=== PATIENT | male | born 1965 | race Caucasian/White ===

== ENCOUNTER → 2024-01-09 | Outpatient (CLI) | payer MEDICARE, SELFPAY ==
[2024-01-09 17:42] LABS: Absolute Lymphocyte Count 1.66 X10^3/uL (0.83-4.51); Absolute Neutrophil Count 3.6 X10^3/uL (2.0-7.7); Basophil# 0.08 X10^3/uL; Basophil% 1.3 % (0-1); Eosinophil# 0.26 X10^3/uL; Eosinophils% 4.2 % (0-5); Hematocrit 41.1 % (40-54); Hemoglobin 13.9 g/dL (13.0-16.5); Lymphocyte # 1.66 X10^3/ul (0.83-4.51); Lymphocyte % 26.7 % (19-41); Mean Corp Hgb Conc 33.8 g/dL (32-36); Mean Corpuscular Volume 79.8 fL (80-94); Mean Platelet Vol. 10.7 fl (6.2-12.0); Monocyte# 0.61 X10^3/uL; Monocyte% 9.8 % (0-10); NRBC Flagged by Analyzer 0 % (0-5); Neutrophil # 3.58 X10^3/uL (2.7-7.7); Neutrophil % 57.5 % (47-70); Platelet Count 297 K/mm3 (150-450); RBC Distribution Width CV 12.8 % (11.6-14.6); RBC Distribution Width SD 36.4 fl (35.1-43.9); Red Blood Count 5.15 M/mm3 (4.6-6.2); White Blood Count 6.2 K/mm3 (4.4-11.0)
[2024-01-09 19:10] LABS: AST(SGOT) 21 U/L (15-37); Alanine Aminotransfer ALT/SGPT 17 U/L (16-61); Albumin, Serum 3.5 g/dL (3.2-5.0); Alkaline Phosphatase 195 U/L (45-117); Anion Gap 8 (5-15); BUN 14 mg/dL (7-18); BUN/Creat Ratio 12.8 RATIO (10-20); Calcium,Total 8.6 mg/dL (8.5-10.1); Chloride 96 mmol/L (98-107); Cholesterol 148 mg/dL (200); Creatinine, Serum 1.09 mg/dL (0.70-1.30); EST Glomerular Filtration Rate 73 mL/min (>60); Est Glom Filt Rate - Afr Amer 89 mL/min (>60); Globulin 3.6 g/dL (2.2-4.2); Glucose 456 mg/dL (74-106); High Density Lipoprotein 29 mg/dL; PSA,Total - Annual Screen 0.77 ng/mL (0.00-4.00); Potassium 4.1 mmol/L (3.5-5.1); Protein, Total 7.1 g/dL (6.4-8.2); Sodium Level 130 mmol/L (136-145); Triglycerides 429 mg/dL
[2024-01-09 19:48] LABS: Hemoglobin A1c 13.9 % (3.8-5.6)
== END | disposition home or self-care (01) ==
LOC: BFHLAB 14:02
PROVIDERS: PCP Nurse Practitioner Family; Referring Provider Nurse Practitioner Family; Visit Provider Nurse Practitioner Family
DX: I10 Essential (primary) hypertension (principal); E78.5 Hyperlipidemia, unspecified; Z12.5 Encounter for screening for malignant neoplasm of prostate; R73.01 Impaired fasting glucose
CPT/HCPCS: 36415; 80053; 80061; 83036; 84153; 85025; G0103

== ENCOUNTER → 2025-02-28 | Outpatient (CLI) | payer MEDICARE, SELFPAY ==
--- NOTE | 2025-02-28 12:27 | CT_ITS ---
PROCEDURE: SINUS/FACIAL BONE REASON FOR EXAM: CHRONIC SINUITIS TECHNIQUE: SINUS/FACIAL BONE Coronal and Sagittal reconstruction series were provided. One or more dose reduction techniques were used (e.g., Automated exposure control, adjustment of the mA and/or kV according to patient size, use of iterative reconstruction technique). COMPARISON: None. FINDINGS: Frontal: Clear Ethmoid: Mild mucosal thickening Sphenoid: Clear Maxillary: Clear Turbinates: Unremarkable. Nasal Septum: Predominantly midline Mastoids/Middle Ears: No significant mastoid effusions CT/Sinus/Facial Bone IMPRESSION: Sinusitis as detailed above Reading [facility]
--- OUTSIDE RECORDS SUMMARY | 2025-02-28 19:17 | XMS RPT_ITS | CCD ---
Author Organization [facility] Care Team Providers Care Counseling Department Chair Name Role Phone TANIA CAM C Unavailable Unavailable TUTU TANIA C Unavailable Unavailable ADDINELSON Aquino Unavailable Unavailable XU MCDUFFIE Unavailable Unavailable KENIA CHILD Unavailable Unavailable TUTU, TANIA C Unavailable Unavailable CHAYO EZIO Unavailable Unavailable DANA BELLE Unavailable UnavailGIRISH López Unavailable Unavailable TOPALIDIS, HATTIE Unavailable Unavailable JOCELYNE VENCES Unavailable Unavailable TUTU, TANIA C Unavailable Unavailable KB CASTELLANOS Unavailable Unavailable KB CASTELLANOS Unavailable Unavailable BK CASTELLANOS Unavailable Unavailable ALBER JOHNSON Unavailable Unavailable DANA BELLE Unavailable UnavailADONIS Moyer Unavailable Unavailable KELSEY RONDONA Unavailable Unavailable RUTH ANN STEVENSON Unavailable Unavailable TOPALIDIS, HATTIE Unavailable Unavailable RICHELLE REYNOLDS Unavailable Unavailable TOPALIDIS, HATTIE Unavailable Unavailable KEILY, HATTIE Unavailable Unavailable DANA MEJIA Attending Unavailable DANA MEJIA Primary Care Unavailable DANA MEJIA Admitting Unavailable FARHAD MUÑIZ Consulting Unavailable PROVIDER, UNKNOWN Consulting Unavailable TRU GONZALEZ CNP Attending Unavailable TRU GONZALEZ CNP Primary Care Unavailable TRU GONZALEZ CNP Admitting Unavailable FARHAD MUÑIZ Consulting Unavailable PROVIDER, UNKNOWN Consulting Unavailable TRU GONZALEZ CNP Attending Unavailable TRU GONZALEZ CNP Primary Care Unavailable TRU GONZALEZ CNP Admitting Unavailable FARHAD MUÑIZ Consulting Unavailable PROVIDER, UNKNOWN Consulting Unavailable Mandi Reynolds) Primary Care Provider [phone] Brett Null Referring Unavailable Brett Null Attending Unavailable Brett Null Primary Care Unavailable Allergies Allergy Classification Reported Allergen(s) Allergy Type Date of Onset Reaction(s) Facility (1 source) Aspirin Drug Allergy [facility] (1 source) Ibuprofen Drug Allergy [facility] (1 source) Penicillins Drug allergy (disorder) [facility] (2 sources) Aspirin Drug Allergy 6 Rash, Hives [facility] (2 sources) cultivated mushroom extract Drug Allergy 6 Anaphylaxis [facility] (2 sources) Oxytetracycline Drug Allergy 6 Anaphylaxis [facility] (1 source) Penicillin Drug Allergy 6 Anaphylaxis [facility] (2 sources) Oxytetracycline; Translations: [oxytetracycline HCl] Drug Allergy 6 Anaphylaxis [facility] (1 source) Penicillins Allergy to substance 6 Anaphylaxis [facility] (1 source) Aspirin Drug Allergy 6 [facility] (1 source) Mushroom (edible) Drug allergy (disorder) 6 [facility] (1 source) Oxytetracycline Drug Allergy 6 [facility] (1 source) Penicillins Drug allergy (disorder) 6 [facility] Medications Completed/Discontinued Medications Medication Drug Class(es) Dates Sig (Normalized) Sig (Original) atorvastatin 80 mg oral tablet (1 source) HMG-CoA Reductase Inhibitor Start: 07-28-2016 take 1 tablet by mouth once daily at bedtime for hyperlipidemia atorvastatin (LIPITOR) 80 mg tablet Take 1 tablet by mouth daily at bedtime. For cholesterol. 90 tablet 1 07/28/2016 Active Comment on above: Take 1 tablet by geovanna th daily at bedtime. For cholesterol. Blood-Glucose Meter (FREESTYLE LITE METER) monitoring kit (1 source) Start: 07-28-2016 Blood-Glucose Meter (FREESTYLE LITE METER) monitoring kit Indications: Type 2 diabetes mellitus without complication, without long-term current use of insulin (HCC) Freestyle LITE Meter Kit - Dx: Type 2 DM - Controlled E11.9 1 Each 0 07/28/2016 Active Comment on above: Freestyle LITE Meter Kit - Dx: Type 2 DM - Controlled E11.9 lamoTRIgine 150 mg oral tablet (2 sources) Mood Stabilizer, Anti-epileptic Agent Start: 03-23-2016 take 1 tablet by mouth twice daily lamoTRIgine (LAMICTAL) 150 mg tablet Indications: Bipolar affective disorder, current episode mixed, current episode severity unspecified (HCC) , PTSD (post-traumatic stress disorder) Take 1 tablet by mouth twice daily. Please complete lab and keep appointment as scheduled for further refills 180 tablet 1 07/28/2016 Active Comment on above: Take 1 tablet by geovanna th twice daily. Please complete lab and keep appointment as scheduled for further refills lisinopril 5 mg oral tablet (1 source) Angiotensin Converting Enzyme Inhibitor Start: 07-28-2016 take 1 tablet by mouth once daily lisinopril (PRINIVIL) 5 mg tablet Indications: Type 2 diabetes mellitus without complication, without long-term current use of insulin ([facility]) Take 1 tablet by mouth once daily. 90 tablet 1 07/28/2016 Active Comment on above: Take 1 tablet by geovanna th once daily. metFORMIN hydrochloride 500 mg oral tablet (1 source) Biguanide Start: 07-28-2016 take 1 tablet by mouth twice daily at mealtime metFORMIN (GLUCOPHAGE) 500 mg tablet Indications: Type 2 diabetes mellitus without complication, without long-term current use of insulin ([facility]) Take 1 tablet by mouth twice daily with meals. . 60 tablet 2 07/28/2016 Active Comment on above: Take 1 tablet by geovanna th twice daily with meals. . metoprolol tartrate 50 mg oral tablet (2 sources) beta-Adrenergic Nicho Start: 03-23-2016 take 1 tablet by mouth twice daily metoprolol tartrate, short acting, (LOPRESSOR) 50 mg tablet Indications: Essential hypertension Take 1 tablet by mouth twice daily. Complete labs and keep next appointment for further refills 180 tablet 1 07/28/2016 Active Comment on above: Take 1 tablet by geovanna th twice daily. Complete labs and keep next appointment for further refills rOPINIRole 0.25 mg oral tablet (2 sources) Nonergot Dopamine Agonist Start: 03-23-2016 take 1 tablet by mouth once daily at bedtime rOPINIRole (REQUIP) 0.25 mg tablet Indications: Restless leg syndrome Take 1 tablet by mouth daily at bedtime. Complete labs and keep appointment for further refills 90 tablet 1 07/28/2016 Active Comment on above: Take 1 tablet by geovanna th daily at bedtime. Complete labs and keep appointment for further refills Problems Active Problems Problem Classification Problem Date Documented Date Episodic/Chronic Anxiety disorders (1 source) Posttraumatic stress disorder; Translations: [Post-traumatic stress disorder, unspecified] Onset: 06-14-2016 06-14-2016 Chronic Diabetes mellitus without complication (1 source) Type 2 diabetes mellitus without complication; Translations: [Type 2 diabetes mellitus without complications] Onset: 10-08-2016 10-08-2016 Chronic Diabetes mellitus without complication (1 source) Other abnormal glucose; Translations: [Other abnormal glucose] Onset: 12-10-2020 Episodic Essential hypertension (3 sources) Essential (primary) hypertension; Translations: [Essential hypertension] Onset: 06-14-2016 06-14-2016 Chronic Mood disorders (1 source) Bipolar affective disorder, current episode mixed; Translations: [Bipolar disorder, current episode mixed, unspecified] Onset: 06-14-2016 06-14-2016 Chronic Other hereditary and degenerative nervous system conditions (1 source) Restless legs; Translations: [Restless legs syndrome] Onset: 06-14-2016 06-14-2016 Chronic Other nutritional; endocrine; and metabolic disorders (1 source) Body mass index 40+ - severely obese; Translations: [Morbid (severe) obesity due to excess calories] Onset: 12-20-2017 12-20-2017 Chronic Other screening for suspected conditions (not mental disorders or infectious disease) (1 source) Encounter for screening for lipoid disorders; Translations: [Encounter for screening for lipoid disorders] Onset: 12-10-2020 Episodic Spondylosis; intervertebral disc disorders; other back problems (1 source) Degeneration of lumbar intervertebral disc; Translations: [Other intervertebral disc degeneration, lumbar region] Onset: 06-14-2016 06-14-2016 Chronic Past or Other Problems Problem Classification Problem Date Documented Da te Episodic/Chronic Administrative/social admission (1 source) Persons encountering health services in other specified circumstances; Translations: [Persons encountering health services in other specified circumstances] Onset: 02-14-2020 Episodic Results Test Name Value Interpretation Reference Range Facility Absolute lymphocyte countOrd ered By: Brett Null on 01-09-2024 Lymphocytes Auto (Unsp spec) [#/Vol] 1.66 10*3/uL 0.83-4.51 [facility] Automated lymphocyte count a s percentage of total leukocytesOrdered By: Brett Null on 01-09-2024 Lymphocytes/100 WBC Auto (Unsp spec) 26.7 % 19-41 [facility] Basophil percentageOrdered B y: Brett Null on 01-09-2024 Basophils/100 WBC (Bld) 1.3 % 0-1 [facility] Bilirubin [Mass/Vol] 0.60 mg/dL 0.20-1.00 [facility] Comment on above: For patients on eltr ombopag therapy, use of Dimension [place] TBIL is not recommended. Chloride [Moles/Vol] 96 mmol/L 98-107 [facility] Cholesterol [Mass/Vol] 148 mg/dL <200 [facility] Comment on above: <200 mg/dL Desirable 200-240 mg/dL Borderline >240 mg/dL High Risk Eosinophils/100 WBC (Bld) 4.2 % 0-5 [facility] Glucose [Mass/Vol] 456 mg/dL 74-106 [facility] Comment on above: Critical Result(s) C alled at: 19:09:01 01/09/2024 by: Ramona kim TO BRETT ALEJANDRAGAR. Results read back by same.Glucose result greater than or equal to 200 mg/dLsuggests DIABETES MELLITUS per A.D.A. criteria. Hemoglobin (Bld) [Mass/Vol] 13.9 g/dL 13.0-16.5 [facility] Monocytes/100 WBC (Bld) 9.8 % 0-10 [facility] Neutrophils (Bld) [#/Vol] 3.6 10*3/uL 2.0-7.7 [facility] Neutrophils/100 WBC (Bld) 57.5 % 47-70 [facility] Potassium [Moles/Vol] 4.1 mmol/L 3.5-5.1 [facility] Protein [Mass/Vol] 7.1 g/dL 6.4-8.2 [facility] Sodium [Moles/Vol] 130 mmol/L 136-145 [facility] Triglyceride [Mass/Vol] 429 mg/dL <199 [facility] Comment on above: The drugs N-Acetylcy steine and Metamizole may falsely depress this assay. TRIGLYCERIDE IS GREATER THAN 400 mg/dL. LDL RESULT IS INVALID AND WILL NOT BE REPORTED.Serum Triglycerides Reference Interval Normal <150 mg/dL Borderline high 150 - 199 mg/dL High 200 - 499 mg/dL Very High > or = 500 mg/dL WBC (Bld) [#/Vol] 6.2 10*3/uL 4.4-11.0 [facility] CBC W/Diff, Automatedon 12-18 Absolute Lymph 1.66 X10 3/uL Normal 0.83-4.51 [facility] Comment on above: Performed By: #### L 100.0100, L500.4100, L501.9910, L500.4050, L501.9985 #### [facility] [address] [place], [address] Absolute Neut 3.6 X10 3/uL Normal 2.0-7.7 [facility] Comment on above: Performed By: #### L 100.0100, L500.4100, L501.9910, L500.4050, [id number] #### [facility] [address] [place], [address] Basophils/100 WBC (Bld) 1.3 % High 0-1 [facility] Comment on above: Performed By: #### L 100.0100, L500.4100, L501.9910, L500.4050, [id number] #### [facility] [address] [place], [address] Eosinophils/100 WBC (Bld) 4.2 % Normal 0-5 [facility] Comment on above: Performed By: #### L 100.0100, L500.4100, L501.9910, L500.4050, [id number] #### [facility] [address] [place], [address] Erythrocyte distribution width (RBC) [Ratio] 12.8 % Normal 11.6-14.6 [facility] Comment on above: Performed By: #### L 100.0100, L500.4100, L501.9910, L500.4050, [id number] #### [facility] [address] [place], [address] Hematocrit (Bld) [Volume fraction] 41.1 % Normal 40-54 [facility] Comment on above: Performed By: #### L 100.0100, L500.4100, L501.9910, L500.4050, [id number] #### [facility] [address] [place], [address] Hemoglobin (Bld) [Mass/Vol] 13.9 g/dL Normal 13.0-16.5 [facility] Comment on above: Performed By: #### L 100.0100, L500.4100, L501.9910, L500.4050, L501.9985 #### [facility] [address] [place], [address] IG% 0.500 Normal 0.0-0.9 [facility] Comment on above: Result Comment: IG% - Immature Granulocytes (promyelocytes, myelocytes and metamyelocytes) > 1% indicates that a LEFT SHIFT is Present. Performed By: #### L 100.0100, L500.4100, L501.9910, L500.4050, L501.9985 #### [facility] [address] [place], [address] Lymphocytes/100 WBC (Bld) 26.7 % Normal 19-41 [facility] Comment on above: Performed By: #### L 100.0100, L500.4100, L501.9910, L500.4050, [id number] #### [facility] [address] [place], [address] MCH (RBC) [Entitic mass] 27.0 pg Normal 27.0-32.0 [facility] Comment on above: Performed By: #### L 100.0100, L500.4100, L501.9910, L500.4050, [id number] #### [facility] [address] [place], [address] MCHC (RBC) [Mass/Vol] 33.8 g/dL Normal 32-36 [facility] Comment on above: Performed By: #### L 100.0100, L500.4100, L501.9910, L500.4050, [id number] #### [facility] [address] [place], [address] MCV (RBC) [Entitic vol] 79.8 fL Low 80-94 [facility] Comment on above: Performed By: #### L 100.0100, L500.4100, L501.9910, L500.4050, [id number] #### [facility] [address] [place], [address] Monocytes/100 WBC (Bld) 9.8 % Normal 0-10 [facility] Comment on above: Performed By: #### L 100.0100, L500.4100, L501.9910, L500.4050, [id number] #### [facility] [address] [place], [address] Neutrophils/100 WBC (Bld) 57.5 % Normal 47-70 [facility] Comment on above: Performed By: #### L 100.0100, L500.4100, L501.9910, L500.4050, L501.9985 #### [facility] [address] [place], [address] Nucleated RBC (Bld) [#/Vol] 0 10*3/uL Normal 0-5 [facility] Comment on above: Performed By: #### L 100.0100, L500.4100, L501.9910, L500.4050, L501.9985 #### [facility] [address] [place], [address] Platelet mean volume (Bld) [Entitic vol] 10.7 fL Normal 6.2-12.0 [facility] Comment on above: Performed By: #### L 100.0100, L500.4100, L501.9910, L500.4050, L501.9985 #### [facility] [address] [place], [address] Platelets (Bld) [#/Vol] 297 10*3/uL Normal 150-450 [facility] Comment on above: Performed By: #### L 100.0100, L500.4100, L501.9910, L500.4050, L501.9985 #### [facility] [address] [place], [address] RBC (Bld) [#/Vol] 5.15 10*6/uL Normal 4.6-6.2 [facility] Comment on above: Performed By: #### L 100.0100, L500.4100, L501.9910, L500.4050, L501.9985 #### [facility] [address] [place], [address] RDW SD 36.4 fl Normal 35.1-43.9 [facility] Comment on above: Performed By: #### L 100.0100, L500.4100, L501.9910, L500.4050, L501.9985 #### [facility] [address] [place], [address] WBC (Bld) [#/Vol] 6.2 10*3/uL Normal 4.4-11.0 [facility] Comment on above: Performed By: #### L 100.0100, L500.4100, L501.9910, L500.4050, L501.9985 #### [facility] [address] [place], [address] Comprehensive Metabolic Prof ilon 01-09-2024 Albumin [Mass/Vol] 3.5 g/dL Normal 3.2-5.0 [facility] Comment on above: Performed By: #### L 100.0100, L500.4100, L501.9910, L500.4050, L501.9985 #### [facility] [address] [place], [address] Albumin/Globulin [Mass ratio] 1.0 {ratio} Normal 0.9-2.4 [facility] Comment on above: Performed By: #### L 100.0100, L500.4100, L501.9910, L500.4050, L501.9985 #### [facility] [address] [place], [address] ALK P 195 U/L High 45-117 [facility] Comment on above: Performed By: #### L 100.0100, L500.4100, L501.9910, L500.4050, L501.9985 #### [facility] [address] [place], [address] ALT [Catalytic activity/Vol] 17 U/L Normal 16-61 [facility] Comment on above: Performed By: #### L 100.0100, L500.4100, L501.9910, L500.4050, L501.9985 #### [facility] [address] [place], [address] AST [Catalytic activity/Vol] 21 U/L Normal 15-37 [facility] Comment on above: Performed By: #### L 100.0100, L500.4100, L501.9910, L500.4050, L501.9985 #### [facility] [address] [place], [address] Bilirubin [Mass/Vol] 0.60 mg/dL Normal 0.20-1.00 [facility] Comment on above: Result Comment: For patients on eltrombopag therapy, use of Dimension [place] TBIL is not recommended. Performed By: #### L 100.0100, L500.4100, L501.9910, L500.4050, L501.9985 #### [facility] [address] [place], [address] BUN/CRE 12.8 RATIO Normal 10-20 [facility] Comment on above: Performed By: #### L 100.0100, L500.4100, L501.9910, L500.4050, L501.9985 #### [facility] [address] [place], [address] CA,Total 8.6 mg/dL Normal 8.5-10.1 [facility] Comment on above: Performed By: #### L 100.0100, L500.4100, L501.9910, L500.4050, L501.9985 #### [facility] [address] [place], [address] Chloride [Moles/Vol] 96 mmol/L Low 98-107 [facility] Comment on above: Performed By: #### L 100.0100, L500.4100, L501.9910, L500.4050, L501.9985 #### [facility] [address] [place], [address] CO2 [Moles/Vol] 26.0 mmol/L Normal 21.0-32.0 [facility] Comment on above: Performed By: #### L 100.0100, L500.4100, L501.9910, L500.4050, L501.9985 #### [facility] [address] [place], [address] Creatinine [Mass/Vol] 1.09 mg/dL Normal 0.70-1.30 [facility] Comment on above: Result Comment: The validity of the calculated GFR GFRAA in patients over 70 years has not been determined. Clinical correlation is essential. Performed By: #### L 100.0100, L500.4100, L501.9910, L500.4050, L501.9985 #### [facility] [address] [place], [address] EST GFR - AA 89 mL/min Normal >60 [facility] Comment on above: Result Comment: Afri can Bulgarian GFR Calc Performed By: #### L 100.0100, L500.4100, L501.9910, L500.4050, L501.9985 #### [facility] [address] [place], [address] GAP 8 Normal 5-15 [facility] Comment on above: Performed By: #### L 100.0100, L500.4100, L501.9910, L500.4050, L501.9985 #### [facility] [address] [place], [address] GFR/1.73 sq M.predicted among non-blacks MDRD (S/P/Bld) [Vol rate/Area] 73 mL/min/{1.73_m2} Normal >60 [facility] Comment on above: Result Comment: Non- GFR Calc Performed By: #### L 100.0100, L500.4100, L501.9910, L500.4050, L501.9985 #### [facility] [address] [place], [address] Globulin (S) [Mass/Vol] 3.6 g/dL Normal 2.2-4.2 [facility] Comment on above: Performed By: #### L 100.0100, L500.4100, L501.9910, L500.4050, L501.9985 #### [facility] [address] [place], [address] Glucose [Mass/Vol] 456 mg/dL Invalid Interpretation Code [id number] [facility] Comment on above: Result Comment: Crit ical Result(s) Called at: 19:09:01 01/09/2024 by: Ramona kim TO BRETT NULL. Results read back by same. Glucose result greater than or equal to 200 mg/dL suggests DIABETES MELLITUS per A.D.A. criteria. Performed By: #### L 100.0100, L500.4100, L501.9910, L500.4050, L501.9985 #### [facility] [address] [place], [address] Potassium [Moles/Vol] 4.1 mmol/L Normal 3.5-5.1 [facility] Comment on above: Performed By: #### L 100.0100, L500.4100, L501.9910, L500.4050, L501.9985 #### [facility] [address] [place], [address] Sodium [Moles/Vol] 130 mmol/L Low 136-145 [facility] Comment on above: Performed By: #### L 100.0100, L500.4100, L501.9910, L500.4050, L501.9985 #### [facility] [address] [place], [address] T PROT 7.1 g/dL Normal 6.4-8.2 [facility] Comment on above: Performed By: #### L 100.0100, L500.4100, L501.9910, L500.4050, L501.9985 #### [facility] [address] [place], [address] Urea nitrogen [Mass/Vol] 14 mg/dL Normal 7-18 [facility] Comment on above: Performed By: #### L 100.0100, L500.4100, L501.9910, L500.4050, L501.9985 #### [facility] [address] [place], [address] Determination of erythrocyte mean corpuscular volume (MCV)Ordered By: Brett Null on 01-09-2024 MCV (RBC) [Entitic vol] 79.8 fL 80-94 [facility] Erythrocyte distribution wid th ratioOrdered By: [facility] on 01-09-2024 Erythrocyte distribution width (RBC) [Ratio] 12.8 % 11.6-14.6 [facility] Erythrocyte distribution wid th standard deviationOrdered By: [facility] on 01-09-2024 Erythrocyte distribution width (RBC) [Entitic vol] 36.4 fL 35.1-43.9 [facility] Hematocrit Auto (Bld) [Volum e fraction]Ordered By: [place] Hcaka on 01-09-2024 Hematocrit (Bld) [Volume fraction] 41.1 % 40-54 [facility] Hemoglobin A1con 01-09-2024 HbA1c (Bld) [Mass fraction] 13.9 % High 3.8-5.6 [facility] Comment on above: Result Comment: Norm al < 5.7 % Prediabetic 5.7 - 6.4 % Diabetic >or= 6.5 % Please note range changes. Performed By: #### L 100.0100, L500.4100, L501.9910, L500.4050, L501.9985 #### [facility] [address] [facility] [place], [address] Immature granulocytes/100 WB C Auto (Bld)Ordered By: Brett Chaka on 01-09-2024 Immature granulocytes/100 WBC (Bld) 0.500 % 0.0-0.9 [facility] Comment on above: IG% - Immature Granu locytes (promyelocytes, myelocytes and metamyelocytes) > 1% indicates that a LEFT SHIFT is Present. Laboratory - Chemistry and C hemistry - challengeOrdered By: [place] Chaka on 01-09-2024 Albumin/Globulin [Mass ratio] 1.0 {ratio} 0.9-2.4 [facility] ALP [Catalytic activity/Vol] 195 U/L 45-117 [facility] ALT [Catalytic activity/Vol] 17 U/L 16-61 [facility] Cholesterol in HDL [Mass/Vol] 29 mg/dL >40 [facility] Comment on above: The drugs N-Acetylcy steine and Metamizole may falsely depress this assay. Reference Range HDL <40 mg/dL Low HDL Cholesterol HDL >or= 60 mg/dL High HDL Cholesterol CO2 [Moles/Vol] 26.0 mmol/L 21.0-32.0 [facility] Globulin (S) [Mass/Vol] 3.6 g/dL 2.2-4.2 [facility] Urea nitrogen/Creatinine [Mass ratio] 12.8 mg/mg 10-20 [facility] - Hematology and Cell countsOrdered By: Brett Null on 01-09-2024 MCH (RBC) [Entitic mass] 27.0 pg 27.0-32.0 [facility] MCHC (RBC) [Mass/Vol] 33.8 g/dL 32-36 [facility] Nucleated RBC/100 WBC (Bld) [Ratio] 0 % 0-5 [facility] Platelet mean volume (Bld) [Entitic vol] 10.7 fL 6.2-12.0 [facility] Platelets (Bld) [#/Vol] 297 10*3/uL 150-450 [facility] Lipid Profileon 01-09-2024 Cholesterol [Mass/Vol] 148 mg/dL Normal 200 [facility] Comment on above: Result Comment: <200 mg/dL Desirable 200-240 mg/dL Borderline >240 mg/dL High Risk Performed By: #### L 100.0100, L500.4100, L501.9910, L500.4050, L501.9985 #### [facility] [address] [place], [address] Cholesterol in HDL [Mass/Vol] 29 mg/dL Low [facility] Comment on above: Result Comment: The drugs N-Acetylcysteine and Metamizole may falsely depress this assay. Reference Range HDL <40 mg/dL Low HDL Cholesterol HDL >or= 60 mg/dL High HDL Cholesterol Performed By: #### L 100.0100, L500.4100, L501.9910, L500.4050, L501.9985 #### [facility] [address] [place], [address] LDL TNP Normal 0-130 [facility] Comment on above: Performed By: #### L 100.0100, L500.4100, L501.9910, L500.4050, L501.9985 #### [facility] [address] [place], [place], [id number] Triglyceride [Mass/Vol] 429 mg/dL High [facility] Comment on above: Result Comment: The drugs N-Acetylcysteine and Metamizole may falsely depress this assay. TRIGLYCERIDE IS GREATER THAN 400 mg/dL. LDL RESULT IS INVALID AND WILL NOT BE REPORTED. Serum Triglycerides Reference Interval Normal <150 mg/dL Borderline high 150 - 199 mg/dL High 200 - 499 mg/dL Very High > or = 500 mg/dL Performed By: #### L 100.0100, L500.4100, L501.9910, L500.4050, L501.9985 #### [facility] [address] [place], [address] VLDL TNP Normal 5-40 [facility] Comment on above: Performed By: #### L 100.0100, L500.4100, L501.9910, L500.4050, L501.9985 #### [facility] [address] [place], [place], [id number] No Panel InformationOrdered By: Brett Null on 01-09-2024 Estimated GFR (MDRD) Amer 89 mL/min >60 [facility] Comment on above: GFR Calc Estimated GFR (MDRD) Non-Af Amer 73 mL/min >60 [facility] Comment on above: Non- GFR Calc LDL Cholesterol TNP [facility] Comment on above: Test not performed Prostate Specific Antigen Screen 0.77 ng/mL 0.00-4.00 [facility] Comment on above: This test was perfor med using the TPSA assay method for the[employer] chemistry system. Values obtained with differentassay methods cannot be used interchangably.When changing PSA assays in the course of monitoring apatient, additional sequential testing should be carriedout to confirm baseline values. VLDL Cholesterol TNP [facility] Comment on above: Test not performed PSA,Total - Annual Screenon 01-09-2024 PSA,TOT SCREEN 0.77 ng/mL Normal 0.00-4.00 [facility] Comment on above: Result Comment: This test was performed using the TPSA assay method for the [employer] chemistry system. Values obtained with different assay methods cannot be used interchangably. When changing PSA assays in the course of monitoring a patient, additional sequential testing should be carried out to confirm baseline values. Performed By: #### L 100.0100, L500.4100, L501.9910, L500.4050, L501.9985 #### [facility] [address] [place], [address] RBC Auto (Bld) [#/Vol]Ordere d By: Brett Null on 01-09-2024 RBC (Bld) [#/Vol] 5.15 10*6/uL 4.6-6.2 [facility] Serum or plasma calcium igor urement (mass/volume)Ordered By: Brett Null on 01-09-2024 Calcium [Mass/Vol] 8.6 mg/dL 8.5-10.1 [facility] Serum or plasma creatinine m easurement (mass/volume)Ordered By: Brett Null on 01-09-2024 Creatinine [Mass/Vol] 1.09 mg/dL 0.70-1.30 [facility] Comment on above: The validity of the calculated GFR & GFRAA in patients over 70 years has not been determined. Clinical correlation is essential. Serum or plasma urea nitroge n measurement (mass/volume)Ordered By: Brett Null on 01-09-2024 Urea nitrogen [Mass/Vol] 14 mg/dL 7-18 [facility] Thin prep Papanicolaou smear with manual screeningOrdered By: Brett Null on 01-09-2024 Thin prep Papanicolaou smear with manual screening 3.5 g/dL 3.2-5.0 [facility] Thin prep Papanicolaou smear with manual screening 21 U/L 15-37 [facility] Thin prep Papanicolaou smear with manual screening 8 5-15 [facility] Whole blood hemoglobin A1c/t otal hemoglobin ratio (mass fraction)Ordered By: Brett Null on 01-09-2024 HbA1c (Bld) [Mass fraction] 13.9 % 3.8-5.6 [facility] Comment on above: Normal < 5.7 % Predi abetic 5.7 - 6.4 % Diabetic >or= 6.5 % Please note range changes. XR CHEST 2 VIEWSon 8 XR CHEST 2 VIEWS ORIGINALXR CHEST 2 V IEWS CLINICAL STATEMENT: pleural effusion COMPARISON: 04/25/2018 FINDINGS:The cardiac contours are stable with postoperative changes to the sternum and mediastinum. There is no pulmonary vascular congestion or consolidation. No pleural effusion or pneumothorax is identified. The bony thorax is stable IMPRESSION:No acute process or interval change Interpreted By: Cristel Barakat MDPreliminary Report By: Cristel Barakat MDElectronically Signed By: Cristel Barakat MD Dictated Date: 05/16/2018 1:02:11 PM Prelim Date: 05/16/2018 1:02:11 PM Sign Date: 05/16/2018 1:02:33 PM Normal [facility] ([place] XR CHEST 2 VIEWSon 8 XR CHEST 2 VIEWS ORIGINALXR CHEST 2 V IEWS, 04/25/2018 11:46 AM INDICATION: pleural effusion COMPARISON: March 2018 FINDINGS: Sternotomy wires and mediastinal surgical clips are unchanged. There is mild hyperinflation. The lungs and pleural spaces are otherwise clear. The cardiac silhouette is within normal size limits. The pulmonary vasculature is unremarkable in appearance. IMPRESSION: Mild emphysematous changes, otherwise clear lungs. Interpreted By: Destin Guidry MDPreliminary Report By: Destin Guidry MDElectronically Signed By: Destin Guidry MD Dictated Date: 04/26/2018 5:33:22 AM Prelim Date: 04/26/2018 5:33:22 AM Sign Date: 04/26/2018 5:34:27 AM Normal [facility] ([place] History and Physicalon 04-21 History and Physical Normal [facility] ([place]) Discharge Summaryon 04-13-20 18 Discharge Summary Normal [facility] ([place]) .Auto Diffon 04-12-2018 Ammonia mass conc (P) 0.60 10 3/mcL Normal 0.09-1.40 [facility] ([place] Comment on above: Performed By: #### C BC, ADIFF, ANEU, CMP, PBNP, GFR, A1C ####[address] [address] Basophils Auto #/vol (Bld) 0.10 10 3/mcL Normal 0.00-0.27 [facility] ([place] Comment on above: Performed By: #### C BC, ADIFF, ANEU, CMP, PBNP, GFR, A1C ####[address] [address] Basophils/100 WBC Auto (Bld) 1.3 % Normal 0.0-2.5 [facility] ([place] Comment on above: Performed By: #### C BC, ADIFF, ANEU, CMP, PBNP, GFR, A1C ####[address] [address] Eosinophils Auto #/vol (Bld) 0.40 10 3/mcL Normal 0.00-0.65 [facility] ([place] Comment on above: Performed By: #### C BC, ADIFF, ANEU, CMP, PBNP, GFR, A1C ####[address] [address] Eosinophils/100 WBC Auto (Bld) 5.1 % Normal 0.0-6.0 [facility] ([place] Comment on above: Performed By: #### C BC, ADIFF, ANEU, CMP, PBNP, GFR, A1C ####[address] [address] Lymphocytes Auto #/vol (Bld) 2.50 10 3/mcL Normal 0.90-4.32 [facility] ([place] Comment on above: Performed By: #### C BC, ADIFF, ANEU, CMP, PBNP, GFR, A1C ####[address] [address] Lymphocytes/100 WBC Auto (Bld) 31.4 % Normal 20.0-40.0 [facility] ([place] Comment on above: Performed By: #### C BC, ADIFF, ANEU, CMP, PBNP, GFR, A1C ####[address] [address] Monocytes/100 WBC Auto (Bld) 8.0 % Normal 2.0-13.0 [facility] ([place] Comment on above: Performed By: #### C BC, ADIFF, ANEU, CMP, PBNP, GFR, A1C ####[facility] [place] [address] Neutrophils/100 WBC Auto (Bld) 54.2 % Normal 50.0-75.0 [facility] ([place] Comment on above: Performed By: #### C BC, ADIFF, ANEU, CMP, PBNP, GFR, A1C ####[address] [address] .GFRon 04-12-2018 GFR Non- >60 Normal [facility] ([place] Comment on above: Result Comment: GFR Population mean for , Non- Americans Ages 20-29 = 116 mL/min/1.73 sq.m. Ages 30-39 = 107 mL/min/1.73 sq.m. Ages 40-49 = 99 mL/min/1.73 sq.m. Ages 50-59 = 93 mL/min/1.73 sq.m. Ages 60-69 = 85 mL/min/1.73 sq.m. Ages 70+ = 75 mL/min/1.73 sq.m.Chronic Kidney Disease: Less than 60 mL/min/1.73 square metersEnd Stage Renal Disease: Less than 15 mL/min/1.73 square meters Performed By: #### C BC, ADIFF, ANEU, CMP, PBNP, GFR, A1C ####[place] [address] [place] [address] GFR >60 Normal [facility] ([place] Comment on above: Result Comment: GFR Population mean for , Non- Americans Ages 20-29 = 116 mL/min/1.73 sq.m. Ages 30-39 = 107 mL/min/1.73 sq.m. Ages 40-49 = 99 mL/min/1.73 sq.m. Ages 50-59 = 93 mL/min/1.73 sq.m. Ages 60-69 = 85 mL/min/1.73 sq.m. Ages 70+ = 75 mL/min/1.73 sq.m.Chronic Kidney Disease: Less than 60 mL/min/1.73 square metersEnd Stage Renal Disease: Less than 15 mL/min/1.73 square meters Performed By: #### C BC, ADIFF, ANEU, CMP, PBNP, GFR, A1C ####[place] [address] .NEUABSon 04-12-2018 Neutrophil, Absolute 4.20 10 3/mcL Normal 2.25-8.10 [facility] ([place]) Comment on above: Performed By: #### C BC, ADIFF, ANEU, CMP, PBNP, GFR, A1C ####[place] [address] APTTon 04-12-2018 aPTT Coag time (Bld) 48.3 s High 25.0-35.0 [facility] ([place] Comment on above: Result Comment: For Heparin anticoagulation therapy, the recommendedtherapeutic range is: 54-77 seconds (APTT Correlationwith Anti-Xa therapeutic range of 0.3-0.7 units/ml).PLEASE REFERENCE THE PHARMACY PROTOCOL FOR DOSING. Performed By: #### C BC, ADIFF, ANEU, CMP, PBNP, GFR, A1C ####[place] [address] aPTT Coag time (Bld) Heparin IV Normal [facility] ([place]) Comment on above: Performed By: #### C BC, ADIFF, ANEU, CMP, PBNP, GFR, A1C ####[place] [address] aPTT Coag time (Bld) Heparin IV Normal [facility] ([place]) Comment on above: Performed By: #### C BC, ADIFF, ANEU, CMP, PBNP, GFR, A1C ####[place] [address] aPTT Coag time (Bld) 33.3 s Normal 25.0-35.0 [facility] ([place] Comment on above: Result Comment: For Heparin anticoagulation therapy, the recommendedtherapeutic range is: 54-77 seconds (APTT Correlationwith Anti-Xa therapeutic range of 0.3-0.7 units/ml).PLEASE REFERENCE THE PHARMACY PROTOCOL FOR DOSING. Performed By: #### C BC, ADIFF, ANEU, CMP, PBNP, GFR, A1C ####[place] [id number] BMPon 04-12-2018 Creatinine mass conc 0.90 mg/dL Normal 0.60-1.40 [facility] ([place] Comment on above: Performed By: #### C BC, ADIFF, ANEU, CMP, PBNP, GFR, A1C ####[place] [address] Urea nitrogen/Creatinine mass ratio 13.3 ratio Normal 10.0-22.0 [facility] ([place] Comment on above: Performed By: #### C BC, ADIFF, ANEU, CMP, PBNP, GFR, A1C ####[place] [address] Calcium mass conc 9.0 mg/dL Normal 8.4-10.1 [facility] ([place] Comment on above: Performed By: #### C BC, ADIFF, ANEU, CMP, PBNP, GFR, A1C ####[place] [address] Chloride molar conc 102 mmol/L Normal 98-110 [facility] ([place]) Comment on above: Performed By: #### C BC, ADIFF, ANEU, CMP, PBNP, GFR, A1C ####[place] [address] CO2 molar conc 28 mmol/L Normal 22-32 [facility] ([place] Comment on above: Performed By: #### C BC, ADIFF, ANEU, CMP, PBNP, GFR, A1C ####[place] [address] Electrolyte Balance 9.0 mEq/L Normal 4.0-15.0 [facility] ([place]) Comment on above: Performed By: #### C BC, ADIFF, ANEU, CMP, PBNP, GFR, A1C ####[place] [address] Glucose mass conc 149 mg/dL High 70-110 [facility] ([place] Comment on above: Performed By: #### C BC, ADIFF, ANEU, CMP, PBNP, GFR, A1C ####[place] [address] Potassium molar conc 3.9 mmol/L Normal 3.5-5.0 [facility] ([place] Comment on above: Performed By: #### C BC, ADIFF, ANEU, CMP, PBNP, GFR, A1C ####[place] [address] Sodium molar conc 139 mmol/L Normal 136-145 [facility] ([place] Comment on above: Performed By: #### C BC, ADIFF, ANEU, CMP, PBNP, GFR, A1C ####[place] [address] Urea nitrogen mass conc 12.0 mg/dL Normal 8.0-22.0 [facility] ([place] Comment on above: Performed By: #### C BC, ADIFF, ANEU, CMP, PBNP, GFR, A1C ####[place] [address] CBCon 04-12-2018 Erythrocyte distribution width Auto Ratio (RBC) 14.4 % Normal 11.5-15.5 [facility] ([place] Comment on above: Performed By: #### C BC, ADIFF, ANEU, CMP, PBNP, GFR, A1C ####[place] [address] Hematocrit Auto Volume Fraction (Bld) 33.3 % Low 40.0-52.0 [facility] ([place] Comment on above: Performed By: #### C BC, ADIFF, ANEU, CMP, PBNP, GFR, A1C ####[place] [address] Hemoglobin mass conc (Bld) 11.8 G/dL Low 13.0-17.5 [facility] ([place] Comment on above: Performed By: #### C BC, ADIFF, ANEU, CMP, PBNP, GFR, A1C ####[place] [address] MCH Auto Entitic mass (RBC) 29.0 pg Normal 27.0-33.0 [facility] ([place] Comment on above: Performed By: #### C BC, ADIFF, ANEU, CMP, PBNP, GFR, A1C ####[place] [address] MCHC Auto mass conc (RBC) 35.4 G/dL Normal 32.0-36.0 [facility] ([place] Comment on above: Performed By: #### C BC, ADIFF, ANEU, CMP, PBNP, GFR, A1C ####[place] [address] MCV Auto Entitic volume (RBC) 81.9 fL Normal 81.0-100.0 [facility] ([place] Comment on above: Performed By: #### C BC, ADIFF, ANEU, CMP, PBNP, GFR, A1C ####[place] [address] Platelet mean volume Auto Entitic volume (Bld) 7.7 fL Normal 6.4-10.5 [facility] ([place] Comment on above: Performed By: #### C BC, ADIFF, ANEU, CMP, PBNP, GFR, A1C ####[place] [address] Platelets Auto #/vol (Bld) 399 10 3/mcL Normal 150-450 [facility] ([place] Comment on above: Performed By: #### C BC, ADIFF, ANEU, CMP, PBNP, GFR, A1C ####[place] [address] RBC Auto #/vol (Bld) 4.06 10 6/mcL Low 4.50-6.00 [facility] ([place] Comment on above: Performed By: #### C BC, ADIFF, ANEU, CMP, PBNP, GFR, A1C ####[place] [address] WBC Auto #/vol (Bld) 7.80 10 3/mcL Normal 4.50-10.80 [facility] ([place] Comment on above: Performed By: #### C BC, ADIFF, ANEU, CMP, PBNP, GFR, A1C ####[address] [address] Depart Summaryon 04-12-2018 Depart Summary Normal [facility] ([place] Inpatient Patient Summaryon 04-12-2018 Inpatient Patient Summary Normal [facility] [place] Pain Management Consultation Noteon 04-12-2018 Pain Management Consultation Note Normal [facility] ([place]) Pat Eduon 04-12-2018 Pat Edu Normal [facility] ([place] Progress Noteon 04-12-2018 Protein mass conc Normal [facility] ([place]) .Auto Diffon 04-11-2018 Ammonia mass conc (P) 0.80 10 3/mcL Normal 0.09-1.40 [facility] ([place] Comment on above: Performed By: #### C BC, ADIFF, ANEU, CMP, PBNP, GFR, A1C ####[address] [address] Basophils Auto #/vol (Bld) 0.10 10 3/mcL Normal 0.00-0.27 [facility] ([place] Comment on above: Performed By: #### C BC, ADIFF, ANEU, CMP, PBNP, GFR, A1C ####[address] [address] Basophils/100 WBC Auto (Bld) 0.9 % Normal 0.0-2.5 [facility] ([place] Comment on above: Performed By: #### C BC, ADIFF, ANEU, CMP, PBNP, GFR, A1C ####[address] [address] Eosinophils Auto #/vol (Bld) 0.40 10 3/mcL Normal 0.00-0.65 [facility] ([place] Comment on above: Performed By: #### C BC, ADIFF, ANEU, CMP, PBNP, GFR, A1C ####[address] [address] Eosinophils/100 WBC Auto (Bld) 4.0 % Normal 0.0-6.0 [facility] ([place] Comment on above: Performed By: #### C BC, ADIFF, ANEU, CMP, PBNP, GFR, A1C ####[address] [address] Lymphocytes Auto #/vol (Bld) 1.80 10 3/mcL Normal 0.90-4.32 [facility] ([place]) Comment on above: Performed By: #### C BC, ADIFF, ANEU, CMP, PBNP, GFR, A1C ####[address] [address] Lymphocytes/100 WBC Auto (Bld) 18.6 % Low 20.0-40.0 [facility] ([place] Comment on above: Performed By: #### C BC, ADIFF, ANEU, CMP, PBNP, GFR, A1C ####[address] [address] Monocytes/100 WBC Auto (Bld) 8.2 % Normal 2.0-13.0 [facility] ([place] Comment on above: Performed By: #### C BC, ADIFF, ANEU, CMP, PBNP, GFR, A1C ####[address] [address] Neutrophils/100 WBC Auto (Bld) 68.3 % Normal 50.0-75.0 [facility] ([place] Comment on above: Performed By: #### C BC, ADIFF, ANEU, CMP, PBNP, GFR, A1C ####[address] [address] .GFRon 04-11-2018 GFR Non- >60 Normal [facility] ([place] Comment on above: Result Comment: GFR Population mean for , Non- Americans Ages 20-29 = 116 mL/min/1.73 sq.m. Ages 30-39 = 107 mL/min/1.73 sq.m. Ages 40-49 = 99 mL/min/1.73 sq.m. Ages 50-59 = 93 mL/min/1.73 sq.m. Ages 60-69 = 85 mL/min/1.73 sq.m. Ages 70+ = 75 mL/min/1.73 sq.m.Chronic Kidney Disease: Less than 60 mL/min/1.73 square metersEnd Stage Renal Disease: Less than 15 mL/min/1.73 square meters Performed By: #### C BC, ADIFF, ANEU, CMP, PBNP, GFR, A1C ####[address] [address] GFR >60 Normal [facility] ([place] Comment on above: Result Comment: GFR Population mean for , Non- Americans Ages 20-29 = 116 mL/min/1.73 sq.m. Ages 30-39 = 107 mL/min/1.73 sq.m. Ages 40-49 = 99 mL/min/1.73 sq.m. Ages 50-59 = 93 mL/min/1.73 sq.m. Ages 60-69 = 85 mL/min/1.73 sq.m. Ages 70+ = 75 mL/min/1.73 sq.m.Chronic Kidney Disease: Less than 60 mL/min/1.73 square metersEnd Stage Renal Disease: Less than 15 mL/min/1.73 square meters Performed By: #### C BC, ADIFF, ANEU, CMP, PBNP, GFR, A1C ####[place] [address] .NEUABSon 04-11-2018 Neutrophil, Absolute 6.50 10 3/mcL Normal 2.25-8.10 [facility] ([place] Comment on above: Performed By: #### C BC, ADIFF, ANEU, CMP, PBNP, GFR, A1C ####[place] [address] BMPon 04-11-2018 Creatinine mass conc 1.06 mg/dL Normal 0.60-1.40 [facility] ([place] Comment on above: Performed By: #### C BC, ADIFF, ANEU, CMP, PBNP, GFR, A1C ####[place] [address] Urea nitrogen/Creatinine mass ratio 7.5 ratio Low 10.0-22.0 [facility] ([place] Comment on above: Performed By: #### C BC, ADIFF, ANEU, CMP, PBNP, GFR, A1C ####[place] [address] Calcium mass conc 8.9 mg/dL Normal 8.4-10.1 [facility] ([place] Comment on above: Performed By: #### C BC, ADIFF, ANEU, CMP, PBNP, GFR, A1C ####[place] [address] Chloride molar conc 101 mmol/L Normal 98-110 [facility] ([place]) Comment on above: Performed By: #### C BC, ADIFF, ANEU, CMP, PBNP, GFR, A1C ####[place] [address] CO2 molar conc 33 mmol/L High 22-32 [facility] ([place] Comment on above: Performed By: #### C BC, ADIFF, ANEU, CMP, PBNP, GFR, A1C ####[place] [address] Electrolyte Balance 6.0 mEq/L Normal 4.0-15.0 [facility] ([place] Comment on above: Performed By: #### C BC, ADIFF, ANEU, CMP, PBNP, GFR, A1C ####[place] [address] Glucose mass conc 157 mg/dL High 70-110 [facility] ([place] Comment on above: Performed By: #### C BC, ADIFF, ANEU, CMP, PBNP, GFR, A1C ####[place] [address] Potassium molar conc 4.2 mmol/L Normal 3.5-5.0 [facility] ([place] Comment on above: Performed By: #### C BC, ADIFF, ANEU, CMP, PBNP, GFR, A1C ####[place] [address] Sodium molar conc 140 mmol/L Normal 136-145 [facility] ([place] Comment on above: Performed By: #### C BC, ADIFF, ANEU, CMP, PBNP, GFR, A1C ####[place] [address] Urea nitrogen mass conc 8.0 mg/dL Normal 8.0-22.0 [facility] ([place] Comment on above: Performed By: #### C BC, ADIFF, ANEU, CMP, PBNP, GFR, A1C ####[place] [address] CBCon 04-11-2018 Erythrocyte distribution width Auto Ratio (RBC) 14.9 % Normal 11.5-15.5 [facility] ([place] Comment on above: Performed By: #### C BC, ADIFF, ANEU, CMP, PBNP, GFR, A1C ####[place] [address] Hematocrit Auto Volume Fraction (Bld) 35.6 % Low 40.0-52.0 [facility] ([place] Comment on above: Performed By: #### C BC, ADIFF, ANEU, CMP, PBNP, GFR, A1C ####[place] [address] Hemoglobin mass conc (Bld) 12.5 G/dL Low 13.0-17.5 [facility] ([place] Comment on above: Performed By: #### C BC, ADIFF, ANEU, CMP, PBNP, GFR, A1C ####[place] [address] MCH Auto Entitic mass (RBC) 29.3 pg Normal 27.0-33.0 [facility] ([place] Comment on above: Performed By: #### C BC, ADIFF, ANEU, CMP, PBNP, GFR, A1C ####[place] [address] MCHC Auto mass conc (RBC) 35.0 G/dL Normal 32.0-36.0 [facility] ([place] Comment on above: Performed By: #### C BC, ADIFF, ANEU, CMP, PBNP, GFR, A1C ####[place] [address] MCV Auto Entitic volume (RBC) 83.6 fL Normal 81.0-100.0 [facility] ([place] Comment on above: Performed By: #### C BC, ADIFF, ANEU, CMP, PBNP, GFR, A1C ####[place] [address] Platelet mean volume Auto Entitic volume (Bld) 7.5 fL Normal 6.4-10.5 [facility] ([place] Comment on above: Performed By: #### C BC, ADIFF, ANEU, CMP, PBNP, GFR, A1C ####[address] [address] Platelets Auto #/vol (Bld) 411 10 3/mcL Normal 150-450 [facility] ([place] Comment on above: Performed By: #### C BC, ADIFF, ANEU, CMP, PBNP, GFR, A1C ####[place] [address] RBC Auto #/vol (Bld) 4.27 10 6/mcL Low 4.50-6.00 [facility] ([place] Comment on above: Performed By: #### C BC, ADIFF, ANEU, CMP, PBNP, GFR, A1C ####[place] [address] WBC Auto #/vol (Bld) 9.60 10 3/mcL Normal 4.50-10.80 [facility] ([place] Comment on above: Performed By: #### C BC, ADIFF, ANEU, CMP, PBNP, GFR, A1C ####[place] [address] Echocardiogram, Adulton 03-19 Echocardiogram, Adult Normal [facility] ([place]) Internal Medicine Progress N oteon 04-11-2018 Protein mass conc Normal [facility] ([place]) .Auto Diffon 04-10-2018 Ammonia mass conc (P) 0.80 10 3/mcL Normal 0.09-1.40 [facility] ([place] Comment on above: Performed By: #### C BC, ADIFF, ANEU, CMP, PBNP, GFR, A1C ####[place] [address] Basophils Auto #/vol (Bld) 0.10 10 3/mcL Normal 0.00-0.27 [facility] ([place] Comment on above: Performed By: #### C BC, ADIFF, ANEU, CMP, PBNP, GFR, A1C ####[place] [address] Basophils/100 WBC Auto (Bld) 1.0 % Normal 0.0-2.5 [facility] ([place] Comment on above: Performed By: #### C BC, ADIFF, ANEU, CMP, PBNP, GFR, A1C ####[address] [address] Eosinophils Auto #/vol (Bld) 0.40 10 3/mcL Normal 0.00-0.65 [facility] ([place] Comment on above: Performed By: #### C BC, ADIFF, ANEU, CMP, PBNP, GFR, A1C ####[address] [address] Eosinophils/100 WBC Auto (Bld) 3.6 % Normal 0.0-6.0 [facility] ([place] Comment on above: Performed By: #### C BC, ADIFF, ANEU, CMP, PBNP, GFR, A1C ####[address] [address] Lymphocytes Auto #/vol (Bld) 2.10 10 3/mcL Normal 0.90-4.32 [facility] ([place] Comment on above: Performed By: #### C BC, ADIFF, ANEU, CMP, PBNP, GFR, A1C ####[address] [address] Lymphocytes/100 WBC Auto (Bld) 20.6 % Normal 20.0-40.0 [facility] ([place] Comment on above: Performed By: #### C BC, ADIFF, ANEU, CMP, PBNP, GFR, A1C ####[address] [address] Monocytes/100 WBC Auto (Bld) 8.1 % Normal 2.0-13.0 [facility] ([place] Comment on above: Performed By: #### C BC, ADIFF, ANEU, CMP, PBNP, GFR, A1C ####[address] [address] Neutrophils/100 WBC Auto (Bld) 66.7 % Normal 50.0-75.0 [facility] ([place] Comment on above: Performed By: #### C BC, ADIFF, ANEU, CMP, PBNP, GFR, A1C ####[address] [address] .GFRon 04-10-2018 GFR Non- >60 Normal [facility] ([place] Comment on above: Result Comment: GFR Population mean for , Non- Americans Ages 20-29 = 116 mL/min/1.73 sq.m. Ages 30-39 = 107 mL/min/1.73 sq.m. Ages 40-49 = 99 mL/min/1.73 sq.m. Ages 50-59 = 93 mL/min/1.73 sq.m. Ages 60-69 = 85 mL/min/1.73 sq.m. Ages 70+ = 75 mL/min/1.73 sq.m.Chronic Kidney Disease: Less than 60 mL/min/1.73 square metersEnd Stage Renal Disease: Less than 15 mL/min/1.73 square meters Performed By: #### C BC, ADIFF, ANEU, CMP, PBNP, GFR, A1C ####[address] [address] GFR >60 Normal [facility] ([place] Comment on above: Result Comment: GFR Population mean for , Non- Americans Ages 20-29 = 116 mL/min/1.73 sq.m. Ages 30-39 = 107 mL/min/1.73 sq.m. Ages 40-49 = 99 mL/min/1.73 sq.m. Ages 50-59 = 93 mL/min/1.73 sq.m. Ages 60-69 = 85 mL/min/1.73 sq.m. Ages 70+ = 75 mL/min/1.73 sq.m.Chronic Kidney Disease: Less than 60 mL/min/1.73 square metersEnd Stage Renal Disease: Less than 15 mL/min/1.73 square meters Performed By: #### C BC, ADIFF, ANEU, CMP, PBNP, GFR, A1C ####[address] [address] .NEUABSon 04-10-2018 Neutrophil, Absolute 6.80 10 3/mcL Normal 2.25-8.10 A [facility] ([place]) Comment on above: Performed By: #### C BC, ADIFF, ANEU, CMP, PBNP, GFR, A1C ####[address] [address] APTTon 04-10-2018 aPTT Coag time (Bld) 26.8 s Normal 25.0-35.0 [facility] ([place]) Comment on above: Result Comment: For Heparin anticoagulation therapy, the recommendedtherapeutic range is: 54-77 seconds (APTT Correlationwith Anti-Xa therapeutic range of 0.3-0.7 units/ml).PLEASE REFERENCE THE PHARMACY PROTOCOL FOR DOSING. Performed By: #### C BC, ADIFF, ANEU, CMP, PBNP, GFR, A1C ####[address] [address] aPTT Coag time (Bld) None Normal [facility] ([place]) Comment on above: Performed By: #### C BC, ADIFF, ANEU, CMP, PBNP, GFR, A1C ####[address] [address] aPTT Coag time (Bld) Heparin IV Normal [facility] ([place]) Comment on above: Performed By: #### C BC, ADIFF, ANEU, CMP, PBNP, GFR, A1C ####[place] [address] aPTT Coag time (Bld) 35.5 s High 25.0-35.0 [facility] ([place]) Comment on above: Result Comment: For Heparin anticoagulation therapy, the recommendedtherapeutic range is: 54-77 seconds (APTT Correlationwith Anti-Xa therapeutic range of 0.3-0.7 units/ml).PLEASE REFERENCE THE PHARMACY PROTOCOL FOR DOSING. Performed By: #### C BC, ADIFF, ANEU, CMP, PBNP, GFR, A1C ####[address] [address] aPTT Coag time (Bld) Heparin IV Normal [facility] ([place]) Comment on above: Performed By: #### C BC, ADIFF, ANEU, CMP, PBNP, GFR, A1C ####[address] [address] aPTT Coag time (Bld) 26.7 s Normal 25.0-35.0 [facility] ([place] Comment on above: Result Comment: For Heparin anticoagulation therapy, the recommendedtherapeutic range is: 54-77 seconds (APTT Correlationwith Anti-Xa therapeutic range of 0.3-0.7 units/ml).PLEASE REFERENCE THE PHARMACY PROTOCOL FOR DOSING. Performed By: #### C BC, ADIFF, ANEU, CMP, PBNP, GFR, A1C ####[place] [address] BMPon 04-10-2018 Calcium mass conc 8.8 mg/dL Normal 8.4-10.1 [facility] ([place] Comment on above: Performed By: #### C BC, ADIFF, ANEU, CMP, PBNP, GFR, A1C ####[place] [address] Chloride molar conc 102 mmol/L Normal 98-110 [facility] ([place]) Comment on above: Performed By: #### C BC, ADIFF, ANEU, CMP, PBNP, GFR, A1C ####[place] [address] CO2 molar conc 27 mmol/L Normal 22-32 [facility] ([place] Comment on above: Performed By: #### C BC, ADIFF, ANEU, CMP, PBNP, GFR, A1C ####[place] [address] Creatinine mass conc 1.02 mg/dL Normal 0.60-1.40 [facility] ([place]) Comment on above: Performed By: #### C BC, ADIFF, ANEU, CMP, PBNP, GFR, A1C ####[place] [address] Electrolyte Balance 9.0 mEq/L Normal 4.0-15.0 [facility] ([place]) Comment on above: Performed By: #### C BC, ADIFF, ANEU, CMP, PBNP, GFR, A1C ####[place] [address] Glucose mass conc 137 mg/dL High 70-110 [facility] ([place] Comment on above: Performed By: #### C BC, ADIFF, ANEU, CMP, PBNP, GFR, A1C ####[place] [address] Potassium molar conc 3.8 mmol/L Normal 3.5-5.0 [facility] ([place] Comment on above: Performed By: #### C BC, ADIFF, ANEU, CMP, PBNP, GFR, A1C ####[place] [address] Sodium molar conc 138 mmol/L Normal 136-145 [facility] ([place] Comment on above: Performed By: #### C BC, ADIFF, ANEU, CMP, PBNP, GFR, A1C ####[place] [address] Urea nitrogen mass conc 11.0 mg/dL Normal 8.0-22.0 [facility] ([place] Comment on above: Performed By: #### C BC, ADIFF, ANEU, CMP, PBNP, GFR, A1C ####[place] [address] Urea nitrogen/Creatinine mass ratio 10.8 ratio Normal 10.0-22.0 [facility] ([place] Comment on above: Performed By: #### C BC, ADIFF, ANEU, CMP, PBNP, GFR, A1C ####[place] [address] CBCon 04-10-2018 Erythrocyte distribution width Auto Ratio (RBC) 14.8 % Normal 11.5-15.5 [facility] ([place] Comment on above: Performed By: #### C BC, ADIFF, ANEU, CMP, PBNP, GFR, A1C ####[place] [address] Hematocrit Auto Volume Fraction (Bld) 36.8 % Low 40.0-52.0 [facility] ([place] Comment on above: Performed By: #### C BC, ADIFF, ANEU, CMP, PBNP, GFR, A1C ####[place] [address] Hemoglobin mass conc (Bld) 12.8 G/dL Low 13.0-17.5 [facility] ([place] Comment on above: Performed By: #### C BC, ADIFF, ANEU, CMP, PBNP, GFR, A1C ####[address] [address] MCH Auto Entitic mass (RBC) 29.3 pg Normal 27.0-33.0 [facility] ([place] Comment on above: Performed By: #### C BC, ADIFF, ANEU, CMP, PBNP, GFR, A1C ####[place] [address] MCHC Auto mass conc (RBC) 34.8 G/dL Normal 32.0-36.0 [facility] ([place]) Comment on above: Performed By: #### C BC, ADIFF, ANEU, CMP, PBNP, GFR, A1C ####[place] [address] MCV Auto Entitic volume (RBC) 84.2 fL Normal 81.0-100.0 [facility] ([place] Comment on above: Performed By: #### C BC, ADIFF, ANEU, CMP, PBNP, GFR, A1C ####[place] [address] Platelet mean volume Auto Entitic volume (Bld) 7.5 fL Normal 6.4-10.5 [facility] ([place] Comment on above: Performed By: #### C BC, ADIFF, ANEU, CMP, PBNP, GFR, A1C ####[address] [address] Platelets Auto #/vol (Bld) 469 10 3/mcL High 150-450 [facility] ([place] Comment on above: Performed By: #### C BC, ADIFF, ANEU, CMP, PBNP, GFR, A1C ####[address] [address] RBC Auto #/vol (Bld) 4.37 10 6/mcL Low 4.50-6.00 [facility] ([place]) Comment on above: Performed By: #### C BC, ADIFF, ANEU, CMP, PBNP, GFR, A1C ####[place] [address] WBC Auto #/vol (Bld) 10.20 10 3/mcL Normal 4.50-10.80 [facility] ([place]) Comment on above: Performed By: #### C BC, ADIFF, ANEU, CMP, PBNP, GFR, A1C ####[place] [address] [place] [address] Cardiac Catheterization - CV on 04-10-2018 Cardiac Catheterization - CV Normal [facility]) Cardiothoracic Consultationo n 04-10-2018 Cardiothoracic Consultation Normal [facility]) LIPIDon 04-10-2018 Cholesterol in HDL mass conc 23 mg/dL Low 40-59 [facility] ([place] Comment on above: Result Comment: HDL Reference Interval:Less than 40 Low - high risk60 or above Optimal/lowers risk Performed By: #### C BC, ADIFF, ANEU, CMP, PBNP, GFR, A1C ####[address] [address] Cholesterol in LDL mass conc 58 mg/dL Normal 0-129 [facility] ([place] Comment on above: Result Comment: LDL is a calculated result and requires a 12- hr fast.LDL Reference Interval:Less than 100 [id number] Near or above [id number] Borderline high [id number] High isii147 and above Very high risk Performed By: #### C BC, ADIFF, ANEU, CMP, PBNP, GFR, A1C ####[address] [address] Cholesterol mass conc 150 mg/dL Normal 50-199 [facility] ([place]) Comment on above: Result Comment: Chol esterol Reference Interval:Less than 200 [id number] Borderline high [id number] and above High risk Performed By: #### C BC, ADIFF, ANEU, CMP, PBNP, GFR, A1C ####[facility] [place] [address] Triglyceride mass conc 345 mg/dL High 3-149 [facility] ([place] Comment on above: Result Comment: Trig lyceride Reference Interval:Less than 150 [id number] Borderline high [id number] High [id number] or higher Very high risk Performed By: #### C BC, ADIFF, ANEU, CMP, PBNP, GFR, A1C ####[place] [address] [place] [address] MGon 04-10-2018 Magnesium mass conc 1.9 mg/dL Normal 1.6-2.4 [facility] ([place]) Comment on above: Performed By: #### C BC, ADIFF, ANEU, CMP, PBNP, GFR, A1C ####[place] [address] PBNPon 04-10-2018 Natriuretic peptide B mass conc (Bld) 1397 pg/mL High 0-900 [facility] ([place] Comment on above: Result Comment: NT-p roBNP results of less than 300 pg/mL effectivelyrules out acute congestive heart failure with 99% negative predictive value. Performed By: #### C BC, ADIFF, ANEU, CMP, PBNP, GFR, A1C ####[place] [address] PHOSon 04-10-2018 Phosphate mass conc 3.9 mg/dL Normal 2.5-4.5 [facility] ([place]) Comment on above: Performed By: #### C BC, ADIFF, ANEU, CMP, PBNP, GFR, A1C ####[place] [address] PROon 04-10-2018 INR Coag RelTime (PPP) 1.0 {INR} Normal [facility] ([place]) Comment on above: Result Comment: [employer] (CHEST, 1992, 102:[id number])recommended therapeutic range for oral anticoagulant therapy is:LOW RISK: Prophylaxis of venous thrombosis INR: 2.0-3.0 Treatment of pulmonary embolism 2.0-3.0 Prevention of systemic embolism 2.0-3.0HIGH RISK: Mechanical prosthetic valves 2.5-3.5 Performed By: #### C BC, ADIFF, ANEU, CMP, PBNP, GFR, A1C ####[place] [address] Prothrombin time (PT) Coag time (PPP) 12.2 s Normal 9.0-14.5 [facility] ([place]) Comment on above: Result Comment: Effe ctive 04/01/08, Protime results may be affected by some antibiotics (i.e. Ciprofloxacin, Azithromycin, Bactrim) which may potentiate the action of oral anticoagulants, with further increases in Protime/INR. Performed By: #### C BC, ADIFF, ANEU, CMP, PBNP, GFR, A1C ####[address] [address] TROPIon 04-10-2018 Troponin I.cardiac mass conc 8.000 ng/mL High 0.000-0.040 [facility] ([place] Comment on above: Result Comment: Trop onin I reference ranges (05/26/14): 0.00-0.040 ng/mL Negative and non-diagnostic. >0.040 ng/mL Consistent with cardiac damage, increased clinical risk and possibility of myocardial infarction. Serial measurements, a rise & fall in test results, clinical history, appropriate symptoms and/or ECG changes may help assess possibility of NV. *Other non-acute coronary syndrome conditions such as CHF, myocarditis, pulmonary emboli, sepsis and cardiac surgery could result in myocardial damage and increased troponin levels. Performed By: #### C BC, ADIFF, ANEU, CMP, PBNP, GFR, A1C ####[address] [address] Troponin I.cardiac mass conc 5.670 ng/mL High 0.000-0.040 [facility] ([place] Comment on above: Result Comment: Trop onin I reference ranges (05/26/14): 0.00-0.040 ng/mL Negative and non-diagnostic. >0.040 ng/mL Consistent with cardiac damage, increased clinical risk and possibility of myocardial infarction. Serial measurements, a rise & fall in test results, clinical history, appropriate symptoms and/or ECG changes may help assess possibility of NV. *Other non-acute coronary syndrome conditions such as CHF, myocarditis, pulmonary emboli, sepsis and cardiac surgery could result in myocardial damage and increased troponin levels. Performed By: #### C BC, ADIFF, ANEU, CMP, PBNP, GFR, A1C ####[address] [address] Troponin I.cardiac mass conc 1.880 ng/mL High 0.000-0.040 [facility] ([place]) Comment on above: Result Comment: Trop onin I reference ranges (05/26/14): 0.00-0.040 ng/mL Negative and non-diagnostic. >0.040 ng/mL Consistent with cardiac damage, increased clinical risk and possibility of myocardial infarction. Serial measurements, a rise & fall in test results, clinical history, appropriate symptoms and/or ECG changes may help assess possibility of NV. *Other non-acute coronary syndrome conditions such as CHF, myocarditis, pulmonary emboli, sepsis and cardiac surgery could result in myocardial damage and increased troponin levels. Performed By: #### C BC, ADIFF, ANEU, CMP, PBNP, GFR, A1C ####[place] [address] XR CHEST 1 VIEWon 04-10-2018 XR CHEST 1 VIEW ORIGINALClinical his tory: Short of breath. COMPARISON: Chest x-ray on 03/30/2018. Portable AP radiograph of the chest was obtained at 3:45 AM. Patient has had sternotomy. The heart size is normal. Hazy density at the LEFT lower thorax is present consistent with combination of LEFT pleural fluid of small to moderate size, with LEFT basilar lung consolidation. The LEFT basilar infiltrate and pleural fluid is significantly increased compared with chest x-ray on 03/30/2018. RIGHT lung shows no sign of acute abnormality. There is no pneumothorax. No pulmonary edema is present. IMPRESSION: LEFT basilar lung infiltrate and LEFT pleural effusion. The infiltrate may be pneumonia or atelectasis. Interpreted By: Kiran Smith MDPreliminary Report By: Kiran Smith MDElectronically Signed By: Kiran Smith MD Dictated Date: 04/10/2018 4:00:19 AM Prelim Date: 04/10/2018 4:00:19 AM Sign Date: 04/10/2018 4:02:21 AM Normal [facility] ([place]) Progress Noteon 04-06-2018 Protein mass conc Normal [facility] ([place]) .Auto Diffon 03-30-2018 Ammonia mass conc (P) 1.00 10 3/mcL Normal 0.09-1.40 [facility] ([place]) Comment on above: Performed By: #### C BC, ADIFF, ANEU, CMP, PBNP, GFR, A1C ####[place] [address] Basophils Auto #/vol (Bld) 0.00 10 3/mcL Normal 0.00-0.27 [facility] ([place]) Comment on above: Performed By: #### C BC, ADIFF, ANEU, CMP, PBNP, GFR, A1C ####[address] [address] Basophils/100 WBC Auto (Bld) 0.3 % Normal 0.0-2.5 [facility] ([place] Comment on above: Performed By: #### C BC, ADIFF, ANEU, CMP, PBNP, GFR, A1C ####[address] [address] Eosinophils Auto #/vol (Bld) 0.10 10 3/mcL Normal 0.00-0.65 [facility] ([place] Comment on above: Performed By: #### C BC, ADIFF, ANEU, CMP, PBNP, GFR, A1C ####[address] [address] Eosinophils/100 WBC Auto (Bld) 0.8 % Normal 0.0-6.0 [facility] ([place] Comment on above: Performed By: #### C BC, ADIFF, ANEU, CMP, PBNP, GFR, A1C ####[address] [address] Lymphocytes Auto #/vol (Bld) 1.20 10 3/mcL Normal 0.90-4.32 [facility] ([place] Comment on above: Performed By: #### C BC, ADIFF, ANEU, CMP, PBNP, GFR, A1C ####[address] [address] Lymphocytes/100 WBC Auto (Bld) 13.0 % Low 20.0-40.0 [facility] ([place] Comment on above: Performed By: #### C BC, ADIFF, ANEU, CMP, PBNP, GFR, A1C ####[address] [address] Monocytes/100 WBC Auto (Bld) 10.9 % Normal 2.0-13.0 [facility] ([place] Comment on above: Performed By: #### C BC, ADIFF, ANEU, CMP, PBNP, GFR, A1C ####[address] [address] Neutrophils/100 WBC Auto (Bld) 75.0 % Normal 50.0-75.0 [facility] ([place] Comment on above: Performed By: #### C BC, ADIFF, ANEU, CMP, PBNP, GFR, A1C ####[address] [address] .GFRon 03-30-2018 GFR Non- >60 Normal [facility] ([place] Comment on above: Result Comment: GFR Population mean for , Non- Americans Ages 20-29 = 116 mL/min/1.73 sq.m. Ages 30-39 = 107 mL/min/1.73 sq.m. Ages 40-49 = 99 mL/min/1.73 sq.m. Ages 50-59 = 93 mL/min/1.73 sq.m. Ages 60-69 = 85 mL/min/1.73 sq.m. Ages 70+ = 75 mL/min/1.73 sq.m.Chronic Kidney Disease: Less than 60 mL/min/1.73 square metersEnd Stage Renal Disease: Less than 15 mL/min/1.73 square meters Performed By: #### C BC, ADIFF, ANEU, CMP, PBNP, GFR, A1C ####[address] [address] GFR >60 Normal [facility] ([place]) Comment on above: Result Comment: GFR Population mean for , Non- Americans Ages 20-29 = 116 mL/min/1.73 sq.m. Ages 30-39 = 107 mL/min/1.73 sq.m. Ages 40-49 = 99 mL/min/1.73 sq.m. Ages 50-59 = 93 mL/min/1.73 sq.m. Ages 60-69 = 85 mL/min/1.73 sq.m. Ages 70+ = 75 mL/min/1.73 sq.m.Chronic Kidney Disease: Less than 60 mL/min/1.73 square metersEnd Stage Renal Disease: Less than 15 mL/min/1.73 square meters Performed By: #### C BC, ADIFF, ANEU, CMP, PBNP, GFR, A1C ####[place] [address] .NEUABSon 03-30-2018 Neutrophil, Absolute 6.70 10 3/mcL Normal 2.25-8.10 [facility] ([place]) Comment on above: Performed By: #### C BC, ADIFF, ANEU, CMP, PBNP, GFR, A1C ####[place] [address] CBCon 03-30-2018 Erythrocyte distribution width Auto Ratio (RBC) 15.2 % Normal 11.5-15.5 [facility] ([place]) Comment on above: Performed By: #### C BC, ADIFF, ANEU, CMP, PBNP, GFR, A1C ####[place] [address] Hematocrit Auto Volume Fraction (Bld) 29.9 % Low 40.0-52.0 [facility] ([place] Comment on above: Performed By: #### C BC, ADIFF, ANEU, CMP, PBNP, GFR, A1C ####[place] [address] Hemoglobin mass conc (Bld) 10.6 G/dL Low 13.0-17.5 [facility] ([place]) Comment on above: Performed By: #### C BC, ADIFF, ANEU, CMP, PBNP, GFR, A1C ####[place] [address] MCH Auto Entitic mass (RBC) 30.5 pg Normal 27.0-33.0 [facility] ([place] Comment on above: Performed By: #### C BC, ADIFF, ANEU, CMP, PBNP, GFR, A1C ####[place] [address] MCHC Auto mass conc (RBC) 35.6 G/dL Normal 32.0-36.0 [facility] ([place]) Comment on above: Performed By: #### C BC, ADIFF, ANEU, CMP, PBNP, GFR, A1C ####[place] [address] MCV Auto Entitic volume (RBC) 85.6 fL Normal 81.0-100.0 [facility] ([place] Comment on above: Performed By: #### C BC, ADIFF, ANEU, CMP, PBNP, GFR, A1C ####[place] [address] Platelet mean volume Auto Entitic volume (Bld) 8.2 fL Normal 6.4-10.5 [facility] ([place] Comment on above: Performed By: #### C BC, ADIFF, ANEU, CMP, PBNP, GFR, A1C ####[place] [address] Platelets Auto #/vol (Bld) 203 10 3/mcL Normal 150-450 [facility] ([place] Comment on above: Performed By: #### C BC, ADIFF, ANEU, CMP, PBNP, GFR, A1C ####[place] [address] RBC Auto #/vol (Bld) 3.49 10 6/mcL Low 4.50-6.00 [facility] ([place] Comment on above: Performed By: #### C BC, ADIFF, ANEU, CMP, PBNP, GFR, A1C ####[place] [address] WBC Auto #/vol (Bld) 9.00 10 3/mcL Normal 4.50-10.80 [facility] ([place]) Comment on above: Performed By: #### C BC, ADIFF, ANEU, CMP, PBNP, GFR, A1C ####[place] [address] CMPon 03-30-2018 Albumin/Globulin mass ratio 0.9 {ratio} Normal 0.9-1.6 [facility] ([place] Comment on above: Performed By: #### C BC, ADIFF, ANEU, CMP, PBNP, GFR, A1C ####[place] [address] ALP enzyme act/vol 50 U/L Normal 38-126 [facility] ([place]) Comment on above: Performed By: #### C BC, ADIFF, ANEU, CMP, PBNP, GFR, A1C ####[place] [address] Bili Total 0.8 mg/dL Normal 0.2-1.2 [facility] ([place]) Comment on above: Performed By: #### C BC, ADIFF, ANEU, CMP, PBNP, GFR, A1C ####[address] [address] Globulin Calculated mass conc (S) 3.4 G/dL Normal 1.5-3.8 [facility] ([place] Comment on above: Performed By: #### C BC, ADIFF, ANEU, CMP, PBNP, GFR, A1C ####[place] [address] Protein mass conc 6.4 G/dL Normal 6.0-8.5 [facility] ([place] Comment on above: Performed By: #### C BC, ADIFF, ANEU, CMP, PBNP, GFR, A1C ####[place] [address] Albumin mass conc 3.0 G/dL Low 3.2-4.8 [facility] ([place] Comment on above: Performed By: #### C BC, ADIFF, ANEU, CMP, PBNP, GFR, A1C ####[place] [address] ALT enzyme act/vol 15 U/L Normal 12-55 [facility] ([place]) Comment on above: Performed By: #### C BC, ADIFF, ANEU, CMP, PBNP, GFR, A1C ####[place] [address] AST enzyme act/vol 21 U/L Normal 8-34 [facility] ([place]) Comment on above: Performed By: #### C BC, ADIFF, ANEU, CMP, PBNP, GFR, A1C ####[place] [address] Calcium mass conc 8.4 mg/dL Normal 8.4-10.1 [facility] ([place]) Comment on above: Performed By: #### C BC, ADIFF, ANEU, CMP, PBNP, GFR, A1C ####[place] [address] Chloride molar conc 103 mmol/L Normal 98-110 [facility] ([place]) Comment on above: Performed By: #### C BC, ADIFF, ANEU, CMP, PBNP, GFR, A1C ####[address] [address] CO2 molar conc 31 mmol/L Normal 22-32 [facility] ([place] Comment on above: Performed By: #### C BC, ADIFF, ANEU, CMP, PBNP, GFR, A1C ####[place] [address] Creatinine mass conc 0.92 mg/dL Normal 0.60-1.40 [facility] ([place]) Comment on above: Performed By: #### C BC, ADIFF, ANEU, CMP, PBNP, GFR, A1C ####[address] [address] Electrolyte Balance 7.0 mEq/L Normal 4.0-15.0 [facility] ([place]) Comment on above: Performed By: #### C BC, ADIFF, ANEU, CMP, PBNP, GFR, A1C ####[place] [address] Glucose mass conc 64 mg/dL Low 70-110 [facility] ([place] Comment on above: Performed By: #### C BC, ADIFF, ANEU, CMP, PBNP, GFR, A1C ####[address] [address] Potassium molar conc 3.4 mmol/L Low 3.5-5.0 [facility] ([place] Comment on above: Performed By: #### C BC, ADIFF, ANEU, CMP, PBNP, GFR, A1C ####[address] [address] Sodium molar conc 141 mmol/L Normal 136-145 [facility] ([place] Comment on above: Performed By: #### C BC, ADIFF, ANEU, CMP, PBNP, GFR, A1C ####[place] [address] Urea nitrogen mass conc 16.0 mg/dL Normal 8.0-22.0 [facility] ([place] Comment on above: Performed By: #### C BC, ADIFF, ANEU, CMP, PBNP, GFR, A1C ####[facility] [place] [address] Urea nitrogen/Creatinine mass ratio 17.4 ratio Normal 10.0-22.0 [facility] ([place]) Comment on above: Performed By: #### C BC, ADIFF, ANEU, CMP, PBNP, GFR, A1C ####[facility] [place] [address] CVS Discharge Summaryon 03-18 CVS Discharge Summary Normal [facility] ([place]) Cardiothoracic Progress Note on 03-30-2018 Protein mass conc Normal [facility] ([place]) Depart Summaryon 03-30-2018 Depart Summary Normal [facility]) Endocrinology Progress Noteo n 03-30-2018 Protein mass conc Normal [facility] ([place] Inpatient Patient Summaryon 03-30-2018 Inpatient Patient Summary Normal [facility] ([place] Pain Management Progress Not veronica 03-30-2018 Pain Management Progress Note Normal [facility] ([place]) Pat Eduon 03-30-2018 Pat Edu Normal [facility] ([place] XR CHEST 2 VIEWSon 8 XR CHEST 2 VIEWS ORIGINALXR CHEST 2 V IEWS Clinical information: abnormal breath sounds Comparison is made with a study from 03/28/2018. Sternotomy and epicardial pacing wires are again seen along with mediastinal vascular clips. LEFT chest tube has been removed. The heart is normal in size and configuration. No vascular congestion is identified. Depth of inspiration is improved with improved aeration in the RIGHT lower lung. There is persistent alveolar consolidation in the posteromedial aspect of the LEFT lung base. Lateral view shows blunting of both costophrenic angles. No pneumothorax. Aorta is atherosclerotic. LEFT subclavian central line remains in good position. Impression: No pneumothorax following LEFT chest tube removal. Persistent LEFT basilar atelectasis/consolidation . Small bilateral pleural effusions. Interpreted By: Matty Roperreliminary Report By: Matty Roper MDElectronically Signed By: Matty Roper MD Dictated Date: 03/30/2018 8:18:38 AM Prelim Date: 03/30/2018 8:18:38 AM Sign Date: 03/30/2018 8:20:52 AM Normal [facility] ([place]) Cardiothoracic Progress Note on 03-29-2018 Protein mass conc Normal [facility]) Endocrinology Progress Noteo n 03-29-2018 Protein mass conc Normal [facility] ([place]) Cristi 03-29-2018 Potassium molar conc 3.9 mmol/L Normal 3.5-5.0 [facility]) Comment on above: Performed By: #### C BC, ADIFF, ANEU, CMP, PBNP, GFR, A1C ####[address] [address] Pain Management Progress Not veronica 03-29-2018 Pain Management Progress Note Normal [facility]) .Auto Diffon 03-28-2018 Ammonia mass conc (P) 1.00 10 3/mcL Normal 0.09-1.40 [facility]) Comment on above: Performed By: #### C BC, ADIFF, ANEU, CMP, PBNP, GFR, A1C ####[address] [address] Basophils Auto #/vol (Bld) 0.00 10 3/mcL Normal 0.00-0.27 [facility] ([place] Comment on above: Performed By: #### C BC, ADIFF, ANEU, CMP, PBNP, GFR, A1C ####[address] [address] Basophils/100 WBC Auto (Bld) 0.4 % Normal 0.0-2.5 [facility] ([place] Comment on above: Performed By: #### C BC, ADIFF, ANEU, CMP, PBNP, GFR, A1C ####[address] [address] Eosinophils Auto #/vol (Bld) 0.00 10 3/mcL Normal 0.00-0.65 [facility] ([place] Comment on above: Performed By: #### C BC, ADIFF, ANEU, CMP, PBNP, GFR, A1C ####[address] [address] Eosinophils/100 WBC Auto (Bld) 0.4 % Normal 0.0-6.0 [facility] ([place] Comment on above: Performed By: #### C BC, ADIFF, ANEU, CMP, PBNP, GFR, A1C ####[address] [address] Lymphocytes Auto #/vol (Bld) 1.10 10 3/mcL Normal 0.90-4.32 [facility] ([place] Comment on above: Performed By: #### C BC, ADIFF, ANEU, CMP, PBNP, GFR, A1C ####[address] [address] Lymphocytes/100 WBC Auto (Bld) 11.4 % Low 20.0-40.0 [facility] ([place]) Comment on above: Performed By: #### C BC, ADIFF, ANEU, CMP, PBNP, GFR, A1C ####[address] [address] Monocytes/100 WBC Auto (Bld) 10.4 % Normal 2.0-13.0 [facility] ([place]) Comment on above: Performed By: #### C BC, ADIFF, ANEU, CMP, PBNP, GFR, A1C ####[address] [address] Neutrophils/100 WBC Auto (Bld) 77.4 % High 50.0-75.0 [facility] ([place]) Comment on above: Performed By: #### C BC, ADIFF, ANEU, CMP, PBNP, GFR, A1C ####[address] [address] .GFRon 03-28-2018 GFR Non- >60 Normal [facility] ([place]) Comment on above: Result Comment: GFR Population mean for , Non- Americans Ages 20-29 = 116 mL/min/1.73 sq.m. Ages 30-39 = 107 mL/min/1.73 sq.m. Ages 40-49 = 99 mL/min/1.73 sq.m. Ages 50-59 = 93 mL/min/1.73 sq.m. Ages 60-69 = 85 mL/min/1.73 sq.m. Ages 70+ = 75 mL/min/1.73 sq.m.Chronic Kidney Disease: Less than 60 mL/min/1.73 square metersEnd Stage Renal Disease: Less than 15 mL/min/1.73 square meters Performed By: #### C BC, ADIFF, ANEU, CMP, PBNP, GFR, A1C ####[address] [address] GFR >60 Normal [facility] ([place]) Comment on above: Result Comment: GFR Population mean for , Non- Americans Ages 20-29 = 116 mL/min/1.73 sq.m. Ages 30-39 = 107 mL/min/1.73 sq.m. Ages 40-49 = 99 mL/min/1.73 sq.m. Ages 50-59 = 93 mL/min/1.73 sq.m. Ages 60-69 = 85 mL/min/1.73 sq.m. Ages 70+ = 75 mL/min/1.73 sq.m.Chronic Kidney Disease: Less than 60 mL/min/1.73 square metersEnd Stage Renal Disease: Less than 15 mL/min/1.73 square meters Performed By: #### C BC, ADIFF, ANEU, CMP, PBNP, GFR, A1C ####[address] [address] .NEUABSon 03-28-2018 Neutrophil, Absolute 7.30 10 3/mcL Normal 2.25-8.10 [facility] ([place]) Comment on above: Performed By: #### C BC, ADIFF, ANEU, CMP, PBNP, GFR, A1C ####[address] [address] BMPon 03-28-2018 Calcium mass conc 8.1 mg/dL Low 8.4-10.1 [facility] ([place]) Comment on above: Performed By: #### C BC, ADIFF, ANEU, CMP, PBNP, GFR, A1C ####[address] [address] Chloride molar conc 104 mmol/L Normal 98-110 [facility] ([place]) Comment on above: Performed By: #### C BC, ADIFF, ANEU, CMP, PBNP, GFR, A1C ####[address] [address] CO2 molar conc 24 mmol/L Normal 22-32 [facility] ([place]) Comment on above: Performed By: #### C BC, ADIFF, ANEU, CMP, PBNP, GFR, A1C ####[place] [address] Creatinine mass conc 0.72 mg/dL Normal 0.60-1.40 [facility] ([place]) Comment on above: Performed By: #### C BC, ADIFF, ANEU, CMP, PBNP, GFR, A1C ####[place] [address] Electrolyte Balance 11.0 mEq/L Normal 4.0-15.0 [facility] ([place]) Comment on above: Performed By: #### C BC, ADIFF, ANEU, CMP, PBNP, GFR, A1C ####[place] [address] Glucose mass conc 160 mg/dL High 70-110 [facility] ([place]) Comment on above: Performed By: #### C BC, ADIFF, ANEU, CMP, PBNP, GFR, A1C ####[place] [address] Potassium molar conc 3.7 mmol/L Normal 3.5-5.0 [facility] ([place]) Comment on above: Performed By: #### C BC, ADIFF, ANEU, CMP, PBNP, GFR, A1C ####[place] [address] Sodium molar conc 139 mmol/L Normal 136-145 [facility] ([place]) Comment on above: Performed By: #### C BC, ADIFF, ANEU, CMP, PBNP, GFR, A1C ####[place] [address] Urea nitrogen mass conc 10.0 mg/dL Normal 8.0-22.0 [facility] ([place]) Comment on above: Performed By: #### C BC, ADIFF, ANEU, CMP, PBNP, GFR, A1C ####[place] [address] Urea nitrogen/Creatinine mass ratio 13.9 ratio Normal 10.0-22.0 [facility] ([place]) Comment on above: Performed By: #### C BC, ADIFF, ANEU, CMP, PBNP, GFR, A1C ####[place] [address] CBCon 03-28-2018 Erythrocyte distribution width Auto Ratio (RBC) 15.1 % Normal 11.5-15.5 [facility] ([place]) Comment on above: Performed By: #### C BC, ADIFF, ANEU, CMP, PBNP, GFR, A1C ####[place] [address] Hematocrit Auto Volume Fraction (Bld) 31.0 % Low 40.0-52.0 [facility] ([place]) Comment on above: Performed By: #### C BC, ADIFF, ANEU, CMP, PBNP, GFR, A1C ####[place] [address] Hemoglobin mass conc (Bld) 11.2 G/dL Low 13.0-17.5 [facility] ([place]) Comment on above: Performed By: #### C BC, ADIFF, ANEU, CMP, PBNP, GFR, A1C ####[place] [address] MCH Auto Entitic mass (RBC) 30.7 pg Normal 27.0-33.0 [facility] ([place]) Comment on above: Performed By: #### C BC, ADIFF, ANEU, CMP, PBNP, GFR, A1C ####[place] [address] MCHC Auto mass conc (RBC) 36.2 G/dL High 32.0-36.0 [facility] ([place]) Comment on above: Performed By: #### C BC, ADIFF, ANEU, CMP, PBNP, GFR, A1C ####[place] [address] MCV Auto Entitic volume (RBC) 84.7 fL Normal 81.0-100.0 [facility] ([place]) Comment on above: Performed By: #### C BC, ADIFF, ANEU, CMP, PBNP, GFR, A1C ####[place] [address] Platelet mean volume Auto Entitic volume (Bld) 8.3 fL Normal 6.4-10.5 [facility] ([place]) Comment on above: Performed By: #### C BC, ADIFF, ANEU, CMP, PBNP, GFR, A1C ####[place] [address] Platelets Auto #/vol (Bld) 150 10 3/mcL Normal 150-450 [facility] ([place]) Comment on above: Performed By: #### C BC, ADIFF, ANEU, CMP, PBNP, GFR, A1C ####[place] [address] RBC Auto #/vol (Bld) 3.67 10 6/mcL Low 4.50-6.00 [facility] ([place]) Comment on above: Performed By: #### C BC, ADIFF, ANEU, CMP, PBNP, GFR, A1C ####[place] [address] WBC Auto #/vol (Bld) 9.40 10 3/mcL Normal 4.50-10.80 [facility] ([place]) Comment on above: Performed By: #### C BC, ADIFF, ANEU, CMP, PBNP, GFR, A1C ####[place] [address] Cardiothoracic Progress Note on 03-28-2018 Protein mass conc Normal [facility] ([place]) Protein mass conc Normal [facility] ([place]) Endocrinology Progress Noteo n 03-28-2018 Protein mass conc Normal [facility] ([place]) Protein mass conc Normal [facility] ([place]) Cristi 03-28-2018 Potassium molar conc 4.3 mmol/L Normal 3.5-5.0 [facility] ([place]) Comment on above: Performed By: #### C BC, ADIFF, ANEU, CMP, PBNP, GFR, A1C ####[place] [address] Pain Management Progress Not veronica 03-28-2018 Pain Management Progress Note Normal [facility] ([place]) XR CHEST 2 VIEWSon 8 XR CHEST 2 VIEWS ORIGINALChest 2 view s HISTORY: Follow-up pleural effusion COMPARISON: 03/27/2018 CVC has been withdrawn at the RIGHT internal jugular vein. LEFT subclavian catheter terminates at the SVC. LEFT chest tube is unchanged in position. No pneumothorax visible. The heart is normal in size and there is no vascular congestion present. Small bilateral pleural effusions are present with minimal adjacent atelectasis. The findings are probably not significantly different than on the prior exam. There are minor degenerative changes in the spine. IMPRESSION: No significant change small bilateral pleural effusions with adjacent regions of atelectasis. Interpreted By: Davide Bostonreliminary Report By: Davide Boston MDElectronically Signed By: Davide Boston MD Dictated Date: 03/28/2018 8:41:31 AM Prelim Date: 03/28/2018 8:41:31 AM Sign Date: 03/28/2018 8:42:21 AM Normal [facility] ([place]) .Auto Diffon 03-27-2018 Ammonia mass conc (P) 1.40 10 3/mcL Normal 0.09-1.40 [facility] ([place]) Comment on above: Performed By: #### C BC, ADIFF, ANEU, CMP, PBNP, GFR, A1C ####[address] [address] Basophils Auto #/vol (Bld) 0.10 10 3/mcL Normal 0.00-0.27 [facility] ([place]) Comment on above: Performed By: #### C BC, ADIFF, ANEU, CMP, PBNP, GFR, A1C ####[address] [address] Basophils/100 WBC Auto (Bld) 0.4 % Normal 0.0-2.5 [facility] ([place]) Comment on above: Performed By: #### C BC, ADIFF, ANEU, CMP, PBNP, GFR, A1C ####[address] [address] Eosinophils Auto #/vol (Bld) 0.00 10 3/mcL Normal 0.00-0.65 [facility] ([place]) Comment on above: Performed By: #### C BC, ADIFF, ANEU, CMP, PBNP, GFR, A1C ####[address] [address] Eosinophils/100 WBC Auto (Bld) 0.3 % Normal 0.0-6.0 [facility] ([place]) Comment on above: Performed By: #### C BC, ADIFF, ANEU, CMP, PBNP, GFR, A1C ####[address] [address] Lymphocytes Auto #/vol (Bld) 1.20 10 3/mcL Normal 0.90-4.32 [facility] ([place]) Comment on above: Performed By: #### C BC, ADIFF, ANEU, CMP, PBNP, GFR, A1C ####[address] [address] Lymphocytes/100 WBC Auto (Bld) 10.1 % Low 20.0-40.0 [facility] ([place]) Comment on above: Performed By: #### C BC, ADIFF, ANEU, CMP, PBNP, GFR, A1C ####[address] [address] Monocytes/100 WBC Auto (Bld) 11.5 % Normal 2.0-13.0 [facility] ([place]) Comment on above: Performed By: #### C BC, ADIFF, ANEU, CMP, PBNP, GFR, A1C ####[address] [address] Neutrophils/100 WBC Auto (Bld) 77.7 % High 50.0-75.0 [facility] ([place]) Comment on above: Performed By: #### C BC, ADIFF, ANEU, CMP, PBNP, GFR, A1C ####[address] [address] .GFRon 03-27-2018 GFR Non- >60 Normal [facility] ([place]) Comment on above: Result Comment: GFR Population mean for , Non- Americans Ages 20-29 = 116 mL/min/1.73 sq.m. Ages 30-39 = 107 mL/min/1.73 sq.m. Ages 40-49 = 99 mL/min/1.73 sq.m. Ages 50-59 = 93 mL/min/1.73 sq.m. Ages 60-69 = 85 mL/min/1.73 sq.m. Ages 70+ = 75 mL/min/1.73 sq.m.Chronic Kidney Disease: Less than 60 mL/min/1.73 square metersEnd Stage Renal Disease: Less than 15 mL/min/1.73 square meters Performed By: #### C BC, ADIFF, ANEU, CMP, PBNP, GFR, A1C ####[address] [address] GFR >60 Normal [facility] ([place]) Comment on above: Result Comment: GFR Population mean for , Non- Americans Ages 20-29 = 116 mL/min/1.73 sq.m. Ages 30-39 = 107 mL/min/1.73 sq.m. Ages 40-49 = 99 mL/min/1.73 sq.m. Ages 50-59 = 93 mL/min/1.73 sq.m. Ages 60-69 = 85 mL/min/1.73 sq.m. Ages 70+ = 75 mL/min/1.73 sq.m.Chronic Kidney Disease: Less than 60 mL/min/1.73 square metersEnd Stage Renal Disease: Less than 15 mL/min/1.73 square meters Performed By: #### C BC, ADIFF, ANEU, CMP, PBNP, GFR, A1C ####[address] [address] .NEUABSon 03-27-2018 Neutrophil, Absolute 9.60 10 3/mcL High 2.25-8.10 [facility] ([place]) Comment on above: Performed By: #### C BC, ADIFF, ANEU, CMP, PBNP, GFR, A1C ####[address] [address] BGon 03-27-2018 Barometric Pressure 734 mmHg Normal [facility] ([place]) Comment on above: Order Comment: POD 1 Performed By: #### C BC, ADIFF, ANEU, CMP, PBNP, GFR, A1C ####[address] [address] Base excess Calculated molar conc (Bld) -0.1 mmol/L Normal [facility] ([place]) Comment on above: Order Comment: POD 1 Performed By: #### C BC, ADIFF, ANEU, CMP, PBNP, GFR, A1C ####[address] [address] CO2 molar conc 24.8 mmol/L Normal 22.0-30.0 [facility] ([place]) Comment on above: Order Comment: POD 1 Performed By: #### C BC, ADIFF, ANEU, CMP, PBNP, GFR, A1C ####[address] [address] HCO3 molar conc (Bld) 23.7 mmol/L Normal 21.0-29.0 [facility] ([place]) Comment on above: Order Comment: POD 1 Performed By: #### C BC, ADIFF, ANEU, CMP, PBNP, GFR, A1C ####[address] [address] Oxygen ppres (BldA) 134.7 mm[Hg] High 74.0-108.0 [facility] ([place]) Comment on above: Order Comment: POD 1 Performed By: #### C BC, ADIFF, ANEU, CMP, PBNP, GFR, A1C ####[address] [address] Oxygen saturation in Blood 98.7 % High 92.0-96.0 [facility] ([place]) Comment on above: Order Comment: POD 1 Performed By: #### C BC, ADIFF, ANEU, CMP, PBNP, GFR, A1C ####[address] [address] pCO2 35.5 mmHg Normal 32.0-46.0 [facility] ([place]) Comment on above: Order Comment: POD 1 Performed By: #### C BC, ADIFF, ANEU, CMP, PBNP, GFR, A1C ####[address] [address] pH (Bld) 7.442 [pH] Normal 7.380-7.460 [facility] ([place]) Comment on above: Order Comment: POD 1 Performed By: #### C BC, ADIFF, ANEU, CMP, PBNP, GFR, A1C ####[place] [address] CBCon 03-27-2018 Erythrocyte distribution width Auto Ratio (RBC) 14.7 % Normal 11.5-15.5 [facility] ([place]) Comment on above: Performed By: #### C BC, ADIFF, ANEU, CMP, PBNP, GFR, A1C ####[place] [address] Hematocrit Auto Volume Fraction (Bld) 31.3 % Low 40.0-52.0 [facility] ([place]) Comment on above: Performed By: #### C BC, ADIFF, ANEU, CMP, PBNP, GFR, A1C ####[place] [address] Hemoglobin mass conc (Bld) 11.0 G/dL Low 13.0-17.5 [facility] ([place]) Comment on above: Performed By: #### C BC, ADIFF, ANEU, CMP, PBNP, GFR, A1C ####[place] [address] MCH Auto Entitic mass (RBC) 29.7 pg Normal 27.0-33.0 [facility] ([place]) Comment on above: Performed By: #### C BC, ADIFF, ANEU, CMP, PBNP, GFR, A1C ####[place] [address] MCHC Auto mass conc (RBC) 35.3 G/dL Normal 32.0-36.0 [facility] ([place]) Comment on above: Performed By: #### C BC, ADIFF, ANEU, CMP, PBNP, GFR, A1C ####[place] [address] MCV Auto Entitic volume (RBC) 84.3 fL Normal 81.0-100.0 [facility] ([place]) Comment on above: Performed By: #### C BC, ADIFF, ANEU, CMP, PBNP, GFR, A1C ####[place] [address] Platelet mean volume Auto Entitic volume (Bld) 8.6 fL Normal 6.4-10.5 [facility] ([place]) Comment on above: Performed By: #### C BC, ADIFF, ANEU, CMP, PBNP, GFR, A1C ####[address] [address] Platelets Auto #/vol (Bld) 218 10 3/mcL Normal 150-450 [facility] ([place]) Comment on above: Performed By: #### C BC, ADIFF, ANEU, CMP, PBNP, GFR, A1C ####[place] [address] RBC Auto #/vol (Bld) 3.71 10 6/mcL Low 4.50-6.00 [facility] ([place]) Comment on above: Performed By: #### C BC, ADIFF, ANEU, CMP, PBNP, GFR, A1C ####[place] [address] WBC Auto #/vol (Bld) 12.30 10 3/mcL High 4.50-10.80 [facility] ([place]) Comment on above: Performed By: #### C BC, ADIFF, ANEU, CMP, PBNP, GFR, A1C ####[place] [address] CMPon 03-27-2018 Albumin/Globulin mass ratio 1.5 {ratio} Normal 0.9-1.6 [facility] ([place]) Comment on above: Performed By: #### C BC, ADIFF, ANEU, CMP, PBNP, GFR, A1C ####[place] [address] ALP enzyme act/vol 45 U/L Normal 38-126 [facility] ([place]) Comment on above: Performed By: #### C BC, ADIFF, ANEU, CMP, PBNP, GFR, A1C ####[place] [address] Bili Total 1.3 mg/dL High 0.2-1.2 [facility] ([place]) Comment on above: Performed By: #### C BC, ADIFF, ANEU, CMP, PBNP, GFR, A1C ####[address] [address] Globulin Calculated mass conc (S) 2.3 G/dL Normal 1.5-3.8 [facility] ([place]) Comment on above: Performed By: #### C BC, ADIFF, ANEU, CMP, PBNP, GFR, A1C ####[place] [address] Protein mass conc 5.8 G/dL Low 6.0-8.5 [facility] ([place]) Comment on above: Performed By: #### C BC, ADIFF, ANEU, CMP, PBNP, GFR, A1C ####[place] [address] Albumin mass conc 3.5 G/dL Normal 3.2-4.8 [facility] ([place]) Comment on above: Performed By: #### C BC, ADIFF, ANEU, CMP, PBNP, GFR, A1C ####[place] [address] ALT enzyme act/vol 29 U/L Normal 12-55 [facility] ([place]) Comment on above: Performed By: #### C BC, ADIFF, ANEU, CMP, PBNP, GFR, A1C ####[place] [address] AST enzyme act/vol 77 U/L High 8-34 [facility] ([place]) Comment on above: Performed By: #### C BC, ADIFF, ANEU, CMP, PBNP, GFR, A1C ####[place] [address] Calcium mass conc 7.7 mg/dL Low 8.4-10.1 [facility] ([place]) Comment on above: Performed By: #### C BC, ADIFF, ANEU, CMP, PBNP, GFR, A1C ####[place] [address] Chloride molar conc 107 mmol/L Normal 98-110 [facility] ([place]) Comment on above: Performed By: #### C BC, ADIFF, ANEU, CMP, PBNP, GFR, A1C ####[place] [address] CO2 molar conc 29 mmol/L Normal 22-32 [facility] ([place]) Comment on above: Performed By: #### C BC, ADIFF, ANEU, CMP, PBNP, GFR, A1C ####[address] [address] Creatinine mass conc 1.03 mg/dL Normal 0.60-1.40 [facility] ([place]) Comment on above: Performed By: #### C BC, ADIFF, ANEU, CMP, PBNP, GFR, A1C ####[address] [address] Electrolyte Balance 7.0 mEq/L Normal 4.0-15.0 [facility] ([place]) Comment on above: Performed By: #### C BC, ADIFF, ANEU, CMP, PBNP, GFR, A1C ####[place] [address] Glucose mass conc 121 mg/dL High 70-110 [facility] ([place]) Comment on above: Performed By: #### C BC, ADIFF, ANEU, CMP, PBNP, GFR, A1C ####[address] [address] Potassium molar conc 4.0 mmol/L Normal 3.5-5.0 [facility] ([place]) Comment on above: Performed By: #### C BC, ADIFF, ANEU, CMP, PBNP, GFR, A1C ####[address] [address] Sodium molar conc 143 mmol/L Normal 136-145 [facility] ([place]) Comment on above: Performed By: #### C BC, ADIFF, ANEU, CMP, PBNP, GFR, A1C ####[address] [address] Urea nitrogen mass conc 13.0 mg/dL Normal 8.0-22.0 [facility] ([place]) Comment on above: Performed By: #### C BC, ADIFF, ANEU, CMP, PBNP, GFR, A1C ####[address] [address] Urea nitrogen/Creatinine mass ratio 12.6 ratio Normal 10.0-22.0 [facility] ([place]) Comment on above: Performed By: #### C BC, ADIFF, ANEU, CMP, PBNP, GFR, A1C ####[place] [address] [address] [place] [address] Cardiothoracic Progress Note on 03-27-2018 Protein mass conc Normal [facility] ([place]) Cristi 03-27-2018 Potassium molar conc 4.0 mmol/L Normal 3.5-5.0 [facility]) Comment on above: Performed By: #### C BC, ADIFF, ANEU, CMP, PBNP, GFR, A1C ####[facility] [place] [id number] 03-27-2018 Microsomal Ab <10 Normal 0-35 [facility]) Comment on above: Result Comment: This result represents Anti-TPO antibodies which aresynonymous with microsomal antibodies. Performed By: #### A PTT ####[place] [address] Pain Management Progress Not veronica 03-27-2018 Pain Management Progress Note Normal [facility] ([place]) Pulmonary Functionon 018 Pulmonary Function Normal [facility]) XR CHEST 1 VIEWon 03-27-2018 XR CHEST 1 VIEW ORIGINALXR CHEST 1 V IEW 5:09 AM CLINICAL STATEMENT: abnormal breath sounds. COMPARISON: 03/26/2018 FINDINGS: Endotracheal and enteric tubes have been removed. The RIGHT internal jugular and LEFT subclavian lines are unchanged. A LEFT chest tube and mediastinal drain remain. Sternotomy wires are present. The lung volumes are low. There is retrocardiac atelectasis. IMPRESSION: Low lung volumes. Retrocardiac atelectasis. Interpreted By: Alondra Guillenreliminary Report By: Alondra Guillen MDElectronically Signed By: Alondra Guillen MD Dictated Date: 03/27/2018 5:25:37 AM Prelim Date: 03/27/2018 5:25:37 AM Sign Date: 03/27/2018 5:26:47 AM Normal [facility] ([place]) .Auto Diffon 03-26-2018 Ammonia mass conc (P) 0.80 10 3/mcL Normal 0.09-1.40 [facility] ([place]) Comment on above: Performed By: #### C BC, ADIFF, ANEU, CMP, PBNP, GFR, A1C ####[address] [address] Basophils Auto #/vol (Bld) 0.00 10 3/mcL Normal 0.00-0.27 [facility] ([place]) Comment on above: Performed By: #### C BC, ADIFF, ANEU, CMP, PBNP, GFR, A1C ####[address] [address] Basophils/100 WBC Auto (Bld) 0.3 % Normal 0.0-2.5 [facility] ([place]) Comment on above: Performed By: #### C BC, ADIFF, ANEU, CMP, PBNP, GFR, A1C ####[address] [address] Eosinophils Auto #/vol (Bld) 0.00 10 3/mcL Normal 0.00-0.65 [facility] ([place]) Comment on above: Performed By: #### C BC, ADIFF, ANEU, CMP, PBNP, GFR, A1C ####[address] [address] Eosinophils/100 WBC Auto (Bld) 0.1 % Normal 0.0-6.0 [facility] ([place]) Comment on above: Performed By: #### C BC, ADIFF, ANEU, CMP, PBNP, GFR, A1C ####[address] [address] Lymphocytes Auto #/vol (Bld) 0.40 10 3/mcL Low 0.90-4.32 [facility] ([place]) Comment on above: Performed By: #### C BC, ADIFF, ANEU, CMP, PBNP, GFR, A1C ####[address] [address] Lymphocytes/100 WBC Auto (Bld) 3.6 % Low 20.0-40.0 [facility] ([place]) Comment on above: Performed By: #### C BC, ADIFF, ANEU, CMP, PBNP, GFR, A1C ####[address] [address] Monocytes/100 WBC Auto (Bld) 7.7 % Normal 2.0-13.0 [facility] ([place]) Comment on above: Performed By: #### C BC, ADIFF, ANEU, CMP, PBNP, GFR, A1C ####[address] [address] Neutrophils/100 WBC Auto (Bld) 88.3 % High 50.0-75.0 [facility] ([place]) Comment on above: Performed By: #### C BC, ADIFF, ANEU, CMP, PBNP, GFR, A1C ####[address] [address] Ammonia mass conc (P) 1.10 10 3/mcL Normal 0.09-1.40 [facility] ([place]) Comment on above: Performed By: #### C BC, ADIFF, ANEU, CMP, PBNP, GFR, A1C ####[address] [address] Basophils Auto #/vol (Bld) 0.10 10 3/mcL Normal 0.00-0.27 [facility] ([place]) Comment on above: Performed By: #### C BC, ADIFF, ANEU, CMP, PBNP, GFR, A1C ####[address] [address] Basophils/100 WBC Auto (Bld) 0.6 % Normal 0.0-2.5 [facility] ([place]) Comment on above: Performed By: #### C BC, ADIFF, ANEU, CMP, PBNP, GFR, A1C ####[address] [address] Eosinophils Auto #/vol (Bld) 0.20 10 3/mcL Normal 0.00-0.65 [facility] ([place]) Comment on above: Performed By: #### C BC, ADIFF, ANEU, CMP, PBNP, GFR, A1C ####[address] [address] Eosinophils/100 WBC Auto (Bld) 2.6 % Normal 0.0-6.0 [facility] ([place]) Comment on above: Performed By: #### C BC, ADIFF, ANEU, CMP, PBNP, GFR, A1C ####[address] [address] Lymphocytes Auto #/vol (Bld) 3.00 10 3/mcL Normal 0.90-4.32 [facility] ([place]) Comment on above: Performed By: #### C BC, ADIFF, ANEU, CMP, PBNP, GFR, A1C ####[address] [address] Lymphocytes/100 WBC Auto (Bld) 32.7 % Normal 20.0-40.0 [facility] ([place]) Comment on above: Performed By: #### C BC, ADIFF, ANEU, CMP, PBNP, GFR, A1C ####[address] [address] Monocytes/100 WBC Auto (Bld) 11.4 % Normal 2.0-13.0 [facility] ([place]) Comment on above: Performed By: #### C BC, ADIFF, ANEU, CMP, PBNP, GFR, A1C ####[address] [address] Neutrophils/100 WBC Auto (Bld) 52.7 % Normal 50.0-75.0 [facility] ([place]) Comment on above: Performed By: #### C BC, ADIFF, ANEU, CMP, PBNP, GFR, A1C ####[address] [address] .GFRon 03-26-2018 GFR Non- >60 Normal [facility] ([place]) Comment on above: Result Comment: GFR Population mean for , Non- Americans Ages 20-29 = 116 mL/min/1.73 sq.m. Ages 30-39 = 107 mL/min/1.73 sq.m. Ages 40-49 = 99 mL/min/1.73 sq.m. Ages 50-59 = 93 mL/min/1.73 sq.m. Ages 60-69 = 85 mL/min/1.73 sq.m. Ages 70+ = 75 mL/min/1.73 sq.m.Chronic Kidney Disease: Less than 60 mL/min/1.73 square metersEnd Stage Renal Disease: Less than 15 mL/min/1.73 square meters Performed By: #### C BC, ADIFF, ANEU, CMP, PBNP, GFR, A1C ####[address] [address] GFR >60 Normal [facility] ([place]) Comment on above: Result Comment: GFR Population mean for , Non- Americans Ages 20-29 = 116 mL/min/1.73 sq.m. Ages 30-39 = 107 mL/min/1.73 sq.m. Ages 40-49 = 99 mL/min/1.73 sq.m. Ages 50-59 = 93 mL/min/1.73 sq.m. Ages 60-69 = 85 mL/min/1.73 sq.m. Ages 70+ = 75 mL/min/1.73 sq.m.Chronic Kidney Disease: Less than 60 mL/min/1.73 square metersEnd Stage Renal Disease: Less than 15 mL/min/1.73 square meters Performed By: #### C BC, ADIFF, ANEU, CMP, PBNP, GFR, A1C ####[address] [address] GFR Non- >60 Normal [facility] ([place]) Comment on above: Result Comment: GFR Population mean for , Non- Americans Ages 20-29 = 116 mL/min/1.73 sq.m. Ages 30-39 = 107 mL/min/1.73 sq.m. Ages 40-49 = 99 mL/min/1.73 sq.m. Ages 50-59 = 93 mL/min/1.73 sq.m. Ages 60-69 = 85 mL/min/1.73 sq.m. Ages 70+ = 75 mL/min/1.73 sq.m.Chronic Kidney Disease: Less than 60 mL/min/1.73 square metersEnd Stage Renal Disease: Less than 15 mL/min/1.73 square meters Performed By: #### C BC, ADIFF, ANEU, CMP, PBNP, GFR, A1C ####[address] [address] GFR >60 Normal [facility] ([place]) Comment on above: Result Comment: GFR Population mean for , Non- Americans Ages 20-29 = 116 mL/min/1.73 sq.m. Ages 30-39 = 107 mL/min/1.73 sq.m. Ages 40-49 = 99 mL/min/1.73 sq.m. Ages 50-59 = 93 mL/min/1.73 sq.m. Ages 60-69 = 85 mL/min/1.73 sq.m. Ages 70+ = 75 mL/min/1.73 sq.m.Chronic Kidney Disease: Less than 60 mL/min/1.73 square metersEnd Stage Renal Disease: Less than 15 mL/min/1.73 square meters Performed By: #### C BC, ADIFF, ANEU, CMP, PBNP, GFR, A1C ####[place] [address] .NEUABSon 03-26-2018 Neutrophil, Absolute 9.60 10 3/mcL High 2.25-8.10 A [facility] ([place]) Comment on above: Performed By: #### C BC, ADIFF, ANEU, CMP, PBNP, GFR, A1C ####[place] [address] Neutrophil, Absolute 4.90 10 3/mcL Normal 2.25-8.10 A [facility] ([place]) Comment on above: Performed By: #### C BC, ADIFF, ANEU, CMP, PBNP, GFR, A1C ####[place] [address] Anesthesiology Consultationo n 03-26-2018 Anesthesiology Consultation Normal [facility] ([place]) BGon 03-26-2018 Barometric Pressure 735 mmHg Normal [facility] ([place]) Comment on above: Performed By: #### C BC, ADIFF, ANEU, CMP, PBNP, GFR, A1C ####[place] [address] Base excess Calculated molar conc (Bld) -1.7 mmol/L Normal [facility] ([place]) Comment on above: Performed By: #### C BC, ADIFF, ANEU, CMP, PBNP, GFR, A1C ####[place] [address] CO2 molar conc 23.6 mmol/L Normal 22.0-30.0 [facility] ([place]) Comment on above: Performed By: #### C BC, ADIFF, ANEU, CMP, PBNP, GFR, A1C ####[place] [address] HCO3 molar conc (Bld) 22.5 mmol/L Normal 21.0-29.0 [facility]ly [facility] ([place]) Comment on above: Performed By: #### C BC, ADIFF, ANEU, CMP, PBNP, GFR, A1C ####[place] [address] Oxygen ppres (BldA) 192.1 mm[Hg] High 74.0-108.0 [facility]ly [facility] ([place]) Comment on above: Performed By: #### C BC, ADIFF, ANEU, CMP, PBNP, GFR, A1C ####[place] [address] Oxygen saturation in Blood 99.0 % High 92.0-96.0 [facility] ([place]) Comment on above: Performed By: #### C BC, ADIFF, ANEU, CMP, PBNP, GFR, A1C ####[place] [address] pCO2 35.7 mmHg Normal 32.0-46.0 [facility] ([place]) Comment on above: Performed By: #### C BC, ADIFF, ANEU, CMP, PBNP, GFR, A1C ####[place] [address] pH (Bld) 7.417 [pH] Normal 7.380-7.460 [facility] ([place]) Comment on above: Performed By: #### C BC, ADIFF, ANEU, CMP, PBNP, GFR, A1C ####[place] [address] Barometric Pressure 737 mmHg Normal [facility] ([place]) Comment on above: Performed By: #### C BC, ADIFF, ANEU, CMP, PBNP, GFR, A1C ####[address] [place], [place] [address] Base excess Calculated molar conc (Bld) -1.1 mmol/L Normal [facility] ([place] Comment on above: Performed By: #### C BC, ADIFF, ANEU, CMP, PBNP, GFR, A1C ####[address] [address] CO2 molar conc 24.2 mmol/L Normal 22.0-30.0 [facility] ([place]) Comment on above: Performed By: #### C BC, ADIFF, ANEU, CMP, PBNP, GFR, A1C ####[place] [address] HCO3 molar conc (Bld) 23.1 mmol/L Normal 21.0-29.0 [facility]ly [facility] ([place]) Comment on above: Performed By: #### C BC, ADIFF, ANEU, CMP, PBNP, GFR, A1C ####[place] [address] Oxygen ppres (BldA) 189.7 mm[Hg] High 74.0-108.0 [facility] ([place]) Comment on above: Performed By: #### C BC, ADIFF, ANEU, CMP, PBNP, GFR, A1C ####[place] [address] Oxygen saturation in Blood 98.8 % High 92.0-96.0 [facility] ([place]) Comment on above: Performed By: #### C BC, ADIFF, ANEU, CMP, PBNP, GFR, A1C ####[place] [address] pCO2 36.4 mmHg Normal 32.0-46.0 [facility] ([place]) Comment on above: Performed By: #### C BC, ADIFF, ANEU, CMP, PBNP, GFR, A1C ####[place] [address] pH (Bld) 7.420 [pH] Normal 7.380-7.460 [facility] ([place]) Comment on above: Performed By: #### C BC, ADIFF, ANEU, CMP, PBNP, GFR, A1C ####[place] [address] Barometric Pressure 735 mmHg Normal [facility] ([place]) Comment on above: Performed By: #### C BC, ADIFF, ANEU, CMP, PBNP, GFR, A1C ####[place] [address] Base excess Calculated molar conc (Bld) 0.6 mmol/L Normal [facility] ([place]) Comment on above: Performed By: #### C BC, ADIFF, ANEU, CMP, PBNP, GFR, A1C ####[place] [address] CO2 molar conc 26.2 mmol/L Normal 22.0-30.0 [facility] ([place]) Comment on above: Performed By: #### C BC, ADIFF, ANEU, CMP, PBNP, GFR, A1C ####[place] [address] HCO3 molar conc (Bld) 25.0 mmol/L Normal 21.0-29.0 [facility] ([place]) Comment on above: Performed By: #### C BC, ADIFF, ANEU, CMP, PBNP, GFR, A1C ####[place] [address] Oxygen ppres (BldA) 175.7 mm[Hg] High 74.0-108.0 [facility] ([place]) Comment on above: Performed By: #### C BC, ADIFF, ANEU, CMP, PBNP, GFR, A1C ####[place] [address] Oxygen saturation in Blood 98.8 % High 92.0-96.0 [facility] ([place]) Comment on above: Performed By: #### C BC, ADIFF, ANEU, CMP, PBNP, GFR, A1C ####[place] [address] pCO2 39.1 mmHg Normal 32.0-46.0 [facility] ([place]) Comment on above: Performed By: #### C BC, ADIFF, ANEU, CMP, PBNP, GFR, A1C ####[place] [address] pH (Bld) 7.424 [pH] Normal 7.380-7.460 [facility] ([place]) Comment on above: Performed By: #### C BC, ADIFF, ANEU, CMP, PBNP, GFR, A1C ####[address] [address] Barometric Pressure 738 mmHg Normal [facility] ([place]) Comment on above: Performed By: #### C BC, ADIFF, ANEU, CMP, PBNP, GFR, A1C ####[address] [address] Base excess Calculated molar conc (Bld) -1.0 mmol/L Normal [facility] ([place]) Comment on above: Performed By: #### C BC, ADIFF, ANEU, CMP, PBNP, GFR, A1C ####[address] [address] CO2 molar conc 23.9 mmol/L Normal 22.0-30.0 [facility] ([place]) Comment on above: Performed By: #### C BC, ADIFF, ANEU, CMP, PBNP, GFR, A1C ####[address] [address] HCO3 molar conc (Bld) 22.8 mmol/L Normal 21.0-29.0 [facility] ([place]) Comment on above: Performed By: #### C BC, ADIFF, ANEU, CMP, PBNP, GFR, A1C ####[address] [address] Oxygen ppres (BldA) 190.5 mm[Hg] High 74.0-108.0 [facility] ([place]) Comment on above: Performed By: #### C BC, ADIFF, ANEU, CMP, PBNP, GFR, A1C ####[address] [address] Oxygen saturation in Blood 99.0 % High 92.0-96.0 [facility] ([place]) Comment on above: Performed By: #### C BC, ADIFF, ANEU, CMP, PBNP, GFR, A1C ####[address] [address] pCO2 34.4 mmHg Normal 32.0-46.0 [facility] ([place]) Comment on above: Performed By: #### C BC, ADIFF, ANEU, CMP, PBNP, GFR, A1C ####[place] [address] pH (Bld) 7.440 [pH] Normal 7.380-7.460 [facility] ([place]) Comment on above: Performed By: #### C BC, ADIFF, ANEU, CMP, PBNP, GFR, A1C ####[place] [address] Barometric Pressure 738 mmHg Normal [facility] ([place]) Comment on above: Order Comment: withi n 1/2 hour of admission to CVSICU Performed By: #### C BC, ADIFF, ANEU, CMP, PBNP, GFR, A1C ####[place] [address] Base excess Calculated molar conc (Bld) -0.7 mmol/L Normal [facility] ([place]) Comment on above: Order Comment: withi n 1/2 hour of admission to CVSICU Performed By: #### C BC, ADIFF, ANEU, CMP, PBNP, GFR, A1C ####[place] [address] CO2 molar conc 25.8 mmol/L Normal 22.0-30.0 [facility] ([place]) Comment on above: Order Comment: withi n 1/2 hour of admission to CVSICU Performed By: #### C BC, ADIFF, ANEU, CMP, PBNP, GFR, A1C ####[place] [address] HCO3 molar conc (Bld) 24.5 mmol/L Normal 21.0-29.0 [facility] ([place]) Comment on above: Order Comment: withi n 1/2 hour of admission to CVSICU Performed By: #### C BC, ADIFF, ANEU, CMP, PBNP, GFR, A1C ####[place] [address] Oxygen ppres (BldA) 391.6 mm[Hg] High 74.0-108.0 [facility] ([place]) Comment on above: Order Comment: withi n 1/2 hour of admission to CVSICU Performed By: #### C BC, ADIFF, ANEU, CMP, PBNP, GFR, A1C ####[address] [address] Oxygen saturation in Blood 99.4 % High 92.0-96.0 [facility] ([place] Comment on above: Order Comment: withi n 1/2 hour of admission to CVSICU Performed By: #### C BC, ADIFF, ANEU, CMP, PBNP, GFR, A1C ####[address] [address] pCO2 43.0 mmHg Normal 32.0-46.0 [facility] ([place]) Comment on above: Order Comment: withi n 1/2 hour of admission to CVSICU Performed By: #### C BC, ADIFF, ANEU, CMP, PBNP, GFR, A1C ####[place] [address] pH (Bld) 7.374 [pH] Low 7.380-7.460 [facility] ([place]) Comment on above: Order Comment: withi n 1/2 hour of admission to CVSICU Performed By: #### C BC, ADIFF, ANEU, CMP, PBNP, GFR, A1C ####[address] [address] BGRPon 03-26-2018 Base Excess - POC -1.6 mmol/L Normal [facility] ([place]) Comment on above: Performed By: #### C BC, ADIFF, ANEU, CMP, PBNP, GFR, A1C ####[address] [address] Bicarbonate - POC 24.4 mmol/L Normal 21.0-29.0 [facility] ([place]) Comment on above: Performed By: #### C BC, ADIFF, ANEU, CMP, PBNP, GFR, A1C ####[address] [address] Oxygen saturation in Blood 98.6 % High 92.0-96.0 [facility] ([place]) Comment on above: Performed By: #### C BC, ADIFF, ANEU, CMP, PBNP, GFR, A1C ####[place] [address] PCO2 - POC 46.8 mmHg High 32.0-46.0 [facility] ([place] Comment on above: Performed By: #### C BC, ADIFF, ANEU, CMP, PBNP, GFR, A1C ####[place] [id number] pH (poct) - POC 7.335 Low 7.380-7.460 [facility] ([place] Comment on above: Performed By: #### C BC, ADIFF, ANEU, CMP, PBNP, GFR, A1C ####[place] [address] PO2 - POC 376.8 mmHg High 74.0-108.0 [facility] ([place]) Comment on above: Performed By: #### C BC, ADIFF, ANEU, CMP, PBNP, GFR, A1C ####[place] [address] Total CO2 - POC 25.8 mmol/L Normal 22.0-30.0 [facility] ([place] Comment on above: Performed By: #### C BC, ADIFF, ANEU, CMP, PBNP, GFR, A1C ####[place] [address] Base Excess - POC -0.9 mmol/L Normal [facility] ([place]) Comment on above: Performed By: #### C BC, ADIFF, ANEU, CMP, PBNP, GFR, A1C ####[place] [address] Bicarbonate - POC 24.7 mmol/L Normal 21.0-29.0 [facility] ([place]) Comment on above: Performed By: #### C BC, ADIFF, ANEU, CMP, PBNP, GFR, A1C ####[place] [address] Oxygen saturation in Blood 98.7 % High 92.0-96.0 [facility] ([place]) Comment on above: Performed By: #### C BC, ADIFF, ANEU, CMP, PBNP, GFR, A1C ####[place] [address] PCO2 - POC 45.2 mmHg Normal 32.0-46.0 [facility] ([place]) Comment on above: Performed By: #### C BC, ADIFF, ANEU, CMP, PBNP, GFR, A1C ####[place] [address] pH (poct) - POC 7.355 Low 7.380-7.460 [facility] ([place] Comment on above: Performed By: #### C BC, ADIFF, ANEU, CMP, PBNP, GFR, A1C ####[place] [address] PO2 - POC 366.6 mmHg High 74.0-108.0 [facility] ([place]) Comment on above: Performed By: #### C BC, ADIFF, ANEU, CMP, PBNP, GFR, A1C ####[place] [address] Total CO2 - POC 26.1 mmol/L Normal 22.0-30.0 [facility] ([place] Comment on above: Performed By: #### C BC, ADIFF, ANEU, CMP, PBNP, GFR, A1C ####[place] [address] Base Excess - POC -0.4 mmol/L Normal [facility] ([place]) Comment on above: Performed By: #### C BC, ADIFF, ANEU, CMP, PBNP, GFR, A1C ####[place] [address] Bicarbonate - POC 24.4 mmol/L Normal 21.0-29.0 [facility] ([place]) Comment on above: Performed By: #### C BC, ADIFF, ANEU, CMP, PBNP, GFR, A1C ####[place] [address] Oxygen saturation in Blood 98.5 % High 92.0-96.0 [facility] ([place]) Comment on above: Performed By: #### C BC, ADIFF, ANEU, CMP, PBNP, GFR, A1C ####[place] [address] PCO2 - POC 40.8 mmHg Normal 32.0-46.0 [facility] ([place]) Comment on above: Performed By: #### C BC, ADIFF, ANEU, CMP, PBNP, GFR, A1C ####[place] [address] pH (poct) - POC 7.395 Normal 7.380-7.460 [facility] ([place]) Comment on above: Performed By: #### C BC, ADIFF, ANEU, CMP, PBNP, GFR, A1C ####[place] [address] PO2 - POC 324.4 mmHg High 74.0-108.0 [facility] ([place]) Comment on above: Performed By: #### C BC, ADIFF, ANEU, CMP, PBNP, GFR, A1C ####[place] [address] Total CO2 - POC 25.7 mmol/L Normal 22.0-30.0 [facility] ([place]) Comment on above: Performed By: #### C BC, ADIFF, ANEU, CMP, PBNP, GFR, A1C ####[place] [address] Base Excess - POC 0.0 mmol/L Normal [facility] ([place]) Comment on above: Performed By: #### C BC, ADIFF, ANEU, CMP, PBNP, GFR, A1C ####[place] [address] Bicarbonate - POC 24.4 mmol/L Normal 21.0-29.0 [facility] ([place]) Comment on above: Performed By: #### C BC, ADIFF, ANEU, CMP, PBNP, GFR, A1C ####[place] [address] Oxygen saturation in Blood 98.4 % High 92.0-96.0 [facility] ([place]) Comment on above: Performed By: #### C BC, ADIFF, ANEU, CMP, PBNP, GFR, A1C ####[place] [address] PCO2 - POC 38.7 mmHg Normal 32.0-46.0 [facility] ([place]) Comment on above: Performed By: #### C BC, ADIFF, ANEU, CMP, PBNP, GFR, A1C ####[place] [address] pH (poct) - POC 7.418 Normal 7.380-7.460 [facility] ([place]) Comment on above: Performed By: #### C BC, ADIFF, ANEU, CMP, PBNP, GFR, A1C ####[place] [address] PO2 - POC 300.0 mmHg High 74.0-108.0 [facility] ([place]) Comment on above: Performed By: #### C BC, ADIFF, ANEU, CMP, PBNP, GFR, A1C ####[place] [address] Total CO2 - POC 25.6 mmol/L Normal 22.0-30.0 [facility] ([place]) Comment on above: Performed By: #### C BC, ADIFF, ANEU, CMP, PBNP, GFR, A1C ####[place] [address] Base Excess - POC -0.9 mmol/L Normal [facility] ([place]) Comment on above: Performed By: #### C BC, ADIFF, ANEU, CMP, PBNP, GFR, A1C ####[place] [address] Bicarbonate - POC 23.1 mmol/L Normal 21.0-29.0 [facility] ([place]) Comment on above: Performed By: #### C BC, ADIFF, ANEU, CMP, PBNP, GFR, A1C ####[place] [address] Oxygen saturation in Blood 98.7 % High 92.0-96.0 [facility] ([place]) Comment on above: Performed By: #### C BC, ADIFF, ANEU, CMP, PBNP, GFR, A1C ####[place] [address] PCO2 - POC 35.2 mmHg Normal 32.0-46.0 [facility] ([place]) Comment on above: Performed By: #### C BC, ADIFF, ANEU, CMP, PBNP, GFR, A1C ####[place] [address] pH (poct) - POC 7.434 Normal 7.380-7.460 [facility] ([place]) Comment on above: Performed By: #### C BC, ADIFF, ANEU, CMP, PBNP, GFR, A1C ####[place] [address] PO2 - POC 338.7 mmHg High 74.0-108.0 [facility] ([place]) Comment on above: Performed By: #### C BC, ADIFF, ANEU, CMP, PBNP, GFR, A1C ####[place] [address] Total CO2 - POC 24.1 mmol/L Normal 22.0-30.0 [facility] ([place]) Comment on above: Performed By: #### C BC, ADIFF, ANEU, CMP, PBNP, GFR, A1C ####[place] [address] Base Excess - POC -0.9 mmol/L Normal [facility] ([place]) Comment on above: Performed By: #### C BC, ADIFF, ANEU, CMP, PBNP, GFR, A1C ####[place] [address] Bicarbonate - POC 23.5 mmol/L Normal 21.0-29.0 [facility] ([place]) Comment on above: Performed By: #### C BC, ADIFF, ANEU, CMP, PBNP, GFR, A1C ####[place] [address] Oxygen saturation in Blood 98.8 % High 92.0-96.0 [facility] ([place]) Comment on above: Performed By: #### C BC, ADIFF, ANEU, CMP, PBNP, GFR, A1C ####[place] [address] PCO2 - POC 37.6 mmHg Normal 32.0-46.0 [facility] ([place]) Comment on above: Performed By: #### C BC, ADIFF, ANEU, CMP, PBNP, GFR, A1C ####[address] [address] pH (poct) - POC 7.414 Normal 7.380-7.460 [facility] ([place]) Comment on above: Performed By: #### C BC, ADIFF, ANEU, CMP, PBNP, GFR, A1C ####[place] [address] PO2 - POC 503.3 mmHg High 74.0-108.0 [facility] ([place]) Comment on above: Performed By: #### C BC, ADIFF, ANEU, CMP, PBNP, GFR, A1C ####[address] [address] Total CO2 - POC 24.7 mmol/L Normal 22.0-30.0 [facility] ([place]) Comment on above: Performed By: #### C BC, ADIFF, ANEU, CMP, PBNP, GFR, A1C ####[place] [address] Base Excess - POC -0.4 mmol/L Normal [facility] ([place]) Comment on above: Performed By: #### C BC, ADIFF, ANEU, CMP, PBNP, GFR, A1C ####[place] [address] Bicarbonate - POC 24.2 mmol/L Normal 21.0-29.0 [facility] ([place]) Comment on above: Performed By: #### C BC, ADIFF, ANEU, CMP, PBNP, GFR, A1C ####[address] [address] Oxygen saturation in Blood 98.9 % High 92.0-96.0 [facility] ([place]) Comment on above: Performed By: #### C BC, ADIFF, ANEU, CMP, PBNP, GFR, A1C ####[place] [address] PCO2 - POC 39.6 mmHg Normal 32.0-46.0 [facility] ([place]) Comment on above: Performed By: #### C BC, ADIFF, ANEU, CMP, PBNP, GFR, A1C ####[place] [id number] pH (poct) - POC 7.404 Normal 7.380-7.460 [facility] ([place] Comment on above: Performed By: #### C BC, ADIFF, ANEU, CMP, PBNP, GFR, A1C ####[place] [address] PO2 - POC 507.3 mmHg High 74.0-108.0 [facility] ([place]) Comment on above: Performed By: #### C BC, ADIFF, ANEU, CMP, PBNP, GFR, A1C ####[place] [address] Total CO2 - POC 25.4 mmol/L Normal 22.0-30.0 [facility] ([place]) Comment on above: Performed By: #### C BC, ADIFF, ANEU, CMP, PBNP, GFR, A1C ####[place] [address] Base Excess - POC -1.4 mmol/L Normal [facility] ([place]) Comment on above: Performed By: #### C BC, ADIFF, ANEU, CMP, PBNP, GFR, A1C ####[place] [address] Bicarbonate - POC 23.3 mmol/L Normal 21.0-29.0 [facility] ([place]) Comment on above: Performed By: #### C BC, ADIFF, ANEU, CMP, PBNP, GFR, A1C ####[place] [address] Oxygen saturation in Blood 98.9 % High 92.0-96.0 [facility] ([place]) Comment on above: Performed By: #### C BC, ADIFF, ANEU, CMP, PBNP, GFR, A1C ####[place] [address] PCO2 - POC 38.8 mmHg Normal 32.0-46.0 [facility] ([place]) Comment on above: Performed By: #### C BC, ADIFF, ANEU, CMP, PBNP, GFR, A1C ####[place] [address] pH (poct) - POC 7.396 Normal 7.380-7.460 [facility] ([place]) Comment on above: Performed By: #### C BC, ADIFF, ANEU, CMP, PBNP, GFR, A1C ####[place] [address] PO2 - POC 613.5 mmHg High 74.0-108.0 [facility] ([place]) Comment on above: Performed By: #### C BC, ADIFF, ANEU, CMP, PBNP, GFR, A1C ####[place] [address] Total CO2 - POC 24.5 mmol/L Normal 22.0-30.0 [facility] ([place]) Comment on above: Performed By: #### C BC, ADIFF, ANEU, CMP, PBNP, GFR, A1C ####[place] [address] Base Excess - POC 0.1 mmol/L Normal [facility] ([place] Comment on above: Performed By: #### C BC, ADIFF, ANEU, CMP, PBNP, GFR, A1C ####[place] [address] Bicarbonate - POC 25.1 mmol/L Normal 21.0-29.0 [facility] ([place]) Comment on above: Performed By: #### C BC, ADIFF, ANEU, CMP, PBNP, GFR, A1C ####[place] [address] Oxygen saturation in Blood 99.0 % High 92.0-96.0 [facility] ([place]) Comment on above: Performed By: #### C BC, ADIFF, ANEU, CMP, PBNP, GFR, A1C ####[place] [address] PCO2 - POC 42.1 mmHg Normal 32.0-46.0 [facility] ([place]) Comment on above: Performed By: #### C BC, ADIFF, ANEU, CMP, PBNP, GFR, A1C ####[place] [address] pH (poct) - POC 7.393 Normal 7.380-7.460 [facility] ([place] Comment on above: Performed By: #### C BC, ADIFF, ANEU, CMP, PBNP, GFR, A1C ####[place] [address] PO2 - POC 575.3 mmHg High 74.0-108.0 [facility] ([place] Comment on above: Performed By: #### C BC, ADIFF, ANEU, CMP, PBNP, GFR, A1C ####[place] [address] Total CO2 - POC 26.4 mmol/L Normal 22.0-30.0 [facility] ([place]) Comment on above: Performed By: #### C BC, ADIFF, ANEU, CMP, PBNP, GFR, A1C ####[place] [address] Base Excess - POC 1.1 mmol/L Normal [facility] ([place] Comment on above: Performed By: #### C BC, ADIFF, ANEU, CMP, PBNP, GFR, A1C ####[place] [address] Bicarbonate - POC 26.4 mmol/L Normal 21.0-29.0 [facility] ([place]) Comment on above: Performed By: #### C BC, ADIFF, ANEU, CMP, PBNP, GFR, A1C ####[place] [address] Oxygen saturation in Blood 96.7 % High 92.0-96.0 [facility] ([place] Comment on above: Performed By: #### C BC, ADIFF, ANEU, CMP, PBNP, GFR, A1C ####[place] [address] PCO2 - POC 44.3 mmHg Normal 32.0-46.0 [facility] ([place] Comment on above: Performed By: #### C BC, ADIFF, ANEU, CMP, PBNP, GFR, A1C ####[place] [address] pH (poct) - POC 7.393 Normal 7.380-7.460 [facility] ([place] Comment on above: Performed By: #### C BC, ADIFF, ANEU, CMP, PBNP, GFR, A1C ####[place] [address] PO2 - POC 93.3 mmHg Normal 74.0-108.0 [facility] ([place] Comment on above: Performed By: #### C BC, ADIFF, ANEU, CMP, PBNP, GFR, A1C ####[place] [address] Total CO2 - POC 27.8 mmol/L Normal 22.0-30.0 [facility] ([place] Comment on above: Performed By: #### C BC, ADIFF, ANEU, CMP, PBNP, GFR, A1C ####[place] [address] BMPon 03-26-2018 Calcium mass conc 7.8 mg/dL Low 8.4-10.1 [facility] ([place] Comment on above: Performed By: #### C BC, ADIFF, ANEU, CMP, PBNP, GFR, A1C ####[place] [address] Potassium molar conc 4.2 mmol/L Normal 3.5-5.0 [facility] ([place]) Comment on above: Result Comment: Spec imen slightly hemolyzed Performed By: #### C BC, ADIFF, ANEU, CMP, PBNP, GFR, A1C ####[place] [address] Creatinine mass conc 1.05 mg/dL Normal 0.60-1.40 [facility] ([place]) Comment on above: Performed By: #### C BC, ADIFF, ANEU, CMP, PBNP, GFR, A1C ####[place] [address] Urea nitrogen/Creatinine mass ratio 11.4 ratio Normal 10.0-22.0 [facility] ([place]) Comment on above: Performed By: #### C BC, ADIFF, ANEU, CMP, PBNP, GFR, A1C ####[place] [address] Chloride molar conc 109 mmol/L Normal 98-110 [facility] ([place]) Comment on above: Performed By: #### C BC, ADIFF, ANEU, CMP, PBNP, GFR, A1C ####[place] [address] CO2 molar conc 24 mmol/L Normal 22-32 [facility] ([place] Comment on above: Performed By: #### C BC, ADIFF, ANEU, CMP, PBNP, GFR, A1C ####[place] [address] Electrolyte Balance 10.0 mEq/L Normal 4.0-15.0 [facility] ([place]) Comment on above: Performed By: #### C BC, ADIFF, ANEU, CMP, PBNP, GFR, A1C ####[place] [address] Glucose mass conc 162 mg/dL High 70-110 [facility] ([place] Comment on above: Performed By: #### C BC, ADIFF, ANEU, CMP, PBNP, GFR, A1C ####[place] [address] Sodium molar conc 143 mmol/L Normal 136-145 [facility] ([place] Comment on above: Performed By: #### C BC, ADIFF, ANEU, CMP, PBNP, GFR, A1C ####[place] [address] Urea nitrogen mass conc 12.0 mg/dL Normal 8.0-22.0 [facility] ([place] Comment on above: Performed By: #### C BC, ADIFF, ANEU, CMP, PBNP, GFR, A1C ####[place] [address] Creatinine mass conc 1.10 mg/dL Normal 0.60-1.40 [facility] ([place]) Comment on above: Performed By: #### C BC, ADIFF, ANEU, CMP, PBNP, GFR, A1C ####[place] [address] Urea nitrogen/Creatinine mass ratio 10.9 ratio Normal 10.0-22.0 [facility] ([place] Comment on above: Performed By: #### C BC, ADIFF, ANEU, CMP, PBNP, GFR, A1C ####[place] [address] Calcium mass conc 9.6 mg/dL Normal 8.4-10.1 [facility] ([place] Comment on above: Performed By: #### C BC, ADIFF, ANEU, CMP, PBNP, GFR, A1C ####[place] [address] Chloride molar conc 104 mmol/L Normal 98-110 [facility] ([place] Comment on above: Performed By: #### C BC, ADIFF, ANEU, CMP, PBNP, GFR, A1C ####[place] [address] CO2 molar conc 30 mmol/L Normal 22-32 [facility] ([place] Comment on above: Performed By: #### C BC, ADIFF, ANEU, CMP, PBNP, GFR, A1C ####[place] [address] Electrolyte Balance 10.0 mEq/L Normal 4.0-15.0 [facility] ([place]) Comment on above: Performed By: #### C BC, ADIFF, ANEU, CMP, PBNP, GFR, A1C ####[place] [address] Glucose mass conc 111 mg/dL High 70-110 [facility] ([place] Comment on above: Performed By: #### C BC, ADIFF, ANEU, CMP, PBNP, GFR, A1C ####[place] [address] Potassium molar conc 4.5 mmol/L Normal 3.5-5.0 [facility] ([place]) Comment on above: Performed By: #### C BC, ADIFF, ANEU, CMP, PBNP, GFR, A1C ####[place] [address] Sodium molar conc 144 mmol/L Normal 136-145 [facility] ([place]) Comment on above: Performed By: #### C BC, ADIFF, ANEU, CMP, PBNP, GFR, A1C ####[place] [address] Urea nitrogen mass conc 12.0 mg/dL Normal 8.0-22.0 [facility] ([place]) Comment on above: Performed By: #### C BC, ADIFF, ANEU, CMP, PBNP, GFR, A1C ####[place] [address] CAIONon 03-26-2018 Calcium Ionized 1.01 mmol/L Low 1.12-1.32 [facility] ([place]) Comment on above: Performed By: #### C BC, ADIFF, ANEU, CMP, PBNP, GFR, A1C ####[place] [address] CARPon 03-26-2018 Ionized Calcium - POC 1.08 mmol/L Low 1.12-1.32 [facility] ([place]) Comment on above: Performed By: #### C BC, ADIFF, ANEU, CMP, PBNP, GFR, A1C ####[place] [address] Ionized Calcium - POC 1.07 mmol/L Low 1.12-1.32 [facility] ([place]) Comment on above: Performed By: #### C BC, ADIFF, ANEU, CMP, PBNP, GFR, A1C ####[place] [address] Ionized Calcium - POC 1.06 mmol/L Low 1.12-1.32 [facility] ([place]) Comment on above: Performed By: #### C BC, ADIFF, ANEU, CMP, PBNP, GFR, A1C ####[place] [address] Ionized Calcium - POC 1.05 mmol/L Low 1.12-1.32 [facility] ([place]) Comment on above: Performed By: #### C BC, ADIFF, ANEU, CMP, PBNP, GFR, A1C ####[place] [address] Ionized Calcium - POC 1.09 mmol/L Low 1.12-1.32 [facility] ([place]) Comment on above: Performed By: #### C BC, ADIFF, ANEU, CMP, PBNP, GFR, A1C ####[place] [address] Ionized Calcium - POC 1.09 mmol/L Low 1.12-1.32 [facility] ([place]) Comment on above: Performed By: #### C BC, ADIFF, ANEU, CMP, PBNP, GFR, A1C ####[place] [address] Ionized Calcium - POC 1.08 mmol/L Low 1.12-1.32 [facility] ([place]) Comment on above: Performed By: #### C BC, ADIFF, ANEU, CMP, PBNP, GFR, A1C ####[place] [address] Ionized Calcium - POC 1.07 mmol/L Low 1.12-1.32 [facility] ([place]) Comment on above: Performed By: #### C BC, ADIFF, ANEU, CMP, PBNP, GFR, A1C ####[place] [address] Ionized Calcium - POC 1.12 mmol/L Normal 1.12-1.32 [facility] ([place]) Comment on above: Performed By: #### C BC, ADIFF, ANEU, CMP, PBNP, GFR, A1C ####[place] [address] Ionized Calcium - POC 1.17 mmol/L Normal 1.12-1.32 [facility] ([place]) Comment on above: Performed By: #### C BC, ADIFF, ANEU, CMP, PBNP, GFR, A1C ####[place] [address] CBCon 03-26-2018 Erythrocyte distribution width Auto Ratio (RBC) 14.5 % Normal 11.5-15.5 [facility] ([place]) Comment on above: Performed By: #### C BC, ADIFF, ANEU, CMP, PBNP, GFR, A1C ####[place] [address] Hematocrit Auto Volume Fraction (Bld) 22.5 % Low 40.0-52.0 [facility] ([place]) Comment on above: Performed By: #### C BC, ADIFF, ANEU, CMP, PBNP, GFR, A1C ####[place] [address] Hemoglobin mass conc (Bld) 7.9 G/dL Low 13.0-17.5 [facility] ([place]) Comment on above: Performed By: #### C BC, ADIFF, ANEU, CMP, PBNP, GFR, A1C ####[place] [address] MCH Auto Entitic mass (RBC) 29.4 pg Normal 27.0-33.0 [facility] ([place]) Comment on above: Performed By: #### C BC, ADIFF, ANEU, CMP, PBNP, GFR, A1C ####[place] [address] MCHC Auto mass conc (RBC) 35.1 G/dL Normal 32.0-36.0 [facility] ([place] Comment on above: Performed By: #### C BC, ADIFF, ANEU, CMP, PBNP, GFR, A1C ####[place] [address] MCV Auto Entitic volume (RBC) 83.8 fL Normal 81.0-100.0 [facility] ([place]) Comment on above: Performed By: #### C BC, ADIFF, ANEU, CMP, PBNP, GFR, A1C ####[place] [address] Platelet mean volume Auto Entitic volume (Bld) 8.3 fL Normal 6.4-10.5 [facility] ([place] Comment on above: Performed By: #### C BC, ADIFF, ANEU, CMP, PBNP, GFR, A1C ####[place] [address] Platelets Auto #/vol (Bld) 165 10 3/mcL Normal 150-450 [facility] ([place]) Comment on above: Performed By: #### C BC, ADIFF, ANEU, CMP, PBNP, GFR, A1C ####[place] [address] RBC Auto #/vol (Bld) 2.68 10 6/mcL Low 4.50-6.00 [facility] ([place]) Comment on above: Performed By: #### C BC, ADIFF, ANEU, CMP, PBNP, GFR, A1C ####[place] [address] WBC Auto #/vol (Bld) 10.80 10 3/mcL Normal 4.50-10.80 [facility] ([place]) Comment on above: Performed By: #### C BC, ADIFF, ANEU, CMP, PBNP, GFR, A1C ####[place] [address] Erythrocyte distribution width Auto Ratio (RBC) 14.5 % Normal 11.5-15.5 [facility] ([place]) Comment on above: Performed By: #### C BC, ADIFF, ANEU, CMP, PBNP, GFR, A1C ####[place] [address] Hematocrit Auto Volume Fraction (Bld) 40.8 % Normal 40.0-52.0 [facility] ([place]) Comment on above: Performed By: #### C BC, ADIFF, ANEU, CMP, PBNP, GFR, A1C ####[place] [address] Hemoglobin mass conc (Bld) 14.1 G/dL Normal 13.0-17.5 [facility] ([place]) Comment on above: Performed By: #### C BC, ADIFF, ANEU, CMP, PBNP, GFR, A1C ####[place] [address] MCH Auto Entitic mass (RBC) 29.2 pg Normal 27.0-33.0 [facility] ([place]) Comment on above: Performed By: #### C BC, ADIFF, ANEU, CMP, PBNP, GFR, A1C ####[address] [place] [address] MCHC Auto mass conc (RBC) 34.5 G/dL Normal 32.0-36.0 [facility] ([place]) Comment on above: Performed By: #### C BC, ADIFF, ANEU, CMP, PBNP, GFR, A1C ####[place] [address] MCV Auto Entitic volume (RBC) 84.7 fL Normal 81.0-100.0 [facility] ([place]) Comment on above: Performed By: #### C BC, ADIFF, ANEU, CMP, PBNP, GFR, A1C ####[place] [address] Platelet mean volume Auto Entitic volume (Bld) 8.4 fL Normal 6.4-10.5 [facility] ([place]) Comment on above: Performed By: #### C BC, ADIFF, ANEU, CMP, PBNP, GFR, A1C ####[place] [address] Platelets Auto #/vol (Bld) 250 10 3/mcL Normal 150-450 [facility] ([place]) Comment on above: Performed By: #### C BC, ADIFF, ANEU, CMP, PBNP, GFR, A1C ####[place] [address] RBC Auto #/vol (Bld) 4.82 10 6/mcL Normal 4.50-6.00 [facility] ([place]) Comment on above: Performed By: #### C BC, ADIFF, ANEU, CMP, PBNP, GFR, A1C ####[place] [address] WBC Auto #/vol (Bld) 9.30 10 3/mcL Normal 4.50-10.80 [facility] ([place]) Comment on above: Performed By: #### C BC, ADIFF, ANEU, CMP, PBNP, GFR, A1C ####[place] [address] CLRPon 03-26-2018 Chloride molar conc 107 mmol/L Normal 98-110 [facility] ([place]) Comment on above: Performed By: #### C BC, ADIFF, ANEU, CMP, PBNP, GFR, A1C ####[address] [address] Chloride molar conc 105 mmol/L Normal 98-110 [facility] ([place]) Comment on above: Performed By: #### C BC, ADIFF, ANEU, CMP, PBNP, GFR, A1C ####[address] [address] Chloride molar conc 105 mmol/L Normal 98-110 [facility] ([place]) Comment on above: Performed By: #### C BC, ADIFF, ANEU, CMP, PBNP, GFR, A1C ####[address] [address] Chloride molar conc 105 mmol/L Normal 98-110 [facility] ([place]) Comment on above: Performed By: #### C BC, ADIFF, ANEU, CMP, PBNP, GFR, A1C ####[address] [address] Chloride molar conc 104 mmol/L Normal 98-110 [facility] ([place]) Comment on above: Performed By: #### C BC, ADIFF, ANEU, CMP, PBNP, GFR, A1C ####[address] [address] Chloride molar conc 104 mmol/L Normal 98-110 [facility] ([place]) Comment on above: Performed By: #### C BC, ADIFF, ANEU, CMP, PBNP, GFR, A1C ####[address] [address] Chloride molar conc 103 mmol/L Normal 98-110 [facility] ([place]) Comment on above: Performed By: #### C BC, ADIFF, ANEU, CMP, PBNP, GFR, A1C ####[address] [address] Chloride molar conc 103 mmol/L Normal 98-110 [facility] ([place]) Comment on above: Performed By: #### C BC, ADIFF, ANEU, CMP, PBNP, GFR, A1C ####[address] [address] Chloride molar conc 105 mmol/L Normal 98-110 [facility] ([place]) Comment on above: Performed By: #### C BC, ADIFF, ANEU, CMP, PBNP, GFR, A1C ####[place] [address] [address] [place] [address] Chloride molar conc 105 mmol/L Normal 98-110 [facility] ([place]) Comment on above: Performed By: #### C BC, ADIFF, ANEU, CMP, PBNP, GFR, A1C ####[address] [address] CVOR Intraop Recordon 2017 CVOR Intraop Record Normal [facility] ([place]) GLURPon 03-26-2018 Glucose mass conc 157 mg/dL High 70-110 [facility] ([place]) Comment on above: Performed By: #### C BC, ADIFF, ANEU, CMP, PBNP, GFR, A1C ####[address] [address] Glucose mass conc 172 mg/dL High 70-110 [facility] ([place]) Comment on above: Performed By: #### C BC, ADIFF, ANEU, CMP, PBNP, GFR, A1C ####[address] [address] Glucose mass conc 176 mg/dL High 70-[address] [place] [address] ([place]) Comment on above: Performed By: #### C BC, ADIFF, ANEU, CMP, PBNP, GFR, A1C ####[address] [address] Glucose mass conc 181 mg/dL High 70-110 [facility] ([place]) Comment on above: Performed By: #### C BC, ADIFF, ANEU, CMP, PBNP, GFR, A1C ####[address] [address] Glucose mass conc 169 mg/dL High 70-110 [facility] ([place]) Comment on above: Performed By: #### C BC, ADIFF, ANEU, CMP, PBNP, GFR, A1C ####[address] [address] Glucose mass conc 164 mg/dL High 70-110 [facility] ([place]) Comment on above: Performed By: #### C BC, ADIFF, ANEU, CMP, PBNP, GFR, A1C ####[place] [address] Glucose mass conc 163 mg/dL High 70-110 [facility] ([place]) Comment on above: Performed By: #### C BC, ADIFF, ANEU, CMP, PBNP, GFR, A1C ####[place] [address] Glucose mass conc 143 mg/dL High [address] [facility] ([place]) Comment on above: Performed By: #### C BC, ADIFF, ANEU, CMP, PBNP, GFR, A1C ####[place] [address] Glucose mass conc 174 mg/dL High 70-110 [facility] ([place]) Comment on above: Performed By: #### C BC, ADIFF, ANEU, CMP, PBNP, GFR, A1C ####[place] [address] Glucose mass conc 139 mg/dL High [address] [facility] ([place]) Comment on above: Performed By: #### C BC, ADIFF, ANEU, CMP, PBNP, GFR, A1C ####[place] [address] HCTRPon 03-26-2018 Hematocrit Auto Volume Fraction (Bld) 31.0 % Low 42.0-52.0 [facility] ([place]) Comment on above: Performed By: #### C BC, ADIFF, ANEU, CMP, PBNP, GFR, A1C ####[place] [address] Hematocrit Auto Volume Fraction (Bld) 28.0 % Low 42.0-52.0 [facility] ([place]) Comment on above: Performed By: #### C BC, ADIFF, ANEU, CMP, PBNP, GFR, A1C ####[place] [address] Hematocrit Auto Volume Fraction (Bld) 29.0 % Low 42.0-52.0 [facility] ([place]) Comment on above: Performed By: #### C BC, ADIFF, ANEU, CMP, PBNP, GFR, A1C ####[address] [address] Hematocrit Auto Volume Fraction (Bld) 28.0 % Low 42.0-52.0 [facility] ([place]) Comment on above: Performed By: #### C BC, ADIFF, ANEU, CMP, PBNP, GFR, A1C ####[address] [address] Hematocrit Auto Volume Fraction (Bld) 28.0 % Low 42.0-52.0 [facility] ([place] Comment on above: Performed By: #### C BC, ADIFF, ANEU, CMP, PBNP, GFR, A1C ####[place] [address] Hematocrit Auto Volume Fraction (Bld) 26.0 % Low 42.0-52.0 [facility] ([place] Comment on above: Performed By: #### C BC, ADIFF, ANEU, CMP, PBNP, GFR, A1C ####[place] [address] Hematocrit Auto Volume Fraction (Bld) 29.0 % Low 42.0-52.0 [facility] ([place] Comment on above: Performed By: #### C BC, ADIFF, ANEU, CMP, PBNP, GFR, A1C ####[address] [address] Hematocrit Auto Volume Fraction (Bld) 28.0 % Low 42.0-52.0 [facility] ([place] Comment on above: Performed By: #### C BC, ADIFF, ANEU, CMP, PBNP, GFR, A1C ####[address] [address] Hematocrit Auto Volume Fraction (Bld) 38.0 % Low 42.0-52.0 [facility] ([place] Comment on above: Performed By: #### C BC, ADIFF, ANEU, CMP, PBNP, GFR, A1C ####[place] [address] Hematocrit Auto Volume Fraction (Bld) 41.0 % Low 42.0-52.0 [facility] ([place] Comment on above: Performed By: #### C BC, ADIFF, ANEU, CMP, PBNP, GFR, A1C ####[address] [address] HGBRPon 03-26-2018 Hemoglobin mass conc (Bld) 10.6 G/dL Low 13.0-17.5 [facility] ([place] Comment on above: Performed By: #### C BC, ADIFF, ANEU, CMP, PBNP, GFR, A1C ####[place] [address] Hemoglobin mass conc (Bld) 9.5 G/dL Low 13.0-17.5 [facility] ([place] Comment on above: Performed By: #### C BC, ADIFF, ANEU, CMP, PBNP, GFR, A1C ####[place] [address] Hemoglobin mass conc (Bld) 9.7 G/dL Low 13.0-17.5 [facility] ([place]) Comment on above: Performed By: #### C BC, ADIFF, ANEU, CMP, PBNP, GFR, A1C ####[place] [address] Hemoglobin mass conc (Bld) 9.5 G/dL Low 13.0-17.5 [facility] ([place]) Comment on above: Performed By: #### C BC, ADIFF, ANEU, CMP, PBNP, GFR, A1C ####[place] [address] Hemoglobin mass conc (Bld) 9.5 G/dL Low 13.0-17.5 [facility] ([place]) Comment on above: Performed By: #### C BC, ADIFF, ANEU, CMP, PBNP, GFR, A1C ####[place] [address] Hemoglobin mass conc (Bld) 8.9 G/dL Low 13.0-17.5 [facility] ([place]) Comment on above: Performed By: #### C BC, ADIFF, ANEU, CMP, PBNP, GFR, A1C ####[place] [address] Hemoglobin mass conc (Bld) 9.9 G/dL Low 13.0-17.5 [facility] ([place]) Comment on above: Performed By: #### C BC, ADIFF, ANEU, CMP, PBNP, GFR, A1C ####[place] [address] Hemoglobin mass conc (Bld) 9.6 G/dL Low 13.0-17.5 [facility] ([place] Comment on above: Performed By: #### C BC, ADIFF, ANEU, CMP, PBNP, GFR, A1C ####[place] [address] Hemoglobin mass conc (Bld) 12.9 G/dL Low 13.0-17.5 [facility] ([place] Comment on above: Performed By: #### C BC, ADIFF, ANEU, CMP, PBNP, GFR, A1C ####[place] [address] Hemoglobin mass conc (Bld) 13.8 G/dL Normal 13.0-17.5 [facility] ([place]) Comment on above: Performed By: #### C BC, ADIFF, ANEU, CMP, PBNP, GFR, A1C ####[place] [address] Cristi 03-26-2018 Potassium molar conc 3.7 mmol/L Normal 3.5-5.0 [facility] ([place]) Comment on above: Performed By: #### C BC, ADIFF, ANEU, CMP, PBNP, GFR, A1C ####[place] [address] KRPon 03-26-2018 Potassium molar conc 3.9 mmol/L Normal 3.5-5.0 [facility] ([place] Comment on above: Performed By: #### C BC, ADIFF, ANEU, CMP, PBNP, GFR, A1C ####[place] [address] Potassium molar conc 4.6 mmol/L Normal 3.5-5.0 [facility] ([place]) Comment on above: Performed By: #### C BC, ADIFF, ANEU, CMP, PBNP, GFR, A1C ####[address] [address] Potassium molar conc 4.5 mmol/L Normal 3.5-5.0 [facility] ([place]) Comment on above: Performed By: #### C BC, ADIFF, ANEU, CMP, PBNP, GFR, A1C ####[address] [address] Potassium molar conc 4.4 mmol/L Normal 3.5-5.0 [facility] ([place]) Comment on above: Performed By: #### C BC, ADIFF, ANEU, CMP, PBNP, GFR, A1C ####[address] [address] Potassium molar conc 4.5 mmol/L Normal 3.5-5.0 [facility] ([place]) Comment on above: Performed By: #### C BC, ADIFF, ANEU, CMP, PBNP, GFR, A1C ####[address] [address] Potassium molar conc 4.0 mmol/L Normal 3.5-5.0 [facility] ([place]) Comment on above: Performed By: #### C BC, ADIFF, ANEU, CMP, PBNP, GFR, A1C ####[address] [address] Potassium molar conc 4.3 mmol/L Normal 3.5-5.0 [facility] ([place] Comment on above: Performed By: #### C BC, ADIFF, ANEU, CMP, PBNP, GFR, A1C ####[address] [address] Potassium molar conc 4.4 mmol/L Normal 3.5-5.0 [facility] ([place] Comment on above: Performed By: #### C BC, ADIFF, ANEU, CMP, PBNP, GFR, A1C ####[address] [address] Potassium molar conc 4.1 mmol/L Normal 3.5-5.0 [facility] ([place]) Comment on above: Performed By: #### C BC, ADIFF, ANEU, CMP, PBNP, GFR, A1C ####[place] [address] Potassium molar conc 4.0 mmol/L Normal 3.5-5.0 [facility] ([place]) Comment on above: Performed By: #### C BC, ADIFF, ANEU, CMP, PBNP, GFR, A1C ####[place] [address] LACon 03-26-2018 Lactic Acid Lvl 2.0 mmol/L Normal 0.2-2.0 [facility] ([place]) Comment on above: Performed By: #### C BC, ADIFF, ANEU, CMP, PBNP, GFR, A1C ####[place] [address] MGon 03-26-2018 Magnesium mass conc 2.8 mg/dL High 1.6-2.4 [facility] ([place]) Comment on above: Performed By: #### C BC, ADIFF, ANEU, CMP, PBNP, GFR, A1C ####[place] [address] NARPon 03-26-2018 Sodium molar conc 136 mmol/L Normal 136-145 [facility] ([place]) Comment on above: Performed By: #### C BC, ADIFF, ANEU, CMP, PBNP, GFR, A1C ####[place] [address] Sodium molar conc 136 mmol/L Normal 136-145 [facility] ([place]) Comment on above: Performed By: #### C BC, ADIFF, ANEU, CMP, PBNP, GFR, A1C ####[place] [address] Sodium molar conc 136 mmol/L Normal 136-145 [facility] ([place]) Comment on above: Performed By: #### C BC, ADIFF, ANEU, CMP, PBNP, GFR, A1C ####[place] [address] Sodium molar conc 136 mmol/L Normal 136-145 [facility] ([place]) Comment on above: Performed By: #### C BC, ADIFF, ANEU, CMP, PBNP, GFR, A1C ####[address] [address] Sodium molar conc 136 mmol/L Normal 136-145 [facility] ([place] Comment on above: Performed By: #### C BC, ADIFF, ANEU, CMP, PBNP, GFR, A1C ####[place] [address] Sodium molar conc 136 mmol/L Normal 136-145 [facility] ([place] Comment on above: Performed By: #### C BC, ADIFF, ANEU, CMP, PBNP, GFR, A1C ####[address] [address] Sodium molar conc 135 mmol/L Low 136-145 [facility] ([place] Comment on above: Performed By: #### C BC, ADIFF, ANEU, CMP, PBNP, GFR, A1C ####[place] [address] Sodium molar conc 134 mmol/L Low 136-145 [facility] ([place] Comment on above: Performed By: #### C BC, ADIFF, ANEU, CMP, PBNP, GFR, A1C ####[place] [address] Sodium molar conc 138 mmol/L Normal 136-145 [facility] ([place]) Comment on above: Performed By: #### C BC, ADIFF, ANEU, CMP, PBNP, GFR, A1C ####[place] [address] Sodium molar conc 139 mmol/L Normal 136-145 [facility] ([place] Comment on above: Performed By: #### C BC, ADIFF, ANEU, CMP, PBNP, GFR, A1C ####[address] [address] Operative Reporton 8 Operative Report Normal [facility] ([place]) PHOSon 03-26-2018 Phosphate mass conc 2.1 mg/dL Low 2.5-4.5 [facility] ([place]) Comment on above: Performed By: #### C BC, ADIFF, ANEU, CMP, PBNP, GFR, A1C ####[address] [address] PLTFon 03-26-2018 Plt % Functional 95 % Normal 80-97 [facility] ([place] Comment on above: Performed By: #### C BC, ADIFF, ANEU, CMP, PBNP, GFR, A1C ####[address] [address] Plt ADP 10 k/mm3 Normal [facility] ([place] Comment on above: Performed By: #### C BC, ADIFF, ANEU, CMP, PBNP, GFR, A1C ####[address] [address] Plt Base 190 k/mm3 Normal [facility] ([place] Comment on above: Performed By: #### C BC, ADIFF, ANEU, CMP, PBNP, GFR, A1C ####[address] [address] Plt % Functional 96 % Normal 80-97 [facility] ([place] Comment on above: Performed By: #### C BC, ADIFF, ANEU, CMP, PBNP, GFR, A1C ####[address] [address] Plt ADP 8 k/mm3 Normal [facility] ([place] Comment on above: Performed By: #### C BC, ADIFF, ANEU, CMP, PBNP, GFR, A1C ####[address] [address] Plt Base 218 k/mm3 Normal [facility] ([place] Comment on above: Performed By: #### C BC, ADIFF, ANEU, CMP, PBNP, GFR, A1C ####[address] [address] Platelet (Product)on 018 Protein mass conc Platelet Ready for Pickup Normal [facility] ([place] Comment on above: Order Comment: FOR A TOTAL OF 2 UNITS OF PLATELETS Performed By: #### C BC, ADIFF, ANEU, CMP, PBNP, GFR, A1C ####[address] [address] Protein mass conc Platelet Ready for Pickup Normal [facility] ([place] Comment on above: Order Comment: ON HO LD FOR CVOR Performed By: #### C BC, ADIFF, ANEU, CMP, PBNP, GFR, A1C ####[place] [address] [place] [address] Progress Noteon 03-26-2018 Protein mass conc Normal [facility] ([place]) Protein mass conc Normal [facility] ([place]) RBC (Product)on 03-26-2018 RBC Auto #/vol (Bld) RBC Ready for Pickup Normal [facility] ([place] Comment on above: Performed By: #### C BC, ADIFF, ANEU, CMP, PBNP, GFR, A1C ####[facility] [place] [address] RBC Auto #/vol (Bld) RBC Ready for Pickup Normal [facility] ([place] Comment on above: Performed By: #### C BC, ADIFF, ANEU, CMP, PBNP, GFR, A1C ####[place] [address] [place] [address] XR CHEST 1 VIEWon 03-26-2018 XR CHEST 1 VIEW ORIGINALXR CHEST 1 V IEW CLINICAL STATEMENT: check line placement. COMPARISON: Chest radiograph from same day, 03/19/2018 FINDINGS: The heart is normal in size. The cardiomediastinal contours are normal. A small amount of air seen along the LEFT mediastinum, likely due to recent surgery. An endotracheal tube is present approximately 3.3 cm above the patsy. There is a RIGHT internal jugular central venous catheter with the tip at the mid to distal superior vena cava. There is also a LEFT subclavian central venous catheter with the tip at the mid to distal superior vena cava. A left-sided chest tube is present with the tip not completely visualized on this exam but coursing toward the LEFT lung base. There is no focal consolidation, pleural effusion, vascular congestion, or definitive pneumothorax. IMPRESSION: Appropriate position of lines and tubes as described above. No definitive pneumothorax. I have personally reviewed the images of this examination and agree with the resident's findings and interpretation. Interpreted By: Eddie Patino DOPreliminary Report By: Barbara Munoz DOElectronically Signed By: Eddie Patino DO Dictated Date: 03/26/2018 4:36:01 PM Prelim Date: 03/26/2018 4:39:45 PM Sign Date: 03/26/2018 5:37:02 PM Normal [facility] ([place]) XR CHEST 1 VIEW ORIGINALXR CHEST 1 V IEW CLINICAL STATEMENT: check enteric tube placement. COMPARISON: Chest radiograph from same day, CT thorax 03/19/2018 FINDINGS: An enteric tube is present with the tip projecting over the distal gastric body. No obstructive bowel gas pattern is seen in the visualized abdomen. The included lung bases are clear. There is a left-sided chest tube with the tip at the LEFT lung base. There is partial visualization of a central venous catheter tip at the mid to distal superior vena cava. Median sternotomy wires and mediastinal surgical clips are present. IMPRESSION: Appropriate position of enteric tube. I have personally reviewed the images of this examination and agree with the resident's findings and interpretation. Interpreted By: Eddie Patino DOPreliminary Report By: Barbara Munoz DOElectronically Signed By: Eddie Patino DO Dictated Date: 03/26/2018 4:34:06 PM Prelim Date: 03/26/2018 4:35:47 PM Sign Date: 03/26/2018 5:36:24 PM Normal [facility] ([place] .Auto Diffon 03-25-2018 Ammonia mass conc (P) 0.60 10 3/mcL Normal 0.09-1.40 [facility] ([place] Comment on above: Performed By: #### P LTF, CBC, ADIFF, ANEU, APTT ####[address] [address] Basophils Auto #/vol (Bld) 0.10 10 3/mcL Normal 0.00-0.27 [facility] ([place] Comment on above: Performed By: #### P LTF, CBC, ADIFF, ANEU, APTT ####[address] [address] Basophils/100 WBC Auto (Bld) 0.8 % Normal 0.0-2.5 [facility] ([place] Comment on above: Performed By: #### P LTF, CBC, ADIFF, ANEU, APTT ####[address] [address] Eosinophils Auto #/vol (Bld) 0.20 10 3/mcL Normal 0.00-0.65 [facility] ([place]) Comment on above: Performed By: #### P LTF, CBC, ADIFF, ANEU, APTT ####[address] [address] Eosinophils/100 WBC Auto (Bld) 2.3 % Normal 0.0-6.0 [facility] ([place]) Comment on above: Performed By: #### P LTF, CBC, ADIFF, ANEU, APTT ####[address] [address] Lymphocytes Auto #/vol (Bld) 2.50 10 3/mcL Normal 0.90-4.32 [facility] ([place]) Comment on above: Performed By: #### P LTF, CBC, ADIFF, ANEU, APTT ####[address] [address] Lymphocytes/100 WBC Auto (Bld) 34.5 % Normal 20.0-40.0 [facility] ([place] Comment on above: Performed By: #### P LTF, CBC, ADIFF, ANEU, APTT ####[address] [address] Monocytes/100 WBC Auto (Bld) 8.5 % Normal 2.0-13.0 [facility] ([place] Comment on above: Performed By: #### P LTF, CBC, ADIFF, ANEU, APTT ####[address] [address] Neutrophils/100 WBC Auto (Bld) 53.9 % Normal 50.0-75.0 [facility] ([place]) Comment on above: Performed By: #### P LTF, CBC, ADIFF, ANEU, APTT ####[address] [address] .NEUABSon 03-25-2018 Neutrophil, Absolute 4.00 10 3/mcL Normal 2.25-8.10 [facility] ([place]) Comment on above: Performed By: #### P LTF, CBC, ADIFF, ANEU, APTT ####[address] [address] APTTon 03-25-2018 aPTT Coag time (Bld) 60.4 s High 25.0-35.0 [facility] ([place]) Comment on above: Result Comment: For Heparin anticoagulation therapy, the recommendedtherapeutic range is: 54-77 seconds (APTT Correlationwith Anti-Xa therapeutic range of 0.3-0.7 units/ml).PLEASE REFERENCE THE PHARMACY PROTOCOL FOR DOSING. Performed By: #### P LTF, CBC, ADIFF, ANEU, APTT ####[place] [address] aPTT Coag time (Bld) Heparin IV Normal [facility] ([place]) Comment on above: Performed By: #### P LTF, CBC, ADIFF, ANEU, APTT ####[place] [address] CBCon 03-25-2018 Erythrocyte distribution width Auto Ratio (RBC) 14.7 % Normal 11.5-15.5 [facility] ([place] Comment on above: Performed By: #### P LTF, CBC, ADIFF, ANEU, APTT ####[place] [address] Hematocrit Auto Volume Fraction (Bld) 38.4 % Low 40.0-52.0 [facility] ([place] Comment on above: Performed By: #### P LTF, CBC, ADIFF, ANEU, APTT ####[place] [address] Hemoglobin mass conc (Bld) 13.3 G/dL Normal 13.0-17.5 [facility] ([place]) Comment on above: Performed By: #### P LTF, CBC, ADIFF, ANEU, APTT ####[place] [address] MCH Auto Entitic mass (RBC) 29.3 pg Normal 27.0-33.0 [facility] ([place] Comment on above: Performed By: #### P LTF, CBC, ADIFF, ANEU, APTT ####[place] [address] MCHC Auto mass conc (RBC) 34.7 G/dL Normal 32.0-36.0 [facility] ([place] Comment on above: Performed By: #### P LTF, CBC, ADIFF, ANEU, APTT ####[place] [address] MCV Auto Entitic volume (RBC) 84.4 fL Normal 81.0-100.0 [facility] ([place] Comment on above: Performed By: #### P LTF, CBC, ADIFF, ANEU, APTT ####[place] [address] Platelet mean volume Auto Entitic volume (Bld) 8.4 fL Normal 6.4-10.5 [facility] ([place] Comment on above: Performed By: #### P LTF, CBC, ADIFF, ANEU, APTT ####[place] [address] Platelets Auto #/vol (Bld) 233 10 3/mcL Normal 150-450 [facility] ([place] Comment on above: Performed By: #### P LTF, CBC, ADIFF, ANEU, APTT ####[place] [address] RBC Auto #/vol (Bld) 4.56 10 6/mcL Normal 4.50-6.00 [facility] ([place]) Comment on above: Performed By: #### P LTF, CBC, ADIFF, ANEU, APTT ####[place] [address] WBC Auto #/vol (Bld) 7.40 10 3/mcL Normal 4.50-10.80 [facility] ([place] Comment on above: Performed By: #### P LTF, CBC, ADIFF, ANEU, APTT ####[place] [address] Endocrinology Progress Noteo n 03-25-2018 Protein mass conc Normal [facility] ([place]) PLTFon 03-25-2018 Plt % Functional 95 % Normal 80-97 [facility] ([place] Comment on above: Performed By: #### P LTF, CBC, ADIFF, ANEU, APTT ####[address] [address] Plt ADP 12 k/mm3 Normal [facility] ([place] Comment on above: Performed By: #### P LTF, CBC, ADIFF, ANEU, APTT ####[address] [address] Plt Base 228 k/mm3 Normal [facility] ([place] Comment on above: Performed By: #### P LTF, CBC, ADIFF, ANEU, APTT ####[place] [address] Progress Noteon 03-25-2018 Protein mass conc Normal [facility] ([place]) TABOon 03-25-2018 ABO/Rh Interp Positive Invalid Interpretation Code [facility] ([place] Comment on above: Performed By: #### C BC, ADIFF, ANEU, CMP, PBNP, GFR, A1C ####[place] [address] TABSon 03-25-2018 Antibody Screen Tango Negative Normal [facility] ([place]) Comment on above: Performed By: #### C BC, ADIFF, ANEU, CMP, PBNP, GFR, A1C ####[place] [address] .Auto Diffon 03-24-2018 Ammonia mass conc (P) 0.70 10 3/mcL Normal 0.09-1.40 [facility] ([place]) Comment on above: Performed By: #### T ROPI ####[place] [address] Basophils Auto #/vol (Bld) 0.10 10 3/mcL Normal 0.00-0.27 [facility] ([place]) Comment on above: Performed By: #### T ROPI ####[place] [address] Basophils/100 WBC Auto (Bld) 0.7 % Normal 0.0-2.5 [facility] ([place] Comment on above: Performed By: #### T ROPI ####[place] [address] Eosinophils Auto #/vol (Bld) 0.20 10 3/mcL Normal 0.00-0.65 [facility] ([place]) Comment on above: Performed By: #### T ROPI ####[address] [address] Eosinophils/100 WBC Auto (Bld) 2.6 % Normal 0.0-6.0 [facility] ([place]) Comment on above: Performed By: #### T ROPI ####[address] [address] Lymphocytes Auto #/vol (Bld) 2.60 10 3/mcL Normal 0.90-4.32 [facility] ([place]) Comment on above: Performed By: #### T ROPI ####[address] [address] Lymphocytes/100 WBC Auto (Bld) 36.5 % Normal 20.0-40.0 [facility] ([place]) Comment on above: Performed By: #### T ROPI ####[address] [address] Monocytes/100 WBC Auto (Bld) 9.1 % Normal 2.0-13.0 [facility] ([place]) Comment on above: Performed By: #### T ROPI ####[address] [address] Neutrophils/100 WBC Auto (Bld) 51.1 % Normal 50.0-75.0 [facility] ([place] Comment on above: Performed By: #### T ROPI ####[address] [address] .GFRon 03-24-2018 GFR Non- >60 Normal [facility] ([place]) Comment on above: Result Comment: GFR Population mean for , Non- Americans Ages 20-29 = 116 mL/min/1.73 sq.m. Ages 30-39 = 107 mL/min/1.73 sq.m. Ages 40-49 = 99 mL/min/1.73 sq.m. Ages 50-59 = 93 mL/min/1.73 sq.m. Ages 60-69 = 85 mL/min/1.73 sq.m. Ages 70+ = 75 mL/min/1.73 sq.m.Chronic Kidney Disease: Less than 60 mL/min/1.73 square metersEnd Stage Renal Disease: Less than 15 mL/min/1.73 square meters Performed By: #### T BRICE ####[place] [address] GFR >60 Normal [facility] ([place]) Comment on above: Result Comment: GFR Population mean for , Non- Americans Ages 20-29 = 116 mL/min/1.73 sq.m. Ages 30-39 = 107 mL/min/1.73 sq.m. Ages 40-49 = 99 mL/min/1.73 sq.m. Ages 50-59 = 93 mL/min/1.73 sq.m. Ages 60-69 = 85 mL/min/1.73 sq.m. Ages 70+ = 75 mL/min/1.73 sq.m.Chronic Kidney Disease: Less than 60 mL/min/1.73 square metersEnd Stage Renal Disease: Less than 15 mL/min/1.73 square meters Performed By: #### T BRICE ####[place] [address] .NEUABSon 03-24-2018 Neutrophil, Absolute 3.70 10 3/mcL Normal 2.25-8.10 [facility] ([place] Comment on above: Performed By: #### T BRICE ####[place] [address] APTTon 03-24-2018 aPTT Coag time (Bld) 55.6 s High 25.0-35.0 [facility] ([place]) Comment on above: Result Comment: For Heparin anticoagulation therapy, the recommendedtherapeutic range is: 54-77 seconds (APTT Correlationwith Anti-Xa therapeutic range of 0.3-0.7 units/ml).PLEASE REFERENCE THE PHARMACY PROTOCOL FOR DOSING. Performed By: #### A PTT ####[place] [address] aPTT Coag time (Bld) Heparin IV Normal [facility] ([place]) Comment on above: Performed By: #### A PTT ####[place] [address] aPTT Coag time (Bld) Heparin IV Normal [facility] ([place]) Comment on above: Performed By: #### T ROPI ####[place] [address] aPTT Coag time (Bld) 60.7 s High 25.0-35.0 [facility] ([place] Comment on above: Result Comment: For Heparin anticoagulation therapy, the recommendedtherapeutic range is: 54-77 seconds (APTT Correlationwith Anti-Xa therapeutic range of 0.3-0.7 units/ml).PLEASE REFERENCE THE PHARMACY PROTOCOL FOR DOSING. Performed By: #### T ROPI ####[place] [address] aPTT Coag time (Bld) 69.7 s High 25.0-35.0 [facility] ([place]) Comment on above: Result Comment: For Heparin anticoagulation therapy, the recommendedtherapeutic range is: 54-77 seconds (APTT Correlationwith Anti-Xa therapeutic range of 0.3-0.7 units/ml).PLEASE REFERENCE THE PHARMACY PROTOCOL FOR DOSING. Performed By: #### T ROPI ####[place] [address] aPTT Coag time (Bld) Heparin IV Normal [facility] ([place]) Comment on above: Performed By: #### T ROPI ####[place] [id number] BMPon 03-24-2018 Creatinine mass conc 1.15 mg/dL Normal 0.60-1.40 [facility] ([place]) Comment on above: Performed By: #### T ROPI ####[place] [address] Urea nitrogen/Creatinine mass ratio 8.7 ratio Low 10.0-22.0 [facility] ([place]) Comment on above: Performed By: #### T ROPI ####[place] [address] Calcium mass conc 8.7 mg/dL Normal 8.4-10.1 [facility] ([place] Comment on above: Performed By: #### T ROPI ####[place] [address] Chloride molar conc 103 mmol/L Normal 98-110 [facility] ([place]) Comment on above: Performed By: #### T ROPI ####[place] [address] CO2 molar conc 33 mmol/L High 22-32 [facility] ([place] Comment on above: Performed By: #### T ROPI ####[place] [address] Electrolyte Balance 7.0 mEq/L Normal 4.0-15.0 [facility] ([place]) Comment on above: Performed By: #### T ROPI ####[place] [address] Glucose mass conc 100 mg/dL Normal 70-110 [facility] ([place] Comment on above: Performed By: #### T ROPI ####[place] [address] Potassium molar conc 4.6 mmol/L Normal 3.5-5.0 [facility] ([place] Comment on above: Performed By: #### T ROPI ####[place] [address] Sodium molar conc 143 mmol/L Normal 136-145 [facility] ([place] Comment on above: Performed By: #### T ROPI ####[place] [address] Urea nitrogen mass conc 10.0 mg/dL Normal 8.0-22.0 [facility] ([place] Comment on above: Performed By: #### T ROPI ####[place] [address] CBCon 03-24-2018 Erythrocyte distribution width Auto Ratio (RBC) 14.6 % Normal 11.5-15.5 [facility] ([place] Comment on above: Performed By: #### T ROPI ####[place] [address] Hematocrit Auto Volume Fraction (Bld) 37.7 % Low 40.0-52.0 [facility] ([place] Comment on above: Performed By: #### T ROPI ####[place] [address] Hemoglobin mass conc (Bld) 13.1 G/dL Normal 13.0-17.5 [facility] ([place] Comment on above: Performed By: #### T ROPI ####[place] [address] MCH Auto Entitic mass (RBC) 29.4 pg Normal 27.0-33.0 [facility] ([place] Comment on above: Performed By: #### T ROPI ####[place] [address] MCHC Auto mass conc (RBC) 34.9 G/dL Normal 32.0-36.0 [facility] ([place] Comment on above: Performed By: #### T ROPI ####[place] [address] MCV Auto Entitic volume (RBC) 84.2 fL Normal 81.0-100.0 [facility] ([place] Comment on above: Performed By: #### T ROPI ####[place] [address] Platelet mean volume Auto Entitic volume (Bld) 8.1 fL Normal 6.4-10.5 [facility] ([place] Comment on above: Performed By: #### T ROPI ####[place] [address] Platelets Auto #/vol (Bld) 230 10 3/mcL Normal 150-450 [facility] ([place] Comment on above: Performed By: #### T ROPI ####[address] [address] RBC Auto #/vol (Bld) 4.47 10 6/mcL Low 4.50-6.00 [facility] ([place]) Comment on above: Performed By: #### T ROPI ####[place] [address] WBC Auto #/vol (Bld) 7.20 10 3/mcL Normal 4.50-10.80 [facility] [place] Comment on above: Performed By: #### T BRICE ####[place] [address] Endocrinology Progress Noteo n 03-24-2018 Protein mass conc Normal [facility] ([place]) Progress Noteon 03-24-2018 Protein mass conc Normal [facility] ([place]) Protein mass conc Normal [facility] [place]) Protein mass conc Normal [facility] [place]) Protein mass conc Normal [facility] [place] XR PANOREX/ORTHOPANTOGRAMon 03-24-2018 XR PANOREX/ORTHOPANTOGRA M ORIGINALXR PANOREX/ORTHOPANTOGRAM CLINICAL STATEMENT: abscess. COMPARISON: None FINDINGS:No periapical lucency is identified. The posterior RIGHT maxillary molar appears carious. Evaluation of the incisors and canines is limited by artifact. There is vertical and horizontal height loss at the remaining RIGHT maxillary molar. Interpreted By: Davide FelixPreliminary Report By: Davide FelixElectronically Signed By: Davide Felix Dictated Date: 03/24/2018 7:35:32 AM Prelim Date: 03/24/2018 7:35:32 AM Sign Date: 03/24/2018 7:36:42 AM Normal [facility] ([place]) .Auto Diffon 03-23-2018 Ammonia mass conc (P) 0.70 10 3/mcL Normal 0.09-1.40 [facility] ([place]) Comment on above: Performed By: #### C BC, ADIFF, ANEU, CMP, PBNP, GFR, A1C ####[place] [address] Basophils Auto #/vol (Bld) 0.10 10 3/mcL Normal 0.00-0.27 [facility] ([place] Comment on above: Performed By: #### C BC, ADIFF, ANEU, CMP, PBNP, GFR, A1C ####[place] [address] Basophils/100 WBC Auto (Bld) 0.7 % Normal 0.0-2.5 [facility] ([place] Comment on above: Performed By: #### C BC, ADIFF, ANEU, CMP, PBNP, GFR, A1C ####[address] [address] Eosinophils Auto #/vol (Bld) 0.20 10 3/mcL Normal 0.00-0.65 [facility] ([place]) Comment on above: Performed By: #### C BC, ADIFF, ANEU, CMP, PBNP, GFR, A1C ####[address] [address] Eosinophils/100 WBC Auto (Bld) 2.5 % Normal 0.0-6.0 [facility] ([place]) Comment on above: Performed By: #### C BC, ADIFF, ANEU, CMP, PBNP, GFR, A1C ####[address] [address] Lymphocytes Auto #/vol (Bld) 2.90 10 3/mcL Normal 0.90-4.32 [facility] ([place]) Comment on above: Performed By: #### C BC, ADIFF, ANEU, CMP, PBNP, GFR, A1C ####[address] [address] Lymphocytes/100 WBC Auto (Bld) 35.8 % Normal 20.0-40.0 [facility] ([place]) Comment on above: Performed By: #### C BC, ADIFF, ANEU, CMP, PBNP, GFR, A1C ####[address] [address] Monocytes/100 WBC Auto (Bld) 8.6 % Normal 2.0-13.0 [facility] ([place]) Comment on above: Performed By: #### C BC, ADIFF, ANEU, CMP, PBNP, GFR, A1C ####[address] [address] Neutrophils/100 WBC Auto (Bld) 52.4 % Normal 50.0-75.0 [facility] ([place]) Comment on above: Performed By: #### C BC, ADIFF, ANEU, CMP, PBNP, GFR, A1C ####[address] [address] .NEUABSon 03-23-2018 Neutrophil, Absolute 4.20 10 3/mcL Normal 2.25-8.10 [facility] [place] Comment on above: Performed By: #### C BC, ADIFF, ANEU, CMP, PBNP, GFR, A1C ####[place] [address] APTTon 03-23-2018 aPTT Coag time (Bld) Heparin IV Normal [facility] ([place] Comment on above: Performed By: #### T ROPI ####[place] [address] aPTT Coag time (Bld) 58.9 s High 25.0-35.0 [facility] ([place] Comment on above: Result Comment: For Heparin anticoagulation therapy, the recommendedtherapeutic range is: 54-77 seconds (APTT Correlationwith Anti-Xa therapeutic range of 0.3-0.7 units/ml).PLEASE REFERENCE THE PHARMACY PROTOCOL FOR DOSING. Performed By: #### T ROPI ####[place] [address] aPTT Coag time (Bld) 61.0 s High 25.0-35.0 [facility] ([place] Comment on above: Order Comment: Pleas e recollect - Quantity not sufficient - KP Result Comment: For Heparin anticoagulation therapy, the recommendedtherapeutic range is: 54-77 seconds (APTT Correlationwith Anti-Xa therapeutic range of 0.3-0.7 units/ml).PLEASE REFERENCE THE PHARMACY PROTOCOL FOR DOSING. Performed By: #### A PTT ####[place] [address] aPTT Coag time (Bld) Heparin IV Normal [facility] ([place] Comment on above: Order Comment: Pleas e recollect - Quantity not sufficient - KP Performed By: #### A PTT ####[place] [address] aPTT Coag time (Bld) Heparin IV [facility] ([place]) Comment on above: Performed By: #### C BC, ADIFF, ANEU, CMP, PBNP, GFR, A1C ####[place] [address] aPTT Coag time (Bld) 77.6 s High 25.0-35.0 [facility] ([place] Comment on above: Result Comment: For Heparin anticoagulation therapy, the recommendedtherapeutic range is: 54-77 seconds (APTT Correlationwith Anti-Xa therapeutic range of 0.3-0.7 units/ml).PLEASE REFERENCE THE PHARMACY PROTOCOL FOR DOSING. Performed By: #### C BC, ADIFF, ANEU, CMP, PBNP, GFR, A1C ####[place] [address] Anesthesiology Consultationo n 03-23-2018 Anesthesiology Consultation Normal [facility] ([place]) CBCon 03-23-2018 Erythrocyte distribution width Auto Ratio (RBC) 14.5 % Normal 11.5-15.5 [facility] ([place] Comment on above: Performed By: #### C BC, ADIFF, ANEU, CMP, PBNP, GFR, A1C ####[place] [address] Hematocrit Auto Volume Fraction (Bld) 39.3 % Low 40.0-52.0 [facility] ([place] Comment on above: Performed By: #### C BC, ADIFF, ANEU, CMP, PBNP, GFR, A1C ####[place] [address] Hemoglobin mass conc (Bld) 13.7 G/dL Normal 13.0-17.5 [facility] ([place] Comment on above: Performed By: #### C BC, ADIFF, ANEU, CMP, PBNP, GFR, A1C ####[place] [address] MCH Auto Entitic mass (RBC) 29.0 pg Normal 27.0-33.0 [facility] ([place] Comment on above: Performed By: #### C BC, ADIFF, ANEU, CMP, PBNP, GFR, A1C ####[place] [address] MCHC Auto mass conc (RBC) 35.0 G/dL Normal 32.0-36.0 [facility] ([place] Comment on above: Performed By: #### C BC, ADIFF, ANEU, CMP, PBNP, GFR, A1C ####[place] [address] MCV Auto Entitic volume (RBC) 82.9 fL Normal 81.0-100.0 [facility] ([place] Comment on above: Performed By: #### C BC, ADIFF, ANEU, CMP, PBNP, GFR, A1C ####[place] [address] Platelet mean volume Auto Entitic volume (Bld) 8.1 fL Normal 6.4-10.5 [facility] ([place] Comment on above: Performed By: #### C BC, ADIFF, ANEU, CMP, PBNP, GFR, A1C ####[place] [address] Platelets Auto #/vol (Bld) 228 10 3/mcL Normal 150-450 [facility] ([place] Comment on above: Performed By: #### C BC, ADIFF, ANEU, CMP, PBNP, GFR, A1C ####[place] [address] RBC Auto #/vol (Bld) 4.74 10 6/mcL Normal 4.50-6.00 [facility] [place] Comment on above: Performed By: #### C BC, ADIFF, ANEU, CMP, PBNP, GFR, A1C ####[place] [address] WBC Auto #/vol (Bld) 8.10 10 3/mcL Normal 4.50-10.80 [facility] [place] Comment on above: Performed By: #### C BC, ADIFF, ANEU, CMP, PBNP, GFR, A1C ####[place] [address] Endocrinology Consultationon 03-23-2018 Endocrinology Consultation Normal [facility] [place] Endocrinology Progress Noteo n 03-23-2018 Protein mass conc Normal [facility] ([place] FT3on 03-23-2018 T3 free mass conc 2.88 pg/mL Normal 2.30-4.20 [facility] ([place]) Comment on above: Result Comment: Ronny raines note ? as of 04/01/17 new pediatric reference intervals were added for this test. Performed By: #### A PTT ####[address] [address] FT4on 03-23-2018 T4 free mass conc 1.07 ng/dL Normal 0.60-1.70 [facility] ([place] Comment on above: Result Comment: Plea se note ? as of 04/01/17 new pediatric reference intervals were added for this test. Performed By: #### A PTT ####[place] [address] Pain Management Progress Not veronica 03-23-2018 Pain Management Progress Note Normal [facility] ([place] TSHon 03-23-2018 Thyrotropin Qn 14.400 mcIU/mL High 0.360-3.740 [facility] ([place]) Comment on above: Result Comment: Plea se note ? as of 04/01/17 new pediatric reference intervals were added for this test. Performed By: #### C BC, ADIFF, ANEU, CMP, PBNP, GFR, A1C ####[place] [address] US THYROIDon 03-23-2018 US THYROID ORIGINALUltrasound Thyroid, 03/23/2018 CLINICAL STATEMENT: Thyromegaly, COMPARISON: CT chest without contrast 03/19/2018 FINDINGS: Size right thyroid lobe: 4.3 x 2.2 x 1.4 cmSize left thyroid lobe: 3.4 x 1.9 x 1.4 cmSize isthmus: 0.3 cmTexture: Homogeneous Estimated total number of nodules greater than or equal to 1 cm: 0Number of spongiform nodules >/= 2 cm not described below (TR1): 0Number of mixed cystic and solid nodules >/= 1.5 cm not described below (TR2): 0 No discrete thyroid nodules or masses are detected. There is a 10 x 8 x 6 mm uniformly echogenic nodule in the LEFT lateral neck lateral to the LEFT carotid artery. This does not show fatty hilum. Another LEFT lateral neck nodule measuring 12 x 4 x 7 mm contains hyperechoic eccentric portion felt to be fatty hilum. This nodule is felt to be a benign lymph node. IMPRESSION:Sonographic appearance of the thyroid gland is considered normal. There are 2 LEFT neck extrathyroidal nodules. One has the appearance of a benign lymph node. The other lesion is nonspecific. Further evaluation with CT imaging may be helpful. ACR TI-RADS 2017 Recommendations: TR1(0 points) : No FNA or follow upTR2 (2 points) : No FNA or follow upTR3 (3 points) : FNA if >/= 2.5 cm, follow up if 1.5 - 2.4 cm in 1, 3, and 5 yearsTR4 (4-6 points) : FNA if >/= 1.5 cm, follow up if 1.0 - 1.4 cm in 1, 2, 3, and 5 yearsTR5 (>/= 7 points) : FNA if >/= 1.0 cm, follow up if 0.5 - 0.9 cm every year for 5 years *ACR TI-RADS recommends that no more than two nodules with the highest ACR TI-RADS total point should be biopsied and no more than four nodules should be followed. Interpreted By: Destin Raphaelreliminary Report By: Destin Raphael MDElectronically Signed By: Destin Raphael MD Dictated Date: 03/23/2018 4:29:11 PM Prelim Date: 03/23/2018 4:29:11 PM Sign Date: 03/23/2018 4:33:45 PM Normal [facility] ([place] .Auto Diffon 03-22-2018 Ammonia mass conc (P) 0.70 10 3/mcL Normal 0.09-1.40 [facility] ([place]) Comment on above: Performed By: #### C LISHA FRANCIS, SHERLYN, CMP, PBNP, GFR, A1C ####[place] [id number] [place] [address] Basophils Auto #/vol (Bld) 0.10 10 3/mcL Normal 0.00-0.27 [facility] ([place] Comment on above: Performed By: #### C LISHA FRANCIS ANEU, CMP, PBNP, GFR, A1C ####[address] [address] Basophils/100 WBC Auto (Bld) 0.6 % Normal 0.0-2.5 [facility] ([place] Comment on above: Performed By: #### C BC, ADIFF, ANEU, CMP, PBNP, GFR, A1C ####[address] [address] Eosinophils Auto #/vol (Bld) 0.20 10 3/mcL Normal 0.00-0.65 [facility] ([place]) Comment on above: Performed By: #### C BC, ADIFF, ANEU, CMP, PBNP, GFR, A1C ####[address] [address] Eosinophils/100 WBC Auto (Bld) 2.2 % Normal 0.0-6.0 [facility] ([place] Comment on above: Performed By: #### C BC, ADIFF, ANEU, CMP, PBNP, GFR, A1C ####[address] [address] Lymphocytes Auto #/vol (Bld) 2.90 10 3/mcL Normal 0.90-4.32 [facility] ([place] Comment on above: Performed By: #### C BC, ADIFF, ANEU, CMP, PBNP, GFR, A1C ####[address] [address] Lymphocytes/100 WBC Auto (Bld) 34.8 % Normal 20.0-40.0 [facility] ([place] Comment on above: Performed By: #### C BC, ADIFF, ANEU, CMP, PBNP, GFR, A1C ####[address] [address] Monocytes/100 WBC Auto (Bld) 8.3 % Normal 2.0-13.0 [facility] ([place] Comment on above: Performed By: #### C BC, ADIFF, ANEU, CMP, PBNP, GFR, A1C ####[address] [address] Neutrophils/100 WBC Auto (Bld) 54.1 % Normal 50.0-75.0 [facility] ([place]) Comment on above: Performed By: #### C BC, ADIFF, ANEU, CMP, PBNP, GFR, A1C ####[address] [address] .NEUABSon 03-22-2018 Neutrophil, Absolute 4.50 10 3/mcL Normal 2.25-8.10 A [facility] ([place]) Comment on above: Performed By: #### C BC, ADIFF, ANEU, CMP, PBNP, GFR, A1C ####[place] [address] APTTon 03-22-2018 aPTT Coag time (Bld) 62.5 s High 25.0-35.0 [facility] ([place]) Comment on above: Result Comment: For Heparin anticoagulation therapy, the recommendedtherapeutic range is: 54-77 seconds (APTT Correlationwith Anti-Xa therapeutic range of 0.3-0.7 units/ml).PLEASE REFERENCE THE PHARMACY PROTOCOL FOR DOSING. Performed By: #### C BC, ADIFF, ANEU, CMP, PBNP, GFR, A1C ####[place] [address] aPTT Coag time (Bld) Heparin IV Normal [facility] ([place]) Comment on above: Performed By: #### C BC, ADIFF, ANEU, CMP, PBNP, GFR, A1C ####[place] [address] CBCon 03-22-2018 Erythrocyte distribution width Auto Ratio (RBC) 14.4 % Normal 11.5-15.5 [facility] ([place]) Comment on above: Performed By: #### C BC, ADIFF, ANEU, CMP, PBNP, GFR, A1C ####[place] [address] Hematocrit Auto Volume Fraction (Bld) 37.9 % Low 40.0-52.0 [facility] ([place]) Comment on above: Performed By: #### C BC, ADIFF, ANEU, CMP, PBNP, GFR, A1C ####[place] [address] Hemoglobin mass conc (Bld) 13.1 G/dL Normal 13.0-17.5 [facility] ([place]) Comment on above: Performed By: #### C BC, ADIFF, ANEU, CMP, PBNP, GFR, A1C ####[place] [address] MCH Auto Entitic mass (RBC) 28.7 pg Normal 27.0-33.0 [facility] ([place]) Comment on above: Performed By: #### C BC, ADIFF, ANEU, CMP, PBNP, GFR, A1C ####[place] [address] MCHC Auto mass conc (RBC) 34.6 G/dL Normal 32.0-36.0 [facility] ([place]) Comment on above: Performed By: #### C BC, ADIFF, ANEU, CMP, PBNP, GFR, A1C ####[place] [address] MCV Auto Entitic volume (RBC) 83.1 fL Normal 81.0-100.0 [facility] ([place]) Comment on above: Performed By: #### C BC, ADIFF, ANEU, CMP, PBNP, GFR, A1C ####[place] [address] Platelet mean volume Auto Entitic volume (Bld) 8.7 fL Normal 6.4-10.5 [facility] ([place]) Comment on above: Performed By: #### C BC, ADIFF, ANEU, CMP, PBNP, GFR, A1C ####[place] [address] Platelets Auto #/vol (Bld) 215 10 3/mcL Normal 150-450 [facility] ([place]) Comment on above: Performed By: #### C BC, ADIFF, ANEU, CMP, PBNP, GFR, A1C ####[place] [address] RBC Auto #/vol (Bld) 4.56 10 6/mcL Normal 4.50-6.00 A [facility] ([place]) Comment on above: Performed By: #### C BC, ADIFF, ANEU, CMP, PBNP, GFR, A1C ####[place] [address] WBC Auto #/vol (Bld) 8.30 10 3/mcL Normal 4.50-10.80 A [facility] ([place]) Comment on above: Performed By: #### C BC, ADIFF, ANEU, CMP, PBNP, GFR, A1C ####[address] [address] Consultation Noteon 03-22-20 Consultation Note Normal [facility] ([place]) Pain Management Consultation Noteon 03-22-2018 Pain Management Consultation Note Normal [facility] ([place]) .Auto Diffon 03-21-2018 Ammonia mass conc (P) 0.70 10 3/mcL Normal 0.09-1.40 [facility] ([place]) Comment on above: Performed By: #### C BC, ADIFF, ANEU, CMP, PBNP, GFR, A1C ####[address] [address] Basophils Auto #/vol (Bld) 0.00 10 3/mcL Normal 0.00-0.27 [facility] ([place]) Comment on above: Performed By: #### C BC, ADIFF, ANEU, CMP, PBNP, GFR, A1C ####[place] [address] Basophils/100 WBC Auto (Bld) 0.5 % Normal 0.0-2.5 [facility] ([place]) Comment on above: Performed By: #### C BC, ADIFF, ANEU, CMP, PBNP, GFR, A1C ####[address] [address] Eosinophils Auto #/vol (Bld) 0.20 10 3/mcL Normal 0.00-0.65 [facility] ([place]) Comment on above: Performed By: #### C BC, ADIFF, ANEU, CMP, PBNP, GFR, A1C ####[address] [address] Eosinophils/100 WBC Auto (Bld) 2.2 % Normal 0.0-6.0 [facility] ([place]) Comment on above: Performed By: #### C BC, ADIFF, ANEU, CMP, PBNP, GFR, A1C ####[address] [address] Lymphocytes Auto #/vol (Bld) 3.00 10 3/mcL Normal 0.90-4.32 [facility] ([place]) Comment on above: Performed By: #### C BC, ADIFF, ANEU, CMP, PBNP, GFR, A1C ####[address] [address] Lymphocytes/100 WBC Auto (Bld) 38.5 % Normal 20.0-40.0 [facility] ([place]) Comment on above: Performed By: #### C BC, ADIFF, ANEU, CMP, PBNP, GFR, A1C ####[address] [address] Monocytes/100 WBC Auto (Bld) 9.4 % Normal 2.0-13.0 [facility] ([place]) Comment on above: Performed By: #### C BC, ADIFF, ANEU, CMP, PBNP, GFR, A1C ####[address] [address] Neutrophils/100 WBC Auto (Bld) 49.4 % Low 50.0-75.0 [facility] ([place]) Comment on above: Performed By: #### C BC, ADIFF, ANEU, CMP, PBNP, GFR, A1C ####[address] [address] .GFRon 03-21-2018 GFR Non- >60 Normal [facility] ([place]) Comment on above: Result Comment: GFR Population mean for , Non- Americans Ages 20-29 = 116 mL/min/1.73 sq.m. Ages 30-39 = 107 mL/min/1.73 sq.m. Ages 40-49 = 99 mL/min/1.73 sq.m. Ages 50-59 = 93 mL/min/1.73 sq.m. Ages 60-69 = 85 mL/min/1.73 sq.m. Ages 70+ = 75 mL/min/1.73 sq.m.Chronic Kidney Disease: Less than 60 mL/min/1.73 square metersEnd Stage Renal Disease: Less than 15 mL/min/1.73 square meters Performed By: #### C BC, ADIFF, ANEU, CMP, PBNP, GFR, A1C ####[address] [address] GFR >60 Normal [facility] ([place]) Comment on above: Result Comment: GFR Population mean for , Non- Americans Ages 20-29 = 116 mL/min/1.73 sq.m. Ages 30-39 = 107 mL/min/1.73 sq.m. Ages 40-49 = 99 mL/min/1.73 sq.m. Ages 50-59 = 93 mL/min/1.73 sq.m. Ages 60-69 = 85 mL/min/1.73 sq.m. Ages 70+ = 75 mL/min/1.73 sq.m.Chronic Kidney Disease: Less than 60 mL/min/1.73 square metersEnd Stage Renal Disease: Less than 15 mL/min/1.73 square meters Performed By: #### C BC, ADIFF, ANEU, CMP, PBNP, GFR, A1C ####[address] [address] .NEUABSon 03-21-2018 Neutrophil, Absolute 3.90 10 3/mcL Normal 2.25-8.10 A [facility] ([place]) Comment on above: Performed By: #### C BC, ADIFF, ANEU, CMP, PBNP, GFR, A1C ####[place] [address] APTTon 03-21-2018 aPTT Coag time (Bld) 62.5 s High 25.0-35.0 [facility] ([place]) Comment on above: Result Comment: For Heparin anticoagulation therapy, the recommendedtherapeutic range is: 54-77 seconds (APTT Correlationwith Anti-Xa therapeutic range of 0.3-0.7 units/ml).PLEASE REFERENCE THE PHARMACY PROTOCOL FOR DOSING. Performed By: #### C BC, ADIFF, ANEU, CMP, PBNP, GFR, A1C ####[address] [address] aPTT Coag time (Bld) Heparin IV Normal [facility] ([place]) Comment on above: Performed By: #### C BC, ADIFF, ANEU, CMP, PBNP, GFR, A1C ####[address] [address] BMPon 03-21-2018 Creatinine mass conc 1.10 mg/dL Normal 0.60-1.40 [facility] ([place]) Comment on above: Performed By: #### C BC, ADIFF, ANEU, CMP, PBNP, GFR, A1C ####[place] [address] Urea nitrogen/Creatinine mass ratio 5.5 ratio Low 10.0-22.0 [facility] ([place]) Comment on above: Performed By: #### C BC, ADIFF, ANEU, CMP, PBNP, GFR, A1C ####[place] [address] Calcium mass conc 9.0 mg/dL Normal 8.4-10.1 [facility] ([place]) Comment on above: Performed By: #### C BC, ADIFF, ANEU, CMP, PBNP, GFR, A1C ####[place] [address] Chloride molar conc 102 mmol/L Normal 98-110 [facility] ([place]) Comment on above: Performed By: #### C BC, ADIFF, ANEU, CMP, PBNP, GFR, A1C ####[place] [address] CO2 molar conc 32 mmol/L Normal 22-32 [facility] ([place]) Comment on above: Performed By: #### C BC, ADIFF, ANEU, CMP, PBNP, GFR, A1C ####[place] [address] Electrolyte Balance 10.0 mEq/L Normal 4.0-15.0 [facility] ([place]) Comment on above: Performed By: #### C BC, ADIFF, ANEU, CMP, PBNP, GFR, A1C ####[place] [address] Glucose mass conc 112 mg/dL High 70-110 [facility] ([place]) Comment on above: Performed By: #### C BC, ADIFF, ANEU, CMP, PBNP, GFR, A1C ####[place] [address] Potassium molar conc 3.9 mmol/L Normal 3.5-5.0 [facility] ([place]) Comment on above: Performed By: #### C BC, ADIFF, ANEU, CMP, PBNP, GFR, A1C ####[place] [address] Sodium molar conc 144 mmol/L Normal 136-145 [facility] ([place]) Comment on above: Performed By: #### C BC, ADIFF, ANEU, CMP, PBNP, GFR, A1C ####[place] [address] Urea nitrogen mass conc 6.0 mg/dL Low 8.0-22.0 [facility] ([place]) Comment on above: Performed By: #### C BC, ADIFF, ANEU, CMP, PBNP, GFR, A1C ####[place] [address] CBCon 03-21-2018 Erythrocyte distribution width Auto Ratio (RBC) 14.4 % Normal 11.5-15.5 [facility] ([place]) Comment on above: Performed By: #### C BC, ADIFF, ANEU, CMP, PBNP, GFR, A1C ####[place] [address] Hematocrit Auto Volume Fraction (Bld) 38.6 % Low 40.0-52.0 [facility] ([place]) Comment on above: Performed By: #### C BC, ADIFF, ANEU, CMP, PBNP, GFR, A1C ####[place] [address] Hemoglobin mass conc (Bld) 13.7 G/dL Normal 13.0-17.5 [facility] ([place]) Comment on above: Performed By: #### C BC, ADIFF, ANEU, CMP, PBNP, GFR, A1C ####[place] [address] MCH Auto Entitic mass (RBC) 29.6 pg Normal 27.0-33.0 [facility] ([place]) Comment on above: Performed By: #### C BC, ADIFF, ANEU, CMP, PBNP, GFR, A1C ####[place] [address] MCHC Auto mass conc (RBC) 35.4 G/dL Normal 32.0-36.0 [facility] ([place]) Comment on above: Performed By: #### C BC, ADIFF, ANEU, CMP, PBNP, GFR, A1C ####[place] [address] MCV Auto Entitic volume (RBC) 83.6 fL Normal 81.0-100.0 [facility] ([place]) Comment on above: Performed By: #### C BC, ADIFF, ANEU, CMP, PBNP, GFR, A1C ####[place] [address] Platelet mean volume Auto Entitic volume (Bld) 8.4 fL Normal 6.4-10.5 [facility] ([place]) Comment on above: Performed By: #### C BC, ADIFF, ANEU, CMP, PBNP, GFR, A1C ####[place] [address] Platelets Auto #/vol (Bld) 210 10 3/mcL Normal 150-450 [facility] ([place]) Comment on above: Performed By: #### C BC, ADIFF, ANEU, CMP, PBNP, GFR, A1C ####[place] [address] RBC Auto #/vol (Bld) 4.62 10 6/mcL Normal 4.50-6.00 A [facility] ([place]) Comment on above: Performed By: #### C BC, ADIFF, ANEU, CMP, PBNP, GFR, A1C ####[place] [address] WBC Auto #/vol (Bld) 7.90 10 3/mcL Normal 4.50-10.80 A [facility] ([place]) Comment on above: Performed By: #### C BC, ADIFF, ANEU, CMP, PBNP, GFR, A1C ####[place] [address] .Auto Diffon 03-20-2018 Ammonia mass conc (P) 0.70 10 3/mcL Normal 0.09-1.40 [facility] ([place]) Comment on above: Performed By: #### C BC, ADIFF, ANEU, CMP, PBNP, GFR, A1C ####[address] [address] Basophils Auto #/vol (Bld) 0.00 10 3/mcL Normal 0.00-0.27 [facility] ([place]) Comment on above: Performed By: #### C BC, ADIFF, ANEU, CMP, PBNP, GFR, A1C ####[address] [address] Basophils/100 WBC Auto (Bld) 0.6 % Normal 0.0-2.5 [facility] ([place]) Comment on above: Performed By: #### C BC, ADIFF, ANEU, CMP, PBNP, GFR, A1C ####[address] [address] Eosinophils Auto #/vol (Bld) 0.10 10 3/mcL Normal 0.00-0.65 [facility] ([place]) Comment on above: Performed By: #### C BC, ADIFF, ANEU, CMP, PBNP, GFR, A1C ####[address] [address] Eosinophils/100 WBC Auto (Bld) 1.9 % Normal 0.0-6.0 [facility] ([place] Comment on above: Performed By: #### C BC, ADIFF, ANEU, CMP, PBNP, GFR, A1C ####[address] [address] Lymphocytes Auto #/vol (Bld) 2.50 10 3/mcL Normal 0.90-4.32 [facility] ([place]) Comment on above: Performed By: #### C BC, ADIFF, ANEU, CMP, PBNP, GFR, A1C ####[address] [address] Lymphocytes/100 WBC Auto (Bld) 34.2 % Normal 20.0-40.0 [facility] ([place]) Comment on above: Performed By: #### C BC, ADIFF, ANEU, CMP, PBNP, GFR, A1C ####[address] [address] Monocytes/100 WBC Auto (Bld) 8.9 % Normal 2.0-13.0 [facility] ([place]) Comment on above: Performed By: #### C BC, ADIFF, ANEU, CMP, PBNP, GFR, A1C ####[address] [address] Neutrophils/100 WBC Auto (Bld) 54.4 % Normal 50.0-75.0 [facility] ([place] Comment on above: Performed By: #### C BC, ADIFF, ANEU, CMP, PBNP, GFR, A1C ####[address] [address] .GFRon 03-20-2018 GFR Non- >60 Normal [facility] ([place]) Comment on above: Result Comment: GFR Population mean for , Non- Americans Ages 20-29 = 116 mL/min/1.73 sq.m. Ages 30-39 = 107 mL/min/1.73 sq.m. Ages 40-49 = 99 mL/min/1.73 sq.m. Ages 50-59 = 93 mL/min/1.73 sq.m. Ages 60-69 = 85 mL/min/1.73 sq.m. Ages 70+ = 75 mL/min/1.73 sq.m.Chronic Kidney Disease: Less than 60 mL/min/1.73 square metersEnd Stage Renal Disease: Less than 15 mL/min/1.73 square meters Performed By: #### C BC, ADIFF, ANEU, CMP, PBNP, GFR, A1C ####[address] [address] GFR >60 Normal [facility] ([place]) Comment on above: Result Comment: GFR Population mean for , Non- Americans Ages 20-29 = 116 mL/min/1.73 sq.m. Ages 30-39 = 107 mL/min/1.73 sq.m. Ages 40-49 = 99 mL/min/1.73 sq.m. Ages 50-59 = 93 mL/min/1.73 sq.m. Ages 60-69 = 85 mL/min/1.73 sq.m. Ages 70+ = 75 mL/min/1.73 sq.m.Chronic Kidney Disease: Less than 60 mL/min/1.73 square metersEnd Stage Renal Disease: Less than 15 mL/min/1.73 square meters Performed By: #### C BC, ADIFF, ANEU, CMP, PBNP, GFR, A1C ####[place] [address] .NEUABSon 03-20-2018 Neutrophil, Absolute 4.00 10 3/mcL Normal 2.25-8.10 A [facility] ([place]) Comment on above: Performed By: #### C BC, ADIFF, ANEU, CMP, PBNP, GFR, A1C ####[place] [address] APTTon 03-20-2018 aPTT Coag time (Bld) 55.4 s High 25.0-35.0 [facility] ([place] Comment on above: Result Comment: For Heparin anticoagulation therapy, the recommendedtherapeutic range is: 54-77 seconds (APTT Correlationwith Anti-Xa therapeutic range of 0.3-0.7 units/ml).PLEASE REFERENCE THE PHARMACY PROTOCOL FOR DOSING. Performed By: #### C BC, ADIFF, ANEU, CMP, PBNP, GFR, A1C ####[place] [address] aPTT Coag time (Bld) Heparin IV Normal [facility] ([place]) Comment on above: Performed By: #### C BC, ADIFF, ANEU, CMP, PBNP, GFR, A1C ####[place] [address] aPTT Coag time (Bld) 53.7 s High 25.0-35.0 [facility] ([place] Comment on above: Result Comment: For Heparin anticoagulation therapy, the recommendedtherapeutic range is: 54-77 seconds (APTT Correlationwith Anti-Xa therapeutic range of 0.3-0.7 units/ml).PLEASE REFERENCE THE PHARMACY PROTOCOL FOR DOSING. Performed By: #### C BC, ADIFF, ANEU, CMP, PBNP, GFR, A1C ####[place] [address] aPTT Coag time (Bld) Heparin IV Normal [facility] ([place]) Comment on above: Performed By: #### C BC, ADIFF, ANEU, CMP, PBNP, GFR, A1C ####[address] [address] aPTT Coag time (Bld) 56.3 s High 25.0-35.0 [facility] ([place] Comment on above: Result Comment: For Heparin anticoagulation therapy, the recommendedtherapeutic range is: 54-77 seconds (APTT Correlationwith Anti-Xa therapeutic range of 0.3-0.7 units/ml).PLEASE REFERENCE THE PHARMACY PROTOCOL FOR DOSING. Performed By: #### C BC, ADIFF, ANEU, CMP, PBNP, GFR, A1C ####[place] [address] aPTT Coag time (Bld) Heparin IV Normal [facility] ([place]) Comment on above: Performed By: #### C BC, ADIFF, ANEU, CMP, PBNP, GFR, A1C ####[address] [address] aPTT Coag time (Bld) Heparin IV Normal [facility] ([place]) Comment on above: Performed By: #### C BC, ADIFF, ANEU, CMP, PBNP, GFR, A1C ####[place] [id number] aPTT Coag time (Bld) 48.2 s High 25.0-35.0 [facility] ([place] Comment on above: Result Comment: For Heparin anticoagulation therapy, the recommendedtherapeutic range is: 54-77 seconds (APTT Correlationwith Anti-Xa therapeutic range of 0.3-0.7 units/ml).PLEASE REFERENCE THE PHARMACY PROTOCOL FOR DOSING. Performed By: #### C BC, ADIFF, ANEU, CMP, PBNP, GFR, A1C ####[address] [address] BGon 03-20-2018 Barometric Pressure 736 mmHg Normal [facility] ([place]) Comment on above: Order Comment: on Ro om Air. Preop Cardiothoracic OR (date) Performed By: #### C BC, ADIFF, ANEU, CMP, PBNP, GFR, A1C ####[address] [address] Base excess Calculated molar conc (Bld) 3.0 mmol/L Normal [facility] ([place]) Comment on above: Order Comment: on Ro om Air. Preop Cardiothoracic OR (date) Performed By: #### C BC, ADIFF, ANEU, CMP, PBNP, GFR, A1C ####[address] [address] CO2 molar conc 28.2 mmol/L Normal 22.0-30.0 [facility] ([place]) Comment on above: Order Comment: on Ro om Air. Preop Cardiothoracic OR (date) Performed By: #### C BC, ADIFF, ANEU, CMP, PBNP, GFR, A1C ####[address] [address] HCO3 molar conc (Bld) 27.0 mmol/L Normal 21.0-29.0 [facility] ([place]) Comment on above: Order Comment: on Ro om Air. Preop Cardiothoracic OR (date) Performed By: #### C BC, ADIFF, ANEU, CMP, PBNP, GFR, A1C ####[address] [address] Oxygen ppres (BldA) 78.4 mm[Hg] Normal 74.0-108.0 [facility] ([place] Comment on above: Order Comment: on Ro om Air. Preop Cardiothoracic OR (date) Performed By: #### C BC, ADIFF, ANEU, CMP, PBNP, GFR, A1C ####[address] [address] Oxygen saturation in Blood 95.9 % Normal 92.0-96.0 [facility] ([place] Comment on above: Order Comment: on Ro om Air. Preop Cardiothoracic OR (date) Performed By: #### C BC, ADIFF, ANEU, CMP, PBNP, GFR, A1C ####[address] [address] pCO2 39.4 mmHg Normal 32.0-46.0 [facility] ([place] Comment on above: Order Comment: on Ro om Air. Preop Cardiothoracic OR (date) Performed By: #### C BC, ADIFF, ANEU, CMP, PBNP, GFR, A1C ####[address] [address] pH (Bld) 7.454 [pH] Normal 7.380-7.460 [facility] ([place] Comment on above: Order Comment: on Ro om Air. Preop Cardiothoracic OR (date) Performed By: #### C BC, ADIFF, ANEU, CMP, PBNP, GFR, A1C ####[address] [address] BMPon 03-20-2018 Creatinine mass conc 1.00 mg/dL Normal 0.60-1.40 [facility] ([place] Comment on above: Performed By: #### C BC, ADIFF, ANEU, CMP, PBNP, GFR, A1C ####[place] [address] Urea nitrogen/Creatinine mass ratio 7.0 ratio Low 10.0-22.0 [facility] ([place] Comment on above: Performed By: #### C BC, ADIFF, ANEU, CMP, PBNP, GFR, A1C ####[address] [address] Calcium mass conc 9.1 mg/dL Normal 8.4-10.1 [facility] ([place]) Comment on above: Performed By: #### C BC, ADIFF, ANEU, CMP, PBNP, GFR, A1C ####[address] [address] Chloride molar conc 101 mmol/L Normal 98-110 [facility] ([place]) Comment on above: Performed By: #### C BC, ADIFF, ANEU, CMP, PBNP, GFR, A1C ####[address] [address] CO2 molar conc 30 mmol/L Normal 22-32 [facility] ([place] Comment on above: Performed By: #### C BC, ADIFF, ANEU, CMP, PBNP, GFR, A1C ####[address] [address] Electrolyte Balance 10.0 mEq/L Normal 4.0-15.0 [facility] ([place]) Comment on above: Performed By: #### C BC, ADIFF, ANEU, CMP, PBNP, GFR, A1C ####[place] [address] Glucose mass conc 135 mg/dL High 70-110 [facility] ([place]) Comment on above: Performed By: #### C BC, ADIFF, ANEU, CMP, PBNP, GFR, A1C ####[place] [address] Potassium molar conc 3.9 mmol/L Normal 3.5-5.0 [facility] ([place]) Comment on above: Performed By: #### C BC, ADIFF, ANEU, CMP, PBNP, GFR, A1C ####[place] [address] Sodium molar conc 141 mmol/L Normal 136-145 [facility] ([place] Comment on above: Performed By: #### C BC, ADIFF, ANEU, CMP, PBNP, GFR, A1C ####[place] [address] Urea nitrogen mass conc 7.0 mg/dL Low 8.0-22.0 [facility] ([place] Comment on above: Performed By: #### C BC, ADIFF, ANEU, CMP, PBNP, GFR, A1C ####[place] [address] CBCon 03-20-2018 Erythrocyte distribution width Auto Ratio (RBC) 14.3 % Normal 11.5-15.5 [facility] ([place] Comment on above: Performed By: #### C BC, ADIFF, ANEU, CMP, PBNP, GFR, A1C ####[place] [address] Hematocrit Auto Volume Fraction (Bld) 38.6 % Low 40.0-52.0 [facility] ([place] Comment on above: Performed By: #### C BC, ADIFF, ANEU, CMP, PBNP, GFR, A1C ####[place] [address] Hemoglobin mass conc (Bld) 13.5 G/dL Normal 13.0-17.5 [facility] ([place] Comment on above: Performed By: #### C BC, ADIFF, ANEU, CMP, PBNP, GFR, A1C ####[place] [address] MCH Auto Entitic mass (RBC) 29.2 pg Normal 27.0-33.0 [facility] ([place] Comment on above: Performed By: #### C BC, ADIFF, ANEU, CMP, PBNP, GFR, A1C ####[place] [address] MCHC Auto mass conc (RBC) 34.9 G/dL Normal 32.0-36.0 [facility] ([place] Comment on above: Performed By: #### C BC, ADIFF, ANEU, CMP, PBNP, GFR, A1C ####[place] [address] MCV Auto Entitic volume (RBC) 83.5 fL Normal 81.0-100.0 [facility] ([place] Comment on above: Performed By: #### C BC, ADIFF, ANEU, CMP, PBNP, GFR, A1C ####[place] [address] Platelet mean volume Auto Entitic volume (Bld) 8.3 fL Normal 6.4-10.5 [facility] ([place] Comment on above: Performed By: #### C BC, ADIFF, ANEU, CMP, PBNP, GFR, A1C ####[place] [address] Platelets Auto #/vol (Bld) 220 10 3/mcL Normal 150-450 [facility] ([place] Comment on above: Performed By: #### C BC, ADIFF, ANEU, CMP, PBNP, GFR, A1C ####[place] [address] RBC Auto #/vol (Bld) 4.63 10 6/mcL Normal 4.50-6.00 [facility] ([place]) Comment on above: Performed By: #### C BC, ADIFF, ANEU, CMP, PBNP, GFR, A1C ####[place] [address] WBC Auto #/vol (Bld) 7.40 10 3/mcL Normal 4.50-10.80 [facility] ([place]) Comment on above: Performed By: #### C BC, ADIFF, ANEU, CMP, PBNP, GFR, A1C ####[facility] [place] [id number] THORAX W/O CONTRASTon CT THORAX W/O CONTRAST ORIGINALCT THORAX W/O CONTRAST CLINICAL STATEMENT: valley fever TECHNIQUE: Multiple-row detector helical CT examination of the thorax without IV contrast. Axial, sagittal, and coronal reconstructed images. This exam was performed according to our departmental dose optimization program, and includes the following measures where applicable: automated exposure control, adjustment of the mAs and/or kVp according to patient size and/or exam, and an iterative reconstruction algorithm. COMPARISON: CT angiogram chest 03/18/2018 FINDINGS: The heart is is stable in size. No pericardial effusion. The great vessels are normal in caliber. The aorta is atherosclerotic. No gross mediastinal or hilar lymph nodes, evaluation of which is limited due to the lack of IV contrast. There are calcified mediastinal and RIGHT hilar lymph nodes. No pathologically enlarged axillary lymph nodes. The esophagus remains air-filled and dilated. There is bilateral gynecomastia. The lungs are emphysematous. There are dependent atelectatic changes. There are a few RIGHT lung pulmonary nodules. A community service representative nodule within the RIGHT middle lobe measures 5 mm (image 42 of series 2). No pneumothorax or pleural effusion. The trachea and mainstem bronchi are patent. No acute osseous abnormality. Degenerative changes are seen within the spine. Limited images of the upper abdomen are noncontributory. IMPRESSION: 1. No acute process. 2. Pulmonary nodules. Repeat CT thorax in 12 months is recommended to document stability. Interpreted By: Hazel Bolton MDPreliminary Report By: Hazel Bolton MDElectronically Signed By: Hazel Bolton MD Dictated Date: 03/20/2018 8:04:24 AM Prelim Date: 03/20/2018 8:18:29 AM Sign Date: 03/20/2018 6:45:57 PM Normal [facility] [place] Cardiothoracic Progress Note on 03-20-2018 Protein mass conc Normal [facility] [place] Neurology Consultationon 07- 03-2018 Neurology Consultation Normal [facility] [place] PLTFon 03-20-2018 Plt % Functional 76 % Low 80-97 [facility] ([place]) Comment on above: Performed By: #### C BC, ADIFF, ANEU, CMP, PBNP, GFR, A1C ####[place] [address] [place] [address] Plt ADP 47 k/mm3 Normal [facility] ([place]) Comment on above: Performed By: #### C BC, ADIFF, ANEU, CMP, PBNP, GFR, A1C ####[address] [address] Plt Base 193 k/mm3 Normal [facility] ([place]) Comment on above: Performed By: #### C BC, ADIFF, ANEU, CMP, PBNP, GFR, A1C ####[address] [address] Progress Noteon 03-20-2018 Protein mass conc Normal [facility] ([place]) Protein mass conc Normal [facility] ([place]) TROPIon 03-20-2018 Troponin I.cardiac mass conc 9.730 ng/mL High 0.000-0.040 [facility] ([place]) Comment on above: Result Comment: Trop onin I reference ranges (05/26/14): 0.00-0.040 ng/mL Negative and non-diagnostic. >0.040 ng/mL Consistent with cardiac damage, increased clinical risk and possibility of myocardial infarction. Serial measurements, a rise & fall in test results, clinical history, appropriate symptoms and/or ECG changes may help assess possibility of NV. *Other non-acute coronary syndrome conditions such as CHF, myocarditis, pulmonary emboli, sepsis and cardiac surgery could result in myocardial damage and increased troponin levels. Performed By: #### C BC, ADIFF, ANEU, CMP, PBNP, GFR, A1C ####[address] [address] TSHon 03-20-2018 Thyrotropin Qn 6.310 mcIU/mL High 0.360-3.740 [facility] ([place]) Comment on above: Result Comment: Ronny raines note ? as of 04/01/17 new pediatric reference intervals were added for this test. Performed By: #### C BC, ADIFF, ANEU, CMP, PBNP, GFR, A1C ####[address] [address] XR CHEST 2 VIEWSon 8 XR CHEST 2 VIEWS ORIGINALXR CHEST 2 V IEWS Clinical Statement: Chest pain COMPARISON: Chest CT 03/18/2018 and 04-04. FINDINGS: There is no focal consolidation. No pleural fluid or pneumothorax. The heart size is within normal limits. No aggressive osseous lesions are identified and there are no visible acute fractures. Calcified lymph nodes are noted at the RIGHT hilum and mediastinum consistent with prior granulomatous disease. IMPRESSION: No acute cardiopulmonary abnormality. Interpreted By: Davide FelixPreliminary Report By: Davide FelixElectronically Signed By: Davide Felix Dictated Date: 03/20/2018 1:48:54 AM Prelim Date: 03/20/2018 1:48:54 AM Sign Date: 03/20/2018 1:50:23 AM Normal [facility] ([place]) .Auto Diffon 03-19-2018 Ammonia mass conc (P) 0.90 10 3/mcL Normal 0.09-1.40 [facility] ([place]) Comment on above: Performed By: #### C BC, ADIFF, ANEU, CMP, PBNP, GFR, A1C ####[address] [address] Basophils Auto #/vol (Bld) 0.10 10 3/mcL Normal 0.00-0.27 [facility] ([place]) Comment on above: Performed By: #### C BC, ADIFF, ANEU, CMP, PBNP, GFR, A1C ####[address] [address] Basophils/100 WBC Auto (Bld) 0.5 % Normal 0.0-2.5 [facility] ([place]) Comment on above: Performed By: #### C BC, ADIFF, ANEU, CMP, PBNP, GFR, A1C ####[address] [address] Eosinophils Auto #/vol (Bld) 0.20 10 3/mcL Normal 0.00-0.65 [facility] ([place]) Comment on above: Performed By: #### C BC, ADIFF, ANEU, CMP, PBNP, GFR, A1C ####[address] [address] Eosinophils/100 WBC Auto (Bld) 2.1 % Normal 0.0-6.0 [facility] ([place] Comment on above: Performed By: #### C BC, ADIFF, ANEU, CMP, PBNP, GFR, A1C ####[address] [address] Lymphocytes Auto #/vol (Bld) 2.40 10 3/mcL Normal 0.90-4.32 [facility] ([place] Comment on above: Performed By: #### C BC, ADIFF, ANEU, CMP, PBNP, GFR, A1C ####[address] [address] Lymphocytes/100 WBC Auto (Bld) 22.5 % Normal 20.0-40.0 [facility] ([place] Comment on above: Performed By: #### C BC, ADIFF, ANEU, CMP, PBNP, GFR, A1C ####[address] [address] Monocytes/100 WBC Auto (Bld) 8.7 % Normal 2.0-13.0 [facility] ([place] Comment on above: Performed By: #### C BC, ADIFF, ANEU, CMP, PBNP, GFR, A1C ####[address] [address] Neutrophils/100 WBC Auto (Bld) 66.2 % Normal 50.0-75.0 [facility] ([place]) Comment on above: Performed By: #### C BC, ADIFF, ANEU, CMP, PBNP, GFR, A1C ####[address] [address] .GFRon 03-19-2018 GFR Non- >60 Normal [facility] ([place]) Comment on above: Result Comment: GFR Population mean for , Non- Americans Ages 20-29 = 116 mL/min/1.73 sq.m. Ages 30-39 = 107 mL/min/1.73 sq.m. Ages 40-49 = 99 mL/min/1.73 sq.m. Ages 50-59 = 93 mL/min/1.73 sq.m. Ages 60-69 = 85 mL/min/1.73 sq.m. Ages 70+ = 75 mL/min/1.73 sq.m.Chronic Kidney Disease: Less than 60 mL/min/1.73 square metersEnd Stage Renal Disease: Less than 15 mL/min/1.73 square meters Performed By: #### C BC, ADIFF, ANEU, CMP, PBNP, GFR, A1C ####[address] [address] GFR >60 Normal [facility] ([place]) Comment on above: Result Comment: GFR Population mean for , Non- Americans Ages 20-29 = 116 mL/min/1.73 sq.m. Ages 30-39 = 107 mL/min/1.73 sq.m. Ages 40-49 = 99 mL/min/1.73 sq.m. Ages 50-59 = 93 mL/min/1.73 sq.m. Ages 60-69 = 85 mL/min/1.73 sq.m. Ages 70+ = 75 mL/min/1.73 sq.m.Chronic Kidney Disease: Less than 60 mL/min/1.73 square metersEnd Stage Renal Disease: Less than 15 mL/min/1.73 square meters Performed By: #### C BC, ADIFF, ANEU, CMP, PBNP, GFR, A1C ####[place] [address] .NEUABSon 03-19-2018 Neutrophil, Absolute 7.10 10 3/mcL Normal 2.25-8.10 [facility] ([place]) Comment on above: Performed By: #### C BC, ADIFF, ANEU, CMP, PBNP, GFR, A1C ####[place] [address] APTTon 03-19-2018 aPTT Coag time (Bld) Heparin IV Normal [facility] ([place]) Comment on above: Performed By: #### C BC, ADIFF, ANEU, CMP, PBNP, GFR, A1C ####[place] [address] aPTT Coag time (Bld) 43.3 s High 25.0-35.0 [facility] ([place]) Comment on above: Result Comment: For Heparin anticoagulation therapy, the recommendedtherapeutic range is: 54-77 seconds (APTT Correlationwith Anti-Xa therapeutic range of 0.3-0.7 units/ml).PLEASE REFERENCE THE PHARMACY PROTOCOL FOR DOSING. Performed By: #### C BC, ADIFF, ANEU, CMP, PBNP, GFR, A1C ####[place] [address] aPTT Coag time (Bld) 51.0 s High 25.0-35.0 [facility] ([place]) Comment on above: Result Comment: For Heparin anticoagulation therapy, the recommendedtherapeutic range is: 54-77 seconds (APTT Correlationwith Anti-Xa therapeutic range of 0.3-0.7 units/ml).PLEASE REFERENCE THE PHARMACY PROTOCOL FOR DOSING. Performed By: #### C BC, ADIFF, ANEU, CMP, PBNP, GFR, A1C ####[place] [address] aPTT Coag time (Bld) Heparin IV Normal [facility] ([place]) Comment on above: Performed By: #### C BC, ADIFF, ANEU, CMP, PBNP, GFR, A1C ####[place] [address] BMPon 03-19-2018 Calcium mass conc 8.6 mg/dL Normal 8.4-10.1 [facility] ([place]) Comment on above: Performed By: #### C BC, ADIFF, ANEU, CMP, PBNP, GFR, A1C ####[place] [address] Chloride molar conc 104 mmol/L Normal 98-110 [facility] ([place]) Comment on above: Performed By: #### C BC, ADIFF, ANEU, CMP, PBNP, GFR, A1C ####[place] [address] CO2 molar conc 28 mmol/L Normal 22-32 [facility] ([place]) Comment on above: Performed By: #### C BC, ADIFF, ANEU, CMP, PBNP, GFR, A1C ####[place] [address] Creatinine mass conc 0.88 mg/dL Normal 0.60-1.40 [facility] ([place]) Comment on above: Performed By: #### C BC, ADIFF, ANEU, CMP, PBNP, GFR, A1C ####[address] [address] Electrolyte Balance 9.0 mEq/L Normal 4.0-15.0 [facility] ([place]) Comment on above: Performed By: #### C BC, ADIFF, ANEU, CMP, PBNP, GFR, A1C ####[place] [address] Glucose mass conc 134 mg/dL High 70-110 [facility] ([place]) Comment on above: Performed By: #### C BC, ADIFF, ANEU, CMP, PBNP, GFR, A1C ####[place] [address] Potassium molar conc 3.9 mmol/L Normal 3.5-5.0 [facility] ([place]) Comment on above: Performed By: #### C BC, ADIFF, ANEU, CMP, PBNP, GFR, A1C ####[place] [address] Sodium molar conc 141 mmol/L Normal 136-145 [facility] ([place]) Comment on above: Performed By: #### C BC, ADIFF, ANEU, CMP, PBNP, GFR, A1C ####[place] [address] Urea nitrogen mass conc 5.0 mg/dL Low 8.0-22.0 [facility] ([place]) Comment on above: Performed By: #### C BC, ADIFF, ANEU, CMP, PBNP, GFR, A1C ####[place] [address] Urea nitrogen/Creatinine mass ratio 5.7 ratio Low 10.0-22.0 [facility] ([place]) Comment on above: Performed By: #### C BC, ADIFF, ANEU, CMP, PBNP, GFR, A1C ####[address] [address] CBCon 03-19-2018 Erythrocyte distribution width Auto Ratio (RBC) 14.9 % Normal 11.5-15.5 [facility] ([place]) Comment on above: Performed By: #### C BC, ADIFF, ANEU, CMP, PBNP, GFR, A1C ####[place] [address] Hematocrit Auto Volume Fraction (Bld) 39.9 % Low 40.0-52.0 [facility] ([place]) Comment on above: Performed By: #### C BC, ADIFF, ANEU, CMP, PBNP, GFR, A1C ####[place] [address] Hemoglobin mass conc (Bld) 13.9 G/dL Normal 13.0-17.5 [facility] ([place]) Comment on above: Performed By: #### C BC, ADIFF, ANEU, CMP, PBNP, GFR, A1C ####[place] [address] MCH Auto Entitic mass (RBC) 29.1 pg Normal 27.0-33.0 [facility] ([place]) Comment on above: Performed By: #### C BC, ADIFF, ANEU, CMP, PBNP, GFR, A1C ####[place] [address] MCHC Auto mass conc (RBC) 34.8 G/dL Normal 32.0-36.0 [facility] ([place]) Comment on above: Performed By: #### C BC, ADIFF, ANEU, CMP, PBNP, GFR, A1C ####[place] [address] MCV Auto Entitic volume (RBC) 83.5 fL Normal 81.0-100.0 [facility] ([place]) Comment on above: Performed By: #### C BC, ADIFF, ANEU, CMP, PBNP, GFR, A1C ####[place] [address] Platelet mean volume Auto Entitic volume (Bld) 8.2 fL Normal 6.4-10.5 [facility] ([place]) Comment on above: Performed By: #### C BC, ADIFF, ANEU, CMP, PBNP, GFR, A1C ####[facility] [place] [address] Platelets Auto #/vol (Bld) 222 10 3/mcL Normal 150-450 [facility] ([place]) Comment on above: Performed By: #### C BC, ADIFF, ANEU, CMP, PBNP, GFR, A1C ####[place] [address] [place] [address] RBC Auto #/vol (Bld) 4.77 10 6/mcL Normal 4.50-6.00 [facility] ([place]) Comment on above: Performed By: #### C BC, ADIFF, ANEU, CMP, PBNP, GFR, A1C ####[place] [address] [place] [address] WBC Auto #/vol (Bld) 10.70 10 3/mcL Normal 4.50-10.80 [facility] ([place]) Comment on above: Performed By: #### C BC, ADIFF, ANEU, CMP, PBNP, GFR, A1C ####[place] [address] Cardiac Catheterization - CV on 03-19-2018 Cardiac Catheterization - CV Normal [facility] ([place]) Cardiothoracic Consultationo n 03-19-2018 Cardiothoracic Consultation Normal [facility] ([place]) Echocardiogram, Adulton 07 Echocardiogram, Adult Normal [facility] ([place]) LIPIDon 03-19-2018 Cholesterol in HDL mass conc 24 mg/dL Low 40-59 [facility] ([place]) Comment on above: Result Comment: HDL Reference Interval:Less than 40 Low - high risk60 or above Optimal/lowers risk Performed By: #### C BC, ADIFF, ANEU, CMP, PBNP, GFR, A1C ####[place] [address] [place] [address] Cholesterol in LDL mass conc 61 mg/dL Normal 0-129 [facility] ([place]) Comment on above: Result Comment: LDL is a calculated result and requires a 12- hr fast.LDL Reference Interval:Less than 100 [id number] Near or above [id number] Borderline high [id number] High [id number] and above Very high risk Performed By: #### C BC, ADIFF, ANEU, CMP, PBNP, GFR, A1C ####[place] [address] [place] [address] Cholesterol mass conc 142 mg/dL Normal 50-199 [facility] ([place]) Comment on above: Result Comment: Chol esterol Reference Interval:Less than 200 [id number] Borderline high [id number] and above High risk Performed By: #### C BC, ADIFF, ANEU, CMP, PBNP, GFR, A1C ####[place] [address] [place] [address] Triglyceride mass conc 284 mg/dL High 3-149 [facility] ([place]) Comment on above: Result Comment: Trig lyceride Reference Interval:Less than 150 [id number] Borderline high [id number] High tqid176 or higher Very high risk Performed By: #### C BC, ADIFF, ANEU, CMP, PBNP, GFR, A1C ####[place] [address] [place] [address] Progress Noteon 03-19-2018 Protein mass conc Normal [facility] ([place]) TROPIon 03-19-2018 Troponin I.cardiac mass conc 25.200 ng/mL High 0.000-0.040 [facility] ([place]) Comment on above: Result Comment: Trop onin I reference ranges (05/26/14): 0.00-0.040 ng/mL Negative and non-diagnostic. >0.040 ng/mL Consistent with cardiac damage, increased clinical risk and possibility of myocardial infarction. Serial measurements, a rise & fall in test results, clinical history, appropriate symptoms and/or ECG changes may help assess possibility of NV. *Other non-acute coronary syndrome conditions such as CHF, myocarditis, pulmonary emboli, sepsis and cardiac surgery could result in myocardial damage and increased troponin levels. Performed By: #### C BC, ADIFF, ANEU, CMP, PBNP, GFR, A1C ####[place] [address] [place] [address] UAon 03-19-2018 Color Nom (U) Yellow Normal [facility] ([place]) Comment on above: Performed By: #### C BC, ADIFF, ANEU, CMP, PBNP, GFR, A1C ####[address] [address] Glucose mass conc (U) Negative Normal Negative [facility] ([place]) Comment on above: Performed By: #### C BC, ADIFF, ANEU, CMP, PBNP, GFR, A1C ####[address] [address] Ketones Ql (U) Negative Normal Neg-Trace [facility] ([place]) Comment on above: Performed By: #### C BC, ADIFF, ANEU, CMP, PBNP, GFR, A1C ####[address] [address] UA Appear Clear Normal Clear [facility] ([place]) Comment on above: Performed By: #### C BC, ADIFF, ANEU, CMP, PBNP, GFR, A1C ####[address] [address] UA Blood Negative Normal Neg-Trace [facility] ([place]) Comment on above: Performed By: #### C BC, ADIFF, ANEU, CMP, PBNP, GFR, A1C ####[address] [address] UA Leuk Est Negative Normal Negative [facility] ([place]) Comment on above: Performed By: #### C BC, ADIFF, ANEU, CMP, PBNP, GFR, A1C ####[address] [address] UA Nitrite Negative Normal Negative [facility] ([place]) Comment on above: Performed By: #### C BC, ADIFF, ANEU, CMP, PBNP, GFR, A1C ####[address] [address] UA pH 5.5 Normal 5.0 - 8.0 [facility] ([place]) Comment on above: Performed By: #### C BC, ADIFF, ANEU, CMP, PBNP, GFR, A1C ####[address] [address] UA Protein Negative Normal Negative [facility] ([place]) Comment on above: Performed By: #### C BC, ADIFF, ANEU, CMP, PBNP, GFR, A1C ####[place] [address] UA Spec Grav >=1.030 Invalid Interpretation Code 1.006-1.029 [facility] ([place] Comment on above: Performed By: #### C BC, ADIFF, ANEU, CMP, PBNP, GFR, A1C ####[place] [address] UA Specimen Type Clean Catch Normal [facility] ([place] Comment on above: Performed By: #### C BC, ADIFF, ANEU, CMP, PBNP, GFR, A1C ####[place] [address] UA Urobilinogen 1.0 E.U./dL Normal 0.2-1.0 [facility] ([place]) Comment on above: Performed By: #### C BC, ADIFF, ANEU, CMP, PBNP, GFR, A1C ####[place] [address] Urobilinogen Test strip Qn (U) Negative Normal Neg-Trace [facility] ([place]) Comment on above: Performed By: #### C BC, ADIFF, ANEU, CMP, PBNP, GFR, A1C ####[place] [address] US RENALon 03-19-2018 US RENAL ORIGINALUS RENAL (US RETROPERITONEUM COMPLETE) CLINICAL STATEMENT: L adrenal mass. COMPARISON: Chest CT 03/18/2008 FINDINGS: The right and left kidney are normal in size and echogenicity, measuring 9.8 and 11.6 cm respectively. There is a 1.9 cm solid appearing LEFT renal mass at the midportion of the kidney. Demonstrates no flow on Doppler imaging The urinary bladder is partially decompressed. IMPRESSION: CT of the abdomen, renal mass protocol is recommended to further evaluate the suspected LEFT renal cell carcinoma. Interpreted By: Davide FelixPreliminary Report By: Davide FelixElectronically Signed By: Davide Felix Dictated Date: 03/19/2018 4:43:37 AM Prelim Date: 03/19/2018 4:43:37 AM Sign Date: 03/19/2018 4:47:11 AM Normal [facility] ([place]) VL Carotid US/Doppler Comple nathalie 03-19-2018 VL Carotid US/Doppler Complete Normal [facility] ([place]) .Auto Diffon 03-18-2018 Ammonia mass conc (P) 0.70 10 3/mcL Normal 0.09-1.40 [facility] ([place]) Comment on above: Performed By: #### C BC, ADIFF, ANEU, CMP, PBNP, GFR, A1C ####[address] [address] Basophils Auto #/vol (Bld) 0.10 10 3/mcL Normal 0.00-0.27 [facility] ([place]) Comment on above: Performed By: #### C BC, ADIFF, ANEU, CMP, PBNP, GFR, A1C ####[address] [address] Basophils/100 WBC Auto (Bld) 0.9 % Normal 0.0-2.5 [facility] ([place]) Comment on above: Performed By: #### C BC, ADIFF, ANEU, CMP, PBNP, GFR, A1C ####[address] [address] Eosinophils Auto #/vol (Bld) 0.20 10 3/mcL Normal 0.00-0.65 [facility] ([place]) Comment on above: Performed By: #### C BC, ADIFF, ANEU, CMP, PBNP, GFR, A1C ####[address] [address] Eosinophils/100 WBC Auto (Bld) 2.4 % Normal 0.0-6.0 [facility] ([place]) Comment on above: Performed By: #### C BC, ADIFF, ANEU, CMP, PBNP, GFR, A1C ####[address] [address] Lymphocytes Auto #/vol (Bld) 2.50 10 3/mcL Normal 0.90-4.32 [facility] ([place]) Comment on above: Performed By: #### C BC, ADIFF, ANEU, CMP, PBNP, GFR, A1C ####[address] [address] Lymphocytes/100 WBC Auto (Bld) 30.3 % Normal 20.0-40.0 [facility] ([place]) Comment on above: Performed By: #### C BC, ADIFF, ANEU, CMP, PBNP, GFR, A1C ####[address] [address] Monocytes/100 WBC Auto (Bld) 8.8 % Normal 2.0-13.0 [facility] ([place]) Comment on above: Performed By: #### C BC, ADIFF, ANEU, CMP, PBNP, GFR, A1C ####[address] [address] Neutrophils/100 WBC Auto (Bld) 57.6 % Normal 50.0-75.0 [facility] ([place]) Comment on above: Performed By: #### C BC, ADIFF, ANEU, CMP, PBNP, GFR, A1C ####[address] [address] .GFRon 03-18-2018 GFR Non- >60 Normal [facility] ([place]) Comment on above: Result Comment: GFR Population mean for , Non- Americans Ages 20-29 = 116 mL/min/1.73 sq.m. Ages 30-39 = 107 mL/min/1.73 sq.m. Ages 40-49 = 99 mL/min/1.73 sq.m. Ages 50-59 = 93 mL/min/1.73 sq.m. Ages 60-69 = 85 mL/min/1.73 sq.m. Ages 70+ = 75 mL/min/1.73 sq.m.Chronic Kidney Disease: Less than 60 mL/min/1.73 square metersEnd Stage Renal Disease: Less than 15 mL/min/1.73 square meters Performed By: #### C BC, ADIFF, ANEU, CMP, PBNP, GFR, A1C ####[address] [address] GFR >60 Normal [facility] ([place]) Comment on above: Result Comment: GFR Population mean for , Non- Americans Ages 20-29 = 116 mL/min/1.73 sq.m. Ages 30-39 = 107 mL/min/1.73 sq.m. Ages 40-49 = 99 mL/min/1.73 sq.m. Ages 50-59 = 93 mL/min/1.73 sq.m. Ages 60-69 = 85 mL/min/1.73 sq.m. Ages 70+ = 75 mL/min/1.73 sq.m.Chronic Kidney Disease: Less than 60 mL/min/1.73 square metersEnd Stage Renal Disease: Less than 15 mL/min/1.73 square meters Performed By: #### C BC, ADIFF, ANEU, CMP, PBNP, GFR, A1C ####[place] [address] .NEUABSon 03-18-2018 Neutrophil, Absolute 4.80 10 3/mcL Normal 2.25-8.10 [facility] ([place]) Comment on above: Performed By: #### C BC, ADIFF, ANEU, CMP, PBNP, GFR, A1C ####[place] [address] A1Con 03-18-2018 Hemoglobin A1c/Hemoglobin.total mass fraction (Bld) 5.9 % Normal 4.0-6.0 [facility] ([place]) Comment on above: Performed By: #### C BC, ADIFF, ANEU, CMP, PBNP, GFR, A1C ####[place] [address] APTTon 03-18-2018 aPTT Coag time (Bld) 55.8 s High 25.0-35.0 [facility] ([place] Comment on above: Result Comment: For Heparin anticoagulation therapy, the recommendedtherapeutic range is: 54-77 seconds (APTT Correlationwith Anti-Xa therapeutic range of 0.3-0.7 units/ml).PLEASE REFERENCE THE PHARMACY PROTOCOL FOR DOSING. Performed By: #### C BC, ADIFF, ANEU, CMP, PBNP, GFR, A1C ####[place] [address] aPTT Coag time (Bld) Heparin IV Normal [facility] ([place]) Comment on above: Performed By: #### C BC, ADIFF, ANEU, CMP, PBNP, GFR, A1C ####[place] [address] aPTT Coag time (Bld) 29.5 s Normal 25.0-35.0 [facility] ([place] Comment on above: Result Comment: For Heparin anticoagulation therapy, the recommendedtherapeutic range is: 54-77 seconds (APTT Correlationwith Anti-Xa therapeutic range of 0.3-0.7 units/ml).PLEASE REFERENCE THE PHARMACY PROTOCOL FOR DOSING. Performed By: #### A PTT ####[place] [address] aPTT Coag time (Bld) None Normal [facility] ([place] Comment on above: Performed By: #### A PTT ####[place] [address] CBCon 03-18-2018 Erythrocyte distribution width Auto Ratio (RBC) 14.6 % Normal 11.5-15.5 [facility] ([place]) Comment on above: Performed By: #### C BC, ADIFF, ANEU, CMP, PBNP, GFR, A1C ####[place] [address] Hematocrit Auto Volume Fraction (Bld) 40.3 % Normal 40.0-52.0 [facility] ([place] Comment on above: Performed By: #### C BC, ADIFF, ANEU, CMP, PBNP, GFR, A1C ####[place] [address] Hemoglobin mass conc (Bld) 14.1 G/dL Normal 13.0-17.5 [facility] ([place] Comment on above: Performed By: #### C BC, ADIFF, ANEU, CMP, PBNP, GFR, A1C ####[place] [address] MCH Auto Entitic mass (RBC) 29.3 pg Normal 27.0-33.0 [facility] ([place] Comment on above: Performed By: #### C BC, ADIFF, ANEU, CMP, PBNP, GFR, A1C ####[place] [address] MCHC Auto mass conc (RBC) 34.9 G/dL Normal 32.0-36.0 [facility] ([place] Comment on above: Performed By: #### C BC, ADIFF, ANEU, CMP, PBNP, GFR, A1C ####[place] [address] MCV Auto Entitic volume (RBC) 83.9 fL Normal 81.0-100.0 [facility] ([place] Comment on above: Performed By: #### C BC, ADIFF, ANEU, CMP, PBNP, GFR, A1C ####[place] [address] Platelet mean volume Auto Entitic volume (Bld) 8.3 fL Normal 6.4-10.5 [facility] ([place] Comment on above: Performed By: #### C BC, ADIFF, ANEU, CMP, PBNP, GFR, A1C ####[place] [address] Platelets Auto #/vol (Bld) 223 10 3/mcL Normal 150-450 [facility] ([place] Comment on above: Performed By: #### C BC, ADIFF, ANEU, CMP, PBNP, GFR, A1C ####[place] [address] RBC Auto #/vol (Bld) 4.80 10 6/mcL Normal 4.50-6.00 [facility] ([place] Comment on above: Performed By: #### C BC, ADIFF, ANEU, CMP, PBNP, GFR, A1C ####[place] [address] WBC Auto #/vol (Bld) 8.30 10 3/mcL Normal 4.50-10.80 [facility] ([place] Comment on above: Performed By: #### C BC, ADIFF, ANEU, CMP, PBNP, GFR, A1C ####[place] [address] CMPon 03-18-2018 Albumin/Globulin mass ratio 1.0 {ratio} Normal 0.9-1.6 [facility] ([place] Comment on above: Performed By: #### C BC, ADIFF, ANEU, CMP, PBNP, GFR, A1C ####[place] [address] ALP enzyme act/vol 95 U/L Normal 38-126 [facility] ([place]) Comment on above: Performed By: #### C BC, ADIFF, ANEU, CMP, PBNP, GFR, A1C ####[place] [id number] Bili Total 0.3 mg/dL Normal 0.2-1.2 [facility] ([place]) Comment on above: Performed By: #### C BC, ADIFF, ANEU, CMP, PBNP, GFR, A1C ####[place] [id number] Creatinine mass conc 0.85 mg/dL Normal 0.60-1.40 [facility] ([place]) Comment on above: Performed By: #### C BC, ADIFF, ANEU, CMP, PBNP, GFR, A1C ####[place] [id number] Globulin Calculated mass conc (S) 3.2 G/dL Normal 1.5-3.8 [facility] ([place]) Comment on above: Performed By: #### C BC, ADIFF, ANEU, CMP, PBNP, GFR, A1C ####[place] [address] Protein mass conc 6.4 G/dL Normal 6.0-8.5 [facility] ([place]) Comment on above: Performed By: #### C BC, ADIFF, ANEU, CMP, PBNP, GFR, A1C ####[place] [address] Urea nitrogen/Creatinine mass ratio 14.1 ratio Normal 10.0-22.0 [facility] ([place] Comment on above: Performed By: #### C BC, ADIFF, ANEU, CMP, PBNP, GFR, A1C ####[place] [address] Albumin mass conc 3.2 G/dL Normal 3.2-4.8 [facility] ([place] Comment on above: Performed By: #### C BC, ADIFF, ANEU, CMP, PBNP, GFR, A1C ####[place] [address] ALT enzyme act/vol 16 U/L Normal 12-55 [facility] ([place]) Comment on above: Performed By: #### C BC, ADIFF, ANEU, CMP, PBNP, GFR, A1C ####[address] [address] AST enzyme act/vol 22 U/L Normal 8-34 [facility] ([place]) Comment on above: Performed By: #### C BC, ADIFF, ANEU, CMP, PBNP, GFR, A1C ####[address] [address] Calcium mass conc 8.0 mg/dL Low 8.4-10.1 [facility] ([place] Comment on above: Performed By: #### C BC, ADIFF, ANEU, CMP, PBNP, GFR, A1C ####[address] [address] Chloride molar conc 107 mmol/L Normal 98-110 [facility] ([place]) Comment on above: Performed By: #### C BC, ADIFF, ANEU, CMP, PBNP, GFR, A1C ####[address] [address] CO2 molar conc 26 mmol/L Normal 22-32 [facility] ([place] Comment on above: Performed By: #### C BC, ADIFF, ANEU, CMP, PBNP, GFR, A1C ####[address] [address] Electrolyte Balance 10.0 mEq/L Normal 4.0-15.0 [facility] ([place]) Comment on above: Performed By: #### C BC, ADIFF, ANEU, CMP, PBNP, GFR, A1C ####[address] [address] Glucose mass conc 182 mg/dL High 70-110 [facility] ([place] Comment on above: Performed By: #### C BC, ADIFF, ANEU, CMP, PBNP, GFR, A1C ####[address] [address] Potassium molar conc 4.1 mmol/L Normal 3.5-5.0 [facility] ([place]) Comment on above: Performed By: #### C BC, ADIFF, ANEU, CMP, PBNP, GFR, A1C ####[place] [address] Sodium molar conc 143 mmol/L Normal 136-145 [facility] ([place] Comment on above: Performed By: #### C BC, ADIFF, ANEU, CMP, PBNP, GFR, A1C ####[place] [address] Urea nitrogen mass conc 12.0 mg/dL Normal 8.0-22.0 [facility] ([place] Comment on above: Performed By: #### C BC, ADIFF, ANEU, CMP, PBNP, GFR, A1C ####[place] [address] CRPHSon 03-18-2018 CRP, High Sensitive 10.60 mg/L High 0.20-3.00 [facility] ([place]) Comment on above: Result Comment: Rela tive Risk Category and Average hs-CRP Level:Higher Risk: > 5.0 mg/LGuidelines support that hs-CRP can be used as anindependent predictor of increased coronary risk; however,hs-CRP results should only be interpreted in conjunction with other cardiac risk factors in establishing overall cardiacrisk for a given patient.Relative Risk Category and Average hs-CRP Level:Higher Risk: > 5.0 mg/LGuidelines support that hs-CRP can be used as anindependent predictor of increased coronary risk; however,hs-CRP results should only be interpreted in conjunction with other cardiac risk factors in establishing overall cardiacrisk for a given patient. Performed By: #### C BC, ADIFF, ANEU, CMP, PBNP, GFR, A1C ####[place] [address] CT ANGIOGRAPHY CHEST W/CONTR Leonor 03-18-2018 CT ANGIOGRAPHY CHEST W/CONTRAST ORIGINALCT ANGIOGRAPHY CHEST W/CONTRASTCTA OF THE CHEST WITHOUT AND WITH IV CONTRAST, IMAGE POST-PROCESSING, 3D, SAGITTAL AND CORONAL RECONSTRUCTIONS This exam was performed according to our departmental dose optimization program, and includes the following measures where applicable: automated exposure control, adjustment of the mAs and/or kVp according to patient size and/or exam, and an iterative reconstruction algorithm Clinical Statement: Back pain. R/O Dissection Comparison: None Findings:The unenhanced images demonstrate normal caliber of the thoracic aorta without evidence of displaced intimal calcification or mural thrombus. Mild atherosclerotic calcification is seen in the distal arch of the aorta. Contrast-enhanced images demonstrate normal enhancement of the thoracic aorta. There is no evidence of aortic dissection. There is no stenosis or aneurysm of the aorta. There is moderate (about 50%) narrowing of the proximal LEFT subclavian artery due to focal noncalcified plaque (image 19 series 301). The brachiocephalic and bilateral carotid arteries are patent. Pulmonary artery caliber and enhancement are normal. There are several calcified RIGHT hilar and mediastinal lymph nodes present. No adenopathy is seen. The heart is not enlarged. Small amounts of coronary artery calcification are seen. The esophagus is mildly dilated and mostly air-filled which could indicate reflux or poor esophageal motility. There is no pleural fluid. Mild dependent atelectatic changes are seen at the lung bases. Otherwise, the lungs are clear. No lung mass or nodule is seen. There is no pneumothorax. There are mild degenerative findings in the dorsal spine with endplate spurring and disc space narrowing at several levels. There is respiratory motion artifact which causes artifactual defects in the sternum and several bilateral ribs. In the upper abdomen, the aorta is normal in caliber. The celiac artery, superior mesenteric artery and bilateral renal arteries are visualized and are widely patent. In the medial cortex of the upper pole of the LEFT kidney there is a 1.6 cm hypoattenuating lesion. Attenuation on the contrast enhanced images is above expected for simple cyst (29 Hounsfield units). This portion of the kidney was not included within the [id number] of the noncontrast images so presence of contrast enhancement of the lesion cannot be determined. IMPRESSION: No evidence of aortic dissection or hemodynamically significant stenosis of the aorta. 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 Esophagus is mildly dilated and contains air. This could be due to reflux or poor esophageal motility. Indeterminate 1.6 cm LEFT adrenal hypoattenuating lesion. This could be a complex cyst or solid mass. Malignancy cannot be excluded. Recommend further characterization with ultrasound. Interpreted By: Aaron Nashreliminary Report By: Aaron Nash MDElectronically Signed By: Aaron Nash MD Dictated Date: 03/18/2018 10:40:41 AM Prelim Date: 03/18/2018 10:40:41 AM Sign Date: 03/18/2018 10:50:40 AM Normal [facility] ([place]) DRUGUon 03-18-2018 Drug Screen Urine Positive Invalid Interpretation Code [facility] ([place] Comment on above: Performed By: #### C BC, ADIFF, ANEU, CMP, PBNP, GFR, A1C ####[address] [address] Drug Screen Urine Interp Positive Invalid Interpretation Code [facility] ([place] Comment on above: Performed By: #### C BC, ADIFF, ANEU, CMP, PBNP, GFR, A1C ####[address] [address] U pH Drug Scrn 7.0 Normal 5.0-8.0 [facility]) Comment on above: Performed By: #### C BC, ADIFF, ANEU, CMP, PBNP, GFR, A1C ####[address] [address] U Specific [place] Drg Scrn 1.005 Normal 1.005-1.030 [facility] ([place] Comment on above: Performed By: #### C BC, ADIFF, ANEU, CMP, PBNP, GFR, A1C ####[address] [address] Urine Drugs screened: See Below Normal [facility] ([place]) Comment on above: Result Comment: This drug screen is a presumptive screening only.No confirmation will be performed unless requested.Drugs screened include: ThresholdAmphetamines/Methamphetamines 1,000 ng/mLBarbiturates 200 ng/mLBenzodiazepine metabolites 200 ng/mLCannabinoids (THC metabolites) 50 ng/mLBenzoylecognine (Cocaine metab) 300 ng/mLOpiates 300 ng/mLPhencyclidine (PCP) 25 ng/mLMethadone 300 ng/mLPropoxyphene 300 ng/mLTesting has been performed FOR MEDICAL PURPOSES ONLY. Performed By: #### C BC, ADIFF, ANEU, CMP, PBNP, GFR, A1C ####[address] [address] ESRon 03-18-2018 Erythrocyte Sed Rate 73 mm/hr High 0-20 [facility] ([place]) Comment on above: Performed By: #### C BC, ADIFF, ANEU, CMP, PBNP, GFR, A1C ####[address] [address] History and Physicalon 03-18 History and Physical Normal [facility] ([place]) PBNPon 03-18-2018 Natriuretic peptide B mass conc (Bld) 356 pg/mL Normal 0-900 [facility] ([place] Comment on above: Result Comment: NT-p roBNP results of less than 300 pg/mL effectivelyrules out acute congestive heart failure with 99% negative predictive value. Performed By: #### C BC, ADIFF, ANEU, CMP, PBNP, GFR, A1C ####[address] [address] TROPIon 03-18-2018 Troponin I.cardiac mass conc 16.300 ng/mL High 0.000-0.040 [facility] ([place] Comment on above: Result Comment: Trop onin I reference ranges (05/26/14): 0.00-0.040 ng/mL Negative and non-diagnostic. >0.040 ng/mL Consistent with cardiac damage, increased clinical risk and possibility of myocardial infarction. Serial measurements, a rise & fall in test results, clinical history, appropriate symptoms and/or ECG changes may help assess possibility of NV. *Other non-acute coronary syndrome conditions such as CHF, myocarditis, pulmonary emboli, sepsis and cardiac surgery could result in myocardial damage and increased troponin levels. Performed By: #### C BC, ADIFF, ANEU, CMP, PBNP, GFR, A1C ####[address] [address] Troponin I.cardiac mass conc 4.400 ng/mL High 0.000-0.040 [facility] ([place] Comment on above: Result Comment: Trop onin I reference ranges (05/26/14): 0.00-0.040 ng/mL Negative and non-diagnostic. >0.040 ng/mL Consistent with cardiac damage, increased clinical risk and possibility of myocardial infarction. Serial measurements, a rise & fall in test results, clinical history, appropriate symptoms and/or ECG changes may help assess possibility of NV. *Other non-acute coronary syndrome conditions such as CHF, myocarditis, pulmonary emboli, sepsis and cardiac surgery could result in myocardial damage and increased troponin levels. Performed By: #### C BC, ADIFF, ANEU, CMP, PBNP, GFR, A1C ####[place] [address] [address] [place] [address] Troponin I.cardiac mass conc 0.979 ng/mL High 0.000-0.040 [facility] ([place] Comment on above: Result Comment: Trop onin I reference ranges (05/26/14): 0.00-0.040 ng/mL Negative and non-diagnostic. >0.040 ng/mL Consistent with cardiac damage, increased clinical risk and possibility of myocardial infarction. Serial measurements, a rise & fall in test results, clinical history, appropriate symptoms and/or ECG changes may help assess possibility of NV. *Other non-acute coronary syndrome conditions such as CHF, myocarditis, pulmonary emboli, sepsis and cardiac surgery could result in myocardial damage and increased troponin levels. Performed By: #### T ROPI ####[address] [address] Encounters Encounter Date Encounter Type Care Provider Facility Start: 01-09-2024 End: 01-09-2024 ambulatory [facility] Work Phone: Start: 01-09-2024 End: 01-09-2024 Patient encounter procedure [facility] Start: 06-02-2023 [facility] Comment on above: Population Health Na vigation Outreach ([employer] Care Gaps ) Start: 12-10-2020 Patient encounter procedure TRU ESPOSITO [facility] Start: 12-01-2020 End: 12-01-2020 Patient encounter procedure DANA MEJIA [facility] Start: 02-14-2020 Patient encounter procedure TRU ESPOSITO [facility] Start: 05-16-2018 End: 05-17-2018 Patient encounter HATTIE MICHAUD Facility:[place] Start: 04-25-2018 End: 04-26-2018 Patient encounter RICHELLE REYNOLDS Facility:[facility] Start: 04-10-2018 End: 04-12-2018 Evaluation and management of inpatient KB CASTELLANOS Facility:A Start: 04-01-2018 End: 05-04-2018 Patient encounter TANIA CAM Facility:[facility] Start: 03-18-2018 End: 03-30-2018 Evaluation and management of inpatient TANIA CAM Facility:A Plan of Treatment Date Care Activity Detail Author Start: 05-19-2023 Influenza vaccination Influenza Vacc ine (#1) [facility] Start: 09-18-2022 Depression Assessment Depression Ass essment [facility] Start: 06-14-2021 Prostate Cancer Scre ening Discussion Prostate Cancer Screening Discussion [facility] Start: 06-14-2017 3 comp foot exam completed Diabetic Foot Exam [facility] Start: 01-23-2017 Hemoglobin A1c/Hemoglobin.total in Blood HbA1C [facility] Start: 2013 Shingrix Vaccine (1 of 2) Shingrix V accine (1 of 2) [facility] Start: 2008 Cologuard (FIT-DNA) Cologuard (FIT-D NA) [facility] Start: 2008 Colonoscopy Colonoscopy [facility] Start: 2008 Colorectal Cancer Screening Colorectal Cancer Screening [facility] Start: [address] COLONOGRAPHY [facility] Start: 2008 Fecal Occult Blood Fecal Occult Bloo d [facility] Start: 2008 SIGMOIDOSCOPY SIGMOIDOSCOPY [facility] Start: 1982 Urine microalbumin profile DTa P,Tdap,Td Vaccine (1 - Tdap) [facility] Start: 1981 Hepatitis B surface antibody level LDL Cholesterol [facility] Start: 1981 Hepatitis C Screening Hepatitis C Sc reening [facility] Start: 1981 HIV Screening HIV Screening [facility] Start: 1973 Hepatitis B screening Urine Al bumin:Creatinine Ratio [facility] Start: 1973 Hepatitis C antibody , confirmatory test Dilated Retinal Exam [facility] Start: 1963 Covid-19 Vaccine (#1) Covid-19 Vacci ne (#1) [facility] Payers Date Payer Category Payer Medicare [id number] 2018 Self-pay 2018 Medicare [id number] 2015 Medicare MEDICARE MEDICAR E A AND B [id number] 2015-Present [phone] [place] [address] Medicare [id number] 1965 Unknown [id number] 1965 Unknown [id number] 1965 Unknown [id number] Unknown [id number] Social History Date Type Detail Facility Start: [facility]14-[facility] Work Phone: Start: 06-14-1980 History of tobacco use Cigarette Smo ker [facility] Work Phone: Start: 06-14-2016 Cigarettes smoked current (pack per day) - Reported 1 [facility] Start: 06-14-2016 Tobacco use and exposure Smokeless tobacco non-user [facility] Work Phone: Start: 10-08-2016 Alcohol intake Current drinke r of alcohol (finding) [facility] Start: 06-14-2016 Alcohol Comment rare [facility] Start: 1965 Sex Assigned At Not on file [facility] Gender identity Not on file [facility] Start: 1965 Sex Assigned At Male [facility] Medical Equipment Procedure Code Equipment Code Equipment Origin al Text Equipment Identifier Dates Test blood sugar(s) 1 times daily. Dx: Type 2 DM - Controlled E11.9 Insulin: No Start: 07-28-2016 Comment on above: Test blood sugar(s) 1 times daily. Dx: Type 2 DM - Controlled E11.9 Insulin: No Progress note 06-02-2023 Note Date & Type Note Facility 06-02-2023 Note HNO ID: [id number] Author: Ana Maria Mello MA Service: ? Author Type: Emt Dispatcher Type: Progress Notes Filed: 06/02/2023 12:00 PM Note Text: POPULATION HEALTH NAVIGATION OUTREACH Action/FYI Letter prepared and placed in outgoing mail. Navigation Signature: Ana Maria Mello MA June 02, 2023 12:00 PM [facility] Clinical Note 06-02-2023 Note Date & Type Note Facility 06-02-2023 Note Patient Outreach (NE TNAV) YUDI MERA ([id number]) 1965 M Date Time Provider Department 06/02/23 ROSHNI GUANV During your visit today, we recorded the following information about you: Roshni Guan MA 06/02/2023 11:22 AM Signed POPULATION HEALTH NAVIGATION OUTREACH Action/FYI Verify PCP Phone on file invalid number No active MyChart Onboardling letter sent Patient Identified by Name and : NO Outreach Outcome/Action Unable to reach patient: Phone number not valid / voicemail full Letter mailed Did you use a PCP flex slot to schedule this appointment? N/A Reason for Outreach Care Gap or Scheduling/Wellness visits Payer: Payor: MEDICARE / Plan: MEDICARE A AND B / Product Type: Medicare / Care Gap Reviewed:: Annual Wellness visit Colorectal Cancer Screening Diabetic Eye Exam HBA1C Flu Vaccine Reminder: Reminder note to check Health Maintenance for items below Health Maintenance items due: Covid-19 Vaccine(1) Never done Urine Albumin:Creatinine Ratio Never done Dilated Retinal Exam Never done LDL Cholesterol Never done Hepatitis C Screening Never done HIV Screening Never done DTaP,Tdap,Td Vaccine(1 - Tdap) Never done Colorectal Cancer Screening Never done Shingrix Vaccine(1 of 2) Never done HbA1C due on 01/23/2017 Diabetic Foot Exam due on 06/14/2017 Prostate Cancer Screening Discussion due on 06/14/2021 Depression Assessment Never done Influenza Vaccine(1) due on 05/19/2023 Navigation Signature: Roshni Shepard MA June 02, 2023 8:06 AM Ana Maria Mello MA 06/02/2023 12:00 PM Signed POPULATION HEALTH NAVIGATION OUTREACH Action/FYI Letter prepared and placed in outgoing mail. Navigation Signature: Ana Maria Mello MA June 02, 2023 12:00 PM Allergies As of Date: 06/02/2023 Noted Allergy Reaction MUSHROOM 06/14/2016 10 - Anaphylaxis PENICILLIN 06/14/2016 10 - Anaphylaxis TERRAMYCIN (OXYTETRACYCLINE) 06/14/2016 10 - Anaphylaxis ASPIRIN 06/14/2016 2 - Rash 4 - Hives Date Reviewed: 07/28/2016 Reviewed by: Diane Castro MA - Fully Assessed Reason for Visit: Population Health Navigation Outreach [3910] Cmt: [employer] Gaps Prescriptions as of 06/02/2023 - atorvastatin (LIPITOR) 80 mg tablet Take 1 tablet by mouth daily at bedtime. For cholesterol. - rOPINIRole (REQUIP) 0.25 mg tablet Take 1 tablet by mouth daily at bedtime. Complete labs and keep appointment for further refills - lamoTRIgine (LAMICTAL) 150 mg tablet Take 1 tablet by mouth twice daily. Please complete lab and keep appointment as scheduled for further refills - metoprolol tartrate, short acting, (LOPRESSOR) 50 mg tablet Take 1 tablet by mouth twice daily. Complete labs and keep next appointment for further refills - metFORMIN (GLUCOPHAGE) 500 mg tablet Take 1 tablet by mouth twice daily with meals. . - Blood-Glucose Meter (FREESTYLE LITE METER) monitoring kit Freestyle LITE Meter Kit - Dx: Type 2 DM - Controlled E11.9 - blood sugar diagnostic (FREESTYLE LITE STRIPS) test strip Test blood sugar(s) 1 times daily. Dx: Type 2 DM - Controlled E11.9 Insulin: No - lancets (FREESTYLE LANCETS) 28 gauge misc Test blood sugar(s) 1 times daily. Dx: Type 2 DM - Controlled E11.9 Insulin: No - lisinopril (PRINIVIL) 5 mg tablet Take 1 tablet by mouth once daily. Problem List As Of Date 06/02/2023 Noted Resolved Essential hypertension [I10] 06/14/2016 Restless leg syndrome [G25.81] 06/14/2016 Bipolar affective disorder, current episode mix*06/14/2016 PTSD (post-traumatic stress disorder) [F43.10] 06/14/2016 DDD (degenerative disc disease), lumbar [M51.36]06/14/2016 Controlled type 2 diabetes mellitus without com*10/08/2016 Obesity, Class III, BMI 40-49.9 (morbid obesity*12/20/2017 Letter Text Encounter Status:Closed by ROSHNI GUAN on 06/02/23 [facility] History of Present illness Narrative 06-02-2023 Ana Maria Mello MA - 06/02/2023 12:00 PM EDTJoRoshni Kennedy MA - 06/02/2023 7:58 AM EDT Note Date & Type Note Facility 06-02-2023 History of Presen t illness Narrative POPULATION HEALTH NAVIGATION OUTREACH Action/FYI Letter prepared and placed in outgoing mail. Navigation Signature: Ana Maria Mello MA June 02, 2023 12:00 PM POPULATION HEALTH NAVIGATION OUTREACH Action/FYI Verify PCP Phone on file invalid number No active MyChart Onboardling letter sent Patient Identified by Name and : NO Outreach Outcome/Action Unable to reach patient: Phone number not valid / voicemail full Letter mailed Did you use a PCP flex slot to schedule this appointment? N/A Reason for Outreach Care Gap or Scheduling/Wellness visits Payer: Payor: MEDICARE / Plan: MEDICARE A AND B / Product Type: Medicare / Care Gap Reviewed:: Annual Wellness visit Colorectal Cancer Screening Diabetic Eye Exam HBA1C Flu Vaccine Reminder: Reminder note to check Health Maintenance for items below Health Maintenance items due: Covid-19 Vaccine(1) Never done Urine Albumin:Creatinine Ratio Never done Dilated Retinal Exam Never done LDL Cholesterol Never done Hepatitis C Screening Never done HIV Screening Never done DTaP,Tdap,Td Vaccine(1 - Tdap) Never done Colorectal Cancer Screening Never done Shingrix Vaccine(1 of 2) Never done HbA1C due on 01/23/2017 Diabetic Foot Exam due on 06/14/2017 Prostate Cancer Screening Discussion due on 06/14/2021 Depression Assessment Never done Influenza Vaccine(1) due on 05/19/2023 Navigation Signature: Roshni Shepard MA June 02, 2023 8:06 AM documented in this encounter [facility] Progress note 06-02-2023 Note Date & Type Note Facility 06-02-2023 Note HNO ID: [id number] Author: Roshni Guan MA Service: ? Author Type: Emt Dispatcher Type: Progress Notes Filed: 06/02/2023 11:22 AM Note Text: POPULATION HEALTH NAVIGATION OUTREACH Action/FYI Verify PCP Phone on file invalid number No active MyChart Onboardling letter sent Patient Identified by Name and : NO Outreach Outcome/Action Unable to reach patient: Phone number not valid / voicemail full Letter mailed Did you use a PCP flex slot to schedule this appointment? N/A Reason for Outreach Care Gap or Scheduling/Wellness visits Payer: Payor: MEDICARE / Plan: MEDICARE A AND B / Product Type: Medicare / Care Gap Reviewed:: Annual Wellness visit Colorectal Cancer Screening Diabetic Eye Exam HBA1C Flu Vaccine Reminder: Reminder note to check Health Maintenance for items below Health Maintenance items due: Covid-19 Vaccine(1) Never done Urine Albumin:Creatinine Ratio Never done Dilated Retinal Exam Never done LDL Cholesterol Never done Hepatitis C Screening Never done HIV Screening Never done DTaP,Tdap,Td Vaccine(1 - Tdap) Never done Colorectal Cancer Screening Never done Shingrix Vaccine(1 of 2) Never done HbA1C due on 01/23/2017 Diabetic Foot Exam due on 06/14/2017 Prostate Cancer Screening Discussion due on 06/14/2021 Depression Assessment Never done Influenza Vaccine(1) due on 05/19/2023 Navigation Signature: Roshni Shepard MA June 02, 2023 8:06 AM [facility] 04-10-2023 Note Date & Type Note Facility 04-10-2023 Note HNO ID: [id number] Author: Jamie Monique MA Service: ? Author Type: Emt Dispatcher Type: Progress Notes Filed: 04/10/2023 3:18 PM Note Text: POPULATION HEALTH NAVIGATION OUTREACH Action/FYI Unable to lm, letter mailed to verify pcp, schedule wellness, UACR- not pended, HGBA1C- not pended, diabetic retinal eye exam, review hcc gaps,colonoscopy. Care everywhere ran with no success Patient Identified by Name and : NO Outreach Outcome/Action Unable to reach patient: Phone number not valid / voicemail full Letter mailed Did you use a PCP flex slot to schedule this appointment? N/A Reason for Outreach Care Gap or Scheduling/Wellness visits Payer: Payor: MEDICARE / Plan: MEDICARE A AND B / Product Type: Medicare / Care Gap Reviewed:: Annual Wellness visit Colorectal Cancer Screening Diabetic Eye Exam HBA1C Nephropathy (Albumin/Creatinine) Urine Reminder: Reminder note to check Health Maintenance for items below Health Maintenance items due: COVID-19 VACCINE(1) Never done URINE ALBUMIN:CREATININE RATIO Never done DILATED RETINAL EXAM Never done LDL CHOLESTEROL Never done HEPATITIS C SCREENING Never done HIV SCREENING Never done DTAP,TDAP,TD(1 - Tdap) Never done COLORECTAL CANCER SCREENING Never done SHINGRIX VACCINE(1 of 2) Never done HBA1C due on 01/23/2017 DIABETIC FOOT EXAM due on 06/14/2017 PROSTATE CANCER SCREENING DISCUSSION due on 06/14/2021 DEPRESSION ASSESSMENT Never done Navigation Signature: Jamie Monique MA April 10, 2023 3:15 PM [facility] Clinical Note 04-10-2023 Note Date & Type Note Facility 04-10-2023 Note Patient Outreach (VEDA TNAV) YUDI MERA ([id number]) 1965 M Date Time Provider Department 04/10/23 JAMIE MONIQUE During your visit today, we recorded the following information about you: Jamie Monique MA 04/10/2023 3:18 PM Signed POPULATION HEALTH NAVIGATION OUTREACH Action/FYI Unable to lm, letter mailed to verify pcp, schedule wellness, UACR- not pended, HGBA1C- not pended, diabetic retinal eye exam, review hcc gaps,colonoscopy. Care everywhere ran with no success Patient Identified by Name and : NO Outreach Outcome/Action Unable to reach patient: Phone number not valid / voicemail full Letter mailed Did you use a PCP flex slot to schedule this appointment? N/A Reason for Outreach Care Gap or Scheduling/Wellness visits Payer: Payor: MEDICARE / Plan: MEDICARE A AND B / Product Type: Medicare / Care Gap Reviewed:: Annual Wellness visit Colorectal Cancer Screening Diabetic Eye Exam HBA1C Nephropathy (Albumin/Creatinine) Urine Reminder: Reminder note to check Health Maintenance for items below Health Maintenance items due: COVID-19 VACCINE(1) Never done URINE ALBUMIN:CREATININE RATIO Never done DILATED RETINAL EXAM Never done LDL CHOLESTEROL Never done HEPATITIS C SCREENING Never done HIV SCREENING Never done DTAP,TDAP,TD(1 - Tdap) Never done COLORECTAL CANCER SCREENING Never done SHINGRIX VACCINE(1 of 2) Never done HBA1C due on 01/23/2017 DIABETIC FOOT EXAM due on 06/14/2017 PROSTATE CANCER SCREENING DISCUSSION due on 06/14/2021 DEPRESSION ASSESSMENT Never done Navigation Signature: Jamie Monique MA April 10, 2023 3:15 PM Allergies As of Date: 04/10/2023 Noted Allergy Reaction MUSHROOM 06/14/2016 10 - Anaphylaxis PENICILLIN 06/14/2016 10 - Anaphylaxis TERRAMYCIN (OXYTETRACYCLINE) 06/14/2016 10 - Anaphylaxis ASPIRIN 06/14/2016 2 - Rash 4 - Hives Date Reviewed: 07/28/2016 Reviewed by: Diane Castro MA - Fully Assessed Reason for Visit: Population Health Navigation Outreach [3910] Cmt: [employer] care gaps Prescriptions as of 04/10/2023 - atorvastatin (LIPITOR) 80 mg tablet Take 1 tablet by mouth daily at bedtime. For cholesterol. - rOPINIRole (REQUIP) 0.25 mg tablet Take 1 tablet by mouth daily at bedtime. Complete labs and keep appointment for further refills - lamoTRIgine (LAMICTAL) 150 mg tablet Take 1 tablet by mouth twice daily. Please complete lab and keep appointment as scheduled for further refills - metoprolol tartrate, short acting, (LOPRESSOR) 50 mg tablet Take 1 tablet by mouth twice daily. Complete labs and keep next appointment for further refills - metFORMIN (GLUCOPHAGE) 500 mg tablet Take 1 tablet by mouth twice daily with meals. . - Blood-Glucose Meter (FREESTYLE LITE METER) monitoring kit Freestyle LITE Meter Kit - Dx: Type 2 DM - Controlled E11.9 - blood sugar diagnostic (FREESTYLE LITE STRIPS) test strip Test blood sugar(s) 1 times daily. Dx: Type 2 DM - Controlled E11.9 Insulin: No - lancets (FREESTYLE LANCETS) 28 gauge misc Test blood sugar(s) 1 times daily. Dx: Type 2 DM - Controlled E11.9 Insulin: No - lisinopril (PRINIVIL) 5 mg tablet Take 1 tablet by mouth once daily. Problem List As Of Date 04/10/2023 Noted Resolved Essential hypertension [I10] 06/14/2016 Restless leg syndrome [G25.81] 06/14/2016 Bipolar affective disorder, current episode mix*06/14/2016 PTSD (post-traumatic stress disorder) [F43.10] 06/14/2016 DDD (degenerative disc disease), lumbar [M51.36]06/14/2016 Controlled type 2 diabetes mellitus without com*10/08/2016 Obesity, Class III, BMI 40-49.9 (morbid obesity*12/20/2017 Letter Text Encounter Status:Closed by JAMIE MONIQUE on 04/10/23 [facility] Evaluation note Note Date & Type Note Facility Evaluation note No assessment information availa ble [facility] Work Phone: Summary Purpose Family History No Family History Records FoundNo Family History Records FoundNo Family History Records FoundNo Family History Records Found Advance Directives No Advanced Directives Records FoundNo Advanced Directives Records FoundNo Advanced Directives Records FoundNo Advanced Directives Records Found Additional Source Comments (unrecognized sect ion and content) No Status Records FoundNo Status Records FoundNo Status Records FoundNo Status Records Found INFORMATION SOURCE (unrecogn ized section and content) DATE CREATED AUTHOR 05/20/2018 [facility] ([place]) DATE CREATED AUTHOR AUTHOR'S ORGANIZ ATION 12/11/2020 [facility] DATE CREATED AUTHOR AUTHOR'S ORGANIZ ATION 06/04/2023 [facility] DATE CREATED AUTHOR AUTHOR'S ORGANIZ ATION 01/16/2024 [facility] Source Comments (unrecognize d section and content) In the event this informatio n is protected by the Federal Confidentiality of Alcohol and Drug Abuse Patient Records regulations: The Federal rules restrict any use of the information to criminally investigate or prosecute any alcohol or drug abuse patient.[facility] Reason for Visit (unrecogniz ed section and content) Reason Onset Date Comments Population Health Navigation Outreach 06/02/2023 [employer] Care Gaps Care Teams (unrecognized sec tion and content) Counseling Department Chair Relationship Specialty Start Date End Date Mandi Reynolds (Josias) [address] [place] [address] PCP - General Internal Medicine 02/14/23 Team Status: Active Member Role Status Dates Dr. Farhad Muñiz MD Family Provider Active JUAN Ibarra Primary Care Provider Active Team Status: Inactive Member Role Status Dates JUAN Ibarra Primary Care Provide r, Attending Provider, Referring Provider Active Goals (unrecognized section and content) Goals may be documented in a n alternate section FOR RECORDS PERTAINING TO PATIENTS WHO ARE OR HAVE BEEN ENROLLED IN A CHEMICAL DEPENDENCY/SUBSTANCEABUSE PROGRAM, SOME INFORMATION MAY BE OMITTED. This clinical summary was aggregated from multiple sources. Caution should be exercised in using it in the provision of clinical care. This summary normalizes information from multiple sources, and as a consequence, information in this document may materially change the coding, format and clinical context of patient data. In addition, data may be omitted in some cases. CLINICAL DECISIONS SHOULD BE BASED ON THE PRIMARY CLINICAL RECORDS. [employer] [facility]. provides no warranty or guarantee of the accuracy or completeness of information in this document.
== END | disposition home or self-care (01) ==
LOC: CT 12:24
PROVIDERS: PCP Nurse Practitioner Family
DX: J32.9 Chronic sinusitis, unspecified (principal)
CPT/HCPCS: 70486

== ENCOUNTER → 2025-04-03 | Outpatient (CLI) | payer MEDICARE, SELFPAY ==
[2025-04-03 15:25] LABS: Hematocrit 39.6 % (40-54); Hemoglobin 13.2 g/dL (13.0-16.5); Immature Granulocytes Count 0.060 X10^3/uL (0.0-0.0); Mean Corp Hgb Conc 33.3 g/dL (32-36); Mean Corpuscular Volume 82.5 fL (80-94); Mean Platelet Vol. 10.3 fl (6.2-12.0); NRBC Flagged by Analyzer 0 % (0-5); Platelet Count 294 K/mm3 (150-450); RBC Distribution Width CV 13.5 % (11.6-14.6); RBC Distribution Width SD 40.7 fl (35.1-43.9); Red Blood Count 4.80 M/mm3 (4.6-6.2); White Blood Count 10.0 K/mm3 (4.4-11.0)
[2025-04-03 16:49] LABS: Cholesterol 126 mg/dL (<=200); Low Density Lipoprotein Calc. 45 mg/dL; PSA,Total - Annual Screen 0.72 ng/mL (0.02-4.00); Triglycerides 212 mg/dL; Very Low Density Lipoprotein 42 mg/dL (5-40); cholesterol:hdl ratio screen 3.26
[2025-04-03 16:53] LABS: AST(SGOT) 45 U/L (<=37); Alanine Aminotransfer ALT/SGPT 18 U/L (<=46); Albumin, Serum 4.4 g/dL (3.4-4.8); Alkaline Phosphatase 158 U/L (40-129); Anion Gap 17 (5-15); BUN 26 mg/dL (4-19); BUN/Creat Ratio 17.4 RATIO (10-20); Calcium,Total 9.6 mg/dL (7.6-11.0); Carbon Dioxide 24.2 mmol/L (21.0-32.0); Chloride 96 mmol/L (98-108); Globulin 3.0 g/dL (2.2-4.2); Glucose 422 mg/dL (70-99); Potassium 5.0 mmol/L (3.3-5.1)
== END | disposition home or self-care (01) ==
LOC: BFHLAB 13:36
PROVIDERS: PCP Nurse Practitioner Family; Visit Provider Nurse Practitioner Family
DX: Z12.5 Encounter for screening for malignant neoplasm of prostate (principal); E11.59 Type 2 diabetes mellitus with other circulatory complications; E78.5 Hyperlipidemia, unspecified; I10 Essential (primary) hypertension
CPT/HCPCS: 36415; 80053; 80061; 83036; 84153; 85025; 86762; G0103

== ENCOUNTER → 2025-04-04 | Outpatient (CLI) | payer MEDICARE, SELFPAY ==
--- OUTSIDE RECORDS SUMMARY | 2025-04-04 23:10 | XMS RPT_ITS | CCD ---
Author Organization [facility] CliniSynv Care Team Providers Care Traffic Assistant Name Role Phone TANIA CAM C Unavailable Unavailable TUTU TANIA C Unavailable Unavailable NELSON FONTANA Unavailable Unavailable XU MCDUFFIE Unavailable Unavailable KENIA CHILD Unavailable Unavailable TUTU, TANIA C Unavailable Unavailable CHAYO EZIO Unavailable Unavailable DANA BELLE Unavailable UnavailGIRISH López Unavailable Unavailable TOPALIDIS, HATTIE Unavailable Unavailable JOCELYNE VENCES Unavailable Unavailable TUTU, TANIA C Unavailable Unavailable KB CASTELLANOS Unavailable Unavailable KB CASTELLANOS Unavailable Unavailable KB CASTELLANOS Unavailable Unavailable ALBER JOHNSON Unavailable Unavailable DANA BELLE Unavailable UnavailADONIS Moyer Unavailable Unavailable KALIA RONDONTHA Unavailable Unavailable RUTH ANN STEVENSON Unavailable Unavailable TOPALIDIS, HATTIE Unavailable Unavailable RICHELLE REYNOLDS Unavailable Unavailable TOPALIDIS, HATTIE Unavailable Unavailable TOPENRIQUE, HATTIE Unavailable Unavailable DANA MEJIA Attending Unavailable DANA MEJIA Primary Care Unavailable DANA MEIJA Admitting Unavailable FARHAD MUÑIZ Consulting Unavailable PROVIDER, UNKNOWN Consulting Unavailable TRU GONZALEZ CNP Attending Unavailable TRU GONZALEZ CNP Primary Care Unavailable TRU GONZALEZ CNP Admitting Unavailable FARHAD MUÑIZ Consulting Unavailable PROVIDER, UNKNOWN Consulting Unavailable TRU GONZALEZ CNP Attending Unavailable TRU GONZALEZ CNP Primary Care Unavailable TRU GONZALEZ CNP Admitting Unavailable FARAHD MUÑIZ Consulting Unavailable PROVIDER, UNKNOWN Consulting Unavailable Mandi Reynolds) Primary Care Provider Damien TSANGCBrett Primary Care Provider [phone] Cash Rojas Attending Provider Cash Rojas Referring Provider [phone] Cash Magana Referring Unavailable Cash Magana Attending Unavailable Brett Null Primary Care Unavailable Allergies Allergy Classification Reported Allergen(s) Allergy Type Date of Onset Reaction(s) Facility (1 source) Aspirin Drug Allergy [facility] Repository (1 source) Ibuprofen Drug Allergy [facility] Repository (1 source) Penicillins Drug allergy (disorder) [facility] Repository (3 sources) Aspirin Drug Allergy 6 Rash, Hives [facility] (3 sources) cultivated mushroom extract Drug Allergy 6 Anaphylaxis [facility] (3 sources) Oxytetracycline Drug Allergy 6 Anaphylaxis [facility] (1 source) Penicillin Drug Allergy 6 Anaphylaxis [facility] (3 sources) Oxytetracycline; Translations: [oxytetracycline HCl] Drug Allergy 6 Anaphylaxis [facility] (2 sources) Penicillins Allergy to substance 6 Anaphylaxis [facility] (1 source) Aspirin Drug Allergy 6 [facility] Repository (1 source) Mushroom (edible) Drug allergy (disorder) 6 [facility] Repository (1 source) Oxytetracycline Drug Allergy 6 [facility] Repository (1 source) Penicillins Drug allergy (disorder) 6 [facility] Repository Medications Current Medications Medication Drug Class(es) Dates Sig (Normalized) Sig (Original) lamoTRIgine 150 mg oral tablet (3 sources) Mood Stabilizer, Anti-epileptic Agent Start: 03-23-2016 take 1 tablet by mouth twice daily Lamotrigine 150 MG tablet Active 150 mg PO TWICE A DAY March 23, 2016 12:00am Comment on above: Take 1 tablet by geovanna th twice daily. Please complete lab and keep appointment as scheduled for further refills metoprolol tartrate 50 mg oral tablet (3 sources) beta-Adrenergic Nicho Start: 03-23-2016 take 1 tablet by mouth twice daily Metoprolol Tartrate 50 MG tablet Active 50 mg PO TWICE A DAY March 23, 2016 12:00am Comment on above: Take 1 tablet by geovanna th twice daily. Complete labs and keep next appointment for further refills rOPINIRole 0.25 mg oral tablet (3 sources) Nonergot Dopamine Agonist Start: 03-23-2016 Ropinirole (Requip) 0.25 MG tablet Active 0.25 mg PO as needed for Leg Cramps March 23, 2016 12:00am Comment on above: Take 1 tablet by geovanna th daily at bedtime. Complete labs and keep appointment for further refills Completed/Discontinued Medications Medication Drug Class(es) Dates Sig [...] complication, without long-term current use of insulin ([facility]) Freestyle LITE Meter Kit - Dx: Type 2 DM - Controlled E11.9 1 Each 0 07/28/2016 Active Comment on above: Freestyle LITE Meter Kit - Dx: Type 2 DM - Controlled E11.9 lisinopril 5 mg oral tablet (1 source) Angiotensin Converting Enzyme Inhibitor Start: 07-28-2016 take 1 tablet by mouth once daily lisinopril (PRINIVIL) 5 mg tablet Indications: Type 2 diabetes mellitus without complication, without long-term current use of insulin (HCC) Take 1 tablet by mouth once daily. 90 tablet 1 07/28/2016 Active Comment on above: Take 1 tablet by geovanna th once daily. metFORMIN hydrochloride 500 mg oral tablet (1 source) Biguanide Start: 07-28-2016 take 1 tablet by mouth twice daily at mealtime metFORMIN (GLUCOPHAGE) 500 mg tablet Indications: Type 2 diabetes mellitus without complication, without long-term current use of insulin (HCC) Take 1 tablet by mouth twice daily with meals. . 60 tablet 2 07/28/2016 Active Comment on above: Take 1 tablet by geovanna th twice daily with meals. . Problems Active Problems Problem Classification Problem Date [...] abnormal glucose] Onset: 12-10-2020 Episodic Essential hypertension (2 sources) Essential (primary) hypertension; Translations: [Essential hypertension] [...] screening for lipoid disorders] Onset: 12-10-2020 Episodic Other upper respiratory infections (1 source) Chronic sinusitis, unspecified; Translations: [Chronic sinusitis, unspecified] Onset: 03-06-2025 Chronic Spondylosis; intervertebral disc disorders; other back problems [...] Test Name Value Interpretation Reference Range Facility Sinus/Facial Boneon 02-29-20 Sinus/Facial Bone [facility] [address], [place] [id number] Sinus/Facial Bone MR#: [id number] Acct: [id number] Name: YUDI MERA Rep #: [id number] : 1965 M 59 From: Ruth Ann Bolanos DO PCP: JUAN Ibarra Status: REG CLI Study: Sinus/Facial Bone Date of Exam: 02/28/25 Exam# [id number] Ordering Dr: Cash Magana PROCEDURE: SINUS/FACIAL BONE REASON FOR EXAM: CHRONIC SINUITIS TECHNIQUE: SINUS/FACIAL BONE Coronal and Sagittal reconstruction series were provided. One or more dose reduction techniques were used (e.g., Automated exposure control, adjustment of the mA and/or kV according to patient size, use of iterative reconstruction technique). COMPARISON: None. FINDINGS: Frontal: Clear Ethmoid: Mild mucosal thickening Sphenoid: Clear Maxillary: Clear Turbinates: Unremarkable. Nasal Septum: Predominantly midline Mastoids/Middle Ears: No significant mastoid effusions CT/Sinus/Facial Bone IMPRESSION: Sinusitis as detailed above Reading Location: [facility] CC: SOFTWARE TEST TECHNICIAN-C Brett Null; JOSIAS Kim Sweep Molder: Signed Normal [facility] Absolute lymphocyte countOrd ered By: Brett Null on 01-09-2024 Lymphocytes Auto (Unsp spec) [#/Vol] 1.66 10*3/uL 0.83-4.51 [facility] Automated lymphocyte count a s percentage of total leukocytesOrdered By: Brett Null on 01-09-2024 Lymphocytes/100 WBC Auto (Unsp spec) 26.7 % 19-41 [facility] Basophil percentageOrdered B y: Brett Null on 01-09-2024 Basophils/100 WBC (Bld) 1.3 % 0-1 [facility] Bilirubin [Mass/Vol] 0.60 mg/dL 0.20-1.00 [facility] Comment on above: For patients on eltr ombopag therapy, use of Dimension [place] TBIL is not recommended. Chloride [Moles/Vol] 96 mmol/L 98-107 [facility] Cholesterol [Mass/Vol] 148 mg/dL <200 [facility] Comment on above: <200 mg/dL Desirable 200-240 mg/dL Borderline >240 mg/dL High Risk Eosinophils/100 WBC (Bld) 4.2 % 0-5 [facility] Glucose [Mass/Vol] 456 mg/dL 74-106 [facility] Comment on above: Critical Result(s) C alled at: 19:09:01 01/09/2024 by: Ramona kim TO BRETT NULL. Results read back by same.Glucose result greater than or equal to 200 mg/dLsuggests DIABETES MELLITUS per A.D.A. criteria. Hemoglobin (Bld) [Mass/Vol] 13.9 g/dL 13.0-16.5 [facility] Monocytes/100 WBC (Bld) 9.8 % 0-10 [facility] Neutrophils (Bld) [#/Vol] 3.6 10*3/uL 2.0-7.7 [facility] Neutrophils/100 WBC (Bld) 57.5 % 47-70 [facility] Potassium [Moles/Vol] 4.1 mmol/L 3.5-5.1 [facility] Protein [Mass/Vol] 7.1 g/dL 6.4-8.2 [facility] Sodium [Moles/Vol] 130 mmol/L 136-145 [facility] Triglyceride [Mass/Vol] 429 mg/dL <199 [facility] Comment on above: The drugs N-Acetylcy steine and Metamizole may falsely depress this assay. TRIGLYCERIDE IS GREATER THAN 400 mg/dL. LDL RESULT IS INVALID AND WILL NOT BE REPORTED.Serum Triglycerides Reference Interval Normal <150 mg/dL Borderline high 150 - 199 mg/dL High 200 - 499 mg/dL Very High > or = 500 mg/dL WBC (Bld) [#/Vol] 6.2 10*3/uL 4.4-11.0 [facility] Determination of erythrocyte mean corpuscular volume (MCV)Ordered By: Brett Null on 01-09-2024 MCV (RBC) [Entitic vol] 79.8 fL 80-94 [facility] Erythrocyte distribution wid th ratioOrdered By: Brett Null on 01-09-2024 Erythrocyte distribution width (RBC) [Ratio] 12.8 % 11.6-14.6 [facility] Erythrocyte distribution wid th standard deviationOrdered By: Brett Null on 01-09-2024 Erythrocyte distribution width (RBC) [Entitic vol] 36.4 fL 35.1-43.9 [facility] Hematocrit Auto (Bld) [Volum e fraction]Ordered By: Brett Null on 01-09-2024 Hematocrit (Bld) [Volume fraction] 41.1 % 40-54 [facility] Immature granulocytes/100 WB C Auto (Bld)Ordered By: Brett Null on 01-09-2024 Immature granulocytes/100 WBC (Bld) 0.500 % 0.0-0.9 [facility] Comment on above: IG% - Immature Granu locytes (promyelocytes, myelocytes and metamyelocytes) > 1% indicates that a LEFT SHIFT is Present. Laboratory - Chemistry and C hemistry - challengeOrdered By: Brett Null on 01-09-2024 Albumin/Globulin [Mass ratio] 1.0 {ratio} 0.9-2.4 [facility] ALP [Catalytic activity/Vol] 195 U/L 45-117 [facility] ALT [Catalytic activity/Vol] 17 U/L 16-61 [facility] Cholesterol in HDL [Mass/Vol] 29 mg/dL >40 [facility] Comment on above: The drugs N-Acetylcy steine and Metamizole may falsely depress this assay. Reference Range HDL <40 mg/dL Low HDL Cholesterol HDL >or= 60 mg/dL High HDL Cholesterol CO2 [Moles/Vol] 26.0 mmol/L 21.0-32.0 [facility] Globulin (S) [Mass/Vol] 3.6 g/dL 2.2-4.2 [facility] Urea nitrogen/Creatinine [Mass ratio] 12.8 mg/mg 10-20 [facility] Laboratory - Hematology and Cell countsOrdered By: Brett Null on 01-09-2024 MCH (RBC) [Entitic mass] 27.0 pg 27.0-32.0 [facility] MCHC (RBC) [Mass/Vol] 33.8 g/dL 32-36 [facility] Nucleated RBC/100 WBC (Bld) [Ratio] 0 % 0-5 [facility] Platelet mean volume (Bld) [Entitic vol] 10.7 fL 6.2-12.0 [facility] Platelets (Bld) [#/Vol] 297 10*3/uL 150-450 [facility] No Panel InformationOrdered By: Brett Null on 01-09-2024 Estimated GFR (MDRD) Amer 89 mL/min >60 [facility] Comment on above: GFR Calc Estimated GFR (MDRD) Non-Af Amer 73 mL/min >60 [facility] Comment on above: Non- GFR Calc LDL Cholesterol TNP [facility] Comment on above: Test not performed Prostate Specific Antigen Screen 0.77 ng/mL 0.00-4.00 [facility] Comment on above: This test was perfor med using the TPSA assay method for [employer] chemistry system. Values obtained with differentassay methods cannot be used interchangably.When changing PSA assays in the course of monitoring apatient, additional sequential testing should be carriedout to confirm baseline values. VLDL Cholesterol TNP [facility] Comment on above: Test not performed RBC Auto (Bld) [#/Vol]Ordere d By: Brett Null on 01-09-2024 RBC (Bld) [#/Vol] 5.15 10*6/uL 4.6-6.2 [facility] Serum or plasma calcium igor urement (mass/volume)Ordered By: Brett Null on 01-09-2024 Calcium [Mass/Vol] 8.6 mg/dL 8.5-10.1 [facility] Serum or plasma creatinine m easurement (mass/volume)Ordered By: Brett Null on 01-09-2024 Creatinine [Mass/Vol] 1.09 mg/dL 0.70-1.30 [facility] Comment on above: The validity of the calculated GFR & GFRAA in patients over 70 years has not been determined. Clinical correlation is essential. Serum or plasma urea nitroge n measurement (mass/volume)Ordered By: Brett Null on 01-09-2024 Urea nitrogen [Mass/Vol] 14 mg/dL 7-18 [facility] Thin prep Papanicolaou smear with manual screeningOrdered By: Brett Null on 01-09-2024 Thin prep Papanicolaou smear with manual screening 3.5 g/dL 3.2-5.0 [facility] Thin prep Papanicolaou smear with manual screening 21 U/L 15-37 [facility] Thin prep Papanicolaou smear with manual screening 8 5-15 [facility] Whole blood hemoglobin A1c/t otal hemoglobin ratio (mass fraction)Ordered By: Brett Browninggar on 01-09-2024 HbA1c (Bld) [Mass fraction] 13.9 % 3.8-5.6 [facility] Comment on above: Normal < 5.7 [...] PM Sign Date: 05/16/2018 1:02:33 PM Normal [facility] ([place] XR CHEST 2 VIEWSon 8 XR CHEST [...] AM Sign Date: 04/26/2018 5:34:27 AM Normal [facility] ([place] History and Physicalon 04-21 History and Physical Normal [facility] ([place]) Discharge Summaryon 04-13-20 18 Discharge Summary Normal [facility] ([place] .Auto Diffon 04-12-2018 Ammonia mass conc (P) 0.60 10 3/mcL Normal 0.09-1.40 [facility] ([place] Comment on above: Performed By: #### C BC, ADIFF, ANEU, CMP, PBNP, GFR, A1C ####[address] [address] Basophils Auto #/vol (Bld) 0.10 10 3/mcL Normal 0.00-0.27 [facility] ([place]) Comment on above: Performed By: #### C BC, ADIFF, ANEU, CMP, PBNP, GFR, A1C ####[address] [address] Basophils/100 WBC Auto (Bld) 1.3 % Normal 0.0-2.5 [facility] ([place] Comment on above: Performed By: #### C BC, ADIFF, ANEU, CMP, PBNP, GFR, A1C ####[address] [address] Eosinophils Auto #/vol (Bld) 0.40 10 3/mcL Normal 0.00-0.65 [facility] ([place]) Comment on above: Performed By: #### C BC, ADIFF, ANEU, CMP, PBNP, GFR, A1C ####[address] [address] Eosinophils/100 WBC Auto (Bld) 5.1 % Normal 0.0-6.0 [facility] ([place] Comment on above: Performed By: #### C BC, ADIFF, ANEU, CMP, PBNP, GFR, A1C ####[address] [address] Lymphocytes Auto #/vol (Bld) 2.50 10 3/mcL Normal 0.90-4.32 [facility] ([place] Comment on above: Performed By: #### C BC, ADIFF, ANEU, CMP, PBNP, GFR, A1C ####[address] [address] Lymphocytes/100 WBC Auto (Bld) 31.4 % Normal 20.0-40.0 [facility] ([place] Comment on above: Performed By: #### C BC, ADIFF, ANEU, CMP, PBNP, GFR, A1C ####[place] [id number] [place] [address] Monocytes/100 WBC Auto (Bld) 8.0 % Normal 2.0-13.0 [facility] ([place]) Comment on above: Performed By: #### C BC, ADIFF, ANEU, CMP, PBNP, GFR, A1C ####[place] [id number] [place] [address] Neutrophils/100 WBC Auto (Bld) 54.2 % Normal 50.0-75.0 [facility] ([place]) Comment on above: Performed By: #### C BC, ADIFF, ANEU, CMP, PBNP, GFR, A1C ####[place] [id number] [place] [address] .GFRon 04-12-2018 GFR Non- >60 Normal [facility] ([place]) Comment on above: Result Comment: GFR Population [...] BC, ADIFF, ANEU, CMP, PBNP, GFR, A1C ####[facility] [place] [address] GFR >60 Normal [facility] ([place] Comment on above: Result Comment: GFR Population [...] BC, ADIFF, ANEU, CMP, PBNP, GFR, A1C ####[place] [address] .NEUABSon 04-12-2018 Neutrophil, Absolute 4.20 10 3/mcL Normal 2.25-8.10 [facility] ([place]) Comment on above: Performed By: #### C BC, ADIFF, ANEU, CMP, PBNP, GFR, A1C ####[place] [address] APTTon 04-12-2018 aPTT Coag time (Bld) 48.3 s High 25.0-35.0 [facility] ([place]) Comment on above: Result Comment: For Heparin anticoagulation therapy, the recommendedtherapeutic range is: 54-77 seconds (APTT Correlationwith Anti-Xa therapeutic range of 0.3-0.7 units/ml).PLEASE REFERENCE THE PHARMACY PROTOCOL FOR DOSING. Performed By: #### C BC, ADIFF, ANEU, CMP, PBNP, GFR, A1C ####[place] [address] aPTT Coag time (Bld) Heparin IV Normal [facility] ([place] Comment on above: Performed By: #### C BC, ADIFF, ANEU, CMP, PBNP, GFR, A1C ####[place] [address] aPTT Coag time (Bld) Heparin IV Normal [facility] ([place] Comment on above: Performed By: #### C BC, ADIFF, ANEU, CMP, PBNP, GFR, A1C ####[place] [address] aPTT Coag time (Bld) 33.3 s Normal 25.0-35.0 [facility] ([place] Comment on above: Result Comment: For Heparin anticoagulation therapy, the recommendedtherapeutic range is: 54-77 seconds (APTT Correlationwith Anti-Xa therapeutic range of 0.3-0.7 units/ml).PLEASE REFERENCE THE PHARMACY PROTOCOL FOR DOSING. Performed By: #### C BC, ADIFF, ANEU, CMP, PBNP, GFR, A1C ####[place] [address] BMPon 04-12-2018 Creatinine mass conc 0.90 mg/dL Normal 0.60-1.40 [facility] ([place] Comment on above: Performed By: #### C BC, ADIFF, ANEU, CMP, PBNP, GFR, A1C ####[place] [address] Urea nitrogen/Creatinine mass ratio 13.3 ratio Normal 10.0-22.0 [facility] ([place] Comment on above: Performed By: #### C BC, ADIFF, ANEU, CMP, PBNP, GFR, A1C ####[place] [address] Calcium mass conc 9.0 mg/dL Normal 8.4-10.1 [facility] ([place] Comment on above: Performed By: #### C BC, ADIFF, ANEU, CMP, PBNP, GFR, A1C ####[place] [address] Chloride molar conc 102 mmol/L Normal 98-110 [facility] ([place]) Comment on above: Performed By: #### C BC, ADIFF, ANEU, CMP, PBNP, GFR, A1C ####[place] [address] CO2 molar conc 28 mmol/L Normal 22-32 [facility] ([place] Comment on above: Performed By: #### C BC, ADIFF, ANEU, CMP, PBNP, GFR, A1C ####[place] [address] Electrolyte Balance 9.0 mEq/L Normal 4.0-15.0 [facility] ([place]) Comment on above: Performed By: #### C BC, ADIFF, ANEU, CMP, PBNP, GFR, A1C ####[place] [address] Glucose mass conc 149 mg/dL High 70-110 [facility] ([place] Comment on above: Performed By: #### C BC, ADIFF, ANEU, CMP, PBNP, GFR, A1C ####[place] [address] Potassium molar conc 3.9 mmol/L Normal 3.5-5.0 [facility] ([place] Comment on above: Performed By: #### C BC, ADIFF, ANEU, CMP, PBNP, GFR, A1C ####[place] [address] Sodium molar conc 139 mmol/L Normal 136-145 [facility] ([place]) Comment on above: Performed By: #### C BC, ADIFF, ANEU, CMP, PBNP, GFR, A1C ####[place] [address] Urea nitrogen mass conc 12.0 mg/dL Normal 8.0-22.0 [facility] ([place] Comment on above: Performed By: #### C BC, ADIFF, ANEU, CMP, PBNP, GFR, A1C ####[place] [address] CBCon 04-12-2018 Erythrocyte distribution width Auto Ratio (RBC) 14.4 % Normal 11.5-15.5 [facility] ([place] Comment on above: Performed By: #### C BC, ADIFF, ANEU, CMP, PBNP, GFR, A1C ####[place] [address] Hematocrit Auto Volume Fraction (Bld) 33.3 % Low 40.0-52.0 [facility] ([place] Comment on above: Performed By: #### C BC, ADIFF, ANEU, CMP, PBNP, GFR, A1C ####[place] [address] Hemoglobin mass conc (Bld) 11.8 G/dL Low 13.0-17.5 [facility] ([place] Comment on above: Performed By: #### C BC, ADIFF, ANEU, CMP, PBNP, GFR, A1C ####[place] [address] MCH Auto Entitic mass (RBC) 29.0 pg Normal 27.0-33.0 [facility] ([place] Comment on above: Performed By: #### C BC, ADIFF, ANEU, CMP, PBNP, GFR, A1C ####[place] [address] MCHC Auto mass conc (RBC) 35.4 G/dL Normal 32.0-36.0 [facility] ([place] Comment on above: Performed By: #### C BC, ADIFF, ANEU, CMP, PBNP, GFR, A1C ####[place] [address] MCV Auto Entitic volume (RBC) 81.9 fL Normal 81.0-100.0 [facility] ([place] Comment on above: Performed By: #### C BC, ADIFF, ANEU, CMP, PBNP, GFR, A1C ####[place] [address] Platelet mean volume Auto Entitic volume (Bld) 7.7 fL Normal 6.4-10.5 [facility] ([place] Comment on above: Performed By: #### C BC, ADIFF, ANEU, CMP, PBNP, GFR, A1C ####[place] [address] Platelets Auto #/vol (Bld) 399 10 3/mcL Normal 150-450 [facility] ([place] Comment on above: Performed By: #### C BC, ADIFF, ANEU, CMP, PBNP, GFR, A1C ####[place] [address] RBC Auto #/vol (Bld) 4.06 10 6/mcL Low 4.50-6.00 [facility] ([place] Comment on above: Performed By: #### C BC, ADIFF, ANEU, CMP, PBNP, GFR, A1C ####[place] [address] WBC Auto #/vol (Bld) 7.80 10 3/mcL Normal 4.50-10.80 [facility] ([place] Comment on above: Performed By: #### C BC, ADIFF, ANEU, CMP, PBNP, GFR, A1C ####[address] [address] Depart Summaryon 04-12-2018 Depart Summary Normal [facility] [place] Inpatient Patient Summaryon 04-12-2018 Inpatient Patient Summary Normal [facility] [place] Pain Management Consultation Noteon 04-12-2018 Pain Management Consultation Note Normal [facility] ([place]) Pat Eduon 04-12-2018 Pat Edu Normal [facility] ([place] Progress Noteon 04-12-2018 Protein mass conc Normal [facility]) .Auto Diffon 04-11-2018 Ammonia mass conc (P) 0.80 10 3/mcL Normal 0.09-1.40 [facility] ([place] Comment on above: Performed By: #### C BC, ADIFF, ANEU, CMP, PBNP, GFR, A1C ####[address] [address] Basophils Auto #/vol (Bld) 0.10 10 3/mcL Normal 0.00-0.27 [facility] ([place] Comment on above: Performed By: #### C BC, ADIFF, ANEU, CMP, PBNP, GFR, A1C ####[address] [address] Basophils/100 WBC Auto (Bld) 0.9 % Normal 0.0-2.5 [facility] ([place] Comment on above: Performed By: #### C BC, ADIFF, ANEU, CMP, PBNP, GFR, A1C ####[address] [address] Eosinophils Auto #/vol (Bld) 0.40 10 3/mcL Normal 0.00-0.65 [facility] ([place]) Comment on above: Performed By: #### C BC, ADIFF, ANEU, CMP, PBNP, GFR, A1C ####[address] [address] Eosinophils/100 WBC Auto (Bld) 4.0 % Normal 0.0-6.0 [facility] ([place] Comment on above: Performed By: #### C BC, ADIFF, ANEU, CMP, PBNP, GFR, A1C ####[address] [address] Lymphocytes Auto #/vol (Bld) 1.80 10 3/mcL Normal 0.90-4.32 [facility] ([place]) Comment on above: Performed By: #### C BC, ADIFF, ANEU, CMP, PBNP, GFR, A1C ####[address] [address] Lymphocytes/100 WBC Auto (Bld) 18.6 % Low 20.0-40.0 [facility] ([place]) Comment on above: Performed By: #### C BC, ADIFF, ANEU, CMP, PBNP, GFR, A1C ####[address] [address] Monocytes/100 WBC Auto (Bld) 8.2 % Normal 2.0-13.0 [facility] ([place]) Comment on above: Performed By: #### C BC, ADIFF, ANEU, CMP, PBNP, GFR, A1C ####[address] [address] Neutrophils/100 WBC Auto (Bld) 68.3 % Normal 50.0-75.0 [facility] ([place]) Comment on above: Performed By: #### C BC, ADIFF, ANEU, CMP, PBNP, GFR, A1C ####[address] [address] .GFRon 04-11-2018 GFR Non- >60 Normal [facility] ([place]) Comment on above: Result Comment: GFR Population [...] BC, ADIFF, ANEU, CMP, PBNP, GFR, A1C ####[address] [address] GFR >60 Normal [facility] ([place]) Comment on above: Result Comment: GFR Population [...] BC, ADIFF, ANEU, CMP, PBNP, GFR, A1C ####[place] [address] .NEUABSon 04-11-2018 Neutrophil, Absolute 6.50 10 3/mcL Normal 2.25-8.10 A [facility] ([place]) Comment on above: Performed By: #### C BC, ADIFF, ANEU, CMP, PBNP, GFR, A1C ####[address] [address] BMPon 04-11-2018 Creatinine mass conc 1.06 mg/dL Normal 0.60-1.40 [facility] ([place]) Comment on above: Performed By: #### C BC, ADIFF, ANEU, CMP, PBNP, GFR, A1C ####[place] [address] Urea nitrogen/Creatinine mass ratio 7.5 ratio Low 10.0-22.0 [facility] ([place]) Comment on above: Performed By: #### C BC, ADIFF, ANEU, CMP, PBNP, GFR, A1C ####[place] [address] Calcium mass conc 8.9 mg/dL Normal 8.4-10.1 [facility] ([place]) Comment on above: Performed By: #### C BC, ADIFF, ANEU, CMP, PBNP, GFR, A1C ####[address] [address] Chloride molar conc 101 mmol/L Normal 98-110 [facility] ([place]) Comment on above: Performed By: #### C BC, ADIFF, ANEU, CMP, PBNP, GFR, A1C ####[address] [address] CO2 molar conc 33 mmol/L High 22-32 [facility] ([place]) Comment on above: Performed By: #### C BC, ADIFF, ANEU, CMP, PBNP, GFR, A1C ####[address] [address] Electrolyte Balance 6.0 mEq/L Normal 4.0-15.0 [facility] ([place]) Comment on above: Performed By: #### C BC, ADIFF, ANEU, CMP, PBNP, GFR, A1C ####[place] [address] Glucose mass conc 157 mg/dL High 70-110 [facility] ([place]) Comment on above: Performed By: #### C BC, ADIFF, ANEU, CMP, PBNP, GFR, A1C ####[address] [address] Potassium molar conc 4.2 mmol/L Normal 3.5-5.0 [facility] ([place]) Comment on above: Performed By: #### C BC, ADIFF, ANEU, CMP, PBNP, GFR, A1C ####[address] [address] Sodium molar conc 140 mmol/L Normal 136-145 [facility] ([place]) Comment on above: Performed By: #### C BC, ADIFF, ANEU, CMP, PBNP, GFR, A1C ####[address] [address] Urea nitrogen mass conc 8.0 mg/dL Normal 8.0-22.0 [facility] ([place]) Comment on above: Performed By: #### C BC, ADIFF, ANEU, CMP, PBNP, GFR, A1C ####[place] [address] CBCon 04-11-2018 Erythrocyte distribution width Auto Ratio (RBC) 14.9 % Normal 11.5-15.5 [facility] ([place]) Comment on above: Performed By: #### C BC, ADIFF, ANEU, CMP, PBNP, GFR, A1C ####[place] [address] Hematocrit Auto Volume Fraction (Bld) 35.6 % Low 40.0-52.0 [facility] ([place]) Comment on above: Performed By: #### C BC, ADIFF, ANEU, CMP, PBNP, GFR, A1C ####[place] [address] Hemoglobin mass conc (Bld) 12.5 G/dL Low 13.0-17.5 [facility] ([place] Comment on above: Performed By: #### C BC, ADIFF, ANEU, CMP, PBNP, GFR, A1C ####[place] [address] MCH Auto Entitic mass (RBC) 29.3 pg Normal 27.0-33.0 [facility] ([place]) Comment on above: Performed By: #### C BC, ADIFF, ANEU, CMP, PBNP, GFR, A1C ####[place] [address] MCHC Auto mass conc (RBC) 35.0 G/dL Normal 32.0-36.0 [facility] ([place] Comment on above: Performed By: #### C BC, ADIFF, ANEU, CMP, PBNP, GFR, A1C ####[place] [address] MCV Auto Entitic volume (RBC) 83.6 fL Normal 81.0-100.0 [facility] ([place]) Comment on above: Performed By: #### C BC, ADIFF, ANEU, CMP, PBNP, GFR, A1C ####[place] [address] Platelet mean volume Auto Entitic volume (Bld) 7.5 fL Normal 6.4-10.5 [facility] ([place]) Comment on above: Performed By: #### C BC, ADIFF, ANEU, CMP, PBNP, GFR, A1C ####[place] [address] Platelets Auto #/vol (Bld) 411 10 3/mcL Normal 150-450 [facility] ([place]) Comment on above: Performed By: #### C BC, ADIFF, ANEU, CMP, PBNP, GFR, A1C ####[place] [address] RBC Auto #/vol (Bld) 4.27 10 6/mcL Low 4.50-6.00 A [facility] ([place]) Comment on above: Performed By: #### C BC, ADIFF, ANEU, CMP, PBNP, GFR, A1C ####[place] [address] WBC Auto #/vol (Bld) 9.60 10 3/mcL Normal 4.50-10.80 A [facility] ([place]) Comment on above: Performed By: #### C BC, ADIFF, ANEU, CMP, PBNP, GFR, A1C ####[place] [address] Echocardiogram, Adulton 03-19 Echocardiogram, Adult Normal [facility] ([place]) Internal Medicine Progress N oteon 04-11-2018 Protein mass conc Normal [facility] ([place]) .Auto Diffon 04-10-2018 Ammonia mass conc (P) 0.80 10 3/mcL Normal 0.09-1.40 [facility] ([place]) Comment on above: Performed By: #### C BC, ADIFF, ANEU, CMP, PBNP, GFR, A1C ####[place] [address] Basophils Auto #/vol (Bld) 0.10 10 3/mcL Normal 0.00-0.27 [facility] ([place]) Comment on above: Performed By: #### C BC, ADIFF, ANEU, CMP, PBNP, GFR, A1C ####[address] [place], [place] [address] Basophils/100 WBC Auto (Bld) 1.0 % Normal 0.0-2.5 [facility] ([place]) Comment on above: Performed By: #### C BC, ADIFF, ANEU, CMP, PBNP, GFR, A1C ####[address] [address] Eosinophils Auto #/vol (Bld) 0.40 10 3/mcL Normal 0.00-0.65 [facility] ([place]) Comment on above: Performed By: #### C BC, ADIFF, ANEU, CMP, PBNP, GFR, A1C ####[address] [address] Eosinophils/100 WBC Auto (Bld) 3.6 % Normal 0.0-6.0 [facility] ([place]) Comment on above: Performed By: #### C BC, ADIFF, ANEU, CMP, PBNP, GFR, A1C ####[address] [address] Lymphocytes Auto #/vol (Bld) 2.10 10 3/mcL Normal 0.90-4.32 [facility] ([place]) Comment on above: Performed By: #### C BC, ADIFF, ANEU, CMP, PBNP, GFR, A1C ####[address] [address] Lymphocytes/100 WBC Auto (Bld) 20.6 % Normal 20.0-40.0 [facility] ([place]) Comment on above: Performed By: #### C BC, ADIFF, ANEU, CMP, PBNP, GFR, A1C ####[address] [address] Monocytes/100 WBC Auto (Bld) 8.1 % Normal 2.0-13.0 [facility] ([place]) Comment on above: Performed By: #### C BC, ADIFF, ANEU, CMP, PBNP, GFR, A1C ####[address] [address] Neutrophils/100 WBC Auto (Bld) 66.7 % Normal 50.0-75.0 [facility] ([place]) Comment on above: Performed By: #### C BC, ADIFF, ANEU, CMP, PBNP, GFR, A1C ####[address] [address] .GFRon 04-10-2018 GFR Non- >60 Normal [facility] ([place]) Comment on above: Result Comment: GFR Population [...] BC, ADIFF, ANEU, CMP, PBNP, GFR, A1C ####[place] [address] GFR >60 Normal [facility] ([place]) Comment on above: Result Comment: GFR Population [...] BC, ADIFF, ANEU, CMP, PBNP, GFR, A1C ####[address] [address] .NEUABSon 04-10-2018 Neutrophil, Absolute 6.80 10 3/mcL Normal 2.25-8.10 A [facility] ([place]) Comment on above: Performed By: #### C BC, ADIFF, ANEU, CMP, PBNP, GFR, A1C ####[place] [address] APTTon 04-10-2018 aPTT Coag time (Bld) 26.8 s Normal 25.0-35.0 [facility] ([place]) Comment on above: Result Comment: For Heparin anticoagulation therapy, the recommendedtherapeutic range is: 54-77 seconds (APTT Correlationwith Anti-Xa therapeutic range of 0.3-0.7 units/ml).PLEASE REFERENCE THE PHARMACY PROTOCOL FOR DOSING. Performed By: #### C BC, ADIFF, ANEU, CMP, PBNP, GFR, A1C ####[place] [address] aPTT Coag time (Bld) None [facility] ([place] Comment on above: Performed By: #### C BC, ADIFF, ANEU, CMP, PBNP, GFR, A1C ####[place] [address] aPTT Coag time (Bld) Heparin IV Normal [facility] ([place]) Comment on above: Performed By: #### C BC, ADIFF, ANEU, CMP, PBNP, GFR, A1C ####[place] [address] aPTT Coag time (Bld) 35.5 s High 25.0-35.0 [facility] ([place]) Comment on above: Result Comment: For Heparin anticoagulation therapy, the recommendedtherapeutic range is: 54-77 seconds (APTT Correlationwith Anti-Xa therapeutic range of 0.3-0.7 units/ml).PLEASE REFERENCE THE PHARMACY PROTOCOL FOR DOSING. Performed By: #### C BC, ADIFF, ANEU, CMP, PBNP, GFR, A1C ####[place] [address] aPTT Coag time (Bld) Heparin IV Normal [facility] ([place]) Comment on above: Performed By: #### C BC, ADIFF, ANEU, CMP, PBNP, GFR, A1C ####[place] [address] aPTT Coag time (Bld) 26.7 s Normal 25.0-35.0 [facility] ([place]) Comment on above: Result Comment: For Heparin anticoagulation therapy, the recommendedtherapeutic range is: 54-77 seconds (APTT Correlationwith Anti-Xa therapeutic range of 0.3-0.7 units/ml).PLEASE REFERENCE THE PHARMACY PROTOCOL FOR DOSING. Performed By: #### C BC, ADIFF, ANEU, CMP, PBNP, GFR, A1C ####[place] [address] BMPon 04-10-2018 Calcium mass conc 8.8 mg/dL Normal 8.4-10.1 [facility] ([place]) Comment on above: Performed By: #### C BC, ADIFF, ANEU, CMP, PBNP, GFR, A1C ####[place] [address] Chloride molar conc 102 mmol/L Normal 98-110 [facility] ([place]) Comment on above: Performed By: #### C BC, ADIFF, ANEU, CMP, PBNP, GFR, A1C ####[place] [address] CO2 molar conc 27 mmol/L Normal 22-32 [facility] ([place]) Comment on above: Performed By: #### C BC, ADIFF, ANEU, CMP, PBNP, GFR, A1C ####[place] [address] Creatinine mass conc 1.02 mg/dL Normal 0.60-1.40 [facility] ([place]) Comment on above: Performed By: #### C BC, ADIFF, ANEU, CMP, PBNP, GFR, A1C ####[place] [address] Electrolyte Balance 9.0 mEq/L Normal 4.0-15.0 [facility] ([place]) Comment on above: Performed By: #### C BC, ADIFF, ANEU, CMP, PBNP, GFR, A1C ####[place] [address] Glucose mass conc 137 mg/dL High 70-110 [facility] ([place]) Comment on above: Performed By: #### C BC, ADIFF, ANEU, CMP, PBNP, GFR, A1C ####[place] [address] Potassium molar conc 3.8 mmol/L Normal 3.5-5.0 [facility] ([place]) Comment on above: Performed By: #### C BC, ADIFF, ANEU, CMP, PBNP, GFR, A1C ####[place] [address] Sodium molar conc 138 mmol/L Normal 136-145 [facility] ([place]) Comment on above: Performed By: #### C BC, ADIFF, ANEU, CMP, PBNP, GFR, A1C ####[place] [address] Urea nitrogen mass conc 11.0 mg/dL Normal 8.0-22.0 [facility] ([place]) Comment on above: Performed By: #### C BC, ADIFF, ANEU, CMP, PBNP, GFR, A1C ####[place] [address] Urea nitrogen/Creatinine mass ratio 10.8 ratio Normal 10.0-22.0 [facility] ([place]) Comment on above: Performed By: #### C BC, ADIFF, ANEU, CMP, PBNP, GFR, A1C ####[place] [address] CBCon 04-10-2018 Erythrocyte distribution width Auto Ratio (RBC) 14.8 % Normal 11.5-15.5 [facility] ([place]) Comment on above: Performed By: #### C BC, ADIFF, ANEU, CMP, PBNP, GFR, A1C ####[place] [address] Hematocrit Auto Volume Fraction (Bld) 36.8 % Low 40.0-52.0 [facility] ([place]) Comment on above: Performed By: #### C BC, ADIFF, ANEU, CMP, PBNP, GFR, A1C ####[place] [address] Hemoglobin mass conc (Bld) 12.8 G/dL Low 13.0-17.5 [facility] ([place]) Comment on above: Performed By: #### C BC, ADIFF, ANEU, CMP, PBNP, GFR, A1C ####[place] [address] MCH Auto Entitic mass (RBC) 29.3 pg Normal 27.0-33.0 [facility] ([place]) Comment on above: Performed By: #### C BC, ADIFF, ANEU, CMP, PBNP, GFR, A1C ####[place] [address] MCHC Auto mass conc (RBC) 34.8 G/dL Normal 32.0-36.0 [facility] ([place]) Comment on above: Performed By: #### C BC, ADIFF, ANEU, CMP, PBNP, GFR, A1C ####[place] [address] MCV Auto Entitic volume (RBC) 84.2 fL Normal 81.0-100.0 [facility] ([place]) Comment on above: Performed By: #### C BC, ADIFF, ANEU, CMP, PBNP, GFR, A1C ####[place] [address] Platelet mean volume Auto Entitic volume (Bld) 7.5 fL Normal 6.4-10.5 [facility] ([place]) Comment on above: Performed By: #### C BC, ADIFF, ANEU, CMP, PBNP, GFR, A1C ####[place] [address] Platelets Auto #/vol (Bld) 469 10 3/mcL High 150-450 [facility] ([place]) Comment on above: Performed By: #### C BC, ADIFF, ANEU, CMP, PBNP, GFR, A1C ####[place] [address] RBC Auto #/vol (Bld) 4.37 10 6/mcL Low 4.50-6.00 A [facility] ([place]) Comment on above: Performed By: #### C BC, ADIFF, ANEU, CMP, PBNP, GFR, A1C ####[address] [place], [place] [address] WBC Auto #/vol (Bld) 10.20 10 3/mcL Normal 4.50-10.80 [facility] ([place]) Comment on above: Performed By: #### C BC, ADIFF, ANEU, CMP, PBNP, GFR, A1C ####[facility] [place] [address] Cardiac Catheterization - CV on 04-10-2018 Cardiac Catheterization - CV Normal [facility] ([place]) Cardiothoracic Consultationo n 04-10-2018 Cardiothoracic Consultation Normal [facility]) LIPIDon 04-10-2018 Cholesterol in HDL mass conc 23 mg/dL Low 40-59 [facility] ([place]) Comment on above: Result Comment: HDL Reference Interval:Less than 40 Low - high risk60 or above Optimal/lowers risk Performed By: #### C BC, ADIFF, ANEU, CMP, PBNP, GFR, A1C ####[place] [address] [place] [address] Cholesterol in LDL mass conc 58 mg/dL Normal 0-129 [facility] ([place]) Comment on above: Result Comment: LDL is a calculated result and requires a 12- hr fast.LDL Reference Interval:Less than 100 [id number] Near or above [id number] Borderline high [id number] High xylr639 and above Very high risk Performed By: #### C BC, ADIFF, ANEU, CMP, PBNP, GFR, A1C ####[place] [address] [place] [address] Cholesterol mass conc 150 mg/dL Normal 50-199 [facility] ([place]) Comment on above: Result Comment: Chol esterol Reference Interval:Less than 200 [id number] Borderline high [id number] and above High risk Performed By: #### C BC, ADIFF, ANEU, CMP, PBNP, GFR, A1C ####[facility] [place] [address] Triglyceride mass conc 345 mg/dL High 3-149 [facility] ([place]) Comment on above: Result Comment: Trig lyceride Reference Interval:Less than 150 [id number] Borderline high [id number] High mshr223 or higher Very high risk Performed By: #### C BC, ADIFF, ANEU, CMP, PBNP, GFR, A1C ####[place] [address] [place] [address] MGon 04-10-2018 Magnesium mass conc 1.9 mg/dL Normal 1.6-2.4 [facility] ([place]) Comment on above: Performed By: #### C BC, ADIFF, ANEU, CMP, PBNP, GFR, A1C ####[place] [address] PBNPon 04-10-2018 Natriuretic peptide B mass conc (Bld) 1397 pg/mL High 0-900 [facility] ([place]) Comment on above: Result Comment: NT-p roBNP results of less than 300 pg/mL effectivelyrules out acute congestive heart failure with 99% negative predictive value. Performed By: #### C BC, ADIFF, ANEU, CMP, PBNP, GFR, A1C ####[place] [address] PHOSon 04-10-2018 Phosphate mass conc 3.9 mg/dL Normal 2.5-4.5 [facility] ([place]) Comment on above: Performed By: #### C BC, ADIFF, ANEU, CMP, PBNP, GFR, A1C ####[place] [address] PROon 04-10-2018 INR Coag RelTime (PPP) 1.0 {INR} Normal [facility] ([place]) Comment on above: Result Comment: [employer] (CHEST, 1991, 102:[id number])recommended therapeutic range for oral anticoagulant therapy is:LOW RISK: Prophylaxis of venous thrombosis INR: 2.0-3.0 Treatment of pulmonary embolism 2.0-3.0 Prevention of systemic embolism 2.0-3.0HIGH RISK: Mechanical prosthetic valves 2.5-3.5 Performed By: #### C BC, ADIFF, ANEU, CMP, PBNP, GFR, A1C ####[place] [address] Prothrombin time (PT) Coag time (PPP) 12.2 s Normal 9.0-14.5 [facility] ([place]) Comment on above: Result Comment: Effe ctive 04/01/08, Protime results may be affected by some antibiotics (i.e. Ciprofloxacin, Azithromycin, Bactrim) which may potentiate the action of oral anticoagulants, with further increases in Protime/INR. Performed By: #### C BC, ADIFF, ANEU, CMP, PBNP, GFR, A1C ####[place] [address] [place] [address] TROPIon 04-10-2018 Troponin I.cardiac mass conc 8.000 ng/mL High 0.000-0.040 [facility] ([place]) Comment on above: Result Comment: Trop onin I reference ranges (05/26/14): 0.00-0.040 ng/mL Negative and non-diagnostic. >0.040 ng/mL Consistent with cardiac damage, increased clinical risk and possibility of myocardial infarction. Serial measurements, a rise & fall in test results, clinical history, appropriate symptoms and/or ECG changes may help assess possibility of TN. *Other non-acute coronary syndrome conditions such as CHF, myocarditis, pulmonary emboli, sepsis and cardiac surgery could result in myocardial damage and increased troponin levels. Performed By: #### C BC, ADIFF, ANEU, CMP, PBNP, GFR, A1C ####[place] [address] [place] [address] Troponin I.cardiac mass conc 5.670 ng/mL High 0.000-0.040 [facility] ([place]) Comment on above: Result Comment: Trop onin I reference ranges (05/26/14): 0.00-0.040 ng/mL Negative and non-diagnostic. >0.040 ng/mL Consistent with cardiac damage, increased clinical risk and possibility of myocardial infarction. Serial measurements, a rise & fall in test results, clinical history, appropriate symptoms and/or ECG changes may help assess possibility of TN. *Other non-acute coronary syndrome conditions such as CHF, myocarditis, pulmonary emboli, sepsis and cardiac surgery could result in myocardial damage and increased troponin levels. Performed By: #### C BC, ADIFF, ANEU, CMP, PBNP, GFR, A1C ####[place] [address] [place] [address] Troponin I.cardiac mass conc 1.880 ng/mL High 0.000-0.040 [facility] ([place]) Comment on above: Result Comment: Trop onin I reference ranges (05/26/14): 0.00-0.040 ng/mL Negative and non-diagnostic. >0.040 ng/mL Consistent with cardiac damage, increased clinical risk and possibility of myocardial infarction. Serial measurements, a rise & fall in test results, clinical history, appropriate symptoms and/or ECG changes may help assess possibility of TN. *Other non-acute coronary syndrome conditions such as CHF, myocarditis, pulmonary emboli, sepsis and cardiac surgery could result in myocardial damage and increased troponin levels. Performed By: #### C BC, ADIFF, ANEU, CMP, PBNP, GFR, A1C ####[place] [address] [place] [address] XR CHEST 1 VIEWon 04-10-2018 XR CHEST [...] AM Sign Date: 04/10/2018 4:02:21 AM Normal [facility] ([place]) Progress Noteon 04-06-2018 Protein mass conc Normal [facility] ([place]) .Auto Diffon 03-30-2018 Ammonia mass conc (P) 1.00 10 3/mcL Normal 0.09-1.40 [facility] ([place]) Comment on above: Performed By: #### C BC, ADIFF, ANEU, CMP, PBNP, GFR, A1C ####[place] [address] [place], [place] [address] Basophils Auto #/vol (Bld) 0.00 10 3/mcL Normal 0.00-0.27 [facility] ([place]) Comment on above: Performed By: #### C BC, ADIFF, ANEU, CMP, PBNP, GFR, A1C ####[address] [address] Basophils/100 WBC Auto (Bld) 0.3 % Normal 0.0-2.5 [facility] ([place]) Comment on above: Performed By: #### C BC, ADIFF, ANEU, CMP, PBNP, GFR, A1C ####[address] [address] Eosinophils Auto #/vol (Bld) 0.10 10 3/mcL Normal 0.00-0.65 [facility] ([place]) Comment on above: Performed By: #### C BC, ADIFF, ANEU, CMP, PBNP, GFR, A1C ####[address] [address] Eosinophils/100 WBC Auto (Bld) 0.8 % Normal 0.0-6.0 [facility] ([place]) Comment on above: Performed By: #### C BC, ADIFF, ANEU, CMP, PBNP, GFR, A1C ####[address] [address] Lymphocytes Auto #/vol (Bld) 1.20 10 3/mcL Normal 0.90-4.32 [facility] ([place]) Comment on above: Performed By: #### C BC, ADIFF, ANEU, CMP, PBNP, GFR, A1C ####[address] [address] Lymphocytes/100 WBC Auto (Bld) 13.0 % Low 20.0-40.0 [facility] ([place] Comment on above: Performed By: #### C BC, ADIFF, ANEU, CMP, PBNP, GFR, A1C ####[address] [address] Monocytes/100 WBC Auto (Bld) 10.9 % Normal 2.0-13.0 [facility] ([place]) Comment on above: Performed By: #### C BC, ADIFF, ANEU, CMP, PBNP, GFR, A1C ####[address] [address] Neutrophils/100 WBC Auto (Bld) 75.0 % Normal 50.0-75.0 [facility] ([place] Comment on above: Performed By: #### C BC, ADIFF, ANEU, CMP, PBNP, GFR, A1C ####[address] [address] .GFRon 03-30-2018 GFR Non- >60 Normal [facility] ([place]) Comment on above: Result Comment: GFR Population [...] BC, ADIFF, ANEU, CMP, PBNP, GFR, A1C ####[address] [address] GFR >60 Normal [facility] ([place] Comment on above: Result Comment: GFR Population [...] BC, ADIFF, ANEU, CMP, PBNP, GFR, A1C ####[place] [address] .NEUABSon 03-30-2018 Neutrophil, Absolute 6.70 10 3/mcL Normal 2.25-8.10 A [facility] ([place] Comment on above: Performed By: #### C BC, ADIFF, ANEU, CMP, PBNP, GFR, A1C ####[place] [address] CBCon 03-30-2018 Erythrocyte distribution width Auto Ratio (RBC) 15.2 % Normal 11.5-15.5 [facility] ([place] Comment on above: Performed By: #### C BC, ADIFF, ANEU, CMP, PBNP, GFR, A1C ####[place] [address] Hematocrit Auto Volume Fraction (Bld) 29.9 % Low 40.0-52.0 [facility] ([place] Comment on above: Performed By: #### C BC, ADIFF, ANEU, CMP, PBNP, GFR, A1C ####[place] [address] Hemoglobin mass conc (Bld) 10.6 G/dL Low 13.0-17.5 [facility] ([place] Comment on above: Performed By: #### C BC, ADIFF, ANEU, CMP, PBNP, GFR, A1C ####[place] [address] MCH Auto Entitic mass (RBC) 30.5 pg Normal 27.0-33.0 [facility] ([place] Comment on above: Performed By: #### C BC, ADIFF, ANEU, CMP, PBNP, GFR, A1C ####[place] [address] MCHC Auto mass conc (RBC) 35.6 G/dL Normal 32.0-36.0 [facility] ([place] Comment on above: Performed By: #### C BC, ADIFF, ANEU, CMP, PBNP, GFR, A1C ####[place] [address] MCV Auto Entitic volume (RBC) 85.6 fL Normal 81.0-100.0 [facility] ([place]) Comment on above: Performed By: #### C BC, ADIFF, ANEU, CMP, PBNP, GFR, A1C ####[place] [address] Platelet mean volume Auto Entitic volume (Bld) 8.2 fL Normal 6.4-10.5 [facility] ([place]) Comment on above: Performed By: #### C BC, ADIFF, ANEU, CMP, PBNP, GFR, A1C ####[place] [address] Platelets Auto #/vol (Bld) 203 10 3/mcL Normal 150-450 [facility] ([place]) Comment on above: Performed By: #### C BC, ADIFF, ANEU, CMP, PBNP, GFR, A1C ####[place] [address] RBC Auto #/vol (Bld) 3.49 10 6/mcL Low 4.50-6.00 A [facility] ([place] Comment on above: Performed By: #### C BC, ADIFF, ANEU, CMP, PBNP, GFR, A1C ####[place] [address] WBC Auto #/vol (Bld) 9.00 10 3/mcL Normal 4.50-10.80 [facility] ([place] Comment on above: Performed By: #### C BC, ADIFF, ANEU, CMP, PBNP, GFR, A1C ####[place] [address] CMPon 03-30-2018 Albumin/Globulin mass ratio 0.9 {ratio} Normal 0.9-1.6 [facility] ([place]) Comment on above: Performed By: #### C BC, ADIFF, ANEU, CMP, PBNP, GFR, A1C ####[place] [address] ALP enzyme act/vol 50 U/L Normal 38-126 [facility] ([place]) Comment on above: Performed By: #### C BC, ADIFF, ANEU, CMP, PBNP, GFR, A1C ####[place] [id number] Bili Total 0.8 mg/dL Normal 0.2-1.2 [facility] ([place]) Comment on above: Performed By: #### C BC, ADIFF, ANEU, CMP, PBNP, GFR, A1C ####[place] [id number] Globulin Calculated mass conc (S) 3.4 G/dL Normal 1.5-3.8 [facility] ([place]) Comment on above: Performed By: #### C BC, ADIFF, ANEU, CMP, PBNP, GFR, A1C ####[place] [address] Protein mass conc 6.4 G/dL Normal 6.0-8.5 [facility] ([place]) Comment on above: Performed By: #### C BC, ADIFF, ANEU, CMP, PBNP, GFR, A1C ####[place] [address] Albumin mass conc 3.0 G/dL Low 3.2-4.8 [facility] ([place]) Comment on above: Performed By: #### C BC, ADIFF, ANEU, CMP, PBNP, GFR, A1C ####[place] [address] ALT enzyme act/vol 15 U/L Normal 12-55 [facility] ([place]) Comment on above: Performed By: #### C BC, ADIFF, ANEU, CMP, PBNP, GFR, A1C ####[place] [address] AST enzyme act/vol 21 U/L Normal 8-34 [facility] ([place]) Comment on above: Performed By: #### C BC, ADIFF, ANEU, CMP, PBNP, GFR, A1C ####[place] [address] Calcium mass conc 8.4 mg/dL Normal 8.4-10.1 [facility] ([place]) Comment on above: Performed By: #### C BC, ADIFF, ANEU, CMP, PBNP, GFR, A1C ####[place] [address] Chloride molar conc 103 mmol/L Normal 98-110 [facility] ([place]) Comment on above: Performed By: #### C BC, ADIFF, ANEU, CMP, PBNP, GFR, A1C ####[place] [address] CO2 molar conc 31 mmol/L Normal 22-32 [facility] ([place]) Comment on above: Performed By: #### C BC, ADIFF, ANEU, CMP, PBNP, GFR, A1C ####[place] [address] Creatinine mass conc 0.92 mg/dL Normal 0.60-1.40 [facility] ([place]) Comment on above: Performed By: #### C BC, ADIFF, ANEU, CMP, PBNP, GFR, A1C ####[place] [address] Electrolyte Balance 7.0 mEq/L Normal 4.0-15.0 [facility] ([place]) Comment on above: Performed By: #### C BC, ADIFF, ANEU, CMP, PBNP, GFR, A1C ####[place] [address] Glucose mass conc 64 mg/dL Low 70-110 [facility] ([place]) Comment on above: Performed By: #### C BC, ADIFF, ANEU, CMP, PBNP, GFR, A1C ####[place] [address] Potassium molar conc 3.4 mmol/L Low 3.5-5.0 [facility] ([place]) Comment on above: Performed By: #### C BC, ADIFF, ANEU, CMP, PBNP, GFR, A1C ####[place] [address] Sodium molar conc 141 mmol/L Normal 136-145 [facility] ([place]) Comment on above: Performed By: #### C BC, ADIFF, ANEU, CMP, PBNP, GFR, A1C ####[address] [place], [place] [address] Urea nitrogen mass conc 16.0 mg/dL Normal 8.0-22.0 [facility] ([place]) Comment on above: Performed By: #### C BC, ADIFF, ANEU, CMP, PBNP, GFR, A1C ####[facility] [place] [address] Urea nitrogen/Creatinine mass ratio 17.4 ratio Normal 10.0-22.0 [facility]) Comment on above: Performed By: #### C BC, ADIFF, ANEU, CMP, PBNP, GFR, A1C ####[facility] [place] [address] CVS Discharge Summaryon 03-18 CVS Discharge Summary Normal [facility] ([place]) Cardiothoracic Progress Note on 03-30-2018 Protein mass conc Normal [facility]) Depart Summaryon 03-30-2018 Depart Summary Normal [facility]) Endocrinology Progress Noteo n 03-30-2018 Protein mass conc Normal [facility]) Inpatient Patient Summaryon 03-30-2018 Inpatient Patient Summary Normal [facility] ([place]) Pain Management Progress Not veronica 03-30-2018 Pain Management Progress Note Normal [facility] ([place]) Pat Eduon 03-30-2018 Pat Edu Normal [facility] ([place]) XR CHEST 2 VIEWSon 8 XR CHEST [...] Report By: Matty Roper MDElectronically Signed By: Matyt Roper MD Dictated Date: 03/30/2018 8:18:38 AM Prelim Date: 03/30/2018 8:18:38 AM Sign Date: 03/30/2018 8:20:52 AM Normal [facility] ([place]) Cardiothoracic Progress Note on 03-29-2018 Protein mass conc Normal [facility]) Endocrinology Progress Noteo n 03-29-2018 Protein mass conc Normal [facility] ([place]) Cristi 03-29-2018 Potassium molar conc 3.9 mmol/L Normal 3.5-5.0 [facility]) Comment on above: Performed By: #### C BC, ADIFF, ANEU, CMP, PBNP, GFR, A1C ####[address] [address] Pain Management Progress Not veronica 03-29-2018 Pain Management Progress Note Normal [facility] ([place]) .Auto Diffon 03-28-2018 Ammonia mass conc (P) 1.00 10 3/mcL Normal 0.09-1.40 [facility]) Comment on above: Performed By: #### C BC, ADIFF, ANEU, CMP, PBNP, GFR, A1C ####[address] [address] Basophils Auto #/vol (Bld) 0.00 10 3/mcL Normal 0.00-0.27 [facility] ([place]) Comment on above: Performed By: #### C BC, ADIFF, ANEU, CMP, PBNP, GFR, A1C ####[address] [address] Basophils/100 WBC Auto (Bld) 0.4 % Normal 0.0-2.5 [facility] ([place]) Comment on above: Performed By: #### C BC, ADIFF, ANEU, CMP, PBNP, GFR, A1C ####[address] [address] Eosinophils Auto #/vol (Bld) 0.00 10 3/mcL Normal 0.00-0.65 [facility] ([place]) Comment on above: Performed By: #### C BC, ADIFF, ANEU, CMP, PBNP, GFR, A1C ####[address] [address] Eosinophils/100 WBC Auto (Bld) 0.4 % Normal 0.0-6.0 [facility] ([place]) Comment on above: Performed By: #### C BC, ADIFF, ANEU, CMP, PBNP, GFR, A1C ####[address] [address] Lymphocytes Auto #/vol (Bld) 1.10 10 3/mcL Normal 0.90-4.32 [facility] ([place]) Comment on above: Performed By: #### C BC, ADIFF, ANEU, CMP, PBNP, GFR, A1C ####[address] [address] Lymphocytes/100 WBC Auto (Bld) 11.4 % Low 20.0-40.0 [facility] ([place]) Comment on above: Performed By: #### C BC, ADIFF, ANEU, CMP, PBNP, GFR, A1C ####[address] [address] Monocytes/100 WBC Auto (Bld) 10.4 % Normal 2.0-13.0 [facility] ([place]) Comment on above: Performed By: #### C BC, ADIFF, ANEU, CMP, PBNP, GFR, A1C ####[address] [address] Neutrophils/100 WBC Auto (Bld) 77.4 % High 50.0-75.0 [facility] ([place]) Comment on above: Performed By: #### C BC, ADIFF, ANEU, CMP, PBNP, GFR, A1C ####[address] [address] .GFRon 03-28-2018 GFR Non- >60 Normal [facility] ([place]) Comment on above: Result Comment: GFR [...] BC, ADIFF, ANEU, CMP, PBNP, GFR, A1C ####[address] [address] GFR >60 Normal [facility] ([place]) Comment on above: Result Comment: GFR Population [...] BC, ADIFF, ANEU, CMP, PBNP, GFR, A1C ####[address] [address] .NEUABSon 03-28-2018 Neutrophil, Absolute 7.30 10 3/mcL Normal 2.25-8.10 [facility] ([place]) Comment on above: Performed By: #### C BC, ADIFF, ANEU, CMP, PBNP, GFR, A1C ####[address] [address] BMPon 03-28-2018 Calcium mass conc 8.1 mg/dL Low 8.4-10.1 [facility] ([place]) Comment on above: Performed By: #### C BC, ADIFF, ANEU, CMP, PBNP, GFR, A1C ####[address] [address] Chloride molar conc 104 mmol/L Normal 98-110 [facility] ([place]) Comment on above: Performed By: #### C BC, ADIFF, ANEU, CMP, PBNP, GFR, A1C ####[address] [address] CO2 molar conc 24 mmol/L Normal 22-32 [facility] ([place]) Comment on above: Performed By: #### C BC, ADIFF, ANEU, CMP, PBNP, GFR, A1C ####[address] [address] Creatinine mass conc 0.72 mg/dL Normal 0.60-1.40 [facility] ([place]) Comment on above: Performed By: #### C BC, ADIFF, ANEU, CMP, PBNP, GFR, A1C ####[place] [address] Electrolyte Balance 11.0 mEq/L Normal 4.0-15.0 [facility] ([place]) Comment on above: Performed By: #### C BC, ADIFF, ANEU, CMP, PBNP, GFR, A1C ####[place] [address] Glucose mass conc 160 mg/dL High 70-110 [facility] ([place]) Comment on above: Performed By: #### C BC, ADIFF, ANEU, CMP, PBNP, GFR, A1C ####[place] [address] Potassium molar conc 3.7 mmol/L Normal 3.5-5.0 [facility] ([place]) Comment on above: Performed By: #### C BC, ADIFF, ANEU, CMP, PBNP, GFR, A1C ####[place] [address] Sodium molar conc 139 mmol/L Normal 136-145 [facility] ([place]) Comment on above: Performed By: #### C BC, ADIFF, ANEU, CMP, PBNP, GFR, A1C ####[place] [address] Urea nitrogen mass conc 10.0 mg/dL Normal 8.0-22.0 [facility] ([place]) Comment on above: Performed By: #### C BC, ADIFF, ANEU, CMP, PBNP, GFR, A1C ####[place] [address] Urea nitrogen/Creatinine mass ratio 13.9 ratio Normal 10.0-22.0 [facility] ([place]) Comment on above: Performed By: #### C BC, ADIFF, ANEU, CMP, PBNP, GFR, A1C ####[place] [address] CBCon 03-28-2018 Erythrocyte distribution width Auto Ratio (RBC) 15.1 % Normal 11.5-15.5 [facility] ([place]) Comment on above: Performed By: #### C BC, ADIFF, ANEU, CMP, PBNP, GFR, A1C ####[place] [address] Hematocrit Auto Volume Fraction (Bld) 31.0 % Low 40.0-52.0 [facility] ([place]) Comment on above: Performed By: #### C BC, ADIFF, ANEU, CMP, PBNP, GFR, A1C ####[place] [address] Hemoglobin mass conc (Bld) 11.2 G/dL Low 13.0-17.5 [facility] ([place]) Comment on above: Performed By: #### C BC, ADIFF, ANEU, CMP, PBNP, GFR, A1C ####[place] [address] MCH Auto Entitic mass (RBC) 30.7 pg Normal 27.0-33.0 [facility] ([place]) Comment on above: Performed By: #### C BC, ADIFF, ANEU, CMP, PBNP, GFR, A1C ####[place] [address] MCHC Auto mass conc (RBC) 36.2 G/dL High 32.0-36.0 [facility] ([place]) Comment on above: Performed By: #### C BC, ADIFF, ANEU, CMP, PBNP, GFR, A1C ####[place] [address] MCV Auto Entitic volume (RBC) 84.7 fL Normal 81.0-100.0 [facility] ([place]) Comment on above: Performed By: #### C BC, ADIFF, ANEU, CMP, PBNP, GFR, A1C ####[place] [address] Platelet mean volume Auto Entitic volume (Bld) 8.3 fL Normal 6.4-10.5 [facility] ([place]) Comment on above: Performed By: #### C BC, ADIFF, ANEU, CMP, PBNP, GFR, A1C ####[place] [address] Platelets Auto #/vol (Bld) 150 10 3/mcL Normal 150-450 [facility] ([place]) Comment on above: Performed By: #### C BC, ADIFF, ANEU, CMP, PBNP, GFR, A1C ####[place] [address] RBC Auto #/vol (Bld) 3.67 10 6/mcL Low 4.50-6.00 [facility] ([place]) Comment on above: Performed By: #### C BC, ADIFF, ANEU, CMP, PBNP, GFR, A1C ####[place] [address] WBC Auto #/vol (Bld) 9.40 10 3/mcL Normal 4.50-10.80 [facility] ([place]) Comment on above: Performed By: #### C BC, ADIFF, ANEU, CMP, PBNP, GFR, A1C ####[place] [address] Cardiothoracic Progress Note on 03-28-2018 Protein mass conc Normal [facility] ([place]) Protein mass conc Normal [facility] ([place]) Endocrinology Progress Noteo n 03-28-2018 Protein mass conc Normal [facility] ([place]) Protein mass conc Normal [facility] ([place]) Cristi 03-28-2018 Potassium molar conc 4.3 mmol/L Normal 3.5-5.0 [facility] ([place]) Comment on above: Performed By: #### C BC, ADIFF, ANEU, CMP, PBNP, GFR, A1C ####[place] [address] Pain Management Progress Not veronica 03-28-2018 Pain Management Progress Note Normal [facility] ([place]) XR CHEST 2 VIEWSon 8 XR CHEST [...] AM Sign Date: 03/28/2018 8:42:21 AM Normal [facility] ([place]) .Auto Diffon 03-27-2018 Ammonia mass conc (P) 1.40 10 3/mcL Normal 0.09-1.40 [facility] ([place]) Comment on above: Performed By: #### C BC, ADIFF, ANEU, CMP, PBNP, GFR, A1C ####[address] [address] Basophils Auto #/vol (Bld) 0.10 10 3/mcL Normal 0.00-0.27 [facility] ([place]) Comment on above: Performed By: #### C BC, ADIFF, ANEU, CMP, PBNP, GFR, A1C ####[address] [address] Basophils/100 WBC Auto (Bld) 0.4 % Normal 0.0-2.5 [facility] ([place]) Comment on above: Performed By: #### C BC, ADIFF, ANEU, CMP, PBNP, GFR, A1C ####[address] [address] Eosinophils Auto #/vol (Bld) 0.00 10 3/mcL Normal 0.00-0.65 [facility] ([place]) Comment on above: Performed By: #### C BC, ADIFF, ANEU, CMP, PBNP, GFR, A1C ####[address] [address] Eosinophils/100 WBC Auto (Bld) 0.3 % Normal 0.0-6.0 [facility] ([place]) Comment on above: Performed By: #### C BC, ADIFF, ANEU, CMP, PBNP, GFR, A1C ####[address] [address] Lymphocytes Auto #/vol (Bld) 1.20 10 3/mcL Normal 0.90-4.32 [facility] ([place]) Comment on above: Performed By: #### C BC, ADIFF, ANEU, CMP, PBNP, GFR, A1C ####[address] [address] Lymphocytes/100 WBC Auto (Bld) 10.1 % Low 20.0-40.0 [facility] ([place]) Comment on above: Performed By: #### C BC, ADIFF, ANEU, CMP, PBNP, GFR, A1C ####[address] [address] Monocytes/100 WBC Auto (Bld) 11.5 % Normal 2.0-13.0 [facility] ([place]) Comment on above: Performed By: #### C BC, ADIFF, ANEU, CMP, PBNP, GFR, A1C ####[address] [address] Neutrophils/100 WBC Auto (Bld) 77.7 % High 50.0-75.0 [facility] ([place]) Comment on above: Performed By: #### C BC, ADIFF, ANEU, CMP, PBNP, GFR, A1C ####[address] [address] .GFRon 03-27-2018 GFR Non- >60 Normal [facility] ([place]) Comment on above: Result Comment: GFR Population [...] BC, ADIFF, ANEU, CMP, PBNP, GFR, A1C ####[address] [address] GFR >60 Normal [facility] ([place]) Comment on above: Result Comment: GFR Population [...] BC, ADIFF, ANEU, CMP, PBNP, GFR, A1C ####[address] [address] .NEUABSon 03-27-2018 Neutrophil, Absolute 9.60 10 3/mcL High 2.25-8.10 A [facility] ([place]) Comment on above: Performed By: #### C BC, ADIFF, ANEU, CMP, PBNP, GFR, A1C ####[address] [address] BGon 03-27-2018 Barometric Pressure 734 mmHg Normal [facility] ([place]) Comment on above: Order Comment: POD 1 Performed By: #### C BC, ADIFF, ANEU, CMP, PBNP, GFR, A1C ####[address] [address] Base excess Calculated molar conc (Bld) -0.1 mmol/L Normal [facility] ([place]) Comment on above: Order Comment: POD 1 Performed By: #### C BC, ADIFF, ANEU, CMP, PBNP, GFR, A1C ####[address] [address] CO2 molar conc 24.8 mmol/L Normal 22.0-30.0 [facility] ([place]) Comment on above: Order Comment: POD 1 Performed By: #### C BC, ADIFF, ANEU, CMP, PBNP, GFR, A1C ####[place] [id number] HCO3 molar conc (Bld) 23.7 mmol/L Normal 21.0-29.0 Replaced by [facility] ([place]) Comment on above: Order Comment: POD 1 Performed By: #### C BC, ADIFF, ANEU, CMP, PBNP, GFR, A1C ####[place] [address] Oxygen ppres (BldA) 134.7 mm[Hg] High 74.0-108.0 [facility] ([place]) Comment on above: Order Comment: POD 1 Performed By: #### C BC, ADIFF, ANEU, CMP, PBNP, GFR, A1C ####[address] [address] Oxygen saturation in Blood 98.7 % High 92.0-96.0 [facility] ([place]) Comment on above: Order Comment: POD 1 Performed By: #### C BC, ADIFF, ANEU, CMP, PBNP, GFR, A1C ####[address] [address] pCO2 35.5 mmHg Normal 32.0-46.0 [facility] ([place]) Comment on above: Order Comment: POD 1 Performed By: #### C BC, ADIFF, ANEU, CMP, PBNP, GFR, A1C ####[address] [address] pH (Bld) 7.442 [pH] Normal 7.380-7.460 [facility] ([place]) Comment on above: Order Comment: POD 1 Performed By: #### C BC, ADIFF, ANEU, CMP, PBNP, GFR, A1C ####[place] [address] CBCon 03-27-2018 Erythrocyte distribution width Auto Ratio (RBC) 14.7 % Normal 11.5-15.5 [facility] ([place]) Comment on above: Performed By: #### C BC, ADIFF, ANEU, CMP, PBNP, GFR, A1C ####[place] [address] Hematocrit Auto Volume Fraction (Bld) 31.3 % Low 40.0-52.0 [facility] ([place]) Comment on above: Performed By: #### C BC, ADIFF, ANEU, CMP, PBNP, GFR, A1C ####[place] [address] Hemoglobin mass conc (Bld) 11.0 G/dL Low 13.0-17.5 [facility] ([place]) Comment on above: Performed By: #### C BC, ADIFF, ANEU, CMP, PBNP, GFR, A1C ####[place] [address] MCH Auto Entitic mass (RBC) 29.7 pg Normal 27.0-33.0 [facility] ([place]) Comment on above: Performed By: #### C BC, ADIFF, ANEU, CMP, PBNP, GFR, A1C ####[place] [address] MCHC Auto mass conc (RBC) 35.3 G/dL Normal 32.0-36.0 [facility] ([place]) Comment on above: Performed By: #### C BC, ADIFF, ANEU, CMP, PBNP, GFR, A1C ####[place] [address] MCV Auto Entitic volume (RBC) 84.3 fL Normal 81.0-100.0 [facility] ([place]) Comment on above: Performed By: #### C BC, ADIFF, ANEU, CMP, PBNP, GFR, A1C ####[place] [address] Platelet mean volume Auto Entitic volume (Bld) 8.6 fL Normal 6.4-10.5 [facility] ([place]) Comment on above: Performed By: #### C BC, ADIFF, ANEU, CMP, PBNP, GFR, A1C ####[place] [address] Platelets Auto #/vol (Bld) 218 10 3/mcL Normal 150-450 [facility] ([place]) Comment on above: Performed By: #### C BC, ADIFF, ANEU, CMP, PBNP, GFR, A1C ####[place] [address] RBC Auto #/vol (Bld) 3.71 10 6/mcL Low 4.50-6.00 A [facility] ([place]) Comment on above: Performed By: #### C BC, ADIFF, ANEU, CMP, PBNP, GFR, A1C ####[place] [address] WBC Auto #/vol (Bld) 12.30 10 3/mcL High 4.50-10.80 [facility] ([place]) Comment on above: Performed By: #### C BC, ADIFF, ANEU, CMP, PBNP, GFR, A1C ####[place] [address] CMPon 03-27-2018 Albumin/Globulin mass ratio 1.5 {ratio} Normal 0.9-1.6 [facility] ([place]) Comment on above: Performed By: #### C BC, ADIFF, ANEU, CMP, PBNP, GFR, A1C ####[place] [address] ALP enzyme act/vol 45 U/L Normal 38-126 [facility] ([place]) Comment on above: Performed By: #### C BC, ADIFF, ANEU, CMP, PBNP, GFR, A1C ####[place] [address] Bili Total 1.3 mg/dL High 0.2-1.2 [facility] ([place]) Comment on above: Performed By: #### C BC, ADIFF, ANEU, CMP, PBNP, GFR, A1C ####[address] [address] Globulin Calculated mass conc (S) 2.3 G/dL Normal 1.5-3.8 [facility] ([place]) Comment on above: Performed By: #### C BC, ADIFF, ANEU, CMP, PBNP, GFR, A1C ####[place] [address] Protein mass conc 5.8 G/dL Low 6.0-8.5 [facility] ([place]) Comment on above: Performed By: #### C BC, ADIFF, ANEU, CMP, PBNP, GFR, A1C ####[place] [address] Albumin mass conc 3.5 G/dL Normal 3.2-4.8 [facility] ([place]) Comment on above: Performed By: #### C BC, ADIFF, ANEU, CMP, PBNP, GFR, A1C ####[place] [address] ALT enzyme act/vol 29 U/L Normal 12-55 [facility] ([place]) Comment on above: Performed By: #### C BC, ADIFF, ANEU, CMP, PBNP, GFR, A1C ####[place] [address] AST enzyme act/vol 77 U/L High 8-34 [facility] ([place]) Comment on above: Performed By: #### C BC, ADIFF, ANEU, CMP, PBNP, GFR, A1C ####[place] [address] Calcium mass conc 7.7 mg/dL Low 8.4-10.1 [facility] ([place]) Comment on above: Performed By: #### C BC, ADIFF, ANEU, CMP, PBNP, GFR, A1C ####[place] [address] Chloride molar conc 107 mmol/L Normal 98-110 [facility] ([place]) Comment on above: Performed By: #### C BC, ADIFF, ANEU, CMP, PBNP, GFR, A1C ####[address] [address] CO2 molar conc 29 mmol/L Normal 22-32 [facility] ([place]) Comment on above: Performed By: #### C BC, ADIFF, ANEU, CMP, PBNP, GFR, A1C ####[place] [address] Creatinine mass conc 1.03 mg/dL Normal 0.60-1.40 [facility] ([place]) Comment on above: Performed By: #### C BC, ADIFF, ANEU, CMP, PBNP, GFR, A1C ####[place] [address] Electrolyte Balance 7.0 mEq/L Normal 4.0-15.0 [facility] ([place]) Comment on above: Performed By: #### C BC, ADIFF, ANEU, CMP, PBNP, GFR, A1C ####[place] [address] Glucose mass conc 121 mg/dL High 70-110 [facility] ([place]) Comment on above: Performed By: #### C BC, ADIFF, ANEU, CMP, PBNP, GFR, A1C ####[place] [address] Potassium molar conc 4.0 mmol/L Normal 3.5-5.0 [facility] ([place]) Comment on above: Performed By: #### C BC, ADIFF, ANEU, CMP, PBNP, GFR, A1C ####[place] [address] Sodium molar conc 143 mmol/L Normal 136-145 [facility] ([place]) Comment on above: Performed By: #### C BC, ADIFF, ANEU, CMP, PBNP, GFR, A1C ####[place] [address] Urea nitrogen mass conc 13.0 mg/dL Normal 8.0-22.0 [facility] ([place]) Comment on above: Performed By: #### C BC, ADIFF, ANEU, CMP, PBNP, GFR, A1C ####[place] [address] Urea nitrogen/Creatinine mass ratio 12.6 ratio Normal 10.0-22.0 [facility] ([place]) Comment on above: Performed By: #### C BC, ADIFF, ANEU, CMP, PBNP, GFR, A1C ####[place] [id number] [place] [address] Cardiothoracic Progress Note on 03-27-2018 Protein mass conc Normal [facility]) Cristi 03-27-2018 Potassium molar conc 4.0 mmol/L Normal 3.5-5.0 [facility]) Comment on above: Performed By: #### C BC, ADIFF, ANEU, CMP, PBNP, GFR, A1C ####[place] [id number] [place] [address] [id number] 03-27-2018 Microsomal Ab <10 Normal 0-35 [facility]) Comment on above: Result Comment: This result represents Anti-TPO antibodies which aresynonymous with microsomal antibodies. Performed By: #### A PTT ####[place] [address] Pain Management Progress Not veronica 03-27-2018 Pain Management Progress Note Normal [facility]) Pulmonary Functionon 018 Pulmonary Function Normal [facility]) XR CHEST 1 VIEWon 03-27-2018 XR CHEST [...] AM Sign Date: 03/27/2018 5:26:47 AM Normal [facility] ([place]) .Auto Diffon 03-26-2018 Ammonia mass conc (P) 0.80 10 3/mcL Normal 0.09-1.40 [facility] ([place]) Comment on above: Performed By: #### C BC, ADIFF, ANEU, CMP, PBNP, GFR, A1C ####[address] [address] Basophils Auto #/vol (Bld) 0.00 10 3/mcL Normal 0.00-0.27 [facility] ([place]) Comment on above: Performed By: #### C BC, ADIFF, ANEU, CMP, PBNP, GFR, A1C ####[address] [address] Basophils/100 WBC Auto (Bld) 0.3 % Normal 0.0-2.5 [facility] ([place]) Comment on above: Performed By: #### C BC, ADIFF, ANEU, CMP, PBNP, GFR, A1C ####[address] [address] Eosinophils Auto #/vol (Bld) 0.00 10 3/mcL Normal 0.00-0.65 [facility] ([place]) Comment on above: Performed By: #### C BC, ADIFF, ANEU, CMP, PBNP, GFR, A1C ####[address] [address] Eosinophils/100 WBC Auto (Bld) 0.1 % Normal 0.0-6.0 [facility] ([place]) Comment on above: Performed By: #### C BC, ADIFF, ANEU, CMP, PBNP, GFR, A1C ####[address] [address] Lymphocytes Auto #/vol (Bld) 0.40 10 3/mcL Low 0.90-4.32 [facility] ([place]) Comment on above: Performed By: #### C BC, ADIFF, ANEU, CMP, PBNP, GFR, A1C ####[address] [address] Lymphocytes/100 WBC Auto (Bld) 3.6 % Low 20.0-40.0 [facility] ([place]) Comment on above: Performed By: #### C BC, ADIFF, ANEU, CMP, PBNP, GFR, A1C ####[address] [address] Monocytes/100 WBC Auto (Bld) 7.7 % Normal 2.0-13.0 [facility] ([place]) Comment on above: Performed By: #### C BC, ADIFF, ANEU, CMP, PBNP, GFR, A1C ####[address] [address] Neutrophils/100 WBC Auto (Bld) 88.3 % High 50.0-75.0 [facility] ([place]) Comment on above: Performed By: #### C BC, ADIFF, ANEU, CMP, PBNP, GFR, A1C ####[address] [address] Ammonia mass conc (P) 1.10 10 3/mcL Normal 0.09-1.40 [facility] ([place]) Comment on above: Performed By: #### C BC, ADIFF, ANEU, CMP, PBNP, GFR, A1C ####[address] [address] Basophils Auto #/vol (Bld) 0.10 10 3/mcL Normal 0.00-0.27 [facility] ([place]) Comment on above: Performed By: #### C BC, ADIFF, ANEU, CMP, PBNP, GFR, A1C ####[address] [address] Basophils/100 WBC Auto (Bld) 0.6 % Normal 0.0-2.5 [facility] ([place]) Comment on above: Performed By: #### C BC, ADIFF, ANEU, CMP, PBNP, GFR, A1C ####[address] [address] Eosinophils Auto #/vol (Bld) 0.20 10 3/mcL Normal 0.00-0.65 [facility] ([place]) Comment on above: Performed By: #### C BC, ADIFF, ANEU, CMP, PBNP, GFR, A1C ####[address] [address] Eosinophils/100 WBC Auto (Bld) 2.6 % Normal 0.0-6.0 [facility] ([place]) Comment on above: Performed By: #### C BC, ADIFF, ANEU, CMP, PBNP, GFR, A1C ####[address] [address] Lymphocytes Auto #/vol (Bld) 3.00 10 3/mcL Normal 0.90-4.32 [facility] ([place]) Comment on above: Performed By: #### C BC, ADIFF, ANEU, CMP, PBNP, GFR, A1C ####[address] [address] Lymphocytes/100 WBC Auto (Bld) 32.7 % Normal 20.0-40.0 [facility] ([place]) Comment on above: Performed By: #### C BC, ADIFF, ANEU, CMP, PBNP, GFR, A1C ####[address] [address] Monocytes/100 WBC Auto (Bld) 11.4 % Normal 2.0-13.0 [facility] ([place]) Comment on above: Performed By: #### C BC, ADIFF, ANEU, CMP, PBNP, GFR, A1C ####[address] [address] Neutrophils/100 WBC Auto (Bld) 52.7 % Normal 50.0-75.0 [facility] ([place]) Comment on above: Performed By: #### C BC, ADIFF, ANEU, CMP, PBNP, GFR, A1C ####[address] [address] .GFRon 03-26-2018 GFR Non- >60 Normal [facility] ([place]) Comment on above: Result Comment: GFR Population [...] BC, ADIFF, ANEU, CMP, PBNP, GFR, A1C ####[address] [address] GFR >60 Normal [facility] ([place]) Comment on above: Result Comment: GFR Population [...] BC, ADIFF, ANEU, CMP, PBNP, GFR, A1C ####[address] [address] GFR Non- >60 Normal [facility] ([place]) Comment on above: Result Comment: GFR Population [...] BC, ADIFF, ANEU, CMP, PBNP, GFR, A1C ####[address] [address] GFR >60 Normal [facility] ([place]) Comment on above: Result Comment: GFR Population [...] BC, ADIFF, ANEU, CMP, PBNP, GFR, A1C ####[place] [address] .NEUABSon 03-26-2018 Neutrophil, Absolute 9.60 10 3/mcL High 2.25-8.10 [facility] ([place]) Comment on above: Performed By: #### C BC, ADIFF, ANEU, CMP, PBNP, GFR, A1C ####[place] [address] Neutrophil, Absolute 4.90 10 3/mcL Normal 2.25-8.10 [facility] ([place] Comment on above: Performed By: #### C BC, ADIFF, ANEU, CMP, PBNP, GFR, A1C ####[place] [address] Anesthesiology Consultationo n 03-26-2018 Anesthesiology Consultation Normal [facility] ([place]) BGon 03-26-2018 Barometric Pressure 735 mmHg Normal [facility] ([place]) Comment on above: Performed By: #### C BC, ADIFF, ANEU, CMP, PBNP, GFR, A1C ####[place] [address] Base excess Calculated molar conc (Bld) -1.7 mmol/L Normal [facility] ([place]) Comment on above: Performed By: #### C BC, ADIFF, ANEU, CMP, PBNP, GFR, A1C ####[address] [address] CO2 molar conc 23.6 mmol/L Normal 22.0-30.0 [facility] ([place] Comment on above: Performed By: #### C BC, ADIFF, ANEU, CMP, PBNP, GFR, A1C ####[place] [address] HCO3 molar conc (Bld) 22.5 mmol/L Normal 21.0-29.0 Replaced by [facility] ([place]) Comment on above: Performed By: #### C BC, ADIFF, ANEU, CMP, PBNP, GFR, A1C ####[place] [address] Oxygen ppres (BldA) 192.1 mm[Hg] High 74.0-108.0 [facility] ([place]) Comment on above: Performed By: #### C BC, ADIFF, ANEU, CMP, PBNP, GFR, A1C ####[place] [address] Oxygen saturation in Blood 99.0 % High 92.0-96.0 [facility] ([place]) Comment on above: Performed By: #### C BC, ADIFF, ANEU, CMP, PBNP, GFR, A1C ####[place] [address] pCO2 35.7 mmHg Normal 32.0-46.0 [facility] ([place]) Comment on above: Performed By: #### C BC, ADIFF, ANEU, CMP, PBNP, GFR, A1C ####[place] [address] pH (Bld) 7.417 [pH] Normal 7.380-7.460 [facility] ([place]) Comment on above: Performed By: #### C BC, ADIFF, ANEU, CMP, PBNP, GFR, A1C ####[place] [address] Barometric Pressure 737 mmHg Normal [facility] ([place]) Comment on above: Performed By: #### C BC, ADIFF, ANEU, CMP, PBNP, GFR, A1C ####[place] [address] Base excess Calculated molar conc (Bld) -1.1 mmol/L Normal [facility] ([place]) Comment on above: Performed By: #### C BC, ADIFF, ANEU, CMP, PBNP, GFR, A1C ####[place] [address] CO2 molar conc 24.2 mmol/L Normal 22.0-30.0 [facility] ([place]) Comment on above: Performed By: #### C BC, ADIFF, ANEU, CMP, PBNP, GFR, A1C ####[place] [address] HCO3 molar conc (Bld) 23.1 mmol/L Normal 21.0-29.0 Replaced by [facility] ([place]) Comment on above: Performed By: #### C BC, ADIFF, ANEU, CMP, PBNP, GFR, A1C ####[place] [address] Oxygen ppres (BldA) 189.7 mm[Hg] High 74.0-108.0 [facility] ([place]) Comment on above: Performed By: #### C BC, ADIFF, ANEU, CMP, PBNP, GFR, A1C ####[place] [address] Oxygen saturation in Blood 98.8 % High 92.0-96.0 [facility] ([place]) Comment on above: Performed By: #### C BC, ADIFF, ANEU, CMP, PBNP, GFR, A1C ####[place] [address] pCO2 36.4 mmHg Normal 32.0-46.0 [facility] ([place]) Comment on above: Performed By: #### C BC, ADIFF, ANEU, CMP, PBNP, GFR, A1C ####[place] [address] pH (Bld) 7.420 [pH] Normal 7.380-7.460 [facility] ([place]) Comment on above: Performed By: #### C BC, ADIFF, ANEU, CMP, PBNP, GFR, A1C ####[address] [address] Barometric Pressure 735 mmHg Normal [facility] ([place]) Comment on above: Performed By: #### C BC, ADIFF, ANEU, CMP, PBNP, GFR, A1C ####[address] [address] Base excess Calculated molar conc (Bld) 0.6 mmol/L Normal [facility] ([place]) Comment on above: Performed By: #### C BC, ADIFF, ANEU, CMP, PBNP, GFR, A1C ####[address] [address] CO2 molar conc 26.2 mmol/L Normal 22.0-30.0 [facility] ([place]) Comment on above: Performed By: #### C BC, ADIFF, ANEU, CMP, PBNP, GFR, A1C ####[place] [address] HCO3 molar conc (Bld) 25.0 mmol/L Normal 21.0-29.0 Replaced by [facility] ([place] Comment on above: Performed By: #### C BC, ADIFF, ANEU, CMP, PBNP, GFR, A1C ####[place] [address] Oxygen ppres (BldA) 175.7 mm[Hg] High 74.0-108.0 [facility] ([place] Comment on above: Performed By: #### C BC, ADIFF, ANEU, CMP, PBNP, GFR, A1C ####[place] [address] Oxygen saturation in Blood 98.8 % High 92.0-96.0 [facility] ([place]) Comment on above: Performed By: #### C BC, ADIFF, ANEU, CMP, PBNP, GFR, A1C ####[place] [address] pCO2 39.1 mmHg Normal 32.0-46.0 [facility] ([place]) Comment on above: Performed By: #### C BC, ADIFF, ANEU, CMP, PBNP, GFR, A1C ####[address] [address] pH (Bld) 7.424 [pH] Normal 7.380-7.460 [facility] ([place]) Comment on above: Performed By: #### C BC, ADIFF, ANEU, CMP, PBNP, GFR, A1C ####[place] [address] Barometric Pressure 738 mmHg Normal [facility] ([place]) Comment on above: Performed By: #### C BC, ADIFF, ANEU, CMP, PBNP, GFR, A1C ####[address] [address] Base excess Calculated molar conc (Bld) -1.0 mmol/L Normal [facility] ([place]) Comment on above: Performed By: #### C BC, ADIFF, ANEU, CMP, PBNP, GFR, A1C ####[place] [address] CO2 molar conc 23.9 mmol/L Normal 22.0-30.0 [facility] ([place]) Comment on above: Performed By: #### C BC, ADIFF, ANEU, CMP, PBNP, GFR, A1C ####[place] [address] HCO3 molar conc (Bld) 22.8 mmol/L Normal 21.0-29.0 Replaced by [facility] ([place] Comment on above: Performed By: #### C BC, ADIFF, ANEU, CMP, PBNP, GFR, A1C ####[place] [address] Oxygen ppres (BldA) 190.5 mm[Hg] High 74.0-108.0 [facility] ([place]) Comment on above: Performed By: #### C BC, ADIFF, ANEU, CMP, PBNP, GFR, A1C ####[place] [address] Oxygen saturation in Blood 99.0 % High 92.0-96.0 [facility] ([place]) Comment on above: Performed By: #### C BC, ADIFF, ANEU, CMP, PBNP, GFR, A1C ####[address] [address] pCO2 34.4 mmHg Normal 32.0-46.0 [facility] ([place]) Comment on above: Performed By: #### C BC, ADIFF, ANEU, CMP, PBNP, GFR, A1C ####[place] [address] pH (Bld) 7.440 [pH] Normal 7.380-7.460 [facility] ([place]) Comment on above: Performed By: #### C BC, ADIFF, ANEU, CMP, PBNP, GFR, A1C ####[place] [address] Barometric Pressure 738 mmHg Normal [facility] ([place]) Comment on above: Order Comment: withi n 1/2 hour of admission to [facility]ICU Performed By: #### C BC, ADIFF, ANEU, CMP, PBNP, GFR, A1C ####[place] [address] Base excess Calculated molar conc (Bld) -0.7 mmol/L Normal [facility] ([place]) Comment on above: Order Comment: withi n 1/2 hour of admission to [facility]ICU Performed By: #### C BC, ADIFF, ANEU, CMP, PBNP, GFR, A1C ####[place] [address] CO2 molar conc 25.8 mmol/L Normal 22.0-30.0 [facility] ([place]) Comment on above: Order Comment: withi n 1/2 hour of admission to [facility] Performed By: #### C BC, ADIFF, ANEU, CMP, PBNP, GFR, A1C ####[place] [address] HCO3 molar conc (Bld) 24.5 mmol/L Normal 21.0-29.0 Replaced by [facility] [place] Comment on above: Order Comment: withi n 1/2 hour of admission to [facility] Performed By: #### C BC, ADIFF, ANEU, CMP, PBNP, GFR, A1C ####[place] [address] Oxygen ppres (BldA) 391.6 mm[Hg] High 74.0-108.0 [facility] ([place]) Comment on above: Order Comment: withi n 1/2 hour of admission to [facility] Performed By: #### C BC, ADIFF, ANEU, CMP, PBNP, GFR, A1C ####[address] [address] Oxygen saturation in Blood 99.4 % High 92.0-96.0 [facility] ([place]) Comment on above: Order Comment: withi n 1/2 hour of admission to [facility] Performed By: #### C BC, ADIFF, ANEU, CMP, PBNP, GFR, A1C ####[address] [address] pCO2 43.0 mmHg Normal 32.0-46.0 [facility] ([place]) Comment on above: Order Comment: withi n 1/2 hour of admission to [facility] Performed By: #### C BC, ADIFF, ANEU, CMP, PBNP, GFR, A1C ####[address] [address] pH (Bld) 7.374 [pH] Low 7.380-7.460 [facility] ([place]) Comment on above: Order Comment: withi n 1/2 hour of admission to [facility] Performed By: #### C BC, ADIFF, ANEU, CMP, PBNP, GFR, A1C ####[address] [address] BGRPon 03-26-2018 Base Excess - POC -1.6 mmol/L Normal [facility] ([place]) Comment on above: Performed By: #### C BC, ADIFF, ANEU, CMP, PBNP, GFR, A1C ####[place] [address] Bicarbonate - POC 24.4 mmol/L Normal 21.0-29.0 [facility] ([place]) Comment on above: Performed By: #### C BC, ADIFF, ANEU, CMP, PBNP, GFR, A1C ####[place] [address] Oxygen saturation in Blood 98.6 % High 92.0-96.0 [facility] ([place]) Comment on above: Performed By: #### C BC, ADIFF, ANEU, CMP, PBNP, GFR, A1C ####[address] [address] PCO2 - POC 46.8 mmHg High 32.0-46.0 [facility] ([place]) Comment on above: Performed By: #### C BC, ADIFF, ANEU, CMP, PBNP, GFR, A1C ####[place] [address] pH (poct) - POC 7.335 Low 7.380-7.460 [facility] ([place]) Comment on above: Performed By: #### C BC, ADIFF, ANEU, CMP, PBNP, GFR, A1C ####[address] [address] PO2 - POC 376.8 mmHg High 74.0-108.0 [facility] ([place]) Comment on above: Performed By: #### C BC, ADIFF, ANEU, CMP, PBNP, GFR, A1C ####[address] [address] Total CO2 - POC 25.8 mmol/L Normal 22.0-30.0 [facility] ([place]) Comment on above: Performed By: #### C BC, ADIFF, ANEU, CMP, PBNP, GFR, A1C ####[place] [address] Base Excess - POC -0.9 mmol/L Normal [facility] ([place]) Comment on above: Performed By: #### C BC, ADIFF, ANEU, CMP, PBNP, GFR, A1C ####[place] [address] Bicarbonate - POC 24.7 mmol/L Normal 21.0-29.0 [facility] ([place]) Comment on above: Performed By: #### C BC, ADIFF, ANEU, CMP, PBNP, GFR, A1C ####[address] [address] Oxygen saturation in Blood 98.7 % High 92.0-96.0 [facility] ([place]) Comment on above: Performed By: #### C BC, ADIFF, ANEU, CMP, PBNP, GFR, A1C ####[place] [address] PCO2 - POC 45.2 mmHg Normal 32.0-46.0 [facility] ([place]) Comment on above: Performed By: #### C BC, ADIFF, ANEU, CMP, PBNP, GFR, A1C ####[place] [address] pH (poct) - POC 7.355 Low 7.380-7.460 [facility] ([place]) Comment on above: Performed By: #### C BC, ADIFF, ANEU, CMP, PBNP, GFR, A1C ####[place] [address] PO2 - POC 366.6 mmHg High 74.0-108.0 [facility] ([place]) Comment on above: Performed By: #### C BC, ADIFF, ANEU, CMP, PBNP, GFR, A1C ####[place] [address] Total CO2 - POC 26.1 mmol/L Normal 22.0-30.0 [facility] ([place]) Comment on above: Performed By: #### C BC, ADIFF, ANEU, CMP, PBNP, GFR, A1C ####[place] [address] Base Excess - POC -0.4 mmol/L Normal [facility] ([place]) Comment on above: Performed By: #### C BC, ADIFF, ANEU, CMP, PBNP, GFR, A1C ####[place] [address] Bicarbonate - POC 24.4 mmol/L Normal 21.0-29.0 [facility] ([place]) Comment on above: Performed By: #### C BC, ADIFF, ANEU, CMP, PBNP, GFR, A1C ####[place] [address] Oxygen saturation in Blood 98.5 % High 92.0-96.0 [facility] ([place]) Comment on above: Performed By: #### C BC, ADIFF, ANEU, CMP, PBNP, GFR, A1C ####[place] [address] PCO2 - POC 40.8 mmHg Normal 32.0-46.0 [facility] ([place]) Comment on above: Performed By: #### C BC, ADIFF, ANEU, CMP, PBNP, GFR, A1C ####[place] [address] pH (poct) - POC 7.395 Normal 7.380-7.460 [facility] ([place]) Comment on above: Performed By: #### C BC, ADIFF, ANEU, CMP, PBNP, GFR, A1C ####[place] [address] PO2 - POC 324.4 mmHg High 74.0-108.0 [facility] ([place]) Comment on above: Performed By: #### C BC, ADIFF, ANEU, CMP, PBNP, GFR, A1C ####[place] [address] Total CO2 - POC 25.7 mmol/L Normal 22.0-30.0 [facility] ([place]) Comment on above: Performed By: #### C BC, ADIFF, ANEU, CMP, PBNP, GFR, A1C ####[place] [address] Base Excess - POC 0.0 mmol/L Normal [facility] ([place]) Comment on above: Performed By: #### C BC, ADIFF, ANEU, CMP, PBNP, GFR, A1C ####[place] [address] Bicarbonate - POC 24.4 mmol/L Normal 21.0-29.0 [facility] ([place]) Comment on above: Performed By: #### C BC, ADIFF, ANEU, CMP, PBNP, GFR, A1C ####[place] [address] Oxygen saturation in Blood 98.4 % High 92.0-96.0 [facility] ([place]) Comment on above: Performed By: #### C BC, ADIFF, ANEU, CMP, PBNP, GFR, A1C ####[place] [address] PCO2 - POC 38.7 mmHg Normal 32.0-46.0 [facility] ([place]) Comment on above: Performed By: #### C BC, ADIFF, ANEU, CMP, PBNP, GFR, A1C ####[place] [address] pH (poct) - POC 7.418 Normal 7.380-7.460 [facility] ([place]) Comment on above: Performed By: #### C BC, ADIFF, ANEU, CMP, PBNP, GFR, A1C ####[place] [address] PO2 - POC 300.0 mmHg High 74.0-108.0 [facility] ([place]) Comment on above: Performed By: #### C BC, ADIFF, ANEU, CMP, PBNP, GFR, A1C ####[place] [address] Total CO2 - POC 25.6 mmol/L Normal 22.0-30.0 [facility] ([place]) Comment on above: Performed By: #### C BC, ADIFF, ANEU, CMP, PBNP, GFR, A1C ####[place] [address] Base Excess - POC -0.9 mmol/L Normal [facility] ([place]) Comment on above: Performed By: #### C BC, ADIFF, ANEU, CMP, PBNP, GFR, A1C ####[place] [address] Bicarbonate - POC 23.1 mmol/L Normal 21.0-29.0 [facility] ([place]) Comment on above: Performed By: #### C BC, ADIFF, ANEU, CMP, PBNP, GFR, A1C ####[place] [address] Oxygen saturation in Blood 98.7 % High 92.0-96.0 [facility] ([place]) Comment on above: Performed By: #### C BC, ADIFF, ANEU, CMP, PBNP, GFR, A1C ####[place] [address] PCO2 - POC 35.2 mmHg Normal 32.0-46.0 [facility] ([place]) Comment on above: Performed By: #### C BC, ADIFF, ANEU, CMP, PBNP, GFR, A1C ####[place] [address] pH (poct) - POC 7.434 Normal 7.380-7.460 [facility] ([place]) Comment on above: Performed By: #### C BC, ADIFF, ANEU, CMP, PBNP, GFR, A1C ####[place] [address] PO2 - POC 338.7 mmHg High 74.0-108.0 [facility] ([place]) Comment on above: Performed By: #### C BC, ADIFF, ANEU, CMP, PBNP, GFR, A1C ####[place] [address] Total CO2 - POC 24.1 mmol/L Normal 22.0-30.0 [facility] ([place]) Comment on above: Performed By: #### C BC, ADIFF, ANEU, CMP, PBNP, GFR, A1C ####[place] [address] Base Excess - POC -0.9 mmol/L Normal [facility] ([place]) Comment on above: Performed By: #### C BC, ADIFF, ANEU, CMP, PBNP, GFR, A1C ####[place] [address] Bicarbonate - POC 23.5 mmol/L Normal 21.0-29.0 [facility] ([place]) Comment on above: Performed By: #### C BC, ADIFF, ANEU, CMP, PBNP, GFR, A1C ####[place] [address] Oxygen saturation in Blood 98.8 % High 92.0-96.0 [facility] ([place]) Comment on above: Performed By: #### C BC, ADIFF, ANEU, CMP, PBNP, GFR, A1C ####[place] [address] PCO2 - POC 37.6 mmHg Normal 32.0-46.0 [facility] ([place]) Comment on above: Performed By: #### C BC, ADIFF, ANEU, CMP, PBNP, GFR, A1C ####[place] [address] pH (poct) - POC 7.414 Normal 7.380-7.460 [facility] ([place]) Comment on above: Performed By: #### C BC, ADIFF, ANEU, CMP, PBNP, GFR, A1C ####[place] [address] PO2 - POC 503.3 mmHg High 74.0-108.0 [facility] ([place]) Comment on above: Performed By: #### C BC, ADIFF, ANEU, CMP, PBNP, GFR, A1C ####[place] [address] Total CO2 - POC 24.7 mmol/L Normal 22.0-30.0 [facility] ([place]) Comment on above: Performed By: #### C BC, ADIFF, ANEU, CMP, PBNP, GFR, A1C ####[place] [address] Base Excess - POC -0.4 mmol/L Normal [facility] ([place]) Comment on above: Performed By: #### C BC, ADIFF, ANEU, CMP, PBNP, GFR, A1C ####[place] [address] Bicarbonate - POC 24.2 mmol/L Normal 21.0-29.0 [facility] ([place]) Comment on above: Performed By: #### C BC, ADIFF, ANEU, CMP, PBNP, GFR, A1C ####[place] [address] Oxygen saturation in Blood 98.9 % High 92.0-96.0 [facility] ([place]) Comment on above: Performed By: #### C BC, ADIFF, ANEU, CMP, PBNP, GFR, A1C ####[place] [address] PCO2 - POC 39.6 mmHg Normal 32.0-46.0 [facility] ([place]) Comment on above: Performed By: #### C BC, ADIFF, ANEU, CMP, PBNP, GFR, A1C ####[place] [address] pH (poct) - POC 7.404 Normal 7.380-7.460 [facility] ([place]) Comment on above: Performed By: #### C BC, ADIFF, ANEU, CMP, PBNP, GFR, A1C ####[place] [address] PO2 - POC 507.3 mmHg High 74.0-108.0 [facility] ([place]) Comment on above: Performed By: #### C BC, ADIFF, ANEU, CMP, PBNP, GFR, A1C ####[place] [address] Total CO2 - POC 25.4 mmol/L Normal 22.0-30.0 [facility] ([place]) Comment on above: Performed By: #### C BC, ADIFF, ANEU, CMP, PBNP, GFR, A1C ####[place] [address] Base Excess - POC -1.4 mmol/L Normal [facility] ([place]) Comment on above: Performed By: #### C BC, ADIFF, ANEU, CMP, PBNP, GFR, A1C ####[place] [address] Bicarbonate - POC 23.3 mmol/L Normal 21.0-29.0 [facility] ([place]) Comment on above: Performed By: #### C BC, ADIFF, ANEU, CMP, PBNP, GFR, A1C ####[place] [address] Oxygen saturation in Blood 98.9 % High 92.0-96.0 [facility] ([place]) Comment on above: Performed By: #### C BC, ADIFF, ANEU, CMP, PBNP, GFR, A1C ####[place] [address] PCO2 - POC 38.8 mmHg Normal 32.0-46.0 [facility] ([place]) Comment on above: Performed By: #### C BC, ADIFF, ANEU, CMP, PBNP, GFR, A1C ####[address] [address] pH (poct) - POC 7.396 Normal 7.380-7.460 [facility] ([place]) Comment on above: Performed By: #### C BC, ADIFF, ANEU, CMP, PBNP, GFR, A1C ####[address] [address] PO2 - POC 613.5 mmHg High 74.0-108.0 [facility] ([place]) Comment on above: Performed By: #### C BC, ADIFF, ANEU, CMP, PBNP, GFR, A1C ####[address] [address] Total CO2 - POC 24.5 mmol/L Normal 22.0-30.0 [facility] ([place]) Comment on above: Performed By: #### C BC, ADIFF, ANEU, CMP, PBNP, GFR, A1C ####[address] [address] Base Excess - POC 0.1 mmol/L Normal [facility] ([place]) Comment on above: Performed By: #### C BC, ADIFF, ANEU, CMP, PBNP, GFR, A1C ####[address] [address] Bicarbonate - POC 25.1 mmol/L Normal 21.0-29.0 [facility] ([place]) Comment on above: Performed By: #### C BC, ADIFF, ANEU, CMP, PBNP, GFR, A1C ####[address] [address] Oxygen saturation in Blood 99.0 % High 92.0-96.0 [facility] ([place]) Comment on above: Performed By: #### C BC, ADIFF, ANEU, CMP, PBNP, GFR, A1C ####[place] [id number] PCO2 - POC 42.1 mmHg Normal 32.0-46.0 [facility] ([place]) Comment on above: Performed By: #### C BC, ADIFF, ANEU, CMP, PBNP, GFR, A1C ####[place] [id number] pH (poct) - POC 7.393 Normal 7.380-7.460 [facility] ([place]) Comment on above: Performed By: #### C BC, ADIFF, ANEU, CMP, PBNP, GFR, A1C ####[place] [address] PO2 - POC 575.3 mmHg High 74.0-108.0 [facility] ([place]) Comment on above: Performed By: #### C BC, ADIFF, ANEU, CMP, PBNP, GFR, A1C ####[place] [address] Total CO2 - POC 26.4 mmol/L Normal 22.0-30.0 [facility] ([place] Comment on above: Performed By: #### C BC, ADIFF, ANEU, CMP, PBNP, GFR, A1C ####[place] [address] Base Excess - POC 1.1 mmol/L Normal [facility] ([place]) Comment on above: Performed By: #### C BC, ADIFF, ANEU, CMP, PBNP, GFR, A1C ####[place] [address] Bicarbonate - POC 26.4 mmol/L Normal 21.0-29.0 [facility] ([place]) Comment on above: Performed By: #### C BC, ADIFF, ANEU, CMP, PBNP, GFR, A1C ####[address] [address] Oxygen saturation in Blood 96.7 % High 92.0-96.0 [facility] ([place]) Comment on above: Performed By: #### C BC, ADIFF, ANEU, CMP, PBNP, GFR, A1C ####[place] [address] PCO2 - POC 44.3 mmHg Normal 32.0-46.0 [facility] ([place] Comment on above: Performed By: #### C BC, ADIFF, ANEU, CMP, PBNP, GFR, A1C ####[place] [address] pH (poct) - POC 7.393 Normal 7.380-7.460 [facility] ([place]) Comment on above: Performed By: #### C BC, ADIFF, ANEU, CMP, PBNP, GFR, A1C ####[place] [address] PO2 - POC 93.3 mmHg Normal 74.0-108.0 [facility] ([place]) Comment on above: Performed By: #### C BC, ADIFF, ANEU, CMP, PBNP, GFR, A1C ####[place] [address] Total CO2 - POC 27.8 mmol/L Normal 22.0-30.0 [facility] ([place]) Comment on above: Performed By: #### C BC, ADIFF, ANEU, CMP, PBNP, GFR, A1C ####[place] [address] BMPon 03-26-2018 Calcium mass conc 7.8 mg/dL Low 8.4-10.1 [facility] ([place]) Comment on above: Performed By: #### C BC, ADIFF, ANEU, CMP, PBNP, GFR, A1C ####[place] [address] Potassium molar conc 4.2 mmol/L Normal 3.5-5.0 [facility] ([place]) Comment on above: Result Comment: Spec imen slightly hemolyzed Performed By: #### C BC, ADIFF, ANEU, CMP, PBNP, GFR, A1C ####[place] [address] Creatinine mass conc 1.05 mg/dL Normal 0.60-1.40 [facility] ([place]) Comment on above: Performed By: #### C BC, ADIFF, ANEU, CMP, PBNP, GFR, A1C ####[place] [address] Urea nitrogen/Creatinine mass ratio 11.4 ratio Normal 10.0-22.0 [facility] ([place]) Comment on above: Performed By: #### C BC, ADIFF, ANEU, CMP, PBNP, GFR, A1C ####[place] [address] Chloride molar conc 109 mmol/L Normal 98-110 [facility] ([place]) Comment on above: Performed By: #### C BC, ADIFF, ANEU, CMP, PBNP, GFR, A1C ####[place] [address] CO2 molar conc 24 mmol/L Normal 22-32 [facility] ([place]) Comment on above: Performed By: #### C BC, ADIFF, ANEU, CMP, PBNP, GFR, A1C ####[place] [address] Electrolyte Balance 10.0 mEq/L Normal 4.0-15.0 [facility] ([place]) Comment on above: Performed By: #### C BC, ADIFF, ANEU, CMP, PBNP, GFR, A1C ####[place] [address] Glucose mass conc 162 mg/dL High 70-110 [facility] ([place]) Comment on above: Performed By: #### C BC, ADIFF, ANEU, CMP, PBNP, GFR, A1C ####[place] [address] Sodium molar conc 143 mmol/L Normal 136-145 [facility] ([place]) Comment on above: Performed By: #### C BC, ADIFF, ANEU, CMP, PBNP, GFR, A1C ####[place] [address] Urea nitrogen mass conc 12.0 mg/dL Normal 8.0-22.0 [facility] ([place]) Comment on above: Performed By: #### C BC, ADIFF, ANEU, CMP, PBNP, GFR, A1C ####[place] [address] Creatinine mass conc 1.10 mg/dL Normal 0.60-1.40 [facility] ([place]) Comment on above: Performed By: #### C BC, ADIFF, ANEU, CMP, PBNP, GFR, A1C ####[place] [address] Urea nitrogen/Creatinine mass ratio 10.9 ratio Normal 10.0-22.0 [facility] ([place]) Comment on above: Performed By: #### C BC, ADIFF, ANEU, CMP, PBNP, GFR, A1C ####[place] [address] Calcium mass conc 9.6 mg/dL Normal 8.4-10.1 [facility] ([place]) Comment on above: Performed By: #### C BC, ADIFF, ANEU, CMP, PBNP, GFR, A1C ####[place] [address] Chloride molar conc 104 mmol/L Normal 98-110 [facility] ([place] Comment on above: Performed By: #### C BC, ADIFF, ANEU, CMP, PBNP, GFR, A1C ####[place] [address] CO2 molar conc 30 mmol/L Normal 22-32 [facility] ([place]) Comment on above: Performed By: #### C BC, ADIFF, ANEU, CMP, PBNP, GFR, A1C ####[place] [address] Electrolyte Balance 10.0 mEq/L Normal 4.0-15.0 [facility] ([place]) Comment on above: Performed By: #### C BC, ADIFF, ANEU, CMP, PBNP, GFR, A1C ####[place] [address] Glucose mass conc 111 mg/dL High 70-110 [facility] ([place]) Comment on above: Performed By: #### C BC, ADIFF, ANEU, CMP, PBNP, GFR, A1C ####[place] [address] Potassium molar conc 4.5 mmol/L Normal 3.5-5.0 [facility] ([place]) Comment on above: Performed By: #### C BC, ADIFF, ANEU, CMP, PBNP, GFR, A1C ####[place] [address] Sodium molar conc 144 mmol/L Normal 136-145 [facility] ([place]) Comment on above: Performed By: #### C BC, ADIFF, ANEU, CMP, PBNP, GFR, A1C ####[place] [address] Urea nitrogen mass conc 12.0 mg/dL Normal 8.0-22.0 [facility] ([place]) Comment on above: Performed By: #### C BC, ADIFF, ANEU, CMP, PBNP, GFR, A1C ####[place] [address] CAIONon 03-26-2018 Calcium Ionized 1.01 mmol/L Low 1.12-1.32 [facility] ([place]) Comment on above: Performed By: #### C BC, ADIFF, ANEU, CMP, PBNP, GFR, A1C ####[place] [address] CARPon 03-26-2018 Ionized Calcium - POC 1.08 mmol/L Low 1.12-1.32 Replaced by [facility] ([place]) Comment on above: Performed By: #### C BC, ADIFF, ANEU, CMP, PBNP, GFR, A1C ####[place] [address] Ionized Calcium - POC 1.07 mmol/L Low 1.12-1.32 Replaced by [facility] ([place] Comment on above: Performed By: #### C BC, ADIFF, ANEU, CMP, PBNP, GFR, A1C ####[place] [address] Ionized Calcium - POC 1.06 mmol/L Low 1.12-1.32 Replaced by [facility] ([place] Comment on above: Performed By: #### C BC, ADIFF, ANEU, CMP, PBNP, GFR, A1C ####[place] [address] Ionized Calcium - POC 1.05 mmol/L Low 1.12-1.32 Replaced by [facility] ([place] Comment on above: Performed By: #### C BC, ADIFF, ANEU, CMP, PBNP, GFR, A1C ####[place] [address] Ionized Calcium - POC 1.09 mmol/L Low 1.12-1.32 Replaced by [facility] ([place] Comment on above: Performed By: #### C BC, ADIFF, ANEU, CMP, PBNP, GFR, A1C ####[place] [address] Ionized Calcium - POC 1.09 mmol/L Low 1.12-1.32 Replaced by [facility] ([place] Comment on above: Performed By: #### C BC, ADIFF, ANEU, CMP, PBNP, GFR, A1C ####[place] [address] Ionized Calcium - POC 1.08 mmol/L Low 1.12-1.32 Replaced by [facility] ([place] Comment on above: Performed By: #### C BC, ADIFF, ANEU, CMP, PBNP, GFR, A1C ####[place] [address] Ionized Calcium - POC 1.07 mmol/L Low 1.12-1.32 Replaced by [facility] ([place] Comment on above: Performed By: #### C BC, ADIFF, ANEU, CMP, PBNP, GFR, A1C ####[place] [address] Ionized Calcium - POC 1.12 mmol/L Normal 1.12-1.32 Replaced by [facility] ([place] Comment on above: Performed By: #### C BC, ADIFF, ANEU, CMP, PBNP, GFR, A1C ####[place] [address] Ionized Calcium - POC 1.17 mmol/L Normal 1.12-1.32 Replaced by [facility] ([place]) Comment on above: Performed By: #### C BC, ADIFF, ANEU, CMP, PBNP, GFR, A1C ####[place] [address] CBCon 03-26-2018 Erythrocyte distribution width Auto Ratio (RBC) 14.5 % Normal 11.5-15.5 [facility] ([place]) Comment on above: Performed By: #### C BC, ADIFF, ANEU, CMP, PBNP, GFR, A1C ####[place] [address] Hematocrit Auto Volume Fraction (Bld) 22.5 % Low 40.0-52.0 [facility] ([place]) Comment on above: Performed By: #### C BC, ADIFF, ANEU, CMP, PBNP, GFR, A1C ####[place] [address] Hemoglobin mass conc (Bld) 7.9 G/dL Low 13.0-17.5 [facility] ([place]) Comment on above: Performed By: #### C BC, ADIFF, ANEU, CMP, PBNP, GFR, A1C ####[place] [address] MCH Auto Entitic mass (RBC) 29.4 pg Normal 27.0-33.0 [facility] ([place]) Comment on above: Performed By: #### C BC, ADIFF, ANEU, CMP, PBNP, GFR, A1C ####[place] [address] MCHC Auto mass conc (RBC) 35.1 G/dL Normal 32.0-36.0 [facility] ([place]) Comment on above: Performed By: #### C BC, ADIFF, ANEU, CMP, PBNP, GFR, A1C ####[place] [address] MCV Auto Entitic volume (RBC) 83.8 fL Normal 81.0-100.0 [facility] ([place]) Comment on above: Performed By: #### C BC, ADIFF, ANEU, CMP, PBNP, GFR, A1C ####[place] [address] Platelet mean volume Auto Entitic volume (Bld) 8.3 fL Normal 6.4-10.5 [facility] ([place]) Comment on above: Performed By: #### C BC, ADIFF, ANEU, CMP, PBNP, GFR, A1C ####[place] [address] Platelets Auto #/vol (Bld) 165 10 3/mcL Normal 150-450 [facility] ([place]) Comment on above: Performed By: #### C BC, ADIFF, ANEU, CMP, PBNP, GFR, A1C ####[place] [address] RBC Auto #/vol (Bld) 2.68 10 6/mcL Low 4.50-6.00 [facility] ([place]) Comment on above: Performed By: #### C BC, ADIFF, ANEU, CMP, PBNP, GFR, A1C ####[place] [address] WBC Auto #/vol (Bld) 10.80 10 3/mcL Normal 4.50-10.80 [facility] ([place]) Comment on above: Performed By: #### C BC, ADIFF, ANEU, CMP, PBNP, GFR, A1C ####[place] [address] Erythrocyte distribution width Auto Ratio (RBC) 14.5 % Normal 11.5-15.5 [facility] ([place] Comment on above: Performed By: #### C BC, ADIFF, ANEU, CMP, PBNP, GFR, A1C ####[place] [address] Hematocrit Auto Volume Fraction (Bld) 40.8 % Normal 40.0-52.0 [facility] ([place]) Comment on above: Performed By: #### C BC, ADIFF, ANEU, CMP, PBNP, GFR, A1C ####[place] [address] Hemoglobin mass conc (Bld) 14.1 G/dL Normal 13.0-17.5 [facility] ([place]) Comment on above: Performed By: #### C BC, ADIFF, ANEU, CMP, PBNP, GFR, A1C ####[place] [address] MCH Auto Entitic mass (RBC) 29.2 pg Normal 27.0-33.0 [facility] ([place]) Comment on above: Performed By: #### C BC, ADIFF, ANEU, CMP, PBNP, GFR, A1C ####[place] [address] MCHC Auto mass conc (RBC) 34.5 G/dL Normal 32.0-36.0 [facility] ([place]) Comment on above: Performed By: #### C BC, ADIFF, ANEU, CMP, PBNP, GFR, A1C ####[place] [address] MCV Auto Entitic volume (RBC) 84.7 fL Normal 81.0-100.0 [facility] ([place]) Comment on above: Performed By: #### C BC, ADIFF, ANEU, CMP, PBNP, GFR, A1C ####[place] [address] Platelet mean volume Auto Entitic volume (Bld) 8.4 fL Normal 6.4-10.5 [facility] ([place] Comment on above: Performed By: #### C BC, ADIFF, ANEU, CMP, PBNP, GFR, A1C ####[place] [address] Platelets Auto #/vol (Bld) 250 10 3/mcL Normal 150-450 [facility] ([place]) Comment on above: Performed By: #### C BC, ADIFF, ANEU, CMP, PBNP, GFR, A1C ####[place] [address] RBC Auto #/vol (Bld) 4.82 10 6/mcL Normal 4.50-6.00 [facility] ([place] Comment on above: Performed By: #### C BC, ADIFF, ANEU, CMP, PBNP, GFR, A1C ####[place] [address] WBC Auto #/vol (Bld) 9.30 10 3/mcL Normal 4.50-10.80 [facility] ([place] Comment on above: Performed By: #### C BC, ADIFF, ANEU, CMP, PBNP, GFR, A1C ####[place] [address] CLRPon 03-26-2018 Chloride molar conc 107 mmol/L Normal 98-110 [facility] ([place]) Comment on above: Performed By: #### C BC, ADIFF, ANEU, CMP, PBNP, GFR, A1C ####[address] [address] Chloride molar conc 105 mmol/L Normal 98-110 [facility] ([place]) Comment on above: Performed By: #### C BC, ADIFF, ANEU, CMP, PBNP, GFR, A1C ####[address] [address] Chloride molar conc 105 mmol/L Normal 98-110 [facility] ([place]) Comment on above: Performed By: #### C BC, ADIFF, ANEU, CMP, PBNP, GFR, A1C ####[address] [address] Chloride molar conc 105 mmol/L Normal 98-110 [facility] ([place]) Comment on above: Performed By: #### C BC, ADIFF, ANEU, CMP, PBNP, GFR, A1C ####[address] [address] Chloride molar conc 104 mmol/L Normal 98-110 [facility] ([place]) Comment on above: Performed By: #### C BC, ADIFF, ANEU, CMP, PBNP, GFR, A1C ####[address] [address] Chloride molar conc 104 mmol/L Normal 98-110 [facility] ([place]) Comment on above: Performed By: #### C BC, ADIFF, ANEU, CMP, PBNP, GFR, A1C ####[address] [address] Chloride molar conc 103 mmol/L Normal 98-110 [facility] ([place]) Comment on above: Performed By: #### C BC, ADIFF, ANEU, CMP, PBNP, GFR, A1C ####[address] [address] Chloride molar conc 103 mmol/L Normal 98-110 [facility] ([place]) Comment on above: Performed By: #### C BC, ADIFF, ANEU, CMP, PBNP, GFR, A1C ####[address] [address] Chloride molar conc 105 mmol/L Normal 98-110 [facility] ([place]) Comment on above: Performed By: #### C BC, ADIFF, ANEU, CMP, PBNP, GFR, A1C ####[address] [address] Chloride molar conc 105 mmol/L Normal 98-110 [facility] ([place]) Comment on above: Performed By: #### C BC, ADIFF, ANEU, CMP, PBNP, GFR, A1C ####[address] [address] CVOR Intraop Recordon 2017 CVOR Intraop Record Normal [facility] ([place]) GLURPon 03-26-2018 Glucose mass conc 157 mg/dL High 70-110 [facility] ([place]) Comment on above: Performed By: #### C BC, ADIFF, ANEU, CMP, PBNP, GFR, A1C ####[address] [address] Glucose mass conc 172 mg/dL High 70-110 [facility] ([place]) Comment on above: Performed By: #### C BC, ADIFF, ANEU, CMP, PBNP, GFR, A1C ####[address] [address] Glucose mass conc 176 mg/dL High 70-110 [facility] ([place]) Comment on above: Performed By: #### C BC, ADIFF, ANEU, CMP, PBNP, GFR, A1C ####[address] [address] Glucose mass conc 181 mg/dL High 70-110 [facility] ([place]) Comment on above: Performed By: #### C BC, ADIFF, ANEU, CMP, PBNP, GFR, A1C ####[address] [address] Glucose mass conc 169 mg/dL High 70-110 [facility] ([place]) Comment on above: Performed By: #### C BC, ADIFF, ANEU, CMP, PBNP, GFR, A1C ####[address] [address] Glucose mass conc 164 mg/dL High 70-110 [facility] ([place]) Comment on above: Performed By: #### C BC, ADIFF, ANEU, CMP, PBNP, GFR, A1C ####[place] [address] Glucose mass conc 163 mg/dL High 70-110 [facility] ([place]) Comment on above: Performed By: #### C BC, ADIFF, ANEU, CMP, PBNP, GFR, A1C ####[place] [address] Glucose mass conc 143 mg/dL High 70-110 [facility] ([place]) Comment on above: Performed By: #### C BC, ADIFF, ANEU, CMP, PBNP, GFR, A1C ####[place] [address] Glucose mass conc 174 mg/dL High 70-110 [facility] ([place]) Comment on above: Performed By: #### C BC, ADIFF, ANEU, CMP, PBNP, GFR, A1C ####[place] [address] Glucose mass conc 139 mg/dL High 70-110 [facility] ([place]) Comment on above: Performed By: #### C BC, ADIFF, ANEU, CMP, PBNP, GFR, A1C ####[address] [address] HCTRPon 03-26-2018 Hematocrit Auto Volume Fraction (Bld) 31.0 % Low 42.0-52.0 [facility] ([place]) Comment on above: Performed By: #### C BC, ADIFF, ANEU, CMP, PBNP, GFR, A1C ####[place] [address] Hematocrit Auto Volume Fraction (Bld) 28.0 % Low 42.0-52.0 [facility] ([place]) Comment on above: Performed By: #### C BC, ADIFF, ANEU, CMP, PBNP, GFR, A1C ####[place] [address] Hematocrit Auto Volume Fraction (Bld) 29.0 % Low 42.0-52.0 [facility] ([place]) Comment on above: Performed By: #### C BC, ADIFF, ANEU, CMP, PBNP, GFR, A1C ####[address] [address] Hematocrit Auto Volume Fraction (Bld) 28.0 % Low 42.0-52.0 [facility] ([place]) Comment on above: Performed By: #### C BC, ADIFF, ANEU, CMP, PBNP, GFR, A1C ####[place] [address] Hematocrit Auto Volume Fraction (Bld) 28.0 % Low 42.0-52.0 [facility] ([place]) Comment on above: Performed By: #### C BC, ADIFF, ANEU, CMP, PBNP, GFR, A1C ####[place] [address] Hematocrit Auto Volume Fraction (Bld) 26.0 % Low 42.0-52.0 [facility] ([place]) Comment on above: Performed By: #### C BC, ADIFF, ANEU, CMP, PBNP, GFR, A1C ####[place] [address] Hematocrit Auto Volume Fraction (Bld) 29.0 % Low 42.0-52.0 [facility] ([place]) Comment on above: Performed By: #### C BC, ADIFF, ANEU, CMP, PBNP, GFR, A1C ####[place] [address] Hematocrit Auto Volume Fraction (Bld) 28.0 % Low 42.0-52.0 [facility] ([place]) Comment on above: Performed By: #### C BC, ADIFF, ANEU, CMP, PBNP, GFR, A1C ####[place] [address] Hematocrit Auto Volume Fraction (Bld) 38.0 % Low 42.0-52.0 [facility] ([place]) Comment on above: Performed By: #### C BC, ADIFF, ANEU, CMP, PBNP, GFR, A1C ####[address] [place] [address] Hematocrit Auto Volume Fraction (Bld) 41.0 % Low 42.0-52.0 [facility] ([place]) Comment on above: Performed By: #### C BC, ADIFF, ANEU, CMP, PBNP, GFR, A1C ####[address] [address] HGBRPon 03-26-2018 Hemoglobin mass conc (Bld) 10.6 G/dL Low 13.0-17.5 [facility] ([place]) Comment on above: Performed By: #### C BC, ADIFF, ANEU, CMP, PBNP, GFR, A1C ####[place] [address] Hemoglobin mass conc (Bld) 9.5 G/dL Low 13.0-17.5 [facility] ([place]) Comment on above: Performed By: #### C BC, ADIFF, ANEU, CMP, PBNP, GFR, A1C ####[place] [address] Hemoglobin mass conc (Bld) 9.7 G/dL Low 13.0-17.5 [facility] ([place]) Comment on above: Performed By: #### C BC, ADIFF, ANEU, CMP, PBNP, GFR, A1C ####[place] [address] Hemoglobin mass conc (Bld) 9.5 G/dL Low 13.0-17.5 [facility] ([place]) Comment on above: Performed By: #### C BC, ADIFF, ANEU, CMP, PBNP, GFR, A1C ####[place] [address] Hemoglobin mass conc (Bld) 9.5 G/dL Low 13.0-17.5 [facility] ([place]) Comment on above: Performed By: #### C BC, ADIFF, ANEU, CMP, PBNP, GFR, A1C ####[place] [address] Hemoglobin mass conc (Bld) 8.9 G/dL Low 13.0-17.5 [facility] ([place]) Comment on above: Performed By: #### C BC, ADIFF, ANEU, CMP, PBNP, GFR, A1C ####[place] [address] Hemoglobin mass conc (Bld) 9.9 G/dL Low 13.0-17.5 [facility] ([place]) Comment on above: Performed By: #### C BC, ADIFF, ANEU, CMP, PBNP, GFR, A1C ####[place] [address] Hemoglobin mass conc (Bld) 9.6 G/dL Low 13.0-17.5 [facility] ([place]) Comment on above: Performed By: #### C BC, ADIFF, ANEU, CMP, PBNP, GFR, A1C ####[place] [address] Hemoglobin mass conc (Bld) 12.9 G/dL Low 13.0-17.5 [facility] ([place]) Comment on above: Performed By: #### C BC, ADIFF, ANEU, CMP, PBNP, GFR, A1C ####[place] [address] Hemoglobin mass conc (Bld) 13.8 G/dL Normal 13.0-17.5 [facility] ([place]) Comment on above: Performed By: #### C BC, ADIFF, ANEU, CMP, PBNP, GFR, A1C ####[place] [address] Cristi 03-26-2018 Potassium molar conc 3.7 mmol/L Normal 3.5-5.0 [facility] ([place]) Comment on above: Performed By: #### C BC, ADIFF, ANEU, CMP, PBNP, GFR, A1C ####[place] [address] KRPon 03-26-2018 Potassium molar conc 3.9 mmol/L Normal 3.5-5.0 [facility] ([place] Comment on above: Performed By: #### C BC, ADIFF, ANEU, CMP, PBNP, GFR, A1C ####[place] [address] Potassium molar conc 4.6 mmol/L Normal 3.5-5.0 [facility] ([place]) Comment on above: Performed By: #### C BC, ADIFF, ANEU, CMP, PBNP, GFR, A1C ####[address] [address] Potassium molar conc 4.5 mmol/L Normal 3.5-5.0 [facility] ([place]) Comment on above: Performed By: #### C BC, ADIFF, ANEU, CMP, PBNP, GFR, A1C ####[address] [address] Potassium molar conc 4.4 mmol/L Normal 3.5-5.0 [facility] ([place]) Comment on above: Performed By: #### C BC, ADIFF, ANEU, CMP, PBNP, GFR, A1C ####[address] [address] Potassium molar conc 4.5 mmol/L Normal 3.5-5.0 [facility] ([place]) Comment on above: Performed By: #### C BC, ADIFF, ANEU, CMP, PBNP, GFR, A1C ####[address] [address] Potassium molar conc 4.0 mmol/L Normal 3.5-5.0 [facility] ([place] Comment on above: Performed By: #### C BC, ADIFF, ANEU, CMP, PBNP, GFR, A1C ####[address] [address] Potassium molar conc 4.3 mmol/L Normal 3.5-5.0 [facility] ([place] Comment on above: Performed By: #### C BC, ADIFF, ANEU, CMP, PBNP, GFR, A1C ####[address] [address] Potassium molar conc 4.4 mmol/L Normal 3.5-5.0 [facility] ([place] Comment on above: Performed By: #### C BC, ADIFF, ANEU, CMP, PBNP, GFR, A1C ####[address] [address] Potassium molar conc 4.1 mmol/L Normal 3.5-5.0 [facility] ([place] Comment on above: Performed By: #### C BC, ADIFF, ANEU, CMP, PBNP, GFR, A1C ####[place] [address] Potassium molar conc 4.0 mmol/L Normal 3.5-5.0 [facility] ([place]) Comment on above: Performed By: #### C BC, ADIFF, ANEU, CMP, PBNP, GFR, A1C ####[place] [address] LACon 03-26-2018 Lactic Acid Lvl 2.0 mmol/L Normal 0.2-2.0 [facility] ([place]) Comment on above: Performed By: #### C BC, ADIFF, ANEU, CMP, PBNP, GFR, A1C ####[place] [address] MGon 03-26-2018 Magnesium mass conc 2.8 mg/dL High 1.6-2.4 [facility] ([place]) Comment on above: Performed By: #### C BC, ADIFF, ANEU, CMP, PBNP, GFR, A1C ####[place] [address] NARPon 03-26-2018 Sodium molar conc 136 mmol/L Normal 136-145 [facility] ([place] Comment on above: Performed By: #### C BC, ADIFF, ANEU, CMP, PBNP, GFR, A1C ####[place] [address] Sodium molar conc 136 mmol/L Normal 136-145 [facility] ([place] Comment on above: Performed By: #### C BC, ADIFF, ANEU, CMP, PBNP, GFR, A1C ####[place] [address] Sodium molar conc 136 mmol/L Normal 136-145 [facility] ([place] Comment on above: Performed By: #### C BC, ADIFF, ANEU, CMP, PBNP, GFR, A1C ####[place] [address] Sodium molar conc 136 mmol/L Normal 136-145 [facility] ([place] Comment on above: Performed By: #### C BC, ADIFF, ANEU, CMP, PBNP, GFR, A1C ####[place] [address] Sodium molar conc 136 mmol/L Normal 136-145 [facility] ([place] Comment on above: Performed By: #### C BC, ADIFF, ANEU, CMP, PBNP, GFR, A1C ####[place] [address] Sodium molar conc 136 mmol/L Normal 136-145 [facility] ([place] Comment on above: Performed By: #### C BC, ADIFF, ANEU, CMP, PBNP, GFR, A1C ####[place] [address] Sodium molar conc 135 mmol/L Low 136-145 [facility] ([place]) Comment on above: Performed By: #### C BC, ADIFF, ANEU, CMP, PBNP, GFR, A1C ####[place] [address] Sodium molar conc 134 mmol/L Low 136-145 [facility] ([place] Comment on above: Performed By: #### C BC, ADIFF, ANEU, CMP, PBNP, GFR, A1C ####[place] [address] Sodium molar conc 138 mmol/L Normal 136-145 [facility] ([place] Comment on above: Performed By: #### C BC, ADIFF, ANEU, CMP, PBNP, GFR, A1C ####[place] [address] Sodium molar conc 139 mmol/L Normal 136-145 [facility] ([place] Comment on above: Performed By: #### C BC, ADIFF, ANEU, CMP, PBNP, GFR, A1C ####[place] [address] Operative Reporton 8 Operative Report Normal [facility] ([place]) PHOSon 03-26-2018 Phosphate mass conc 2.1 mg/dL Low 2.5-4.5 [facility] ([place]) Comment on above: Performed By: #### C BC, ADIFF, ANEU, CMP, PBNP, GFR, A1C ####[address] [address] PLTFon 03-26-2018 Plt % Functional 95 % Normal [address] ([place]) Comment on above: Performed By: #### C BC, ADIFF, ANEU, CMP, PBNP, GFR, A1C ####[address] [address] Plt ADP 10 k/mm3 Normal [facility] ([place]) Comment on above: Performed By: #### C BC, ADIFF, ANEU, CMP, PBNP, GFR, A1C ####[address] [address] Plt Base 190 k/mm3 Normal [facility] ([place]) Comment on above: Performed By: #### C BC, ADIFF, ANEU, CMP, PBNP, GFR, A1C ####[address] [address] Plt % Functional 96 % Normal [address] [place] [address] ([place]) Comment on above: Performed By: #### C BC, ADIFF, ANEU, CMP, PBNP, GFR, A1C ####[address] [address] Plt ADP 8 k/mm3 Normal [facility] ([place]) Comment on above: Performed By: #### C BC, ADIFF, ANEU, CMP, PBNP, GFR, A1C ####[address] [address] Plt Base 218 k/mm3 [facility] ([place]) Comment on above: Performed By: #### C BC, ADIFF, ANEU, CMP, PBNP, GFR, A1C ####[address] [address] Platelet (Product)on 018 Protein mass conc Platelet Ready for Pickup Normal [facility] ([place]) Comment on above: Order Comment: FOR A TOTAL OF 2 UNITS OF PLATELETS Performed By: #### C BC, ADIFF, ANEU, CMP, PBNP, GFR, A1C ####[address] [address] Protein mass conc Platelet Ready for Pickup Normal [facility] ([place]) Comment on above: Order Comment: ON HO LD FOR CVOR Performed By: #### C BC, ADIFF, ANEU, CMP, PBNP, GFR, A1C ####[place] [id number] [place] [address] Progress Noteon 03-26-2018 Protein mass conc Normal [facility] ([place]) Protein mass conc Normal [facility] ([place]) RBC (Product)on 03-26-2018 RBC Auto #/vol (Bld) RBC Ready for Pickup Normal [facility] ([place] Comment on above: Performed By: #### C BC, ADIFF, ANEU, CMP, PBNP, GFR, A1C ####[place] [address] [place] [address] RBC Auto #/vol (Bld) RBC Ready for Pickup Normal [facility] ([place] Comment on above: Performed By: #### C BC, ADIFF, ANEU, CMP, PBNP, GFR, A1C ####[place] [address] XR CHEST 1 VIEWon 03-26-2018 XR CHEST [...] PM Sign Date: 03/26/2018 5:37:02 PM Normal [facility] ([place]) XR CHEST 1 VIEW ORIGINALXR CHEST 1 [...] PM Sign Date: 03/26/2018 5:36:24 PM Normal [facility] ([place]) .Auto Diffon 03-25-2018 Ammonia mass conc (P) 0.60 10 3/mcL Normal 0.09-1.40 [facility] ([place]) Comment on above: Performed By: #### P LTF, CBC, ADIFF, ANEU, APTT ####[address] [address] Basophils Auto #/vol (Bld) 0.10 10 3/mcL Normal 0.00-0.27 [facility] ([place]) Comment on above: Performed By: #### P LTF, CBC, ADIFF, ANEU, APTT ####[address] [address] Basophils/100 WBC Auto (Bld) 0.8 % Normal 0.0-2.5 [facility] ([place]) Comment on above: Performed By: #### P LTF, CBC, ADIFF, ANEU, APTT ####[address] [address] Eosinophils Auto #/vol (Bld) 0.20 10 3/mcL Normal 0.00-0.65 [facility] ([place]) Comment on above: Performed By: #### P LTF, CBC, ADIFF, ANEU, APTT ####[address] [address] Eosinophils/100 WBC Auto (Bld) 2.3 % Normal 0.0-6.0 [facility] ([place] Comment on above: Performed By: #### P LTF, CBC, ADIFF, ANEU, APTT ####[address] [address] Lymphocytes Auto #/vol (Bld) 2.50 10 3/mcL Normal 0.90-4.32 [facility] ([place]) Comment on above: Performed By: #### P LTF, CBC, ADIFF, ANEU, APTT ####[address] [address] Lymphocytes/100 WBC Auto (Bld) 34.5 % Normal 20.0-40.0 [facility] ([place] Comment on above: Performed By: #### P LTF, CBC, ADIFF, ANEU, APTT ####[address] [address] Monocytes/100 WBC Auto (Bld) 8.5 % Normal 2.0-13.0 [facility] ([place]) Comment on above: Performed By: #### P LTF, CBC, ADIFF, ANEU, APTT ####[address] [address] Neutrophils/100 WBC Auto (Bld) 53.9 % Normal 50.0-75.0 [facility] ([place] Comment on above: Performed By: #### P LTF, CBC, ADIFF, ANEU, APTT ####[address] [address] .NEUABSon 03-25-2018 Neutrophil, Absolute 4.00 10 3/mcL Normal 2.25-8.10 [facility] ([place]) Comment on above: Performed By: #### P LTF, CBC, ADIFF, ANEU, APTT ####[place] [address] APTTon 03-25-2018 aPTT Coag time (Bld) 60.4 s High 25.0-35.0 [facility] ([place]) Comment on above: Result Comment: For Heparin anticoagulation therapy, the recommendedtherapeutic range is: 54-77 seconds (APTT Correlationwith Anti-Xa therapeutic range of 0.3-0.7 units/ml).PLEASE REFERENCE THE PHARMACY PROTOCOL FOR DOSING. Performed By: #### P LTF, CBC, ADIFF, ANEU, APTT ####[place] [address] aPTT Coag time (Bld) Heparin IV Normal [facility] ([place] Comment on above: Performed By: #### P LTF, CBC, ADIFF, ANEU, APTT ####[place] [address] CBCon 03-25-2018 Erythrocyte distribution width Auto Ratio (RBC) 14.7 % Normal 11.5-15.5 [facility] ([place]) Comment on above: Performed By: #### P LTF, CBC, ADIFF, ANEU, APTT ####[place] [address] Hematocrit Auto Volume Fraction (Bld) 38.4 % Low 40.0-52.0 [facility] ([place] Comment on above: Performed By: #### P LTF, CBC, ADIFF, ANEU, APTT ####[place] [address] Hemoglobin mass conc (Bld) 13.3 G/dL Normal 13.0-17.5 [facility] ([place] Comment on above: Performed By: #### P LTF, CBC, ADIFF, ANEU, APTT ####[place] [address] MCH Auto Entitic mass (RBC) 29.3 pg Normal 27.0-33.0 [facility] ([place] Comment on above: Performed By: #### P LTF, CBC, ADIFF, ANEU, APTT ####[place] [address] MCHC Auto mass conc (RBC) 34.7 G/dL Normal 32.0-36.0 [facility] ([place] Comment on above: Performed By: #### P LTF, CBC, ADIFF, ANEU, APTT ####[place] [address] MCV Auto Entitic volume (RBC) 84.4 fL Normal 81.0-100.0 [facility] ([place] Comment on above: Performed By: #### P LTF, CBC, ADIFF, ANEU, APTT ####[place] [address] Platelet mean volume Auto Entitic volume (Bld) 8.4 fL Normal 6.4-10.5 [facility] ([place] Comment on above: Performed By: #### P LTF, CBC, ADIFF, ANEU, APTT ####[place] [address] Platelets Auto #/vol (Bld) 233 10 3/mcL Normal 150-450 [facility] ([place] Comment on above: Performed By: #### P LTF, CBC, ADIFF, ANEU, APTT ####[place] [address] RBC Auto #/vol (Bld) 4.56 10 6/mcL Normal 4.50-6.00 [facility] ([place] Comment on above: Performed By: #### P LTF, CBC, ADIFF, ANEU, APTT ####[place] [address] WBC Auto #/vol (Bld) 7.40 10 3/mcL Normal 4.50-10.80 [facility] ([place] Comment on above: Performed By: #### P LTF, CBC, ADIFF, ANEU, APTT ####[place] [address] Endocrinology Progress Noteo n 03-25-2018 Protein mass conc Normal [facility] ([place]) PLTFon 03-25-2018 Plt % Functional 95 % Normal 80-97 [facility] ([place] Comment on above: Performed By: #### P LTF, CBC, ADIFF, ANEU, APTT ####[place] [address] Plt ADP 12 k/mm3 Normal [facility] ([place] Comment on above: Performed By: #### P LTF, CBC, ADIFF, ANEU, APTT ####[place] [address] Plt Base 228 k/mm3 Normal [facility] ([place] Comment on above: Performed By: #### P LTF, CBC, ADIFF, ANEU, APTT ####[place] [address] Progress Noteon 03-25-2018 Protein mass conc Normal [facility] ([place]) TABOon 03-25-2018 ABO/Rh Interp Positive Invalid Interpretation Code [facility] ([place] Comment on above: Performed By: #### C BC, ADIFF, ANEU, CMP, PBNP, GFR, A1C ####[place] [address] TABSon 03-25-2018 Antibody Screen Tango Negative Normal [facility] ([place]) Comment on above: Performed By: #### C BC, ADIFF, ANEU, CMP, PBNP, GFR, A1C ####[place] [address] .Auto Diffon 03-24-2018 Ammonia mass conc (P) 0.70 10 3/mcL Normal 0.09-1.40 [facility] ([place]) Comment on above: Performed By: #### T KHUSHBUI ####[place] [address] Basophils Auto #/vol (Bld) 0.10 10 3/mcL Normal 0.00-0.27 [facility] ([place]) Comment on above: Performed By: #### T KHUSHBUI ####[place] [address] Basophils/100 WBC Auto (Bld) 0.7 % Normal 0.0-2.5 [facility] ([place]) Comment on above: Performed By: #### T BRICE ####[address] [address] Eosinophils Auto #/vol (Bld) 0.20 10 3/mcL Normal 0.00-0.65 [facility] ([place]) Comment on above: Performed By: #### T ROPI ####[address] [address] Eosinophils/100 WBC Auto (Bld) 2.6 % Normal 0.0-6.0 [facility] ([place]) Comment on above: Performed By: #### T ROPI ####[address] [address] Lymphocytes Auto #/vol (Bld) 2.60 10 3/mcL Normal 0.90-4.32 [facility] ([place]) Comment on above: Performed By: #### T ROPI ####[address] [address] Lymphocytes/100 WBC Auto (Bld) 36.5 % Normal 20.0-40.0 [facility] ([place]) Comment on above: Performed By: #### T ROPI ####[address] [address] Monocytes/100 WBC Auto (Bld) 9.1 % Normal 2.0-13.0 [facility] ([place]) Comment on above: Performed By: #### T ROPI ####[address] [address] Neutrophils/100 WBC Auto (Bld) 51.1 % Normal 50.0-75.0 [facility] ([place]) Comment on above: Performed By: #### T ROPI ####[address] [address] [address] .GFRon 03-24-2018 GFR Non- >60 Normal [facility] ([place]) Comment on above: Result Comment: GFR Population [...] square meters Performed By: #### T BRICE ####[place] [address] GFR >60 Normal [facility] ([place]) Comment on above: Result Comment: GFR Population [...] square meters Performed By: #### T BRICE ####[place] [address] .NEUABSon 03-24-2018 Neutrophil, Absolute 3.70 10 3/mcL Normal 2.25-8.10 A [facility] ([place]) Comment on above: Performed By: #### T BRICE ####[place] [address] APTTon 03-24-2018 aPTT Coag time (Bld) 55.6 s High 25.0-35.0 [facility] ([place]) Comment on above: Result Comment: For Heparin anticoagulation therapy, the recommendedtherapeutic range is: 54-77 seconds (APTT Correlationwith Anti-Xa therapeutic range of 0.3-0.7 units/ml).PLEASE REFERENCE THE PHARMACY PROTOCOL FOR DOSING. Performed By: #### A PTT ####[place] [address] aPTT Coag time (Bld) Heparin IV Normal [facility] ([place]) Comment on above: Performed By: #### A PTT ####[place] [address] aPTT Coag time (Bld) Heparin IV Normal [facility] ([place] Comment on above: Performed By: #### T ROPI ####[place] [address] aPTT Coag time (Bld) 60.7 s High 25.0-35.0 [facility] ([place] Comment on above: Result Comment: For Heparin anticoagulation therapy, the recommendedtherapeutic range is: 54-77 seconds (APTT Correlationwith Anti-Xa therapeutic range of 0.3-0.7 units/ml).PLEASE REFERENCE THE PHARMACY PROTOCOL FOR DOSING. Performed By: #### T ROPI ####[place] [address] aPTT Coag time (Bld) 69.7 s High 25.0-35.0 [facility] ([place] Comment on above: Result Comment: For Heparin anticoagulation therapy, the recommendedtherapeutic range is: 54-77 seconds (APTT Correlationwith Anti-Xa therapeutic range of 0.3-0.7 units/ml).PLEASE REFERENCE THE PHARMACY PROTOCOL FOR DOSING. Performed By: #### T ROPI ####[place] [address] aPTT Coag time (Bld) Heparin IV Normal [facility] ([place] Comment on above: Performed By: #### T ROPI ####[place] [id number] BMPon 03-24-2018 Creatinine mass conc 1.15 mg/dL Normal 0.60-1.40 [facility] ([place] Comment on above: Performed By: #### T ROPI ####[place] [address] Urea nitrogen/Creatinine mass ratio 8.7 ratio Low 10.0-22.0 [facility] ([place]) Comment on above: Performed By: #### T ROPI ####[place] [address] Calcium mass conc 8.7 mg/dL Normal 8.4-10.1 [facility] ([place] Comment on above: Performed By: #### T ROPI ####[place] [address] Chloride molar conc 103 mmol/L Normal 98-110 [facility] ([place] Comment on above: Performed By: #### T ROPI ####[place] [address] CO2 molar conc 33 mmol/L High 22-32 [facility] ([place] Comment on above: Performed By: #### T KHUSHBUI ####[place] [address] Electrolyte Balance 7.0 mEq/L Normal 4.0-15.0 [facility] ([place] Comment on above: Performed By: #### T KHUSHBUI ####[place] [address] Glucose mass conc 100 mg/dL Normal 70-110 [facility] ([place] Comment on above: Performed By: #### T KHUSHBUI ####[place] [address] Potassium molar conc 4.6 mmol/L Normal 3.5-5.0 [facility] ([place] Comment on above: Performed By: #### T KHUSHBUI ####[place] [address] Sodium molar conc 143 mmol/L Normal 136-145 [facility] ([place] Comment on above: Performed By: #### T ROPI ####[place] [address] Urea nitrogen mass conc 10.0 mg/dL Normal 8.0-22.0 [facility] ([place] Comment on above: Performed By: #### T ROPI ####[place] [address] CBCon 03-24-2018 Erythrocyte distribution width Auto Ratio (RBC) 14.6 % Normal 11.5-15.5 [facility] ([place] Comment on above: Performed By: #### T ROPI ####[place] [address] Hematocrit Auto Volume Fraction (Bld) 37.7 % Low 40.0-52.0 [facility] ([place] Comment on above: Performed By: #### T BRICE ####[place] [address] Hemoglobin mass conc (Bld) 13.1 G/dL Normal 13.0-17.5 [facility] ([place] Comment on above: Performed By: #### T BRICE ####[place] [address] MCH Auto Entitic mass (RBC) 29.4 pg Normal 27.0-33.0 [facility] ([place] Comment on above: Performed By: #### T BRICE ####[place] [address] MCHC Auto mass conc (RBC) 34.9 G/dL Normal 32.0-36.0 [facility] ([place] Comment on above: Performed By: #### T BRICE ####[place] [address] MCV Auto Entitic volume (RBC) 84.2 fL Normal 81.0-100.0 [facility] ([place] Comment on above: Performed By: #### T BRICE ####[place] [address] Platelet mean volume Auto Entitic volume (Bld) 8.1 fL Normal 6.4-10.5 [facility] ([place]) Comment on above: Performed By: #### T KHUSHBUI ####[place] [address] Platelets Auto #/vol (Bld) 230 10 3/mcL Normal 150-450 [facility] ([place]) Comment on above: Performed By: #### T KHUSHBUI ####[place] [address] RBC Auto #/vol (Bld) 4.47 10 6/mcL Low 4.50-6.00 A [facility] ([place] Comment on above: Performed By: #### T BRICE ####[address] [place] [address] WBC Auto #/vol (Bld) 7.20 10 3/mcL Normal 4.50-10.80 A [facility] ([place] Comment on above: Performed By: #### T BRICE ####[address] [address] Endocrinology Progress Noteo n 03-24-2018 Protein mass conc Normal [facility] ([place]) Progress Noteon 03-24-2018 Protein mass conc Normal [facility] ([place]) Protein mass conc Normal [facility] ([place]) Protein mass conc Normal [facility] ([place]) Protein mass conc Normal [facility] ([place]) XR PANOREX/ORTHOPANTOGRAMon 03-24-2018 XR PANOREX/ORTHOPANTOGRA M ORIGINALXR [...] AM Sign Date: 03/24/2018 7:36:42 AM Normal [facility] ([place]) .Auto Diffon 03-23-2018 Ammonia mass conc (P) 0.70 10 3/mcL Normal 0.09-1.40 [facility] ([place]) Comment on above: Performed By: #### C BC, LISHA, ANEU, CMP, PBNP, GFR, A1C ####[address] [address] Basophils Auto #/vol (Bld) 0.10 10 3/mcL Normal 0.00-0.27 [facility] ([place]) Comment on above: Performed By: #### C BC, ADVERONICA, ANEU, CMP, PBNP, GFR, A1C ####[address] [address] Basophils/100 WBC Auto (Bld) 0.7 % Normal 0.0-2.5 [facility] ([place]) Comment on above: Performed By: #### C BC, ADIFF, ANEU, CMP, PBNP, GFR, A1C ####[address] [address] Eosinophils Auto #/vol (Bld) 0.20 10 3/mcL Normal 0.00-0.65 [facility] ([place]) Comment on above: Performed By: #### C BC, ADIFF, ANEU, CMP, PBNP, GFR, A1C ####[address] [address] Eosinophils/100 WBC Auto (Bld) 2.5 % Normal 0.0-6.0 [facility] ([place]) Comment on above: Performed By: #### C BC, ADIFF, ANEU, CMP, PBNP, GFR, A1C ####[address] [address] Lymphocytes Auto #/vol (Bld) 2.90 10 3/mcL Normal 0.90-4.32 [facility] ([place]) Comment on above: Performed By: #### C BC, ADIFF, ANEU, CMP, PBNP, GFR, A1C ####[address] [address] Lymphocytes/100 WBC Auto (Bld) 35.8 % Normal 20.0-40.0 [facility] ([place]) Comment on above: Performed By: #### C BC, ADIFF, ANEU, CMP, PBNP, GFR, A1C ####[address] [address] Monocytes/100 WBC Auto (Bld) 8.6 % Normal 2.0-13.0 [facility] ([place]) Comment on above: Performed By: #### C BC, ADIFF, ANEU, CMP, PBNP, GFR, A1C ####[address] [address] Neutrophils/100 WBC Auto (Bld) 52.4 % Normal 50.0-75.0 [facility] ([place]) Comment on above: Performed By: #### C BC, ADIFF, ANEU, CMP, PBNP, GFR, A1C ####[address] [address] .NEUABSon 03-23-2018 Neutrophil, Absolute 4.20 10 3/mcL Normal 2.25-8.10 A [facility] ([place] Comment on above: Performed By: #### C BC, ADIFF, ANEU, CMP, PBNP, GFR, A1C ####[place] [address] APTTon 03-23-2018 aPTT Coag time (Bld) Heparin IV Normal [facility] ([place]) Comment on above: Performed By: #### T ROPI ####[place] [address] aPTT Coag time (Bld) 58.9 s High 25.0-35.0 [facility] ([place]) Comment on above: Result Comment: For Heparin anticoagulation therapy, the recommendedtherapeutic range is: 54-77 seconds (APTT Correlationwith Anti-Xa therapeutic range of 0.3-0.7 units/ml).PLEASE REFERENCE THE PHARMACY PROTOCOL FOR DOSING. Performed By: #### T ROPI ####[place] [address] aPTT Coag time (Bld) 61.0 s High 25.0-35.0 [facility] ([place]) Comment on above: Order Comment: Pleas e recollect - Quantity not sufficient - KP Result Comment: For Heparin anticoagulation therapy, the recommendedtherapeutic range is: 54-77 seconds (APTT Correlationwith Anti-Xa therapeutic range of 0.3-0.7 units/ml).PLEASE REFERENCE THE PHARMACY PROTOCOL FOR DOSING. Performed By: #### A PTT ####[place] [address] aPTT Coag time (Bld) Heparin IV Normal [facility] ([place] Comment on above: Order Comment: Pleas e recollect - Quantity not sufficient - KP Performed By: #### A PTT ####[place] [address] aPTT Coag time (Bld) Heparin IV Normal [facility] ([place] Comment on above: Performed By: #### C BC, ADIFF, ANEU, CMP, PBNP, GFR, A1C ####[place] [address] aPTT Coag time (Bld) 77.6 s High 25.0-35.0 [facility] ([place]) Comment on above: Result Comment: For Heparin anticoagulation therapy, the recommendedtherapeutic range is: 54-77 seconds (APTT Correlationwith Anti-Xa therapeutic range of 0.3-0.7 units/ml).PLEASE REFERENCE THE PHARMACY PROTOCOL FOR DOSING. Performed By: #### C BC, ADIFF, ANEU, CMP, PBNP, GFR, A1C ####[place] [address] Anesthesiology Consultationo n 03-23-2018 Anesthesiology Consultation Normal [facility] ([place]) CBCon 03-23-2018 Erythrocyte distribution width Auto Ratio (RBC) 14.5 % Normal 11.5-15.5 [facility] ([place]) Comment on above: Performed By: #### C BC, ADIFF, ANEU, CMP, PBNP, GFR, A1C ####[place] [address] Hematocrit Auto Volume Fraction (Bld) 39.3 % Low 40.0-52.0 [facility] ([place]) Comment on above: Performed By: #### C BC, ADIFF, ANEU, CMP, PBNP, GFR, A1C ####[place] [address] Hemoglobin mass conc (Bld) 13.7 G/dL Normal 13.0-17.5 [facility] ([place]) Comment on above: Performed By: #### C BC, ADIFF, ANEU, CMP, PBNP, GFR, A1C ####[place] [address] MCH Auto Entitic mass (RBC) 29.0 pg Normal 27.0-33.0 [facility] ([place]) Comment on above: Performed By: #### C BC, ADIFF, ANEU, CMP, PBNP, GFR, A1C ####[place] [address] MCHC Auto mass conc (RBC) 35.0 G/dL Normal 32.0-36.0 [facility] ([place]) Comment on above: Performed By: #### C BC, ADIFF, ANEU, CMP, PBNP, GFR, A1C ####[place] [address] MCV Auto Entitic volume (RBC) 82.9 fL Normal 81.0-100.0 [facility] ([place]) Comment on above: Performed By: #### C BC, ADIFF, ANEU, CMP, PBNP, GFR, A1C ####[place] [address] Platelet mean volume Auto Entitic volume (Bld) 8.1 fL Normal 6.4-10.5 [facility] ([place]) Comment on above: Performed By: #### C BC, ADIFF, ANEU, CMP, PBNP, GFR, A1C ####[place] [address] Platelets Auto #/vol (Bld) 228 10 3/mcL Normal 150-450 [facility] ([place]) Comment on above: Performed By: #### C BC, ADIFF, ANEU, CMP, PBNP, GFR, A1C ####[place] [address] RBC Auto #/vol (Bld) 4.74 10 6/mcL Normal 4.50-6.00 A [facility] ([place] Comment on above: Performed By: #### C BC, ADIFF, ANEU, CMP, PBNP, GFR, A1C ####[place] [address] WBC Auto #/vol (Bld) 8.10 10 3/mcL Normal 4.50-10.80 A [facility] ([place] Comment on above: Performed By: #### C BC, ADIFF, ANEU, CMP, PBNP, GFR, A1C ####[place] [address] Endocrinology Consultationon 03-23-2018 Endocrinology Consultation Normal [facility] ([place]) Endocrinology Progress Noteo n 03-23-2018 Protein mass conc Normal [facility] ([place]) FT3on 03-23-2018 T3 free mass conc 2.88 pg/mL Normal 2.30-4.20 [facility] ([place]) Comment on above: Result Comment: Plea se note ? as of 04/01/17 new pediatric reference intervals were added for this test. Performed By: #### A PTT ####[address] [address] FT4on 03-23-2018 T4 free mass conc 1.07 ng/dL Normal 0.60-1.70 [facility] ([place]) Comment on above: Result Comment: Plea se note ? as of 04/01/17 new pediatric reference intervals were added for this test. Performed By: #### A PTT ####[address] [address] Pain Management Progress Not veronica 03-23-2018 Pain Management Progress Note Normal [facility] ([place]) TSHon 03-23-2018 Thyrotropin Qn 14.400 mcIU/mL High 0.360-3.740 [facility] ([place]) Comment on above: Result Comment: Plea se note ? as of 04/01/17 new pediatric reference intervals were added for this test. Performed By: #### C BC, ADIFF, ANEU, CMP, PBNP, GFR, A1C ####[address] [address] US THYROIDon 03-23-2018 US THYROID ORIGINALUltrasound Thyroid, [...] PM Sign Date: 03/23/2018 4:33:45 PM Normal [facility] ([place]) .Auto Diffon 03-22-2018 Ammonia mass conc (P) 0.70 10 3/mcL Normal 0.09-1.40 [facility] ([place]) Comment on above: Performed By: #### C BC, FLORESIFF, ANEU, CMP, PBNP, GFR, A1C ####[facility] [place] [address] Basophils Auto #/vol (Bld) 0.10 10 3/mcL Normal 0.00-0.27 [facility] ([place]) Comment on above: Performed By: #### C BC, ADIFF, ANEU, CMP, PBNP, GFR, A1C ####[place] [address] [address] [place] [address] Basophils/100 WBC Auto (Bld) 0.6 % Normal 0.0-2.5 [facility] ([place]) Comment on above: Performed By: #### C BC, ADIFF, ANEU, CMP, PBNP, GFR, A1C ####[address] [address] Eosinophils Auto #/vol (Bld) 0.20 10 3/mcL Normal 0.00-0.65 [facility] ([place]) Comment on above: Performed By: #### C BC, ADIFF, ANEU, CMP, PBNP, GFR, A1C ####[address] [address] Eosinophils/100 WBC Auto (Bld) 2.2 % Normal 0.0-6.0 [facility] ([place]) Comment on above: Performed By: #### C BC, ADIFF, ANEU, CMP, PBNP, GFR, A1C ####[address] [address] Lymphocytes Auto #/vol (Bld) 2.90 10 3/mcL Normal 0.90-4.32 [facility] ([place]) Comment on above: Performed By: #### C BC, ADIFF, ANEU, CMP, PBNP, GFR, A1C ####[address] [address] Lymphocytes/100 WBC Auto (Bld) 34.8 % Normal 20.0-40.0 [facility] ([place]) Comment on above: Performed By: #### C BC, ADIFF, ANEU, CMP, PBNP, GFR, A1C ####[address] [address] Monocytes/100 WBC Auto (Bld) 8.3 % Normal 2.0-13.0 [facility] ([place]) Comment on above: Performed By: #### C BC, ADIFF, ANEU, CMP, PBNP, GFR, A1C ####[address] [address] Neutrophils/100 WBC Auto (Bld) 54.1 % Normal 50.0-75.0 [facility] ([place] Comment on above: Performed By: #### C BC, ADIFF, ANEU, CMP, PBNP, GFR, A1C ####[address] [address] .NEUABSon 03-22-2018 Neutrophil, Absolute 4.50 10 3/mcL Normal 2.25-8.10 A [facility] ([place] Comment on above: Performed By: #### C BC, ADIFF, ANEU, CMP, PBNP, GFR, A1C ####[place] [address] APTTon 03-22-2018 aPTT Coag time (Bld) 62.5 s High 25.0-35.0 [facility] ([place]) Comment on above: Result Comment: For Heparin anticoagulation therapy, the recommendedtherapeutic range is: 54-77 seconds (APTT Correlationwith Anti-Xa therapeutic range of 0.3-0.7 units/ml).PLEASE REFERENCE THE PHARMACY PROTOCOL FOR DOSING. Performed By: #### C BC, ADIFF, ANEU, CMP, PBNP, GFR, A1C ####[place] [address] aPTT Coag time (Bld) Heparin IV Normal [facility] ([place]) Comment on above: Performed By: #### C BC, ADIFF, ANEU, CMP, PBNP, GFR, A1C ####[place] [address] CBCon 03-22-2018 Erythrocyte distribution width Auto Ratio (RBC) 14.4 % Normal 11.5-15.5 [facility] ([place]) Comment on above: Performed By: #### C BC, ADIFF, ANEU, CMP, PBNP, GFR, A1C ####[place] [address] Hematocrit Auto Volume Fraction (Bld) 37.9 % Low 40.0-52.0 [facility] ([place]) Comment on above: Performed By: #### C BC, ADIFF, ANEU, CMP, PBNP, GFR, A1C ####[place] [address] Hemoglobin mass conc (Bld) 13.1 G/dL Normal 13.0-17.5 [facility] ([place]) Comment on above: Performed By: #### C BC, ADIFF, ANEU, CMP, PBNP, GFR, A1C ####[place] [address] MCH Auto Entitic mass (RBC) 28.7 pg Normal 27.0-33.0 [facility] ([place]) Comment on above: Performed By: #### C BC, ADIFF, ANEU, CMP, PBNP, GFR, A1C ####[place] [address] MCHC Auto mass conc (RBC) 34.6 G/dL Normal 32.0-36.0 [facility] ([place]) Comment on above: Performed By: #### C BC, ADIFF, ANEU, CMP, PBNP, GFR, A1C ####[place] [address] MCV Auto Entitic volume (RBC) 83.1 fL Normal 81.0-100.0 [facility] ([place] Comment on above: Performed By: #### C BC, ADIFF, ANEU, CMP, PBNP, GFR, A1C ####[place] [address] Platelet mean volume Auto Entitic volume (Bld) 8.7 fL Normal 6.4-10.5 [facility] ([place] Comment on above: Performed By: #### C BC, ADIFF, ANEU, CMP, PBNP, GFR, A1C ####[place] [address] Platelets Auto #/vol (Bld) 215 10 3/mcL Normal 150-450 [facility] ([place] Comment on above: Performed By: #### C BC, ADIFF, ANEU, CMP, PBNP, GFR, A1C ####[place] [address] RBC Auto #/vol (Bld) 4.56 10 6/mcL Normal 4.50-6.00 A [facility] ([place] Comment on above: Performed By: #### C BC, ADIFF, ANEU, CMP, PBNP, GFR, A1C ####[place] [address] WBC Auto #/vol (Bld) 8.30 10 3/mcL Normal 4.50-10.80 A [facility] ([place] Comment on above: Performed By: #### C BC, ADIFF, ANEU, CMP, PBNP, GFR, A1C ####[address] [address] Consultation Noteon 03-22-20 18 Consultation Note Normal [facility] ([place]) Pain Management Consultation Noteon 03-22-2018 Pain Management Consultation Note Normal [facility] ([place] .Auto Diffon 03-21-2018 Ammonia mass conc (P) 0.70 10 3/mcL Normal 0.09-1.40 [facility] ([place]) Comment on above: Performed By: #### C BC, ADIFF, ANEU, CMP, PBNP, GFR, A1C ####[address] [address] Basophils Auto #/vol (Bld) 0.00 10 3/mcL Normal 0.00-0.27 [facility] ([place] Comment on above: Performed By: #### C BC, ADIFF, ANEU, CMP, PBNP, GFR, A1C ####[place] [address] Basophils/100 WBC Auto (Bld) 0.5 % Normal 0.0-2.5 [facility] ([place] Comment on above: Performed By: #### C BC, ADIFF, ANEU, CMP, PBNP, GFR, A1C ####[address] [address] Eosinophils Auto #/vol (Bld) 0.20 10 3/mcL Normal 0.00-0.65 [facility] ([place]) Comment on above: Performed By: #### C BC, ADIFF, ANEU, CMP, PBNP, GFR, A1C ####[address] [address] Eosinophils/100 WBC Auto (Bld) 2.2 % Normal 0.0-6.0 [facility] ([place] Comment on above: Performed By: #### C BC, ADIFF, ANEU, CMP, PBNP, GFR, A1C ####[address] [address] Lymphocytes Auto #/vol (Bld) 3.00 10 3/mcL Normal 0.90-4.32 [facility] ([place]) Comment on above: Performed By: #### C BC, ADIFF, ANEU, CMP, PBNP, GFR, A1C ####[address] [address] Lymphocytes/100 WBC Auto (Bld) 38.5 % Normal 20.0-40.0 [facility] ([place] Comment on above: Performed By: #### C BC, ADIFF, ANEU, CMP, PBNP, GFR, A1C ####[address] [address] Monocytes/100 WBC Auto (Bld) 9.4 % Normal 2.0-13.0 [facility] ([place]) Comment on above: Performed By: #### C BC, ADIFF, ANEU, CMP, PBNP, GFR, A1C ####[address] [address] Neutrophils/100 WBC Auto (Bld) 49.4 % Low 50.0-75.0 [facility] ([place] Comment on above: Performed By: #### C BC, ADIFF, ANEU, CMP, PBNP, GFR, A1C ####[address] [address] .GFRon 03-21-2018 GFR Non- >60 Normal [facility] ([place] Comment on above: Result Comment: GFR Population [...] BC, ADIFF, ANEU, CMP, PBNP, GFR, A1C ####[address] [address] GFR >60 Normal [facility] ([place] Comment on above: Result Comment: GFR Population [...] BC, ADIFF, ANEU, CMP, PBNP, GFR, A1C ####[place] [address] .NEUABSon 03-21-2018 Neutrophil, Absolute 3.90 10 3/mcL Normal 2.25-8.10 A [facility] ([place] Comment on above: Performed By: #### C BC, ADIFF, ANEU, CMP, PBNP, GFR, A1C ####[place] [address] APTTon 03-21-2018 aPTT Coag time (Bld) 62.5 s High 25.0-35.0 [facility] ([place] Comment on above: Result Comment: For Heparin anticoagulation therapy, the recommendedtherapeutic range is: 54-77 seconds (APTT Correlationwith Anti-Xa therapeutic range of 0.3-0.7 units/ml).PLEASE REFERENCE THE PHARMACY PROTOCOL FOR DOSING. Performed By: #### C BC, ADIFF, ANEU, CMP, PBNP, GFR, A1C ####[place] [address] aPTT Coag time (Bld) Heparin IV Normal [facility] ([place] Comment on above: Performed By: #### C BC, ADIFF, ANEU, CMP, PBNP, GFR, A1C ####[place] [address] BMPon 03-21-2018 Creatinine mass conc 1.10 mg/dL Normal 0.60-1.40 [facility] ([place] Comment on above: Performed By: #### C BC, ADIFF, ANEU, CMP, PBNP, GFR, A1C ####[place] [address] Urea nitrogen/Creatinine mass ratio 5.5 ratio Low 10.0-22.0 [facility] ([place] Comment on above: Performed By: #### C BC, ADIFF, ANEU, CMP, PBNP, GFR, A1C ####[place] [address] Calcium mass conc 9.0 mg/dL Normal 8.4-10.1 [facility] ([place] Comment on above: Performed By: #### C BC, ADIFF, ANEU, CMP, PBNP, GFR, A1C ####[address] [address] Chloride molar conc 102 mmol/L Normal 98-110 [facility] ([place] Comment on above: Performed By: #### C BC, ADIFF, ANEU, CMP, PBNP, GFR, A1C ####[address] [address] CO2 molar conc 32 mmol/L Normal 22-32 [facility] ([place]) Comment on above: Performed By: #### C BC, ADIFF, ANEU, CMP, PBNP, GFR, A1C ####[place] [address] Electrolyte Balance 10.0 mEq/L Normal 4.0-15.0 [facility] ([place] Comment on above: Performed By: #### C BC, ADIFF, ANEU, CMP, PBNP, GFR, A1C ####[place] [address] Glucose mass conc 112 mg/dL High 70-110 [facility] ([place]) Comment on above: Performed By: #### C BC, ADIFF, ANEU, CMP, PBNP, GFR, A1C ####[address] [address] Potassium molar conc 3.9 mmol/L Normal 3.5-5.0 [facility] ([place] Comment on above: Performed By: #### C BC, ADIFF, ANEU, CMP, PBNP, GFR, A1C ####[place] [address] Sodium molar conc 144 mmol/L Normal 136-145 [facility] ([place]) Comment on above: Performed By: #### C BC, ADIFF, ANEU, CMP, PBNP, GFR, A1C ####[place] [address] Urea nitrogen mass conc 6.0 mg/dL Low 8.0-22.0 [facility] ([place]) Comment on above: Performed By: #### C BC, ADIFF, ANEU, CMP, PBNP, GFR, A1C ####[place] [address] CBCon 03-21-2018 Erythrocyte distribution width Auto Ratio (RBC) 14.4 % Normal 11.5-15.5 [facility] ([place] Comment on above: Performed By: #### C BC, ADIFF, ANEU, CMP, PBNP, GFR, A1C ####[place] [address] Hematocrit Auto Volume Fraction (Bld) 38.6 % Low 40.0-52.0 [facility] ([place] Comment on above: Performed By: #### C BC, ADIFF, ANEU, CMP, PBNP, GFR, A1C ####[place] [address] Hemoglobin mass conc (Bld) 13.7 G/dL Normal 13.0-17.5 [facility] ([place] Comment on above: Performed By: #### C BC, ADIFF, ANEU, CMP, PBNP, GFR, A1C ####[place] [address] MCH Auto Entitic mass (RBC) 29.6 pg Normal 27.0-33.0 [facility] ([place]) Comment on above: Performed By: #### C BC, ADIFF, ANEU, CMP, PBNP, GFR, A1C ####[place] [address] MCHC Auto mass conc (RBC) 35.4 G/dL Normal 32.0-36.0 [facility] ([place]) Comment on above: Performed By: #### C BC, ADIFF, ANEU, CMP, PBNP, GFR, A1C ####[place] [address] MCV Auto Entitic volume (RBC) 83.6 fL Normal 81.0-100.0 [facility] ([place]) Comment on above: Performed By: #### C BC, ADIFF, ANEU, CMP, PBNP, GFR, A1C ####[place] [address] Platelet mean volume Auto Entitic volume (Bld) 8.4 fL Normal 6.4-10.5 [facility] ([place]) Comment on above: Performed By: #### C BC, ADIFF, ANEU, CMP, PBNP, GFR, A1C ####[place] [address] Platelets Auto #/vol (Bld) 210 10 3/mcL Normal 150-450 [facility] ([place]) Comment on above: Performed By: #### C BC, ADIFF, ANEU, CMP, PBNP, GFR, A1C ####[place] [address] RBC Auto #/vol (Bld) 4.62 10 6/mcL Normal 4.50-6.00 [facility] ([place]) Comment on above: Performed By: #### C BC, ADIFF, ANEU, CMP, PBNP, GFR, A1C ####[place] [address] WBC Auto #/vol (Bld) 7.90 10 3/mcL Normal 4.50-10.80 [facility] ([place]) Comment on above: Performed By: #### C BC, ADIFF, ANEU, CMP, PBNP, GFR, A1C ####[place] [address] .Auto Diffon 03-20-2018 Ammonia mass conc (P) 0.70 10 3/mcL Normal 0.09-1.40 [facility] ([place]) Comment on above: Performed By: #### C BC, ADIFF, ANEU, CMP, PBNP, GFR, A1C ####[address] [address] Basophils Auto #/vol (Bld) 0.00 10 3/mcL Normal 0.00-0.27 [facility] ([place]) Comment on above: Performed By: #### C BC, ADIFF, ANEU, CMP, PBNP, GFR, A1C ####[address] [address] Basophils/100 WBC Auto (Bld) 0.6 % Normal 0.0-2.5 [facility] ([place]) Comment on above: Performed By: #### C BC, ADIFF, ANEU, CMP, PBNP, GFR, A1C ####[address] [address] Eosinophils Auto #/vol (Bld) 0.10 10 3/mcL Normal 0.00-0.65 [facility] ([place]) Comment on above: Performed By: #### C BC, ADIFF, ANEU, CMP, PBNP, GFR, A1C ####[address] [address] Eosinophils/100 WBC Auto (Bld) 1.9 % Normal 0.0-6.0 [facility] ([place]) Comment on above: Performed By: #### C BC, ADIFF, ANEU, CMP, PBNP, GFR, A1C ####[address] [address] Lymphocytes Auto #/vol (Bld) 2.50 10 3/mcL Normal 0.90-4.32 [facility] ([place]) Comment on above: Performed By: #### C BC, ADIFF, ANEU, CMP, PBNP, GFR, A1C ####[address] [address] Lymphocytes/100 WBC Auto (Bld) 34.2 % Normal 20.0-40.0 [facility] ([place]) Comment on above: Performed By: #### C BC, ADIFF, ANEU, CMP, PBNP, GFR, A1C ####[address] [address] Monocytes/100 WBC Auto (Bld) 8.9 % Normal 2.0-13.0 [facility] ([place]) Comment on above: Performed By: #### C BC, ADIFF, ANEU, CMP, PBNP, GFR, A1C ####[address] [address] Neutrophils/100 WBC Auto (Bld) 54.4 % Normal 50.0-75.0 [facility] ([place]) Comment on above: Performed By: #### C BC, ADIFF, ANEU, CMP, PBNP, GFR, A1C ####[address] [address] .GFRon 03-20-2018 GFR Non- >60 Normal [facility] ([place]) Comment on above: Result Comment: GFR Population [...] BC, ADIFF, ANEU, CMP, PBNP, GFR, A1C ####[address] [address] GFR >60 Normal [facility] ([place]) Comment on above: Result Comment: GFR Population [...] BC, ADIFF, ANEU, CMP, PBNP, GFR, A1C ####[place] [address] .NEUABSon 03-20-2018 Neutrophil, Absolute 4.00 10 3/mcL Normal 2.25-8.10 [facility] ([place]) Comment on above: Performed By: #### C BC, ADIFF, ANEU, CMP, PBNP, GFR, A1C ####[place] [address] APTTon 03-20-2018 aPTT Coag time (Bld) 55.4 s High 25.0-35.0 [facility] ([place]) Comment on above: Result Comment: For Heparin anticoagulation therapy, the recommendedtherapeutic range is: 54-77 seconds (APTT Correlationwith Anti-Xa therapeutic range of 0.3-0.7 units/ml).PLEASE REFERENCE THE PHARMACY PROTOCOL FOR DOSING. Performed By: #### C BC, ADIFF, ANEU, CMP, PBNP, GFR, A1C ####[place] [address] aPTT Coag time (Bld) Heparin IV Normal [facility] ([place]) Comment on above: Performed By: #### C BC, ADIFF, ANEU, CMP, PBNP, GFR, A1C ####[place] [address] aPTT Coag time (Bld) 53.7 s High 25.0-35.0 [facility] ([place]) Comment on above: Result Comment: For Heparin anticoagulation therapy, the recommendedtherapeutic range is: 54-77 seconds (APTT Correlationwith Anti-Xa therapeutic range of 0.3-0.7 units/ml).PLEASE REFERENCE THE PHARMACY PROTOCOL FOR DOSING. Performed By: #### C BC, ADIFF, ANEU, CMP, PBNP, GFR, A1C ####[place] [address] aPTT Coag time (Bld) Heparin IV Normal [facility] ([place]) Comment on above: Performed By: #### C BC, ADIFF, ANEU, CMP, PBNP, GFR, A1C ####[place] [address] aPTT Coag time (Bld) 56.3 s High 25.0-35.0 [facility] ([place]) Comment on above: Result Comment: For Heparin anticoagulation therapy, the recommendedtherapeutic range is: 54-77 seconds (APTT Correlationwith Anti-Xa therapeutic range of 0.3-0.7 units/ml).PLEASE REFERENCE THE PHARMACY PROTOCOL FOR DOSING. Performed By: #### C BC, ADIFF, ANEU, CMP, PBNP, GFR, A1C ####[place] [address] aPTT Coag time (Bld) Heparin IV Normal [facility] ([place]) Comment on above: Performed By: #### C BC, ADIFF, ANEU, CMP, PBNP, GFR, A1C ####[place] [address] aPTT Coag time (Bld) Heparin IV Normal [facility] ([place]) Comment on above: Performed By: #### C BC, ADIFF, ANEU, CMP, PBNP, GFR, A1C ####[place] [address] aPTT Coag time (Bld) 48.2 s High 25.0-35.0 [facility] ([place]) Comment on above: Result Comment: For Heparin anticoagulation therapy, the recommendedtherapeutic range is: 54-77 seconds (APTT Correlationwith Anti-Xa therapeutic range of 0.3-0.7 units/ml).PLEASE REFERENCE THE PHARMACY PROTOCOL FOR DOSING. Performed By: #### C BC, ADIFF, ANEU, CMP, PBNP, GFR, A1C ####[place] [address] BGon 03-20-2018 Barometric Pressure 736 mmHg Normal [facility] ([place]) Comment on above: Order Comment: on Ro om Air. Preop Cardiothoracic OR (date) Performed By: #### C BC, ADIFF, ANEU, CMP, PBNP, GFR, A1C ####[address] [address] Base excess Calculated molar conc (Bld) 3.0 mmol/L Normal [facility] ([place]) Comment on above: Order Comment: on Ro om Air. Preop Cardiothoracic OR (date) Performed By: #### C BC, ADIFF, ANEU, CMP, PBNP, GFR, A1C ####[address] [address] CO2 molar conc 28.2 mmol/L Normal 22.0-30.0 [facility] ([place]) Comment on above: Order Comment: on Ro om Air. Preop Cardiothoracic OR (date) Performed By: #### C BC, ADIFF, ANEU, CMP, PBNP, GFR, A1C ####[address] [address] HCO3 molar conc (Bld) 27.0 mmol/L Normal 21.0-29.0 Replaced by [facility] ([place]) Comment on above: Order Comment: on Ro om Air. Preop Cardiothoracic OR (date) Performed By: #### C BC, ADIFF, ANEU, CMP, PBNP, GFR, A1C ####[address] [address] Oxygen ppres (BldA) 78.4 mm[Hg] Normal 74.0-108.0 [facility] ([place]) Comment on above: Order Comment: on Ro om Air. Preop Cardiothoracic OR (date) Performed By: #### C BC, ADIFF, ANEU, CMP, PBNP, GFR, A1C ####[address] [address] Oxygen saturation in Blood 95.9 % Normal 92.0-96.0 [facility] ([place]) Comment on above: Order Comment: on Ro om Air. Preop Cardiothoracic OR (date) Performed By: #### C BC, ADIFF, ANEU, CMP, PBNP, GFR, A1C ####[address] [address] pCO2 39.4 mmHg Normal 32.0-46.0 [facility] ([place]) Comment on above: Order Comment: on Ro om Air. Preop Cardiothoracic OR (date) Performed By: #### C BC, ADIFF, ANEU, CMP, PBNP, GFR, A1C ####[address] [address] pH (Bld) 7.454 [pH] Normal 7.380-7.460 [facility] ([place]) Comment on above: Order Comment: on Ro om Air. Preop Cardiothoracic OR (date) Performed By: #### C BC, ADIFF, ANEU, CMP, PBNP, GFR, A1C ####[address] [address] BMPon 03-20-2018 Creatinine mass conc 1.00 mg/dL Normal 0.60-1.40 [facility] ([place]) Comment on above: Performed By: #### C BC, ADIFF, ANEU, CMP, PBNP, GFR, A1C ####[place] [address] Urea nitrogen/Creatinine mass ratio 7.0 ratio Low 10.0-22.0 [facility] ([place]) Comment on above: Performed By: #### C BC, ADIFF, ANEU, CMP, PBNP, GFR, A1C ####[place] [address] Calcium mass conc 9.1 mg/dL Normal 8.4-10.1 [facility] ([place]) Comment on above: Performed By: #### C BC, ADIFF, ANEU, CMP, PBNP, GFR, A1C ####[address] [address] Chloride molar conc 101 mmol/L Normal 98-110 [facility] ([place]) Comment on above: Performed By: #### C BC, ADIFF, ANEU, CMP, PBNP, GFR, A1C ####[address] [address] CO2 molar conc 30 mmol/L Normal 22-32 [facility] ([place]) Comment on above: Performed By: #### C BC, ADIFF, ANEU, CMP, PBNP, GFR, A1C ####[place] [address] Electrolyte Balance 10.0 mEq/L Normal 4.0-15.0 [facility] ([place]) Comment on above: Performed By: #### C BC, ADIFF, ANEU, CMP, PBNP, GFR, A1C ####[place] [address] Glucose mass conc 135 mg/dL High 70-110 [facility] ([place]) Comment on above: Performed By: #### C BC, ADIFF, ANEU, CMP, PBNP, GFR, A1C ####[place] [address] Potassium molar conc 3.9 mmol/L Normal 3.5-5.0 [facility] ([place]) Comment on above: Performed By: #### C BC, ADIFF, ANEU, CMP, PBNP, GFR, A1C ####[place] [address] Sodium molar conc 141 mmol/L Normal 136-145 [facility] ([place]) Comment on above: Performed By: #### C BC, ADIFF, ANEU, CMP, PBNP, GFR, A1C ####[place] [address] Urea nitrogen mass conc 7.0 mg/dL Low 8.0-22.0 [facility] ([place]) Comment on above: Performed By: #### C BC, ADIFF, ANEU, CMP, PBNP, GFR, A1C ####[place] [address] CBCon 03-20-2018 Erythrocyte distribution width Auto Ratio (RBC) 14.3 % Normal 11.5-15.5 [facility] ([place]) Comment on above: Performed By: #### C BC, ADIFF, ANEU, CMP, PBNP, GFR, A1C ####[place] [address] Hematocrit Auto Volume Fraction (Bld) 38.6 % Low 40.0-52.0 [facility] ([place]) Comment on above: Performed By: #### C BC, ADIFF, ANEU, CMP, PBNP, GFR, A1C ####[place] [address] Hemoglobin mass conc (Bld) 13.5 G/dL Normal 13.0-17.5 [facility] ([place]) Comment on above: Performed By: #### C BC, ADIFF, ANEU, CMP, PBNP, GFR, A1C ####[place] [address] MCH Auto Entitic mass (RBC) 29.2 pg Normal 27.0-33.0 [facility] ([place]) Comment on above: Performed By: #### C BC, ADIFF, ANEU, CMP, PBNP, GFR, A1C ####[place] [address] MCHC Auto mass conc (RBC) 34.9 G/dL Normal 32.0-36.0 [facility] ([place]) Comment on above: Performed By: #### C BC, ADIFF, ANEU, CMP, PBNP, GFR, A1C ####[place] [address] MCV Auto Entitic volume (RBC) 83.5 fL Normal 81.0-100.0 [facility] ([place]) Comment on above: Performed By: #### C BC, ADIFF, ANEU, CMP, PBNP, GFR, A1C ####[place] [address] Platelet mean volume Auto Entitic volume (Bld) 8.3 fL Normal 6.4-10.5 [facility] ([place]) Comment on above: Performed By: #### C BC, ADIFF, ANEU, CMP, PBNP, GFR, A1C ####[place] [address] Platelets Auto #/vol (Bld) 220 10 3/mcL Normal 150-450 [facility] ([place]) Comment on above: Performed By: #### C BC, ADIFF, ANEU, CMP, PBNP, GFR, A1C ####[place] [address] RBC Auto #/vol (Bld) 4.63 10 6/mcL Normal 4.50-6.00 [facility] ([place]) Comment on above: Performed By: #### C BC, ADIFF, ANEU, CMP, PBNP, GFR, A1C ####[facility] [place] [address] WBC Auto #/vol (Bld) 7.40 10 3/mcL Normal 4.50-10.80 [facility] ([place]) Comment on above: Performed By: #### C BC, ADIFF, ANEU, CMP, PBNP, GFR, A1C ####[facility] [place] [address] [address] THORAX W/O CONTRASTon CT THORAX W/O [...] a few RIGHT lung pulmonary nodules. A treasury representative nodule within the RIGHT middle lobe [...] AM Sign Date: 03/20/2018 6:45:57 PM Normal [facility] ([place]) Cardiothoracic Progress Note on 03-20-2018 Protein mass conc Normal [facility] ([place]) Neurology Consultationon Neurology Consultation Normal [facility] ([place]) PLTFon 03-20-2018 Plt % Functional 76 % Low 80-97 [facility] ([place]) Comment on above: Performed By: #### C BC, ADIFF, ANEU, CMP, PBNP, GFR, A1C ####[address] [address] Plt ADP 47 k/mm3 Normal [facility] ([place]) Comment on above: Performed By: #### C BC, ADIFF, ANEU, CMP, PBNP, GFR, A1C ####[address] [address] Plt Base 193 k/mm3 Normal [facility] ([place]) Comment on above: Performed By: #### C BC, ADIFF, ANEU, CMP, PBNP, GFR, A1C ####[address] [address] Progress Noteon 03-20-2018 Protein mass conc Normal [facility] ([place]) Protein mass conc Normal [facility] ([place]) TROPIon 03-20-2018 Troponin I.cardiac mass conc 9.730 ng/mL High 0.000-0.040 [facility] ([place]) Comment on above: Result Comment: Trop onin I reference ranges (05/26/14): 0.00-0.040 ng/mL Negative and non-diagnostic. >0.040 ng/mL Consistent with cardiac damage, increased clinical risk and possibility of myocardial infarction. Serial measurements, a rise & fall in test results, clinical history, appropriate symptoms and/or ECG changes may help assess possibility of TN. *Other non-acute coronary syndrome conditions such as CHF, myocarditis, pulmonary emboli, sepsis and cardiac surgery could result in myocardial damage and increased troponin levels. Performed By: #### C BC, ADIFF, ANEU, CMP, PBNP, GFR, A1C ####[address] [address] TSHon 03-20-2018 Thyrotropin Qn 6.310 mcIU/mL High 0.360-3.740 [facility] ([place]) Comment on above: Result Comment: Plea se note ? as of 04/01/17 new pediatric reference intervals were added for this test. Performed By: #### C BC, ADIFF, ANEU, CMP, PBNP, GFR, A1C ####[address] [address] XR CHEST 2 VIEWSon 8 XR CHEST [...] AM Sign Date: 03/20/2018 1:50:23 AM Normal [facility] ([place]) .Auto Diffon 03-19-2018 Ammonia mass conc (P) 0.90 10 3/mcL Normal 0.09-1.40 [facility] ([place]) Comment on above: Performed By: #### C BC, ADIFF, ANEU, CMP, PBNP, GFR, A1C ####[address] [address] Basophils Auto #/vol (Bld) 0.10 10 3/mcL Normal 0.00-0.27 [facility] ([place]) Comment on above: Performed By: #### C BC, ADIFF, ANEU, CMP, PBNP, GFR, A1C ####[address] [address] Basophils/100 WBC Auto (Bld) 0.5 % Normal 0.0-2.5 [facility] ([place]) Comment on above: Performed By: #### C BC, ADIFF, ANEU, CMP, PBNP, GFR, A1C ####[address] [address] Eosinophils Auto #/vol (Bld) 0.20 10 3/mcL Normal 0.00-0.65 [facility] ([place]) Comment on above: Performed By: #### C BC, ADIFF, ANEU, CMP, PBNP, GFR, A1C ####[address] [address] Eosinophils/100 WBC Auto (Bld) 2.1 % Normal 0.0-6.0 [facility] ([place]) Comment on above: Performed By: #### C BC, ADIFF, ANEU, CMP, PBNP, GFR, A1C ####[address] [address] Lymphocytes Auto #/vol (Bld) 2.40 10 3/mcL Normal 0.90-4.32 [facility] ([place]) Comment on above: Performed By: #### C BC, ADIFF, ANEU, CMP, PBNP, GFR, A1C ####[address] [address] Lymphocytes/100 WBC Auto (Bld) 22.5 % Normal 20.0-40.0 [facility] ([place]) Comment on above: Performed By: #### C BC, ADIFF, ANEU, CMP, PBNP, GFR, A1C ####[address] [address] Monocytes/100 WBC Auto (Bld) 8.7 % Normal 2.0-13.0 [facility] ([place]) Comment on above: Performed By: #### C BC, ADIFF, ANEU, CMP, PBNP, GFR, A1C ####[address] [address] Neutrophils/100 WBC Auto (Bld) 66.2 % Normal 50.0-75.0 [facility] ([place]) Comment on above: Performed By: #### C BC, ADIFF, ANEU, CMP, PBNP, GFR, A1C ####[address] [address] .GFRon 03-19-2018 GFR Non- >60 Normal [facility] ([place]) Comment on above: Result Comment: GFR Population [...] BC, ADIFF, ANEU, CMP, PBNP, GFR, A1C ####[address] [address] GFR >60 Normal [facility] ([place]) Comment on above: Result Comment: GFR Population [...] BC, ADIFF, ANEU, CMP, PBNP, GFR, A1C ####[place] [address] .NEUABSon 03-19-2018 Neutrophil, Absolute 7.10 10 3/mcL Normal 2.25-8.10 A [facility] ([place] Comment on above: Performed By: #### C BC, ADIFF, ANEU, CMP, PBNP, GFR, A1C ####[place] [id number] APTTon 03-19-2018 aPTT Coag time (Bld) Heparin IV Normal [facility] ([place]) Comment on above: Performed By: #### C BC, ADIFF, ANEU, CMP, PBNP, GFR, A1C ####[place] [address] aPTT Coag time (Bld) 43.3 s High 25.0-35.0 [facility] ([place]) Comment on above: Result Comment: For Heparin anticoagulation therapy, the recommendedtherapeutic range is: 54-77 seconds (APTT Correlationwith Anti-Xa therapeutic range of 0.3-0.7 units/ml).PLEASE REFERENCE THE PHARMACY PROTOCOL FOR DOSING. Performed By: #### C BC, ADIFF, ANEU, CMP, PBNP, GFR, A1C ####[place] [address] aPTT Coag time (Bld) 51.0 s High 25.0-35.0 [facility] ([place] Comment on above: Result Comment: For Heparin anticoagulation therapy, the recommendedtherapeutic range is: 54-77 seconds (APTT Correlationwith Anti-Xa therapeutic range of 0.3-0.7 units/ml).PLEASE REFERENCE THE PHARMACY PROTOCOL FOR DOSING. Performed By: #### C BC, ADIFF, ANEU, CMP, PBNP, GFR, A1C ####[place] [address] aPTT Coag time (Bld) Heparin IV Normal [facility] ([place]) Comment on above: Performed By: #### C BC, ADIFF, ANEU, CMP, PBNP, GFR, A1C ####[place] [address] BMPon 03-19-2018 Calcium mass conc 8.6 mg/dL Normal 8.4-10.1 [facility] ([place]) Comment on above: Performed By: #### C BC, ADIFF, ANEU, CMP, PBNP, GFR, A1C ####[place] [address] Chloride molar conc 104 mmol/L Normal 98-110 [facility] ([place]) Comment on above: Performed By: #### C BC, ADIFF, ANEU, CMP, PBNP, GFR, A1C ####[place] [id number] CO2 molar conc 28 mmol/L Normal 22-32 [facility] ([place]) Comment on above: Performed By: #### C BC, ADIFF, ANEU, CMP, PBNP, GFR, A1C ####[place] [address] Creatinine mass conc 0.88 mg/dL Normal 0.60-1.40 [facility] ([place]) Comment on above: Performed By: #### C BC, ADIFF, ANEU, CMP, PBNP, GFR, A1C ####[place] [address] Electrolyte Balance 9.0 mEq/L Normal 4.0-15.0 [facility] ([place]) Comment on above: Performed By: #### C BC, ADIFF, ANEU, CMP, PBNP, GFR, A1C ####[place] [address] Glucose mass conc 134 mg/dL High 70-110 [facility] ([place]) Comment on above: Performed By: #### C BC, ADIFF, ANEU, CMP, PBNP, GFR, A1C ####[place] [address] Potassium molar conc 3.9 mmol/L Normal 3.5-5.0 [facility] ([place]) Comment on above: Performed By: #### C BC, ADIFF, ANEU, CMP, PBNP, GFR, A1C ####[place] [address] Sodium molar conc 141 mmol/L Normal 136-145 [facility] ([place]) Comment on above: Performed By: #### C BC, ADIFF, ANEU, CMP, PBNP, GFR, A1C ####[place] [address] Urea nitrogen mass conc 5.0 mg/dL Low 8.0-22.0 [facility] ([place]) Comment on above: Performed By: #### C BC, ADIFF, ANEU, CMP, PBNP, GFR, A1C ####[place] [address] Urea nitrogen/Creatinine mass ratio 5.7 ratio Low 10.0-22.0 [facility] ([place]) Comment on above: Performed By: #### C BC, ADIFF, ANEU, CMP, PBNP, GFR, A1C ####[place] [address] CBCon 03-19-2018 Erythrocyte distribution width Auto Ratio (RBC) 14.9 % Normal 11.5-15.5 [facility] ([place]) Comment on above: Performed By: #### C BC, ADIFF, ANEU, CMP, PBNP, GFR, A1C ####[place] [address] Hematocrit Auto Volume Fraction (Bld) 39.9 % Low 40.0-52.0 [facility] ([place]) Comment on above: Performed By: #### C BC, ADIFF, ANEU, CMP, PBNP, GFR, A1C ####[place] [address] Hemoglobin mass conc (Bld) 13.9 G/dL Normal 13.0-17.5 [facility] ([place]) Comment on above: Performed By: #### C BC, ADIFF, ANEU, CMP, PBNP, GFR, A1C ####[place] [address] MCH Auto Entitic mass (RBC) 29.1 pg Normal 27.0-33.0 [facility] ([place]) Comment on above: Performed By: #### C BC, ADIFF, ANEU, CMP, PBNP, GFR, A1C ####[place] [address] MCHC Auto mass conc (RBC) 34.8 G/dL Normal 32.0-36.0 [facility] ([place]) Comment on above: Performed By: #### C BC, ADIFF, ANEU, CMP, PBNP, GFR, A1C ####[place] [address] MCV Auto Entitic volume (RBC) 83.5 fL Normal 81.0-100.0 [facility] ([place]) Comment on above: Performed By: #### C BC, ADIFF, ANEU, CMP, PBNP, GFR, A1C ####[place] [address] Platelet mean volume Auto Entitic volume (Bld) 8.2 fL Normal 6.4-10.5 [facility] ([place]) Comment on above: Performed By: #### C BC, ADIFF, ANEU, CMP, PBNP, GFR, A1C ####[address] [address] Platelets Auto #/vol (Bld) 222 10 3/mcL Normal 150-450 [facility] ([place]) Comment on above: Performed By: #### C BC, ADIFF, ANEU, CMP, PBNP, GFR, A1C ####[place] [address] RBC Auto #/vol (Bld) 4.77 10 6/mcL Normal 4.50-6.00 A [facility] ([place] Comment on above: Performed By: #### C BC, ADIFF, ANEU, CMP, PBNP, GFR, A1C ####[address] [address] WBC Auto #/vol (Bld) 10.70 10 3/mcL Normal 4.50-10.80 [facility] ([place]) Comment on above: Performed By: #### C BC, ADIFF, ANEU, CMP, PBNP, GFR, A1C ####[place] [address] Cardiac Catheterization - CV on 03-19-2018 Cardiac Catheterization - CV Normal [facility] ([place]) Cardiothoracic Consultationo n 03-19-2018 Cardiothoracic Consultation Normal [facility] ([place]) Echocardiogram, Adulton Echocardiogram, Adult Normal [facility] ([place]) LIPIDon 03-19-2018 Cholesterol in HDL mass conc 24 mg/dL Low 40-59 [facility] ([place]) Comment on above: Result Comment: HDL Reference Interval:Less than 40 Low - high risk60 or above Optimal/lowers risk Performed By: #### C BC, ADIFF, ANEU, CMP, PBNP, GFR, A1C ####[place] [address] Cholesterol in LDL mass conc 61 mg/dL Normal 0-129 [facility] ([place]) Comment on above: Result Comment: LDL is a calculated result and requires a 12- hr fast.LDL Reference Interval:Less than 100 [id number] Near or above [id number] Borderline high [id number] High [id number] and above Very high risk Performed By: #### C BC, ADIFF, ANEU, CMP, PBNP, GFR, A1C ####[place] [address] [address] [place] [address] Cholesterol mass conc 142 mg/dL Normal 50-199 [facility] ([place] Comment on above: Result Comment: Chol esterol Reference Interval:Less than 200 [id number] Borderline high [id number] and above High risk Performed By: #### C BC, ADIFF, ANEU, CMP, PBNP, GFR, A1C ####[facility] [place] [address] Triglyceride mass conc 284 mg/dL High 3-149 [facility] ([place]) Comment on above: Result Comment: Trig lyceride Reference Interval:Less than 150 [id number] Borderline high [id number] High [id number] or higher Very high risk Performed By: #### C BC, ADIFF, ANEU, CMP, PBNP, GFR, A1C ####[address] [address] Progress Noteon 03-19-2018 Protein mass conc Normal [facility] ([place]) TROPIon 03-19-2018 Troponin I.cardiac mass conc 25.200 ng/mL High 0.000-0.040 [facility] ([place]) Comment on above: Result Comment: Trop onin I reference ranges (05/26/14): 0.00-0.040 ng/mL Negative and non-diagnostic. >0.040 ng/mL Consistent with cardiac damage, increased clinical risk and possibility of myocardial infarction. Serial measurements, a rise & fall in test results, clinical history, appropriate symptoms and/or ECG changes may help assess possibility of TN. *Other non-acute coronary syndrome conditions such as CHF, myocarditis, pulmonary emboli, sepsis and cardiac surgery could result in myocardial damage and increased troponin levels. Performed By: #### C BC, ADIFF, ANEU, CMP, PBNP, GFR, A1C ####[place] [address] [place] [address] UAon 03-19-2018 Color Nom (U) Yellow Normal [facility] ([place]) Comment on above: Performed By: #### C BC, ADIFF, ANEU, CMP, PBNP, GFR, A1C ####[address] [address] Glucose mass conc (U) Negative Normal Negative [facility] ([place] Comment on above: Performed By: #### C BC, ADIFF, ANEU, CMP, PBNP, GFR, A1C ####[address] [address] Ketones Ql (U) Negative Normal Neg-Trace [facility] ([place]) Comment on above: Performed By: #### C BC, ADIFF, ANEU, CMP, PBNP, GFR, A1C ####[address] [address] UA Appear Clear Normal Clear [facility] ([place]) Comment on above: Performed By: #### C BC, ADIFF, ANEU, CMP, PBNP, GFR, A1C ####[address] [address] UA Blood Negative Normal Neg-Trace [facility] ([place]) Comment on above: Performed By: #### C BC, ADIFF, ANEU, CMP, PBNP, GFR, A1C ####[address] [address] UA Leuk Est Negative Normal Negative [facility] ([place]) Comment on above: Performed By: #### C BC, ADIFF, ANEU, CMP, PBNP, GFR, A1C ####[address] [address] UA Nitrite Negative Normal Negative [facility] ([place]) Comment on above: Performed By: #### C BC, ADIFF, ANEU, CMP, PBNP, GFR, A1C ####[address] [address] UA pH 5.5 Normal 5.0 - 8.0 [facility] ([place]) Comment on above: Performed By: #### C BC, ADIFF, ANEU, CMP, PBNP, GFR, A1C ####[address] [address] UA Protein Negative Normal Negative [facility] ([place]) Comment on above: Performed By: #### C BC, ADIFF, ANEU, CMP, PBNP, GFR, A1C ####[address] [address] UA Spec Grav >=1.030 Invalid Interpretation Code 1.006-1.029 [facility] ([place]) Comment on above: Performed By: #### C BC, ADIFF, ANEU, CMP, PBNP, GFR, A1C ####[address] [address] UA Specimen Type Clean Catch Normal [facility] ([place]) Comment on above: Performed By: #### C BC, ADIFF, ANEU, CMP, PBNP, GFR, A1C ####[place] [address] UA Urobilinogen 1.0 E.U./dL Normal 0.2-1.0 [facility] ([place]) Comment on above: Performed By: #### C BC, ADIFF, ANEU, CMP, PBNP, GFR, A1C ####[place] [address] Urobilinogen Test strip Qn (U) Negative Normal Neg-Trace [facility] ([place]) Comment on above: Performed By: #### C BC, ADIFF, ANEU, CMP, PBNP, GFR, A1C ####[place] [address] [place] RENALon 03-19-2018 [place] RENAL ORIGINALUS RENAL [...] AM Sign Date: 03/19/2018 4:47:11 AM Normal [facility] ([place]) VL Carotid US/Doppler Comple nathalie 03-19-2018 VL Carotid US/Doppler Complete Normal [facility] ([place]) .Auto Diffon 03-18-2018 Ammonia mass conc (P) 0.70 10 3/mcL Normal 0.09-1.40 [facility] ([place]) Comment on above: Performed By: #### C BC, ADIFF, ANEU, CMP, PBNP, GFR, A1C ####[address] [address] Basophils Auto #/vol (Bld) 0.10 10 3/mcL Normal 0.00-0.27 [facility] ([place]) Comment on above: Performed By: #### C BC, ADIFF, ANEU, CMP, PBNP, GFR, A1C ####[address] [address] Basophils/100 WBC Auto (Bld) 0.9 % Normal 0.0-2.5 [facility] ([place] Comment on above: Performed By: #### C BC, ADIFF, ANEU, CMP, PBNP, GFR, A1C ####[address] [address] Eosinophils Auto #/vol (Bld) 0.20 10 3/mcL Normal 0.00-0.65 [facility] ([place]) Comment on above: Performed By: #### C BC, ADIFF, ANEU, CMP, PBNP, GFR, A1C ####[address] [address] Eosinophils/100 WBC Auto (Bld) 2.4 % Normal 0.0-6.0 [facility] ([place] Comment on above: Performed By: #### C BC, ADIFF, ANEU, CMP, PBNP, GFR, A1C ####[address] [address] Lymphocytes Auto #/vol (Bld) 2.50 10 3/mcL Normal 0.90-4.32 [facility] ([place]) Comment on above: Performed By: #### C BC, ADIFF, ANEU, CMP, PBNP, GFR, A1C ####[address] [address] Lymphocytes/100 WBC Auto (Bld) 30.3 % Normal 20.0-40.0 [facility] ([place] Comment on above: Performed By: #### C BC, ADIFF, ANEU, CMP, PBNP, GFR, A1C ####[address] [address] Monocytes/100 WBC Auto (Bld) 8.8 % Normal 2.0-13.0 [facility] ([place]) Comment on above: Performed By: #### C BC, ADIFF, ANEU, CMP, PBNP, GFR, A1C ####[address] [address] Neutrophils/100 WBC Auto (Bld) 57.6 % Normal 50.0-75.0 [facility] ([place] Comment on above: Performed By: #### C BC, ADIFF, ANEU, CMP, PBNP, GFR, A1C ####[address] [address] .GFRon 03-18-2018 GFR Non- >60 Normal [facility] ([place]) Comment on above: Result Comment: GFR Population [...] BC, ADIFF, ANEU, CMP, PBNP, GFR, A1C ####[address] [address] GFR >60 Normal [facility] ([place]) Comment on above: Result Comment: GFR Population [...] BC, ADIFF, ANEU, CMP, PBNP, GFR, A1C ####[place] [address] .NEUABSon 03-18-2018 Neutrophil, Absolute 4.80 10 3/mcL Normal 2.25-8.10 [facility] ([place]) Comment on above: Performed By: #### C BC, ADIFF, ANEU, CMP, PBNP, GFR, A1C ####[place] [address] A1Con 03-18-2018 Hemoglobin A1c/Hemoglobin.total mass fraction (Bld) 5.9 % Normal 4.0-6.0 [facility] ([place]) Comment on above: Performed By: #### C BC, ADIFF, ANEU, CMP, PBNP, GFR, A1C ####[place] [address] APTTon 03-18-2018 aPTT Coag time (Bld) 55.8 s High 25.0-35.0 [facility] ([place]) Comment on above: Result Comment: For Heparin anticoagulation therapy, the recommendedtherapeutic range is: 54-77 seconds (APTT Correlationwith Anti-Xa therapeutic range of 0.3-0.7 units/ml).PLEASE REFERENCE THE PHARMACY PROTOCOL FOR DOSING. Performed By: #### C BC, ADIFF, ANEU, CMP, PBNP, GFR, A1C ####[place] [address] aPTT Coag time (Bld) Heparin IV Normal [facility] ([place]) Comment on above: Performed By: #### C BC, ADIFF, ANEU, CMP, PBNP, GFR, A1C ####[place] [address] aPTT Coag time (Bld) 29.5 s Normal 25.0-35.0 [facility] ([place] Comment on above: Result Comment: For Heparin anticoagulation therapy, the recommendedtherapeutic range is: 54-77 seconds (APTT Correlationwith Anti-Xa therapeutic range of 0.3-0.7 units/ml).PLEASE REFERENCE THE PHARMACY PROTOCOL FOR DOSING. Performed By: #### A PTT ####[place] [address] aPTT Coag time (Bld) None Normal [facility] ([place] Comment on above: Performed By: #### A PTT ####[place] [address] CBCon 03-18-2018 Erythrocyte distribution width Auto Ratio (RBC) 14.6 % Normal 11.5-15.5 [facility] ([place]) Comment on above: Performed By: #### C BC, ADIFF, ANEU, CMP, PBNP, GFR, A1C ####[place] [address] Hematocrit Auto Volume Fraction (Bld) 40.3 % Normal 40.0-52.0 [facility] ([place] Comment on above: Performed By: #### C BC, ADIFF, ANEU, CMP, PBNP, GFR, A1C ####[place] [address] Hemoglobin mass conc (Bld) 14.1 G/dL Normal 13.0-17.5 [facility] ([place] Comment on above: Performed By: #### C BC, ADIFF, ANEU, CMP, PBNP, GFR, A1C ####[place] [address] MCH Auto Entitic mass (RBC) 29.3 pg Normal 27.0-33.0 [facility] ([place]) Comment on above: Performed By: #### C BC, ADIFF, ANEU, CMP, PBNP, GFR, A1C ####[place] [address] MCHC Auto mass conc (RBC) 34.9 G/dL Normal 32.0-36.0 [facility] ([place] Comment on above: Performed By: #### C BC, ADIFF, ANEU, CMP, PBNP, GFR, A1C ####[place] [address] MCV Auto Entitic volume (RBC) 83.9 fL Normal 81.0-100.0 [facility] ([place] Comment on above: Performed By: #### C BC, ADIFF, ANEU, CMP, PBNP, GFR, A1C ####[place] [address] Platelet mean volume Auto Entitic volume (Bld) 8.3 fL Normal 6.4-10.5 [facility] ([place] Comment on above: Performed By: #### C BC, ADIFF, ANEU, CMP, PBNP, GFR, A1C ####[place] [address] Platelets Auto #/vol (Bld) 223 10 3/mcL Normal 150-450 [facility] ([place]) Comment on above: Performed By: #### C BC, ADIFF, ANEU, CMP, PBNP, GFR, A1C ####[place] [address] RBC Auto #/vol (Bld) 4.80 10 6/mcL Normal 4.50-6.00 [facility] ([place] Comment on above: Performed By: #### C BC, ADIFF, ANEU, CMP, PBNP, GFR, A1C ####[place] [address] WBC Auto #/vol (Bld) 8.30 10 3/mcL Normal 4.50-10.80 [facility] ([place] Comment on above: Performed By: #### C BC, ADIFF, ANEU, CMP, PBNP, GFR, A1C ####[place] [address] CMPon 03-18-2018 Albumin/Globulin mass ratio 1.0 {ratio} Normal 0.9-1.6 [facility] ([place]) Comment on above: Performed By: #### C BC, ADIFF, ANEU, CMP, PBNP, GFR, A1C ####[address] [address] ALP enzyme act/vol 95 U/L Normal 38-126 [facility] ([place]) Comment on above: Performed By: #### C BC, ADIFF, ANEU, CMP, PBNP, GFR, A1C ####[place] [address] Bili Total 0.3 mg/dL Normal 0.2-1.2 [facility] ([place]) Comment on above: Performed By: #### C BC, ADIFF, ANEU, CMP, PBNP, GFR, A1C ####[place] [address] Creatinine mass conc 0.85 mg/dL Normal 0.60-1.40 [facility] ([place]) Comment on above: Performed By: #### C BC, ADIFF, ANEU, CMP, PBNP, GFR, A1C ####[place] [address] Globulin Calculated mass conc (S) 3.2 G/dL Normal 1.5-3.8 [facility] ([place]) Comment on above: Performed By: #### C BC, ADIFF, ANEU, CMP, PBNP, GFR, A1C ####[place] [address] Protein mass conc 6.4 G/dL Normal 6.0-8.5 [facility] ([place]) Comment on above: Performed By: #### C BC, ADIFF, ANEU, CMP, PBNP, GFR, A1C ####[place] [address] Urea nitrogen/Creatinine mass ratio 14.1 ratio Normal 10.0-22.0 [facility] ([place] Comment on above: Performed By: #### C BC, ADIFF, ANEU, CMP, PBNP, GFR, A1C ####[place] [address] Albumin mass conc 3.2 G/dL Normal 3.2-4.8 [facility] ([place] Comment on above: Performed By: #### C BC, ADIFF, ANEU, CMP, PBNP, GFR, A1C ####[address] [address] ALT enzyme act/vol 16 U/L Normal 12-55 [facility] ([place]) Comment on above: Performed By: #### C BC, ADIFF, ANEU, CMP, PBNP, GFR, A1C ####[address] [address] AST enzyme act/vol 22 U/L Normal 8-34 [facility] ([place]) Comment on above: Performed By: #### C BC, ADIFF, ANEU, CMP, PBNP, GFR, A1C ####[place] [address] Calcium mass conc 8.0 mg/dL Low 8.4-10.1 [facility] ([place]) Comment on above: Performed By: #### C BC, ADIFF, ANEU, CMP, PBNP, GFR, A1C ####[place] [address] Chloride molar conc 107 mmol/L Normal 98-110 [facility] ([place]) Comment on above: Performed By: #### C BC, ADIFF, ANEU, CMP, PBNP, GFR, A1C ####[place] [address] CO2 molar conc 26 mmol/L Normal 22-32 [facility] ([place]) Comment on above: Performed By: #### C BC, ADIFF, ANEU, CMP, PBNP, GFR, A1C ####[place] [address] Electrolyte Balance 10.0 mEq/L Normal 4.0-15.0 [facility] ([place]) Comment on above: Performed By: #### C BC, ADIFF, ANEU, CMP, PBNP, GFR, A1C ####[place] [address] Glucose mass conc 182 mg/dL High 70-110 [facility] ([place]) Comment on above: Performed By: #### C BC, ADIFF, ANEU, CMP, PBNP, GFR, A1C ####[place] [address] Potassium molar conc 4.1 mmol/L Normal 3.5-5.0 [facility] ([place]) Comment on above: Performed By: #### C BC, ADIFF, ANEU, CMP, PBNP, GFR, A1C ####[place] [address] Sodium molar conc 143 mmol/L Normal 136-145 [facility] ([place]) Comment on above: Performed By: #### C BC, ADIFF, ANEU, CMP, PBNP, GFR, A1C ####[place] [address] Urea nitrogen mass conc 12.0 mg/dL Normal 8.0-22.0 [facility] ([place]) Comment on above: Performed By: #### C BC, ADIFF, ANEU, CMP, PBNP, GFR, A1C ####[place] [address] CRPHSon 03-18-2018 CRP, High Sensitive 10.60 mg/L High 0.20-3.00 [facility] ([place]) Comment on above: Result Comment: Rela tive [...] BC, ADIFF, ANEU, CMP, PBNP, GFR, A1C ####[place] [address] CT ANGIOGRAPHY CHEST W/CONTR Leonor 03-18-2018 CT [...] the kidney was not included within the [id number] of the noncontrast images so presence of [...] Recommend further characterization with ultrasound. Interpreted By: [place] ,Aaron MDPreliminary Report By: Aaron Nash MDElectronically Signed By: Aaron Nash MD Dictated Date: 03/18/2018 10:40:41 AM Prelim Date: 03/18/2018 10:40:41 AM Sign Date: 03/18/2018 10:50:40 AM Normal [facility]) DRUGUon 03-18-2018 Drug Screen Urine Positive Invalid Interpretation Code [facility]) Comment on above: Performed By: #### C BC, ADIFF, ANEU, CMP, PBNP, GFR, A1C ####[address] [address] Drug Screen Urine Interp Positive Invalid Interpretation Code [facility]) Comment on above: Performed By: #### C BC, ADIFF, ANEU, CMP, PBNP, GFR, A1C ####[address] [address] U pH Drug Scrn 7.0 Normal 5.0-8.0 [facility]) Comment on above: Performed By: #### C BC, ADIFF, ANEU, CMP, PBNP, GFR, A1C ####[address] [address] U Specific Noti Drg Scrn 1.005 Normal 1.005-1.030 [facility]) Comment on above: Performed By: #### C BC, ADIFF, ANEU, CMP, PBNP, GFR, A1C ####[address] [address] Urine Drugs screened: See Below Normal [facility]) Comment on above: Result Comment: This drug [...] BC, ADIFF, ANEU, CMP, PBNP, GFR, A1C ####[place] [address] [address] [place] [address] ESRon 03-18-2018 Erythrocyte Sed Rate 73 mm/hr High 0-20 [facility] ([place]) Comment on above: Performed By: #### C BC, ADIFF, ANEU, CMP, PBNP, GFR, A1C ####[address] [address] History and Physicalon 03-18 History and Physical Normal [facility] ([place]) PBNPon 03-18-2018 Natriuretic peptide B mass conc (Bld) 356 pg/mL Normal 0-900 [facility] ([place]) Comment on above: Result Comment: NT-p roBNP results of less than 300 pg/mL effectivelyrules out acute congestive heart failure with 99% negative predictive value. Performed By: #### C BC, ADIFF, ANEU, CMP, PBNP, GFR, A1C ####[place] [id number] TROPIon 03-18-2018 Troponin I.cardiac mass conc 16.300 ng/mL High 0.000-0.040 [facility] ([place]) Comment on above: Result Comment: Trop onin I reference ranges (05/26/14): 0.00-0.040 ng/mL Negative and non-diagnostic. >0.040 ng/mL Consistent with cardiac damage, increased clinical risk and possibility of myocardial infarction. Serial measurements, a rise & fall in test results, clinical history, appropriate symptoms and/or ECG changes may help assess possibility of TN. *Other non-acute coronary syndrome conditions such as CHF, myocarditis, pulmonary emboli, sepsis and cardiac surgery could result in myocardial damage and increased troponin levels. Performed By: #### C BC, ADIFF, ANEU, CMP, PBNP, GFR, A1C ####[address] [address] Troponin I.cardiac mass conc 4.400 ng/mL High 0.000-0.040 [facility] ([place]) Comment on above: Result Comment: Trop onin I reference ranges (05/26/14): 0.00-0.040 ng/mL Negative and non-diagnostic. >0.040 ng/mL Consistent with cardiac damage, increased clinical risk and possibility of myocardial infarction. Serial measurements, a rise & fall in test results, clinical history, appropriate symptoms and/or ECG changes may help assess possibility of TN. *Other non-acute coronary syndrome conditions such as CHF, myocarditis, pulmonary emboli, sepsis and cardiac surgery could result in myocardial damage and increased troponin levels. Performed By: #### C BC, ADIFF, ANEU, CMP, PBNP, GFR, A1C ####[place] [address] [place] [address] Troponin I.cardiac mass conc 0.979 ng/mL High 0.000-0.040 [facility] ([place]) Comment on above: Result Comment: Trop onin I reference ranges (05/26/14): 0.00-0.040 ng/mL Negative and non-diagnostic. >0.040 ng/mL Consistent with cardiac damage, increased clinical risk and possibility of myocardial infarction. Serial measurements, a rise & fall in test results, clinical history, appropriate symptoms and/or ECG changes may help assess possibility of TN. *Other non-acute coronary syndrome conditions such as CHF, myocarditis, pulmonary emboli, sepsis and cardiac surgery could result in myocardial damage and increased troponin levels. Performed By: #### T ROPI ####[address] [address] Encounters Encounter Date Encounter Type Care Provider Facility Start: 02-28-2025 End: 02-28-2025 ambulatory Brett MARTINEZ Work Phone: [facility] Work Phone: Start: 02-28-2025 End: 02-28-2025 Patient encounter procedure Cash Magana PA -Cat Scan [facility] Work Phone: Start: 02-28-2025 End: 02-28-2025 ambulatory Cash Magana Facility:[facility] Start: 01-09-2024 End: 01-09-2024 ambulatory [facility] Work Phone: Start: 01-09-2024 End: 01-09-2024 Patient encounter procedure [facility]-[place] Start: 06-02-2023 ambulatory Roshni Shepard MA [facility] Comment on above: Population Health Na vigation Outreach ([employer] ) Start: 12-10-2020 Patient encounter procedure TRU ESPOSITO [place] Start: 12-01-2020 End: 12-01-2020 Patient encounter procedure DANA MEJIA [facility] Start: 02-14-2020 Patient encounter procedure TRU ESPOSITO [place] Start: 05-16-2018 End: 05-17-2018 Patient encounter HATTIE MICHAUD Facility:[facility] Start: 04-25-2018 End: 04-26-2018 Patient encounter RICHELLE REYNOLDS Facility:[facility] Start: 04-10-2018 End: 04-12-2018 Evaluation and management of inpatient KB CASTELLANOS Facility:A Start: 04-01-2018 End: 05-04-2018 Patient encounter TANIA CAM Facility:[facility] Start: 03-18-2018 End: 03-30-2018 Evaluation and management of inpatient TANIA CAM Facility:A Procedures Date Procedure Procedure Detail Performing Clinician Start: 02-28-2025 CT of face Brett persaud SOFTWARE TEST TECHNICIAN-C Work Phone: Plan of Treatment Date Care Activity Detail Author Start: 05-19-2023 Influenza vaccination Influenza Vacc ine (#1) [facility] Start: 09-18-2022 Depression Assessment Depression Ass essment [facility] Start: 06-14-2021 Prostate Cancer Scre ening Discussion Prostate Cancer Screening Discussion [facility] Start: 06-14-2017 3 comp foot exam completed Diabetic Foot Exam [facility] Start: 01-23-2017 Hemoglobin A1c/Hemoglobin.total in Blood HbA1C [facility] Start: 2013 Shingrix Vaccine (1 of 2) Shingrix V accine (1 of 2) [facility] Start: 2008 Cologuard (FIT-DNA) Cologuard (FIT-D NA) [facility] Start: 2008 Colonoscopy Colonoscopy [facility] Start: 2008 Colorectal Cancer Screening Colorectal Cancer Screening [facility] Start: [address] [facility] Start: 2008 Fecal Occult Blood Fecal Occult Bloo d [facility] Start: 2008 SIGMOIDOSCOPY SIGMOIDOSCOPY [facility] Start: 1982 Urine microalbumin profile DTa P,Tdap,Td Vaccine (1 - Tdap) [facility] Start: 1981 Hepatitis B surface antibody level LDL Cholesterol [facility] Start: 1981 Hepatitis C Screening Hepatitis C Sc reening [facility] Start: 1981 HIV Screening HIV Screening [facility] Start: 1973 Hepatitis B screening Urine Al bumin:Creatinine Ratio [facility] Start: 1973 Hepatitis C antibody , confirmatory test Dilated Retinal Exam [facility] Start: 1965 Covid-19 Vaccine (#1) Covid-19 Vacci ne (#1) [facility] Payers Date Payer Category Payer Medicare [id number] 2018 Self-pay 2018 Medicare [id number] 2015 Medicare MEDICARE MEDICAR E A AND B [id number] 2015-Present [phone] [address] [address] [place] [address] Medicare [id number] 1965 Unknown [id number] 1965 Unknown [id number] 1965 Unknown [id number] Unknown [id number] Social History Date Type Detail Facility Start: 06-14-1980 Tobacco smoking stat us WYIS Smokes tobacco daily [facility] Work Phone: Start: 06-14-1980 History of tobacco use Cigarette Smo ker [facility] Work Phone: Start: 06-14-2016 Cigarettes smoked current (pack per day) - Reported 1 [facility] Start: 06-14-2016 Tobacco use and exposure Smokeless tobacco non-user [facility] Work Phone: Start: 10-08-2016 Alcohol intake Current drinke r of alcohol (finding) [facility] Start: 06-14-2016 Alcohol Comment rare [facility] Start: 1965 Sex Assigned At Not on file [facility] Gender identity Not on file [facility] Start: 1965 Sex Assigned At Male [facility] Tobacco smoking stat NHIS Unknown if ever smoked [facility] Work Phone: Medical Equipment Procedure Code Equipment Code Equipment Origin al Text Equipment Identifier Dates Test blood sugar(s) 1 times daily. Dx: Type 2 DM - Controlled E11.9 Insulin: No Start: 07-28-2016 Comment on above: Test blood sugar(s) 1 times daily. Dx: Type 2 DM - Controlled E11.9 Insulin: No Radiology Diagnostic study note 03-01-2025 Note Date & Type Note Facility 03-01-2025 Radiology Diagnostic study note [facility] Imaging Services [address] [place], [place] [id number] Sinus/Facial Bone MR#: [id number] Acct: [id number] Name: YUDI MERA Rep #: [id number] : 1965 M 59 From: Pet lucia Bolanos DO PCP: JUAN Ibarra Status: REG CLI Study:Sinus/Facial Bone Date of Exam: Exam# [id number] Ordering Dr: Cash Magana PROCEDURE: SINUS/FACIAL BONE REASON FOR EXAM: CHRONIC SINUITIS TECHNIQUE: SINUS/FACIAL BONE Coronal and Sagittal reconstruction series were provided. One or more dose reduction techniques were used (e.g., Automated exposure control, adjustment of the mA and/or kV according to patient size, use of iterative reconstruction technique). COMPARISON: None. FINDINGS: Frontal: Clear Ethmoid: Mild mucosal thickening Sphenoid: Clear Maxillary: Clear Turbinates: Unremarkable. Nasal Septum: Predominantly midline Mastoids/Middle Ears: No significant mastoid effusions CT/Sinus/Facial Bone IMPRESSION: Sinusitis as detailed above Reading Location: [facility] CC: JUAN Null; JOSIAS Kim ~ Sweep Molder: Signed [facility] Progress note 06-02-2023 Note Date & Type Note Facility 06-02-2023 Note HNO ID: [id number] Author: Ana Maria Mello MA Service: ? Author Type: Mechanic/Welder Type: Progress Notes Filed: 06/02/2023 12:00 PM Note Text: POPULATION HEALTH NAVIGATION OUTREACH Action/FYI Letter prepared and placed in outgoing mail. Navigation Signature: Ana Maria Mello MA June 02, 2023 12:00 PM [facility] Clinical Note 06-02-2023 Note Date & Type Note Facility 06-02-2023 Note Patient Outreach (NE TNAV) YUDI MERA ([id number]) 1965 M Date Time Provider Department 06/02/23 ROSHNI GUAN NETNAV During your visit today, we recorded the [...] Encounter Status:Closed by ROSHNI GUAN on 06/02/23 [facility] History of Present illness Narrative 06-02-2023 Ana Maria Mello MA - 06/02/2023 12:00 PM EDTJohnRoshni Rondon MA - 06/02/2023 7:58 AM EDT Note [...] 2023 8:06 AM documented in this encounter [facility] Progress note 06-02-2023 Note Date & Type Note Facility 06-02-2023 Note HNO ID: [id number] Author: Roshni Guan MA Service: ? Author Type: Mechanic/Welder Type: Progress Notes Filed: 06/02/2023 11:22 AM [...] Shepard MA June 02, 2023 8:06 AM [facility] Progress note 04-10-2023 Note Date & Type Note Facility 04-10-2023 Note HNO ID: [id number] Author: Jamie Monique MA Service: ? Author Type: Mechanic/Welder Type: Progress Notes Filed: 04/10/2023 3:18 PM [...] Monique MA April 10, 2023 3:15 PM [facility] Clinical Note 04-10-2023 Note Date & Type Note Facility 04-10-2023 Note Patient Outreach (NE TNAV) YUDI MERA ([id number]) 1965 M Date Time Provider Department 04/10/23 [...] Encounter Status:Closed by JAMIE MONIQUE on 04/10/23 [facility] Evaluation note Note Date & Type Note Facility Evaluation note No assessment information availa ble [facility] Work Phone: Reason for referral (narrative) Note Date & Type Note Facility Reason for referral (narrative) No reason for referral information available [facility] Work Phone: Summary Purpose Family History No Family History Records FoundNo Family History Records FoundNo Family History Records FoundNo Family History Records Found Advance Directives No Advanced Directives Records FoundNo Advanced Directives Records FoundNo Advanced Directives Records FoundNo Advanced Directives Records Found Chief Complaint and Reason for Visit Chief Complaint Admit Date Other chronic sinusitis February 28, 2025 12:22pm Additional Source Comments (unrecognized sect ion and content) No Status Records FoundNo Status Records FoundNo Status Records FoundNo Status Records Found INFORMATION SOURCE (unrecogn ized section and content) DATE CREATED AUTHOR 05/20/2018 [facility] ([place]) DATE CREATED AUTHOR AUTHOR'S ORGANIZ ATION 12/11/[address] [facility] DATE CREATED AUTHOR AUTHOR'S ORGANIZ ATION 06/04/2023 [facility] DATE CREATED AUTHOR AUTHOR'S ORGANIZ ATION 03/09/2025 [facility] Source Comments (unrecognize d section and content) In the event this informatio n is protected by the Federal Confidentiality of Alcohol and Drug Abuse Patient Records regulations: The Federal rules restrict any use of the information to criminally investigate or prosecute any alcohol or drug abuse patient.[facility] Reason for Visit (unrecogniz ed section and content) Reason Onset Date Comments Population Health Navigation Outreach 06/02/2023 [employer] Care Teams (unrecognized sec tion and content) Traffic Assistant Relationship Specialty Start Date End Date Mandi Reynolds (Josias) [address] [place] [address] PCP - General Internal Medicine 02/14/23 Team Status: Active Member Role Status Dates Dr. Farhad Muñiz MD Family Provider Active JUAN Ibarra Primary Care Provider Active Team Status: Inactive Member Role Status Dates JUAN Ibarra Primary Care Provide r, Attending Provider, Referring Provider Active Team Status: Active Member Role Status Dates JUAN Ibarra Primary Care Provider Active Team Status: Inactive Member Role Status Dates JUAN Ibarra Primary Care Provider Active Start: February 28, 2025 End: February 28, 2025 JOSIAS Kim Attending Provider Active Star t: February 28, 2025 End: February 28, 2025 JOSIAS Kim Referring Provider Active Star t: February 28, 2025 End: February 28, 2025 Goals (unrecognized section and content) Goals may be documented in a n alternate sectionGoals may be documented in an alternate section FOR RECORDS PERTAINING TO PATIENTS [...] BE BASED ON THE PRIMARY CLINICAL RECORDS. [facility] [employer] [facility]. provides no warranty or guarantee of the accuracy or completeness of information in this document.
== END | disposition home or self-care (01) ==
LOC: LABSPEC 23:02
PROVIDERS: PCP Nurse Practitioner Family; Visit Provider Nurse Practitioner Family
DX: Z00.00 Encounter for general adult medical examination without abnormal findings (principal)

== ENCOUNTER 2025-06-06 09:47 | Emergency (ER) | payer MEDICARE, SELFPAY ==
[2025-06-06 09:47] VITALS: BP 116/93; PULSE 92; RESP 14; TEMP 36.6; O2SAT 98; BMI 32.7
--- NOTE | 2025-06-06 09:59 | EDS_ITS ---
HPI History of Present Illness Chief Complaint: GI Bleed [facility] Medical History (Updated 06/06/25 @ 10:42 by Barbara Crowell) PTSD (post-traumatic stress disorder) Impact seizure Bipolar 1 disorder Hypertension Hypercholesteremia Home Medications ?Medication ?Instructions ?Recorded ?Last Taken ?Type lamotrigine 150 mg tablet 150 mg PO BID 03/23/16 Unkno wn History metoprolol tartrate 50 mg tablet 50 mg PO BID 03/23/16 Unknown History ropinirole 0.25 mg tablet (Requip) 0.25 mg PO PRN Leg Cramps 03/23/16 Unknown History Allergy/AdvReac Type Severity Reaction Status Date / Time aspirin (ASA) Allergy Anaphylaxis Verified 06/06/25 09:48 mushroom Allergy Anaphylaxis Verified 06/06/25 09:48 oxytetracycline (From Allergy Anaphylaxis Verified 06/06/25 09:48 Terramycin) oxytetracycline HCl (From Allergy Anaphylaxis Verified 06/06/25 09:48 Terramycin) Penicillins (PCN) Allergy Anaphylaxis Verified 06/06/25 09:48 Surgical History (Updated 06/06/25 @ 10:42 by Barbara Crowell) History of nasal surgery Hx of right knee surgery Hx of CABG Social History Smoking Status: Former smoker EXAM Physical Exam Const Vital Signs: 06/06/25 09:47 06/06/25 11:58 06/06/25 13:00 Temperature 98 F Temperature Source Temporal Pulse Rate 92 80 78 Respiratory Rate 14 19 H 21 H Blood Pressure 116/93 H 155/90 H 146/98 H Blood Pressure Mean 100 111 114 Pulse Ox 98 97 97 Oxygen Delivery Method Room Air Room Air Room Air [facility] [place] Narrative Medical decision making narrative: HISTORY OF PRESENT ILLNESS: Chief complaint: Vomiting 59-year-old male history of peptic ulcer disease presents with concern for vomiting dark blood and abdominal pain. He notes his history of ulcers in the 80s. This began at approximately 1 AM on 06/06/2025. Denies chest pain or shortness of breath. Notes dark vomitus. Denies melena hematochezia. REVIEW OF SYSTEMS: Pertinent positives: Epigastric abdominal pain Pertinent negatives: As per HPI PHYSICAL EXAM: Nursing triage notes reviewed, Vital signs reviewed Constitutional: please see mdm HENT: MMM Eyes: Pupils equal round and reactive to light, Extraocular muscles intact Neck: No stridor, no JVD, full neck ROM Lungs: Clear to auscultation, No wheezing or rales. No increased work of breathing, no conversational dyspnea, no accessory muscle use, no nasal flaring. No respiratory distress noted Heart: Regular rate and rhythm, No murmurs, No rubs and No gallops, 2+ distal pulses (radial, femoral, posterior tibial) in all extremities Abdomen: Soft, there is no tenderness, rigidity, rebound or guarding, no obvious peritoneal signs, no palpable pulsatile abdominal masses, no auscultated abdominal bruit : No CVAT Extremities: No edema Neuro: No new focal neurological deficits, cranial nerves II through XII intact, 5/5 strength in all present extremities. Intact sensation to light touch in all present extremities, 2+ reflexes bilateral patella tendons. Skin: No rash or lesions noted MEDICAL DECISION MAKING: Chief Complaint: please see HPI External records reviewed: Reviewed prior imaging Factors affecting care: none Social determinants of health: none History obtained from others: none Consults: none [facility] Narrative: Patient was initially hemodynamically stable, afebrile and nontoxic-appearing. Exam with a benign abdomen. No obvious peritoneal signs no significant tenderness to palpation. I considered the following differential diagnosis: AAA, small bowel obstruction, abdominal perforation, appendicitis, pancreatitis, hepatobiliary pathology (acute cholecystitis), mesenteric ischemia, pathology (ie nephrolithiasis, pyelonephritis). I obtained a broad lab and imaging workup to further determine if the patient was suffering from a life-threatening etiology. Initially assisted patient 1 L normal saline, gave 4 mg IV Zofran and 4 mg IV morphine for initial symptom control ALL IMAGES (IF OBTAINED) HAVE BEEN PERSONALLY REVIEWED AND INTERPRETED BY MYSELF. CBC shows no leukocytosis, anemia but no thrombocytopenia CMP without significant electrolyte maladies, no sign of endorgan hypoperfusion or metabolic acidosis with normal anion gap and bicarb respectively, no signs of LFT abnormalities Lipase is wnl indicating no pancreatic inflammation. CT scan abdomen pelvis shows no evidence of obvious perforation Suspect the patient is suffering from gastritis versus GERD. On reevaluation he was able to tolerate p.o. Is appropriate discharge home with close GI follow- up. Prescribe Zofran and PPI. The patient and/or family, caregivers express understanding. The patient and/or family, caregivers agrees with the plan. Shared decision making: I will have a discussion with the patient and or visitors regarding risk/benefits of further testing or admission. They will be made aware of of the risk/benefits inherent in this decision they will be given the opportunity to voice understanding. Total critical care time today provided was at least 0 minutes. This excludes separately billable procedures. Critical care time (if documented) is secondary to the patient having high probability of clinically significant/life threatening deterioration in the patient's condition which required my urgent intervention. Impression: 1. Acute abdominal pain 2. Nausea and vomiting 3. Dispo: Discharge home This note was generated with [employer] dictation software. It may contain incorrect words, spelling, and punctuation that were not noted in review of the chart prior to signing. Lab Data Labs: Laboratory Results - last 24 hr 06/06/25 10:15 WBC 7.8 RBC 4.40 L Hgb 12.4 L Hct 36.5 L MCV 83.0 MCH 28.2 MCHC 34.0 RDW Std Deviation 41.6 RDW Coeff of Ama 13.7 Plt Count 285 MPV 9.8 Immature Gran % (Auto) 0.400 Neut % (Auto) 69.6 Lymph % (Auto) 18.7 L [place] % (Auto) 7.6 Eos % (Auto) 3.1 Baso % (Auto) 0.6 Absolute Neuts (auto) 5.4 Absolute Lymphs (auto) 1.45 Nucleated RBC % 0 Sodium 138 Potassium 3.7 Chloride 98 Carbon Dioxide 25.8 Anion Gap 14 BUN 17 Creatinine 1.22 H Estim Creat Clear Calc 67.52 Est GFR (MDRD) Non-Af 67 BUN/Creatinine Ratio 13.6 Glucose 234 H Calcium 8.8 Total Bilirubin 0.50 AST 25 ALT 9 Alkaline Phosphatase 135 H Total Protein 6.9 Albumin 4.1 Globulin 2.9 Albumin/Globulin Ratio 1.4 Lipase 23 Radiography Diagnostic Testing: Clinical Impression(s) from Imaging Studies Abdomen/Pelvis CT 06/06/25 10:55 IMPRESSION: Small left renal cyst. Scattered sigmoid diverticula. Reading Location: [facility] Discharge Plan Triage Chief Complaint: GI Bleed ED Provider: Rudy Martinez Dx/Rx/DC Orders Prescriptions: No Action lamotrigine 150 MG tablet 150 mg PO BID ropinirole [Requip] 0.25 MG tablet 0.25 mg PO PRN (Reason: Leg Cramps) metoprolol tartrate 50 MG tablet 50 mg PO BID Primary Care Provider: Guadalupe Quezada Referrals: Guadalupe Quezada, INFORMATION TECHNOLOGY TECHNICIAN-C [Primary Care Provider, Family Practice] Print Language: Haitian
[2025-06-06 10:27] LABS: Hematocrit 36.5 % (40-54); Hemoglobin 12.4 g/dL (13.0-16.5); Immature Granulocytes Count 0.030 X10^3/uL (0.0-0.0); Mean Corp Hgb Conc 34.0 g/dL (32-36); Mean Corpuscular Volume 83.0 fL (80-94); Mean Platelet Vol. 9.8 fl (6.2-12.0); NRBC Flagged by Analyzer 0 % (0-5); Platelet Count 285 K/mm3 (150-450); RBC Distribution Width CV 13.7 % (11.6-14.6); RBC Distribution Width SD 41.6 fl (35.1-43.9); Red Blood Count 4.40 M/mm3 (4.6-6.2); White Blood Count 7.8 K/mm3 (4.4-11.0)
[2025-06-06] MEDS: 0.9% Normal Saline (1000mL) 1,000 ML 999 ML IV (10:37)
--- NOTE | 2025-06-06 10:55 | CT_ITS ---
PROCEDURE: ABDOMEN/PELVIS W IV CONT ONLY 06/06/2025 REASON FOR EXAM: EPIGASTRIC ABDOMINAL PAIN, RULE OUT ORGAN PERF TECHNIQUE: Procedure Code: CTABDPELIV Modality: CT Procedure: ABDOMEN/PELVIS W IV CONT ONLY Coronal and Sagittal reconstruction series were provided. CONTRAST: Isovue 3 Fernandez VOLUME: 100 mL One or more dose reduction techniques were used (e.g., Automated exposure control, adjustment of the mA and/or kV according to patient size, use of iterative reconstruction technique. RADIATION DOSE SUMMARY: CTDlvol: 15.5 mGy DLP: 1254.16 mGycm COMPARISON: None FINDINGS: Lung bases: Calcified right hilar lymph nodes. Coronary artery calcification. The lung bases are clear. Liver: Normal size. No mass. Gallbladder: Unremarkable Spleen: Normal size. Pancreas: Normal size without evidence of mass surrounding inflammation or ductal dilation. Adrenals: Unremarkable Kidneys: 3 cm cyst in the medial aspect of the left kidney. Bladder: Unremarkable Bowel: Colonic diverticulosis without diverticulitis. Appendix: The appendix is not identified. There is no inflammatory process identified in the right lower quadrant to suggest appendicitis. Lymph nodes: Unremarkable. Vasculature: Mild diffuse atherosclerotic calcifications are noted. Peritoneum / Retroperitoneum: Unremarkable Bones: Mild degenerative changes. Loss of the normal lumbar lordosis. CT/Abdomen/Pelvis W IV Cont ONLY IMPRESSION: Small left renal cyst. Scattered sigmoid diverticula. Reading Location: [place] [id number]
[2025-06-06 11:09] LABS: AST(SGOT) 25 U/L (<=37); Alanine Aminotransfer ALT/SGPT 9 U/L (<=46); Albumin, Serum 4.1 g/dL (3.4-4.8); Alkaline Phosphatase 135 U/L (40-129); Anion Gap 14 (5-15); BUN 17 mg/dL (4-19); BUN/Creat Ratio 13.6 RATIO (10-20); Calcium,Total 8.8 mg/dL (7.6-11.0); Carbon Dioxide 25.8 mmol/L (21.0-32.0); Chloride 98 mmol/L (98-108); Estimated Creatinine Clearance 67.52 ml/min (50-250); Globulin 2.9 g/dL (2.2-4.2); Glucose 234 mg/dL (70-99); Lipase 23 U/L (13-75); Potassium 3.7 mmol/L (3.3-5.1)
[2025-06-06 11:58] VITALS: BP 155/90; PULSE 80; RESP 19; O2SAT 97
[2025-06-06 13:00] VITALS: BP 146/98; PULSE 78; RESP 21; O2SAT 97
[2025-06-06 13:20] VITALS: BP 106/20; PULSE 77; RESP 19; TEMP 37; O2SAT 96
== END 2025-06-06 13:37 | disposition home or self-care (01) ==
PROVIDERS: Emergency Provider Emergency Medicine; PCP Nurse Practitioner Family; Visit Provider Emergency Medicine
DX: R10.9 Unspecified abdominal pain (principal); Z87.891 Personal history of nicotine dependence; R11.2 Nausea with vomiting, unspecified; Z95.1 Presence of aortocoronary bypass graft; K57.30 Diverticulosis of large intestine without perforation or abscess without bleeding; N28.1 Cyst of kidney, acquired; Z87.11 Personal history of peptic ulcer disease; K92.0 Hematemesis
CPT/HCPCS: 74177; 80053; 83690; 85025; 96361; 96374; 96375; 99284; Q9967; A4216; J2405

== ENCOUNTER 2025-09-01 07:26 | Emergency (ER) | payer MEDICARE, SELFPAY ==
[2025-09-01 07:26] VITALS: BP 156/106; PULSE 90; RESP 18; TEMP 36.5; O2SAT 100; BMI 32.6
--- NOTE | 2025-09-01 07:34 | CT_ITS ---
PROCEDURE: ABDOMEN/PELVIS W IV CONT ONLY 09/01/2025 REASON FOR EXAM: ABDOMINAL PAIN, VOMITTING TECHNIQUE: Procedure Code: CTABDPELIV Modality: CT Procedure: ABDOMEN/PELVIS W IV CONT ONLY Coronal and Sagittal reconstruction series were generated. CONTRAST: Isovue 370 VOLUME: 98 mL One or more dose reduction techniques were used (e.g., Automated exposure control, adjustment of the mA and/or kV according to patient size, use of iterative reconstruction technique. RADIATION DOSE SUMMARY: CTDlvol: 9.97+ 21.28 mGy DLP: 1182.90 mGycm COMPARISON: 06/06/2025 FINDINGS: Lung bases: Coronary atherosclerosis and/or stents post sternotomy with retained presumed epicardial pacing leads. Minimal atelectasis/scarring. Fluid within the distal esophagus suggesting gastroesophageal reflux and/or dysmotility. Liver: Unremarkable. Spleen: 14.1 cm coronal. Granulomas. Gallbladder: Unremarkable. Pancreas: Single punctate calcification within the uncinate process may reflect trace chronic pancreatitis. Adrenals: Unremarkable. Kidneys: Indeterminate mildly hyperdense 3.0 cm LEFT renal lesion. Additional punctate hypodensities too small to characterize, presumed cysts. Bowel: Couple of descending colonic and proximal sigmoid diverticuli. Borderline minimal long segment colonic wall thickening extending from the distal transverse through proximal sigmoid may be related to underdistention. Normal caliber appendix. Lymph nodes: Unremarkable. Vasculature: Atherosclerosis. Peritoneum: Unremarkable. Bladder: Mild wall thickening possibly exaggerated by underdistention. Reproductive Organs: Mild prostatomegaly. Body Wall: Unremarkable. Bones: Mild degenerative findings. CT/Abdomen/Pelvis W IV Cont ONLY IMPRESSION: 1. Borderline evidence of minimal LEFT colitis although the appearance may also be related to underdistention. Correlate with presentation. 2. Appearance of the bladder suggesting mild cystitis and/or chronic bladder ou tlet obstruction given prostatomegaly and similarity to prior. Correlate with presentation and urinalysis. 3. Mild splenomegaly. 4. Additional description as above. Reading Location: [facility]
--- NOTE | 2025-09-01 07:35 | EKG12_ITS ---
Test Reason : NAUSEA Blood Pressure : */* mmHG Vent. Rate : 83 BPM Atrial Rate : 83 BPM P-R Int : 192 ms QRS Dur : 96 ms QT Int : 372 ms P-R-T Axes : 52 9 92 degrees QTcB Int : 437 ms Normal sinus rhythm Nonspecific ST and T wave abnormality Abnormal ECG Confirmed by ROSHAN WOODS, RINA ([id number]), fashion editor REGINA BURNHAM ([id number]) on 09/02/2025 1:18:56 PM Referred By: Confirmed By: RINA ISLAS MD
--- NOTE | 2025-09-01 07:36 | EDS_ITS ---
HPI History of Present Illness Chief Complaint: Nausea/Vomiting Detail of Chief Complaint: Vomiting and abdominal pain Informant: patient Narrative Narrative: Patient presents to the emergency department complaint of vomiting abdominal pain started this morning. He has vomited twice. Last bowel movement was last evening and was formed. He had no diarrhea. Describes some chills. Denies fever. Denies urinary symptoms. Denies chest pain or shortness of breath. Denies recent travel. Denies recent antibiotic usage. Patient presents via EMS for evaluation. No prior abdominal surgeries. History of 5 vessel CABG in 2018. [facility] Medical History (Updated 09/01/25 @ 10:[address] Jac Canela, DO) PTSD (post-traumatic stress disorder) Impact seizure Bipolar 1 disorder Hypertension Hypercholesteremia Home Medications ?Medication ?Instructions ?Recorded ?Last Taken ?Type lamotrigine 150 mg tablet 150 mg PO BID 03/23/16 Unkno wn History metoprolol tartrate 50 mg tablet 50 mg PO BID 03/23/16 Unknown History ropinirole 0.25 mg tablet (Requip) 0.25 mg PO PRN Leg Cramps 03/23/16 Unknown History ondansetron 4 mg disintegrating 4 mg PO Q8H PRN PRN Na usea #10 tabs 06/06/25 Unknown Rx tablet pantoprazole 20 mg tablet,delayed 20 mg PO DAILY 30 da ys #30 tabs 06/06/25 Unkno wn Rx release (Protonix) ondansetron 4 mg disintegrating 4 mg PO Q8H PRN PRN Na usea #10 tabs 09/01/25 Unknown Rx tablet Allergy/AdvReac Type Severity Reaction Status Date / Time aspirin (ASA) Allergy Anaphylaxis Verified 09/01/25 07:28 mushroom Allergy Anaphylaxis Verified 09/01/25 07:28 oxytetracycline (From Allergy Anaphylaxis Verified 09/01/25 07:28 Terramycin) oxytetracycline HCl (From Allergy Anaphylaxis Verified 09/01/25 07:28 Terramycin) Penicillins (PCN) Allergy Anaphylaxis Verified 09/01/25 07:28 Surgical History History of nasal surgery Hx of right knee surgery Hx of CABG Social History Smoking Status: Former smoker ROS ROS ED Review of Systems ROS Unobtainable: other Constitutional Constitutional ED: Reports lethargy; Denies chills, fever(s), sweats or weight loss Eyes Eyes: Denies blurry vision, change in vision or diplopia ENT ENT ED: Denies rhinorrhea or sore throat Cardiovascular Cardiovascular: Denies chest pain, orthopnea or racing heartbeat Respiratory/Chest Respiratory/Chest: Denies cough, dyspnea, dyspnea on exertion, orthopnea or sputum Gastrointestinal Gastrointestinal: Reports abdominal pain, nausea and vomiting; Denies diarrhea Genitourinary Genitourinary ED: Denies dysuria, hematuria or urinary frequency Musculoskeletal Musculoskeletal: Denies arthralgias, back pain, myalgias or neck pain Integumentary Denies abscess, Abrasions or rash Neurologic Neurologic: Denies headache(s) or weakness Psychiatric Psychiatric: Denies anxiety, depression or suicidal thoughts Endocrine Endocrinology: Denies polydipsia, polyphagia or polyuria Hematologic/Lymphatic Hematologic/Lymphatic: Denies easy bleeding, easy bruising or lymphadenopathy Allergic/Immunologic Allergic/Immunologic ED: Denies mouth swelling, tongue swelling or urticaria EXAM Physical Exam Const Vital Signs: 09/01/25 07:26 09/01/25 09:26 Temperature 97.7 F L 97.9 F Temperature Source Oral Oral Pulse Rate 90 78 Respiratory Rate 18 18 Blood Pressure 156/106 H 152/78 H Blood Pressure Mean 122 102 Pulse Ox 100 98 Oxygen Delivery Method Room Air Room Air Positive well nourished and well developed General Appearance ED: well developed and NAD HEENT Reports TM's clear and moist mucous membranes normocephalic and atraumatic; Negative for trauma or tenderness Tympanic Membrane ED: Yes TM's clear Eyes PERRL and EOMs intact bilaterally General Eye ED: Negative for pale conjunctiva or scleral icterus Neck no lymphadenopathy, supple and no JVD General: Negative for tenderness Chest Wall inspection of chest normal and palpation of chest normal Chest: Negative for tenderness Resp normal respiratory effort and clear to auscultation bilaterally Effort and Inspection: Negative for respiratory distress or pain with movement Auscultation: Negative for rhonchi, wheezes or diminished lung sounds Cardio regular rate, regular rhythm, S1 normal heart sound, S2 normal heart sound and no murmurs Peripheral Pulses: pulses 2+ throughout GI normal to inspection, nondistended, normoactive bowel sounds, soft to palpation, non-distended and no masses GI Narrative: Mild diffuse tenderness but seems to localize more to the left lower quadrant with some guarding. There is no rebound, rigidity, or peritoneal signs. No mass palpated. Back/Spine no CVA tenderness and no thoracic nor lumbar tenderness Extremity normal to inspection General Extremety ED: Negative for edema General Extremity: Negative for edema Neuro oriented x3, CN's II-XII intact bilaterally, no sensory deficits noted and gait normal Sensorium / Orientation: awake, alert, oriented to person, oriented to place and oriented to time Motor Exam: strength 5/5 throughout and strength abnormal Psych mental status grossly normal Skin no rashes or lesions noted and no wounds MDM MDM MDM Narrative Medical decision making narrative: Patient presents with vomiting that started this morning. Describes a mild abdominal discomfort. He has history of intermittent abdominal cramping. Clinically he looks well. IV line established on arrival. EKG obtained shows sinus rhythm with rate of [address] changes. CBC with differential shows a white count of 6.8 with hemoglobin 12 and platelet count of 227. Chemistries unremarkable. BUN 16 and creatinine 1.32. Lactate obtained and was slightly elevated 2.7. CT scan of the abdomen pelvis obtained read by radiology as borderline evidence for left colitis although appearance may be a related to incomplete distention. Patient also noted to have enlarged prostate which is chronic. Urinalysis obtained was negative for infection. While in the department he received normal saline and Zofran. He had no further vomiting. He was able to tolerate p.o.'s. Clinically he looks well. His abdominal exam is benign. Very low suspicion for ischemic colitis. Will discharge patient home with prescription for Zofran. Referred to primary care physician for follow-up. Also advised him about his enlarged prostate and he will follow-up with his primary care physician for this. Lab Data Attestation: I reviewed the patient's lab results. Labs: Laboratory Results - last 24 hr 09/01/25 09/01/25 07:36 09:30 WBC 6.8 RBC 4.42 L Hgb 12.0 L Hct 35.3 L MCV 79.9 L MCH 27.1 MCHC 34.0 RDW Std Deviation 39.4 RDW Coeff of Aam 13.7 Plt Count 227 MPV 10.1 Immature Gran % (Auto) 0.300 Neut % (Auto) 58.6 Lymph % (Auto) 26.7 [place] % (Auto) 9.0 Eos % (Auto) 4.7 Baso % (Auto) 0.7 Absolute Neuts (auto) 4.0 Absolute Lymphs (auto) 1.80 Nucleated RBC % 0 Sodium 136 Potassium 3.7 Chloride 100 Carbon Dioxide 25.8 Anion Gap 11 BUN 16 Creatinine 1.32 H Estim Creat Clear Calc 61.55 Est GFR (MDRD) Non-Af 61 BUN/Creatinine Ratio 12.2 Glucose 221 H Lactic Acid 2.7 H* Calcium 9.1 Total Bilirubin 0.25 AST 27 ALT 10 Alkaline Phosphatase 94 Total Protein 6.7 Albumin 4.1 Globulin 2.6 Albumin/Globulin Ratio 1.6 Lipase 28 Urine Color Yellow Urine Clarity Clear Urine pH 6.0 Ur Specific [place] 1.010 Urine Protein 30 H Urine Glucose (UA) Normal Urine Ketones Negative Urine Occult Blood Negative Urine Nitrite Negative Urine Bilirubin Negative Urine Urobilinogen Normal Ur Leukocyte Esterase Negative Urine RBC 0 SEEN Urine WBC 0 SEEN Ur Squamous Epith Cells 0 SEEN Urine Bacteria 0 SEEN Urine Mucus 0 SEEN Radiography Diagnostic Testing: Clinical Impression(s) from Imaging Studies Abdomen/Pelvis CT 09/01/25 07:34 IMPRESSION: 1. Borderline evidence of minimal LEFT colitis although the appearance may also be related to underdistention. Correlate with presentation. 2. Appearance of the bladder suggesting mild cystitis and/or chronic bladder outlet obstruction given prostatomegaly and similarity to prior. Correlate with presentation and urinalysis. 3. Mild splenomegaly. 4. Additional description as above. Reading Location: [facility] EKG Initial EKG: Attestation: I personally reviewed and interpreted this EKG as follows: Comments: Sinus rhythm with rate of [address] changes Discharge Plan Triage Chief Complaint: Nausea/Vomiting ED Provider: Jac Canela Dx/Rx/DC Orders Clinical Impression: Vomiting, Abdominal pain Instructions: ED Gastroenteritis, Viral (Adult) Prescriptions: New ondansetron 4 mg tablet,disintegrating 4 mg PO Q8H PRN PRN (Reason: Nausea) Qty: 10 0RF No Action lamotrigine 150 MG tablet 150 mg PO BID ropinirole [Requip] 0.25 MG tablet 0.25 mg PO PRN (Reason: Leg Cramps) metoprolol tartrate 50 MG tablet 50 mg PO BID pantoprazole [Protonix] 20 mg tablet,delayed release (DR/EC) 20 mg PO DAILY 30 Days Qty: 30 0RF ondansetron 4 mg tablet,disintegrating 4 mg PO Q8H PRN PRN (Reason: Nausea) Qty: 10 0RF Primary Care Provider: Guadalupe Quezada Referrals: Guadalupe Quezada, BOX PRINTING MACHINE OPERATOR-C [Primary Care Provider, Family Practice] - 3-5 Days Print Language: Latvian Disposition Disposition: Home, Self Care
[2025-09-01] MEDS: 0.9% Normal Saline (1000mL) 1,000 ML 125 ML IV (07:48)
[2025-09-01 07:55] LABS: Hematocrit 35.3 % (40-54); Hemoglobin 12.0 g/dL (13.0-16.5); Immature Granulocytes Count 0.020 X10^3/uL (0.0-0.0); Mean Corp Hgb Conc 34.0 g/dL (32-36); Mean Corpuscular Volume 79.9 fL (80-94); Mean Platelet Vol. 10.1 fl (6.2-12.0); NRBC Flagged by Analyzer 0 % (0-5); Platelet Count 227 K/mm3 (150-450); RBC Distribution Width CV 13.7 % (11.6-14.6); RBC Distribution Width SD 39.4 fl (35.1-43.9); Red Blood Count 4.42 M/mm3 (4.6-6.2); White Blood Count 6.8 K/mm3 (4.4-11.0)
[2025-09-01 08:18] LABS: AST(SGOT) 27 U/L (<=37); Alanine Aminotransfer ALT/SGPT 10 U/L (<=46); Albumin, Serum 4.1 g/dL (3.4-4.8); Alkaline Phosphatase 94 U/L (40-129); Anion Gap 11 (5-15); BUN 16 mg/dL (4-19); BUN/Creat Ratio 12.2 RATIO (10-20); Calcium,Total 9.1 mg/dL (7.6-11.0); Carbon Dioxide 25.8 mmol/L (21.0-32.0); Chloride 100 mmol/L (98-108); Estimated Creatinine Clearance 61.55 ml/min (50-250); Globulin 2.6 g/dL (2.2-4.2); Glucose 221 mg/dL (70-99); Lipase 28 U/L (13-75); Potassium 3.7 mmol/L (3.3-5.1)
[2025-09-01 09:26] VITALS: BP 152/78; PULSE 78; RESP 18; TEMP 36.6; O2SAT 98
[2025-09-01 09:31] LABS: Mucous, Urine 0 SEEN /hpf (<or=2+); Red Blood Cells-Urine 0 SEEN /hpf (0-5); Squamous Epithelial Cells - UA 0 SEEN /hpf (0-5)
[2025-09-01 09:36] LABS: Color, Urine Yellow (Yellow); Glucose, Dipstick Normal (Normal); Ketone-Dipstick Negative (Negative); Leukocyte Esterase-Dipstick Negative /ul (Negative); Nitrite-Dipstick Negative (Negative); Occult Blood-Urine Negative /ul (Negative); Protein-Dipstick 30 mg/dl (Negative); Specific Gravity, Urine 1.010 (1.002-1.030); Urine Bilirubin Dipstick Negative (Negative)
[2025-09-01 11:47] LABS: Reflex Lactate? Y
== END 2025-09-01 10:56 | disposition home or self-care (01) ==
PROVIDERS: Emergency Provider Emergency Medicine; PCP Nurse Practitioner Family; Visit Provider Emergency Medicine
DX: R11.2 Nausea with vomiting, unspecified (principal); K52.9 Noninfective gastroenteritis and colitis, unspecified; I10 Essential (primary) hypertension; Z87.891 Personal history of nicotine dependence; E78.00 Pure hypercholesterolemia, unspecified; N40.0 Benign prostatic hyperplasia without lower urinary tract symptoms; R10.9 Unspecified abdominal pain
CPT/HCPCS: 74177; 80053; 81001; 83605; 83690; 85025; 93005; 99285; Q9967; A4216; J2405